=== PATIENT | male | born 1955 | race African-American/Black ===

== ENCOUNTER 2016-12-01 08:05 | Inpatient (IN) | payer MEDICARE, MEDICAID ==
[~2016-12-01] VITALS: Ht 182.9 cm; Wt 93.0 kg
[2016-12-01 08:07] VITALS: BP 121/84
[2016-12-01] MEDS ORDERED: Thiamine HCl 100 MG in D5W 55 ML IVPB ONE (08:15)
[2016-12-01] MEDS ORDERED: Thiamine HCl 100mg/ml 2 ml Inj ONE (08:17)
--- NOTE | 2016-12-01 08:24 | Emergency Room Report ---
History of Present Illness General Chief Complaint: Generalized Weakness Source: Patient Present Illness HPI 61-year-old male, history of alcohol abuse for many years, also history of hypertension, poor historian, homeless, presenting with generalized weakness, tremors, abdominal pain. Patient states he normally drinks every single day, his last drink was yesterday afternoon. Patient states that he has palpitations and tremors. Denies history of seizures. Also stating that he has abdominal pain for" a long time" pointing everywhere on abdomen, constant, associated with nausea vomiting and diarrhea for unclear amount of time. Denies any abdominal surgeries Allergies: Coded Allergies: No Known Allergies (Unverified , 12/01/16) Patient History Past Medical History: see triage record Past Surgical History: none Pertinent Family History: none Reviewed Nursing Documentation: PMH: Agreed, PSxH: Agreed Nursing Documentation-PMH Hx Cardiac Problems: No - SUBSTANCE ABUSE Hx Hypertension: Yes Review of Systems All Other Systems: negative except mentioned in HPI Physical Exam Vital Signs Date Time Temp Pulse Resp B/P (MAP) Pulse Ox O2 Delivery O2 Flow Rate FiO2 12/01/16 07:51 98.1 118 16 156/108 98 Room Air Sp02 EP Interpretation: reviewed, normal General Appearance: alert, non-toxic, other - Disheveled middle aged male, awake and alert, oriented x3, does not appear intoxicated, tremulous Head: normocephalic, atraumatic Eyes: bilateral eye normal inspection, bilateral eye PERRL, bilateral eye EOMI ENT: normal ENT inspection, normal pharynx, normal voice, moist mucus membranes Neck: normal inspection, full range of motion, supple Respiratory: normal inspection, lungs clear, normal breath sounds, no respiratory distress, no retraction, no wheezing, speaking full sentences, chest symmetrical Cardiovascular #1: normal inspection, no edema, normal capillary refill, tachycardia Cardiovascular #2: 2+ radial (R), 2+ radial (L) Gastrointestinal: soft, other - Slightly distended abdomen, and generalized tenderness, no guarding or rebound Genitourinary: no CVA tenderness Musculoskeletal: normal inspection, back normal, normal range of motion, non- tender Neurologic: normal inspection, alert, oriented x3, responsive, motor strength/ tone normal, sensory intact, normal gait, speech normal Psychiatric: normal inspection, other - Poor historian Skin: normal inspection, normal color, warm/dry, well hydrated, normal turgor, other - Chronic flaky rash on arms and legs Procedures Critical Care Time Critical Care Time 40 minutes of CC time 61YO M with alc withdrawal VS: Tachycardic Airway patent. Not hypoxic. PLAN: IV access, labs, IV fluids, CT abdomen pelvis, Valium, Librium Anticipate admissionto Tele CC time also includes review of labs, supplementation of electrolytes, control of alcohol withdrawal with benzos, d/w hospitalist CC could include dosing of pressors, additional Abx CC time does not include procedures Medical Decision Making Diagnostic Impression: Primary Impression: Hypokalemia Additional Impressions: Alcohol withdrawal Abdominal pain Colitis ER Course 61 yo M. with alcohol withdrawal, abdominal pain DDX: Alcohol Withdrawal Dehydration, electrolyte disturbance Abdominal pain rule out pancreatitis versus appendicitis versus diverticulitis versus SBO versus gastroenteritis Plan: Obtain labs, ua, EKG, CT abdomen pelvis Valium, fluids, thiamine ER course: Patient has been monitored during ED stay received valium/librium potassium supplementation CT abdo pelvis - ?colitis, 13mm pancreatic cyst Disposition: Patient is to be admitted to tele for hypokalemia/alc withdrawal D/W hospitalist Dr Jones who has accepted pt Please note that this Emergency Department Report was dictated using [employer] fishing vessel technology software, occasionally this can lead to erroneous entry secondary to interpretation by the dictation equipment. Laboratory Tests Test 12/01/16 08:10 12/01/16 08:20 12/01/16 08:45 Urine Opiates Screen Negative (NEGATIVE) Urine Barbiturates Screen Negative (NEGATIVE) Phencyclidine (PCP) Screen Negative (NEGATIVE) Urine Amphetamines Screen Negative (NEGATIVE) Urine Benzodiazepines Screen Negative (NEGATIVE) Urine Cocaine Screen Negative (NEGATIVE) Urine Marijuana (THC) Screen Negative (NEGATIVE) Urine Color Brown Urine Appearance Clear Urine pH 6.5 (4.5-8.0) Urine Specific [place] 1.015 (1.005-1.035) Urine Protein 2+ (NEGATIVE) H Urine Glucose (UA) Negative (NEGATIVE) Urine Ketones 1+ (NEGATIVE) H Urine Occult Blood 1+ (NEGATIVE) H Urine Nitrite Negative (NEGATIVE) Urine Bilirubin 2+ (NEGATIVE) H Urine Ictotest Positive Urine Urobilinogen 12 MG/DL (0.0-1.0) H Urine Leukocyte Esterase 2+ (NEGATIVE) H Urine RBC 2-4 /HPF (0 - 0) H Urine WBC 2-4 /HPF (0 - 0) Urine Squamous Epithelial Cells Occasional /LPF Urine Bacteria Few /HPF (NONE) Urine Granular Casts 2-4 /LPF (NONE) H White Blood Count 4.1 K/UL (4.8-10.8) L Red Blood Count 3.55 M/UL (4.70-6.10) L Hemoglobin 12.5 G/DL (14.2-18.0) L Hematocrit 35.6 % (42.0-52.0) L Mean Corpuscular Volume 101 FL (80-99) H Mean Corpuscular Hemoglobin 35.1 PG (27.0-31.0) H Mean Corpuscular Hemoglobin Concent 35.0 G/DL (32.0-36.0) Red Cell Distribution Width 12.8 % (11.6-14.8) Platelet Count 108 K/UL (150-450) L Mean Platelet Volume 6.6 FL (6.5-10.1) Neutrophils (%) (Auto) 64.4 % (45.0-75.0) Lymphocytes (%) (Auto) 20.2 % (20.0-45.0) Monocytes (%) (Auto) 13.4 % (1.0-10.0) H Eosinophils (%) (Auto) 0.0 % (0.0-3.0) Basophils (%) (Auto) 2.0 % (0.0-2.0) Sodium Level 131 mEQ/L (135-145) L Potassium Level 2.2 mEQ/L (3.4-4.9) *L Chloride Level 74 mEQ/L (98-107) L Carbon Dioxide Level 38 mEQ/L (20-30) H Anion Gap 19 (5-15) H Blood Urea Nitrogen 9 mg/dL (7-23) Creatinine 0.9 mg/dL (0.7-1.2) Estimate Glomerular Filtration Rate > 60 mL/min (>60) Glucose Level 128 mg/dL (74-106) H Calcium Level 8.4 mg/dL (8.6-10.2) L Total Bilirubin 4.3 mg/dL (0.0-1.2) H Direct Bilirubin 2.0 mg/dL (0.1-0.3) H Aspartate Amino Transferase (AST) 360 U/L (5-40) H Alanine Aminotransferase (ALT) 83 U/L (3-41) H Alkaline Phosphatase 169 U/L (40-129) H Total Protein 8.2 g/dL (6.6-8.7) Albumin 3.9 g/dL (3.5-5.2) Globulin 4.3 g/dL Albumin/Globulin Ratio 0.9 (1.0-2.7) L Lipase 27 U/L (< 60) Serum Alcohol < 10 mg/dL EKG Diagnostic Results Rate: tachycardiac Rhythm: NSR ST Segments: no acute changes ASA given to the pt in ED: No Rhythm Strip Diag. Results EP Interpretation: yes Rate: 120 Rhythm: NSR CT/MRI/US Diagnostic Results CT/MRI/US Diagnostic Results : Imaging Test Ordered: CT abdomen pelvis Impression Impression Mild to moderate distention of a descending and transverse colon, without evidence of obstructive lesion. Colitis is also a possibility Enlarged fatty liver consistent with cirrhosis. Evidence of portal hypertension with gastric and esophageal varices, and a small amount of ascitic fluid 13 mm cystic lesion on pancreas Electronically signed by Kostas Ramos MD Last Vital Signs Date Time Temp Pulse Resp B/P (MAP) Pulse Ox O2 Delivery O2 Flow Rate FiO2 12/01/16 07:51 98.1 118 16 156/108 98 Room Air Disposition: ADMITTED INPATIENT Condition: Serious Kostas Ramos M.D. Dec 01, 2016 08:24
[2016-12-01 08:37] LABS: APPEARANCE,URINE CLEAR; KETONES,URINE 1+ (NEGATIVE); LEUKOCYTE ESTERASE ,URINE 2+ (NEGATIVE); NITRITE,URINE NEGATIVE (NEGATIVE); PH,URINE 6.5 (4.5-8.0); PROTEIN,URINE 2+ (NEGATIVE); UROBILINOGEN,URINE 12 MG/DL (0.0-1.0)
[2016-12-01 08:44] LABS: BACTERIA,URINE FEW /HPF; ICTOTEST POSITIVE; SQUAMOUS EPITHELIAL CELL,UR OCCASIONAL /LPF (NONE/OCC)
[2016-12-01 09:01] LABS: LYMPHOCYTES % (AUTO) 20.2 % (20.0-45.0); MEAN CORPUSCULAR HEMOGLOBIN 35.1 PG (27.0-31.0); MEAN CORPUSCULAR VOLUME 101 FL (80-99); MEAN PLATELET VOLUME 6.6 FL (6.5-10.1); MONOCYTES % (AUTO) 13.4 % (1.0-10.0); NEUTROPHILS % (AUTO) 64.4 % (45.0-75.0); PLATELET COUNT 108 K/UL (150-450); RED BLOOD COUNT 3.55 M/UL (4.70-6.10); RED CELL DISTRIBUTION WIDTH 12.8 % (11.6-14.8); WHITE BLOOD COUNT 4.1 K/UL (4.8-10.8)
[2016-12-01 09:14] LABS: ALANINE AMINOTRANSFERASE 83 U/L (3-41); ALBUMIN/GLOBULIN RATIO 0.9 (1.0-2.7); ALCOHOL < 10 mg/dL; ANION GAP 19 (5-15); ASPARTATE AMINO TRANSFERASE 360 U/L (5-40); CALCIUM 8.4 mg/dL (8.6-10.2); CARBON DIOXIDE 38 mEQ/L (20-30); CHLORIDE 74 mEQ/L (98-107); CREATININE 0.9 mg/dL (0.7-1.2); GLOMERULAR FILTRATION RATE > 60 mL/min (>60); HEMOLYSIS 49; LIPASE 27 U/L (< 60); POTASSIUM 2.2 mEQ/L (3.4-4.9); SODIUM 131 mEQ/L (135-145); TOTAL PROTEIN 8.2 g/dL (6.6-8.7)
[2016-12-01] MEDS ORDERED: Potassium Phosphate 20 MM in NS 275 ML IVPB ONE (09:30)
[2016-12-01 10:05] VITALS: BP 135/74
[2016-12-01] MEDS ORDERED: chlordiazePOXIDE 25mg Cap ORAL ONE (10:15)
[2016-12-01] MEDS ORDERED: NKM (10:44)
--- NOTE | 2016-12-01 12:05 | Diagnostic Imaging Report ---
Clinical Indication: Abdominal pain, history of alcohol abuse, hypertension, generalized weakness and tremors Technique: Patient given oral contrast. IV administration nonionic contrast. Venous phase spiral acquisition obtained through the abdomen and pelvis. Multiplanar reconstructions were generated. Total dose length product 1052 mGycm. CTDIvol(s) 18 mGy. Dose reduction achieved using automated exposure control Comparison: None Findings: The ascending and transverse colon are dilated. The colon wall is not thickened, but there is some edema of the serosa and surrounding pericolonic fat. The appendix is normal. No evidence of diverticulosis or diverticulitis. No small bowel distention. There is equivocal minimal thickening of the proximal jejunum. There is a small amount of ascites fluid. No free intraperitoneal air. There is suggestion of a small sliding-type hernia. The stomach is nondistended. The duodenum is unremarkable. The liver is markedly enlarged. It is diffusely hypoattenuating. No definite focal abnormality, although attenuation and enhancement are somewhat diffusely heterogeneous. There is suggestion of some areas of surface nodularity. The portal vein and splenic vein are patent. However, there are small esophageal and gastric varices demonstrated. The gallbladder demonstrates no gallstones. The gallbladder wall is not thickened. There is some pericholecystic fluid, likely related to the ascites. No biliary ductal dilatation. A few calcifications are seen within the pancreatic head. The pancreatic tail is slightly atrophic. There is a small 13 mm cystic lesion extending cephalad off of the pancreas body tail junction. The spleen is borderline enlarged, measuring 13.4 cm long axis dimension. There is a small interpolar region left renal cyst. There is a circumaortic left renal vein. There are bilateral renal subcentimeter low-attenuation lesions which are too small to characterize, most likely benign simple cysts. The bladder demonstrates equivocal wall thickening. The prostate is enlarged, heterogeneous, contains calcifications. It measures 5.2 cm transverse by 5.1 cm AP. There are prominent but not frankly enlarged para-aortic and pericaval lymph nodes. There are borderline enlarged peripancreatic nodes, largest measuring 2.4 cm long axis dimension. The included lung bases demonstrate posterior dependent atelectatic changes. The bones demonstrate degenerative spondylosis changes. Impression: Mild to moderate distention of the ascending and transverse colon, without evidence of distal obstructive lesion. Suspect on a functional basis. Colitis is also a possibility. Enlarged fatty liver. Suggestion of areas of surface nodularity is consistent with cirrhotic change Evidence of portal hypertension, with gastric and esophageal varices and a small amount of ascites fluid, mild splenomegaly. Borderline peripancreatic and retroperitoneal lymphadenopathy. Nonspecific as regards etiology. Could be reactive, infectious or noninfectious inflammatory, or neoplastic 13 mm cystic lesion extending cephalad off pancreatic body/tail junction. Nonspecific, could represent a small pseudocyst or intraductal papillary mucinous neoplasm. Consider further evaluation with pancreas specific MRI Pancreatic head calcifications, mild pancreatic tail atrophy could indicate chronic calcified pancreatitis Left renal cysts. Subcentimeter bilateral low-attenuation renal lesions, too small to characterize, most likely benign simple cyst Equivocal bladder wall thickening, if real could indicate chronic bladder obstruction or cystitis Prostatomegaly Other findings as noted, including degenerative spondylosis, posterior pulmonary dependent atelectatic changes, small sliding-type hiatal hernia. The CT scanner at [facility] is accredited by the [employer] and the scans are performed using protocols designed to -- limit radiation exposure to as low as reasonably achievable to attain images of sufficient resolution adequate for diagnostic evaluation.
[2016-12-01 12:10] VITALS: BP 132/69
[2016-12-01] MEDS ORDERED: Morphine Sulfate 4mg/ml Inj IVP ONE (12:15)
[2016-12-01 14:00] VITALS: BP 122/81
[2016-12-01 16:43] VITALS: BP 133/78
[2016-12-01] MEDS ORDERED: Zolpidem 5mg tab ORAL PRN (17:15)
[2016-12-01] MEDS ORDERED: LORazepam Inj 2mg/ml 1ml IV PRN (17:15)
[2016-12-01 20:00] VITALS: BP 137/84
[2016-12-02] VITALS: BP 113/66
[2016-12-02 04:00] VITALS: BP 100/57
--- NOTE | 2016-12-02 06:30 | Consultation ---
DATE OF CONSULTATION: 12/01/2016 CARDIOLOGY CONSULTATION REQUESTING PHYSICIAN: Angelo Jones M.D. Reason For Consultation: Electrolyte disturbances and tachyarrhythmia. History Of Present Illness: This 61-year-old male with history of alcoholism, hypertension, and episodic homelessness, presented to the emergency room with abdominal pain, tremors, and weakness. He has not had a drink since yesterday, although he usually drinks daily. He has noted tremors and palpitations, but no seizures. He has noted abdominal pain that is chronic, but worsened today. He has had diarrhea, but no melena or bright red blood per rectum. He denies chest pain, but has had palpitations as noted. Past Medical History: History of substance abuse, alcoholism, and hypertension. MEDICATIONS: Prior to admission, none. ALLERGIES: None. SOCIAL HISTORY: As above. FAMILY HISTORY: Noncontributory. Review Of Systems: A 10-point review of systems performed, pertinent data outlined above. All systems are otherwise negative. PHYSICAL EXAMINATION: Vital Signs: Blood pressure 156/108, pulse 118, respiratory rate 16, and afebrile. NECK: Supple. Jugular venous pressure normal. Oropharynx clear. LUNGS: Clear. CARDIAC: Regular rhythm. Rapid rate. Normal S1 and S2. Abdomen: Soft, mildly distended, and diffusely tender. No guarding or rebound. EXTREMITIES: No edema. NEUROLOGIC: Nonfocal. There is some tremor. Laboratory And Diagnostic Data: White count 4.1 and hemoglobin 12.5. Sodium 131, potassium 2.2, bicarbonate 38, BUN 9, and creatinine 0.9. Albumin 3.9. EKG, sinus tachycardia with nonspecific ST change and occasional PAC. IMPRESSION: 1. Alcoholism. 2. Alcohol withdrawal. 3. Severe hypokalemia. 4. Severe hypochloremia. 5. Hyponatremia. 6. Contraction alkalosis. 7. Sinus tachycardia. 8. Atrial ectopy. 9. History of hypertension. 10. Abdominal pain, likely due to chronic alcohol intake and gastritis. 11. Accelerated hypertension, likely due to withdrawal from alcohol. PLAN: 1. Hydration. 2. Withdrawal precautions. 3. Potassium replacement. 4. Check magnesium. 5. Titrate antihypertensives. 6. Empiric H2 marc. Karlo Falcon M.D. DR: SHIRA JOB#: [id number] CC:
[2016-12-02 07:13] LABS: MEAN CORPUSCULAR HEMOGLOBIN 34.8 PG (27.0-31.0); MEAN CORPUSCULAR HGB CONC 34.3 G/DL (32.0-36.0); MEAN CORPUSCULAR VOLUME 101 FL (80-99); MEAN PLATELET VOLUME 7.2 FL (6.5-10.1); PLATELET COUNT 82 K/UL (150-450); RED BLOOD COUNT 3.13 M/UL (4.70-6.10); RED CELL DISTRIBUTION WIDTH 12.9 % (11.6-14.8); WHITE BLOOD COUNT 3.9 K/UL (4.8-10.8)
[2016-12-02 07:27] LABS: ALANINE AMINOTRANSFERASE 55 U/L (3-41); ALBUMIN/GLOBULIN RATIO 0.8 (1.0-2.7); ASPARTATE AMINO TRANSFERASE 223 U/L (5-40); CALCIUM 7.3 mg/dL (8.6-10.2); CARBON DIOXIDE 37 mEQ/L (20-30); CHLORIDE 85 mEQ/L (98-107); CREATININE 0.8 mg/dL (0.7-1.2); GLOMERULAR FILTRATION RATE > 60 mL/min (>60); HEMOLYSIS 13; SODIUM 137 mEQ/L (135-145); TOTAL PROTEIN 6.3 g/dL (6.6-8.7)
[2016-12-02 07:33] LABS: ANION GAP 15 (5-15)
[2016-12-02 07:36] LABS: POTASSIUM 1.8 mEQ/L (3.4-4.9)
[2016-12-02 07:57] LABS: BILIRUBIN,DIRECT 1.4 mg/dL (0.1-0.3)
[2016-12-02 08:18] VITALS: BP 107/73
[2016-12-02] MEDS ORDERED: KCl 10% 40mEq/30ml liquid NG ONE ×4 (09:00→18:00)
[2016-12-02 09:49] LABS: BAND NEUTROPHILS % (MANUAL) 0 % (0-8); BASOPHILS % (MANUAL) 1 % (0-2); EOSINOPHILS % (MANUAL) 1 % (0-3); LYMPHOCYTES % (MANUAL) 33 % (20-45); MACROCYTES 1+; NEUTROPHILS % (MANUAL) 53 % (45-75); PLATELET ESTIMATE DECREASED; PLATELET MORPHOLOGY NORMAL; STOMATOCYTES 1+; TARGET CELLS 1+; TOTAL CELLS COUNTED 100
[2016-12-02] MEDS: Norco 5mg/325mg tab ORAL PRN ×3 (10:35→22:20)
--- NOTE | 2016-12-02 11:34 | History & Physical ---
History and Physical History & Physicial History Of Present Illness: This 61-year-old male with history of alcoholism, hypertension, and presently homelessness, presented to the emergency room with abdominal pain, tremors, and weakness and alcohol withdrawl. He has not had a drink since the day before admission, but has been drinking excessively. He has noted tremors and palpitations, but no seizures. He has noted abdominal pain that is chronic, but worsened today. He has had diarrhea, but no melena or bright red blood per rectum. He did undergo a CT abdomen with significant abnormalities. Care noted and reviewed with ER physician. Past Medical History: History of substance abuse, alcoholism, and hypertension. MEDICATIONS: reviewed and reconciled ALLERGIES: noted SOCIAL HISTORY: homeless, heavy alcohol abuse FAMILY HISTORY: Noncontributory. Review Of Systems: A 10-point review of systems performed, pertinent data outlined above. All systems are otherwise negative but patient is a fair historian PHYSICAL EXAMINATION: Vital Signs: Blood pressure 107/73, pulse 117, respiratory rate 16, and 98.4 HEENT: overall negative; EOMI, poor oral care NECK: Supple. Jugular venous pressure normal. no nodes LUNGS: Clear. without rhonchi or wheeze CARDIAC: Regular rhythm. Rapid rate. Normal S1 and S2. without MRG Abdomen: Soft, mildly distended, and diffusely tender. No guarding or rebound. nodular liver edge EXTREMITIES: No edema. no CC NEUROLOGIC: Nonfocal. There is some tremor. skin with significant excoriations Labs Test 12/01/16 08:10 12/01/16 08:20 12/01/16 08:45 12/02/16 06:05 Urine Opiates Screen Negative (NEGATIVE) Urine Barbiturates Screen Negative (NEGATIVE) Phencyclidine (PCP) Screen Negative (NEGATIVE) Urine Amphetamines Screen Negative (NEGATIVE) Urine Benzodiazepines Screen Negative (NEGATIVE) Urine Cocaine Screen Negative (NEGATIVE) Urine Marijuana (THC) Screen Negative (NEGATIVE) Urine Color Brown Urine Appearance Clear Urine pH 6.5 (4.5-8.0) Urine Specific [place] 1.015 (1.005-1.035) Urine Protein 2+ (NEGATIVE) Urine Glucose (UA) Negative (NEGATIVE) Urine Ketones 1+ (NEGATIVE) Urine Occult Blood 1+ (NEGATIVE) Urine Nitrite Negative (NEGATIVE) Urine Bilirubin 2+ (NEGATIVE) Urine Ictotest Positive Urine Urobilinogen 12 MG/DL (0.0-1.0) Urine Leukocyte Esterase 2+ (NEGATIVE) Urine RBC 2-4 /HPF (0 - 0) Urine WBC 2-4 /HPF (0 - 0) Urine Squamous Epithelial Cells Occasional /LPF Urine Bacteria Few /HPF (NONE) Urine Granular Casts 2-4 /LPF (NONE) White Blood Count 4.1 K/UL (4.8-10.8) 3.9 K/UL (4.8-10.8) Red Blood Count 3.55 M/UL (4.70-6.10) 3.13 M/UL (4.70-6.10) Hemoglobin 12.5 G/DL (14.2-18.0) 10.9 G/DL (14.2-18.0) Hematocrit 35.6 % (42.0-52.0) 31.7 % (42.0-52.0) Mean Corpuscular Volume 101 FL (80-99) 101 FL (80-99) Mean Corpuscular Hemoglobin 35.1 PG (27.0-31.0) 34.8 PG (27.0-31.0) Mean Corpuscular Hemoglobin Concent 35.0 G/DL (32.0-36.0) 34.3 G/DL (32.0-36.0) Red Cell Distribution Width 12.8 % (11.6-14.8) 12.9 % (11.6-14.8) Platelet Count 108 K/UL (150-450) 82 K/UL (150-450) Mean Platelet Volume 6.6 FL (6.5-10.1) 7.2 FL (6.5-10.1) Neutrophils (%) (Auto) 64.4 % (45.0-75.0) % (45.0-75.0) Lymphocytes (%) (Auto) 20.2 % (20.0-45.0) % (20.0-45.0) Monocytes (%) (Auto) 13.4 % (1.0-10.0) % (1.0-10.0) Eosinophils (%) (Auto) 0.0 % (0.0-3.0) % (0.0-3.0) Basophils (%) (Auto) 2.0 % (0.0-2.0) % (0.0-2.0) Sodium Level 131 mEQ/L (135-145) 137 mEQ/L (135-145) Potassium Level 2.2 mEQ/L (3.4-4.9) 1.8 mEQ/L (3.4-4.9) Chloride Level 74 mEQ/L (98-107) 85 mEQ/L (98-107) Carbon Dioxide Level 38 mEQ/L (20-30) 37 mEQ/L (20-30) Anion Gap 19 (5-15) 15 (5-15) Blood Urea Nitrogen 9 mg/dL (7-23) 12 mg/dL (7-23) Creatinine 0.9 mg/dL (0.7-1.2) 0.8 mg/dL (0.7-1.2) Estimat Glomerular Filtration Rate > 60 mL/min (>60) > 60 mL/min (>60) Glucose Level 128 mg/dL (74-106) 106 mg/dL (74-106) Calcium Level 8.4 mg/dL (8.6-10.2) 7.3 mg/dL (8.6-10.2) Total Bilirubin 4.3 mg/dL (0.0-1.2) 2.4 mg/dL (0.0-1.2) Direct Bilirubin 2.0 mg/dL (0.1-0.3) 1.4 mg/dL (0.1-0.3) Aspartate Amino Transf (AST/SGOT) 360 U/L (5-40) 223 U/L (5-40) Alanine Aminotransferase (ALT/SGPT) 83 U/L (3-41) 55 U/L (3-41) Alkaline Phosphatase 169 U/L (40-129) 127 U/L (40-129) Total Protein 8.2 g/dL (6.6-8.7) 6.3 g/dL (6.6-8.7) Albumin 3.9 g/dL (3.5-5.2) 2.8 g/dL (3.5-5.2) Globulin 4.3 g/dL 3.5 g/dL Albumin/Globulin Ratio 0.9 (1.0-2.7) 0.8 (1.0-2.7) Lipase 27 U/L (< 60) Serum Alcohol < 10 mg/dL Differential Total Cells Counted 100 Neutrophils % (Manual) 53 % (45-75) Lymphocytes % (Manual) 33 % (20-45) Monocytes % (Manual) 12 % (1-10) Eosinophils % (Manual) 1 % (0-3) Basophils % (Manual) 1 % (0-2) Band Neutrophils 0 % (0-8) Platelet Estimate Decreased Platelet Morphology Normal Macrocytosis 1+ Target Cells 1+ Stomatocytes 1+ Magnesium Level 1.2 mg/dL (1.7-2.5) IMPRESSION: 1. Alcoholism. 2. Cirrhosis 3. Severe hypokalemia. 4. Severe hypochloremia. 5. Hyponatremia. 6. Contraction alkalosis. 7. Sinus tachycardia. 8. possible pancreatic lesion 9. History of hypertension. 10. Abdominal pain, likely due to chronic alcohol intake ?pancreatitis PLAN: 1. Hydration. 2. Withdrawal precautions. 3. Potassium replacement. IV and PO 4. GI and cards evaluation 5. Titrate antihypertensives. 6. Empiric H2 marc. 7. monitor for seizures 8. consider placement impression, plan, and exam edited and reviewed in detail care discussed with IKER FAN Dec 02, 2016 11:34
[2016-12-02 12:29] VITALS: BP 110/71
[2016-12-02 16:00] VITALS: BP 110/77
[2016-12-02 17:07] LABS: CALCIUM 7.4 mg/dL (8.6-10.2); CARBON DIOXIDE 37 mEQ/L (20-30); CHLORIDE 86 mEQ/L (98-107); CREATININE 0.7 mg/dL (0.7-1.2); GLOMERULAR FILTRATION RATE > 60 mL/min (>60); HEMOLYSIS 0; SODIUM 133 mEQ/L (135-145)
[2016-12-02 17:12] LABS: ANION GAP 10 (5-15)
[2016-12-02 17:16] LABS: POTASSIUM 2.4 mEQ/L (3.4-4.9)
[2016-12-02 19:57] VITALS: BP 117/82
[2016-12-03] VITALS (7 sets, daily range): BP systolic 95–139; BP diastolic 57–97
[2016-12-03] MEDS: NS w/KCl 40mEq 1,000 ML IV SCH ×3 (03:33→22:00)
--- NOTE | 2016-12-03 06:02 | Progress Note ---
DATE: 12/02/2016 Subjective: The patient is confused, still with abdominal pain, not eating. OBJECTIVE: Vital Signs: Blood pressure 107/73, pulse 110, respirations 16, afebrile. Mild tremor. NECK: Supple. LUNGS: Clear. HEENT: No scleral icterus. ABDOMEN: Soft, no ascites, no edema. Laboratory Data: Potassium is 1.8. Magnesium is 1.2. Total bilirubin is 2.4. Albumin 2.8. IMPRESSION: 1. Alcoholism. 2. Cardiac arrhythmias. 3. Severe hypokalemia. 4. Severe hypomagnesemia. 5. Moderate protein-calorie malnutrition. PLAN: 1. Intravenous magnesium. 2. Intravenous and oral potassium replacement. 3. Encourage nutrition and protein supplement. 4. Check abdominal ultrasound. 5. Withdrawal precautions. Karlo Falcon M.D. DR: AIXA JOB#: [id number] CC:
[2016-12-03 07:13] LABS: CALCIUM 7.3 mg/dL (8.6-10.2); CARBON DIOXIDE 38 mEQ/L (20-30); CHLORIDE 89 mEQ/L (98-107); CREATININE 0.7 mg/dL (0.7-1.2); GLOMERULAR FILTRATION RATE > 60 mL/min (>60); HEMOLYSIS 0; SODIUM 136 mEQ/L (135-145)
[2016-12-03 07:18] LABS: ANION GAP 9 (5-15)
[2016-12-03 07:22] LABS: POTASSIUM 2.2 mEQ/L (3.4-4.9)
[2016-12-03] MEDS: Norco 5mg/325mg tab ORAL PRN ×2 (08:19→21:39)
--- NOTE | 2016-12-03 08:30 | General Progress Note ---
Assessment/Plan Assessment/Plan Assessment - EtOH cirrhosis - EtOH hepatitis - C Diff negative colitis - suspected chronic pancreatitis - Diarrhea Recommendations - MRCP - check hepatitis serologies - Trental - cipro/flagyl - check stool cult and O&P - check coags - check CA 19-9 - EGD with banding next week - check AFP - PPI - d/c EtOH - poor prognosis Subjective Allergies: Coded Allergies: No Known Allergies (Unverified , 12/01/16) Objective Last 24 Hour Vital Signs Date Time Temp Pulse Resp B/P (MAP) Pulse Ox O2 Delivery O2 Flow Rate FiO2 12/03/16 07:46 98.1 107 20 118/77 95 Nasal Cannula 2.0 12/03/16 04:00 108 12/03/16 03:57 97.7 103 22 139/97 92 Room Air 12/03/16 00:05 97.8 101 20 135/75 94 Room Air 12/03/16 00:00 98 12/02/16 20:00 105 12/02/16 19:57 97.9 105 16 117/82 94 Room Air 12/02/16 16:00 107 12/02/16 16:00 100.5 112 20 110/77 97 Room Air 12/02/16 12:29 99.0 96 18 110/71 96 Room Air 12/02/16 12:00 113 Laboratory Tests 12/02/16 16:30: Sodium Level 133L, Potassium Level 2.4*L, Chloride Level 86L, Carbon Dioxide Level 37H, Anion Gap 10, Blood Urea Nitrogen 10, Creatinine 0.7, Estimat Glomerular Filtration Rate > 60, Glucose Level 112H, Calcium Level 7.4L 12/03/16 05:35: Sodium Level 136, Potassium Level 2.2*L, Chloride Level 89L, Carbon Dioxide Level 38H, Anion Gap 9, Blood Urea Nitrogen 7, Creatinine 0.7, Estimat Glomerular Filtration Rate > 60, Glucose Level 120H, Calcium Level 7.3L, Magnesium Level 1.9 Height (Feet): 6 Height (Inches): 0.00 Weight (Pounds): 180 SAMANTHADOROTHY CRUZ Dec 03, 2016 08:30
[2016-12-03] MEDS ORDERED: KCl 10% 40mEq/30ml liquid NG ONE ×3 (09:00→17:00)
[2016-12-03] MEDS: metroNIDAZOLE 250mg tab ORAL SCH ×3 (11:27→17:17)
[2016-12-03] MEDS: Thiamine 100mg tab ORAL SCH (11:27)
--- NOTE | 2016-12-03 14:41 | General Progress Note ---
Assessment/Plan Assessment/Plan IMPRESSION: 1. Alcoholism. 2. Cirrhosis 3. Severe hypokalemia. 4. Severe hypochloremia. 5. Hyponatremia. 6. Contraction alkalosis. 7. Sinus tachycardia. 8. possible pancreatic lesion 9. History of hypertension. 10. Abdominal pain, likely due to chronic alcohol intake ?pancreatitis PLAN: 1. Hydration. 2. Withdrawal precautions. 3. Potassium replacement. IV and PO still needed 4. GI and cards evaluation- noted; work up reviewed 5. Titrate antihypertensives. 6. Empiric H2 marc. 7. monitor for seizures 8. consider placement- will discuss; hope to dc in am if stable impression, plan, and exam edited and reviewed in detail care discussed with RN Subjective Allergies: Coded Allergies: No Known Allergies (Unverified , 12/01/16) Subjective improved LOC better less agitated all appreciated Objective Last 24 Hour Vital Signs Date Time Temp Pulse Resp B/P (MAP) Pulse Ox O2 Delivery O2 Flow Rate FiO2 12/03/16 11:52 99.1 105 20 115/71 98 Nasal Cannula 2.0 12/03/16 11:27 118/77 12/03/16 08:00 103 12/03/16 07:46 98.1 107 20 118/77 95 Nasal Cannula 2.0 12/03/16 04:00 108 12/03/16 03:57 97.7 103 22 139/97 92 Room Air 12/03/16 00:05 97.8 101 20 135/75 94 Room Air 12/03/16 00:00 98 12/02/16 20:00 105 12/02/16 19:57 97.9 105 16 117/82 94 Room Air 12/02/16 16:00 107 12/02/16 16:00 100.5 112 20 110/77 97 Room Air Intake and Output 12/03/16 12/04/16 19:00 07:00 Intake Total 240 ml Balance 240 ml Intake Oral 240 ml # Bowel Movements 1 Laboratory Tests 12/02/16 16:30: Sodium Level 133L, Potassium Level 2.4*L, Chloride Level 86L, Carbon Dioxide Level 37H, Anion Gap 10, Blood Urea Nitrogen 10, Creatinine 0.7, Estimat Glomerular Filtration Rate > 60, Glucose Level 112H, Calcium Level 7.4L 12/03/16 05:35: Sodium Level 136, Potassium Level 2.2*L, Chloride Level 89L, Carbon Dioxide Level 38H, Anion Gap 9, Blood Urea Nitrogen 7, Creatinine 0.7, Estimat Glomerular Filtration Rate > 60, Glucose Level 120H, Calcium Level 7.3L, Magnesium Level 1.9 Height (Feet): 6 Height (Inches): 0.00 Weight (Pounds): 180 Objective WDWN NAD clear breath sounds bilaterally without rhonchi or wheeze [id number] without MRG NABS nontender no HSM no CCE nonfocal slightly agitated IKER QUEEN Dec 03, 2016 14:40
--- NOTE | 2016-12-03 15:21 | Diagnostic Imaging Report ---
Indication: Abdominal pain. Pancreatic cyst on prior CT scan Technique: Axial single shot fast spin echo breath hold, coronal single shot fast spin-echo breath hold, axial T2 FRFSE fat-saturated, 2-D thick slab MRCP, axial 2-D FIESTA fat-saturated, axial 3-D dual echo breath-hold, precontrast axial and postcontrast axial and coronal water weighted axial LAVA FLEX images of the abdomen Comparison: Reference made to CT scan dated 2069 Findings: There is some image degradation due to respiratory motion artifact At the superior aspect of the pancreatic tail, there is a unilocular cyst which measures 14 x 10 mm. There is questionably but not definitely a small ductal structure connecting to the main pancreatic duct. The pancreatic duct is normal in caliber. No other focal pancreatic abnormality is demonstrated. No unusual pancreatic contrast enhancement is evident. Unremarkable gallbladder. No evidence of filling defects to suggest calculi. Normal caliber bile ducts. As demonstrated on prior CT scan, the liver is heterogeneously enhancing, but no focal discrete lesions are demonstrated. The surface nodularity described on recent CT scan is less evident on MRI. Hepatic low signal on the out of phase as well as the fat suppressed images suggest fatty infiltration. Borderline enlarged spleen. Multiple small left renal cysts are demonstrated. A small cyst is seen in the lower pole of the right kidney as well. The adrenals are unremarkable. Ascites fluid appears slightly more abundant on prior CT scan. Varices described on recent CT scan are less well-demonstrated on MRI. The colon is gas-filled, upper limits of normal in caliber. The bladder is unremarkable. Impression: Small cystic lesion of the superior aspect of the pancreatic tail, also previously reported on recent CT. No evidence of associated solid or enhancing component. Likely but not definitively a small branch duct intraductal papillary mucinous neoplasm. Another possibility is that this represents a small pseudocyst. Per the Lewis criteria, recommend followup CT or MRI/MRCP yearly for 2 years; followup interval after that to be determined based upon findings of the two-year followup Heterogeneously enhancing borderline enlarged and fatty liver consistent with hepatic infiltration plus/minus early cirrhotic change Trace ascites, increased from prior CT scan Borderline splenomegaly, also previously described Multiple renal cysts
[2016-12-03 16:23] LABS: BASOPHILS % (AUTO) 0.7 % (0.0-2.0); EOSINOPHILS % (AUTO) 0.4 % (0.0-3.0); LYMPHOCYTES % (AUTO) 29.1 % (20.0-45.0); MEAN CORPUSCULAR HEMOGLOBIN 35.5 PG (27.0-31.0); MEAN CORPUSCULAR HGB CONC 35.5 G/DL (32.0-36.0); MEAN CORPUSCULAR VOLUME 100 FL (80-99); MEAN PLATELET VOLUME 7.6 FL (6.5-10.1); MONOCYTES % (AUTO) 6.3 % (1.0-10.0); NEUTROPHILS % (AUTO) 63.5 % (45.0-75.0); PLATELET COUNT 69 K/UL (150-450); RED BLOOD COUNT 2.89 M/UL (4.70-6.10); RED CELL DISTRIBUTION WIDTH 13.5 % (11.6-14.8)
[2016-12-03 16:31] LABS: INR 1.5 (0.9-1.1); PROTHROMBIN TIME 15.6 SEC (9.30-11.50)
[2016-12-03 16:37] LABS: AMMONIA 54 umol/L (16-60)
[2016-12-03 16:40] LABS: ALANINE AMINOTRANSFERASE 49 U/L (3-41); ALBUMIN/GLOBULIN RATIO 0.8 (1.0-2.7); ASPARTATE AMINO TRANSFERASE 197 U/L (5-40); CALCIUM 7.3 mg/dL (8.6-10.2); CARBON DIOXIDE 34 mEQ/L (20-30); CHLORIDE 92 mEQ/L (98-107); CREATININE 0.7 mg/dL (0.7-1.2); GLOMERULAR FILTRATION RATE > 60 mL/min (>60); HEMOLYSIS 3; SODIUM 136 mEQ/L (135-145); TOTAL PROTEIN 6.1 g/dL (6.6-8.7)
[2016-12-03 16:52] LABS: ANION GAP 10 (5-15)
[2016-12-03 16:57] LABS: POTASSIUM 2.4 mEQ/L (3.4-4.9)
[2016-12-03 17:18] LABS: BILIRUBIN,DIRECT 1.3 mg/dL (0.1-0.3)
[2016-12-03] MEDS: Loperamide 2mg cap ORAL PRN (17:53)
--- NOTE | 2016-12-03 23:15 | Consultation ---
DATE OF CONSULTATION: 12/03/2016 GASTROENTEROLOGY CONSULTATION CONSULTING PHYSICIAN: Frances Arteaga M.D. REFERRING PHYSICIAN: Angelo Jones M.D. Chief Complaint: I was asked to see this patient by Dr. Angelo Jones for evaluation of abdominal issues and alcoholic hepatitis. History Of Present Illness: The patient is a 61-year-old man, who is presently homeless, who comes in with multiple GI issues. The patient drinks heavily. He states he drinks a bottle of vodka daily and was tremulous and he came to the emergency room consistent with alcohol withdrawal. He also complains of weakness and fatigue. He is not a very good historian, but he does note that he has cirrhosis. He has no hematemesis, melena, or hematochezia. CT scan of the abdomen and pelvis showed significant abnormalities in the pancreas and also he is jaundiced. Past Medical History: History of substance use including alcohol abuse, hypertension, and cirrhosis. ALLERGIES: None. FAMILY HISTORY: Noncontributory. Social History: The patient is homeless and he drinks fairly heavily as noted above. Review Of Systems: The patient is having diarrhea. Otherwise negative. PHYSICAL EXAMINATION: General: Debilitated man with a distended abdomen, seen in the room. HEENT: Normocephalic and atraumatic. Oropharynx clear. NECK: Supple. CHEST: Clear to auscultation. CARDIOVASCULAR: Regular rate. Abdomen: Distended and tympanitic with some mild epigastric abdominal tenderness. EXTREMITIES: No edema. LABORATORY DATA: Noted. The CT scan was noted. Assessment: This patient presents with multiple gastrointestinal issues. First, he does have diarrhea with a dilated colon with some pericolonic inflammation consistent with colitis. His initial Clostridium difficile assay is negative, but he needs to have other infectious pathologies, especially since he is homeless. I will place him on Cipro and Flagyl until further cultures are obtained, and I would send his stool for culture and ova and parasite. The antibiotics will also protect him against any issues with translocation of bacteria until he is better improved. He also has multiple pancreatic abnormalities, which are consistent with chronic alcoholic pancreatitis. However, the MRCP can be done to rule out pancreatic cancer and also CA 19-9 can be done for the same reason. The third thing is that he has jaundice and transaminases with a pattern, which is consistent with alcoholic hepatitis. I will place him on Trental per protocol. I would hold off on steroids for now since there is a possible infectious colitis that needs further evaluation, which would make use of steroids somewhat at higher risk. The patient should be given thiamine to protect against Wernicke's encephalopathy. Withdrawal symptoms will be watched closely. His overall prognosis, however, is poor given his significant substance abuse with subsequent cirrhotic damage. I would also check his alpha-fetoprotein and ammonia levels to check his liver disease and other consequences. Recommendations: Per above discussion and extensive orders written in the chart. Thank you for asking me to participate in the care of this patient. Frances Arteaga M.D. DR: JACK JOB#: [id number] CC:
[2016-12-03] MEDS ORDERED: KCl 10% 20 mEq/15ml liquid ORAL ONE (23:45)
[2016-12-04] VITALS: BP 94/57
[2016-12-04] MEDS: metroNIDAZOLE 250mg tab ORAL SCH ×4 (00:29→17:50)
[2016-12-04] MEDS: Loperamide 2mg cap ORAL PRN ×2 (01:53→20:56)
[2016-12-04] MEDS: Norco 5mg/325mg tab ORAL PRN ×2 (03:12→20:55)
[2016-12-04 04:00] VITALS: BP 118/57
--- NOTE | 2016-12-04 06:45 | Progress Note ---
DATE: 12/03/2016 CARDIOLOGY PROGRESS NOTE Subjective: The patient has not had any seizures. He is more alert and less agitated. He is tolerating oral intake. He remains on IV fluids with electrolyte replacement. OBJECTIVE: Vital Signs: Blood pressure 115/91, pulse 105, respirations 20, temperature 99.1, monitored sinus tachycardia. LUNGS: Bilateral breath sounds. No wheezing or rales. HEART: Regular rhythm. Rapid rate. Normal S1, S2. ABDOMEN: Soft. No ascites. EXTREMITIES: Without edema. NEUROLOGIC: There is slight resting tremor. No asterixis. Laboratory Data: White count 5, hemoglobin 10.3. Sodium 136, potassium 2.4, bicarb 34. Albumin 2.8. BUN 5, creatinine 0.7. CA 19-9 is 219. IMPRESSION: 1. Severe hypokalemia. 2. Hypomagnesemia, improved. 3. Colitis. 4. Alcoholic liver disease. 5. Elevated CA 19-9. 6. Secondary sinus tachycardia. 7. Wernicke/alcoholic encephalopathy. PLAN: 1. Agree with ERCP in view of risk of pancreatic cancer. 2. Continue IV fluid hydration. 3. Withdrawal precautions. 4. Vitamin supplementation. 5. Replace potassium. 6. Recheck magnesium. 7. Not stable for discharge. 8. Continue cardiac monitoring. Karlo Falcon M.D. DR: AIXA JOB#: [id number] CC:
[2016-12-04 08:12] LABS: MEAN CORPUSCULAR HEMOGLOBIN 34.1 PG (27.0-31.0); MEAN CORPUSCULAR HGB CONC 32.8 G/DL (32.0-36.0); MEAN CORPUSCULAR VOLUME 104 FL (80-99); MEAN PLATELET VOLUME 7.9 FL (6.5-10.1); PLATELET COUNT 77 K/UL (150-450); RED BLOOD COUNT 2.84 M/UL (4.70-6.10); RED CELL DISTRIBUTION WIDTH 13.8 % (11.6-14.8); WHITE BLOOD COUNT 4.1 K/UL (4.8-10.8)
[2016-12-04 08:26] VITALS: BP 124/80
[2016-12-04 08:27] LABS: ALANINE AMINOTRANSFERASE 44 U/L (3-41); ALBUMIN/GLOBULIN RATIO 0.7 (1.0-2.7); ASPARTATE AMINO TRANSFERASE 171 U/L (5-40); CALCIUM 7.4 mg/dL (8.6-10.2); CARBON DIOXIDE 34 mEQ/L (20-30); CHLORIDE 98 mEQ/L (98-107); CREATININE 0.7 mg/dL (0.7-1.2); GLOMERULAR FILTRATION RATE > 60 mL/min (>60); HEMOLYSIS 2; SODIUM 139 mEQ/L (135-145); TOTAL PROTEIN 6.1 g/dL (6.6-8.7)
[2016-12-04 08:39] LABS: ANION GAP 7 (5-15)
[2016-12-04 08:55] LABS: POTASSIUM 2.5 mEQ/L (3.4-4.9)
[2016-12-04] MEDS: Thiamine 100mg tab ORAL SCH (09:04)
[2016-12-04] MEDS: NS w/KCl 40mEq 1,000 ML IV SCH ×2 (09:05→17:51)
[2016-12-04 09:12] LABS: BILIRUBIN,DIRECT 1.3 mg/dL (0.1-0.3)
--- NOTE | 2016-12-04 09:24 | General Progress Note ---
Assessment/Plan Assessment/Plan IMPRESSION: 1. Alcoholism. 2. Cirrhosis 3. Severe hypokalemia. 4. Severe hypochloremia. 5. Hyponatremia. 6. Contraction alkalosis. 7. Sinus tachycardia. 8. possible pancreatic lesion 9. History of hypertension. 10. Abdominal pain, likely due to chronic alcohol intake ?pancreatitis PLAN: 1. Hydration. as is 2. Withdrawal precautions. 3. Potassium replacement. IV and PO still needed- will continue to replace 4. GI and cards evaluation- noted; work up reviewed 5. Titrate antihypertensives. 6. Empiric H2 marc. 7. monitor for seizures 8. consider placement- likely will need placement impression, plan, and exam edited and reviewed in detail care discussed with RN Subjective Allergies: Coded Allergies: No Known Allergies (Unverified , 12/01/16) Subjective improved LOC better less agitated all appreciated Objective Last 24 Hour Vital Signs Date Time Temp Pulse Resp B/P (MAP) Pulse Ox O2 Delivery O2 Flow Rate FiO2 12/04/16 09:04 124/80 12/04/16 08:26 98.2 101 20 124/80 94 Nasal Cannula 2.0 12/04/16 04:11 98.9 12/04/16 04:00 98.1 102 20 118/57 95 Nasal Cannula 2.0 12/04/16 04:00 101 12/04/16 00:30 98.9 12/04/16 00:00 99.7 106 20 94/57 95 Nasal Cannula 2.0 12/03/16 23:27 108 12/03/16 20:05 109 12/03/16 20:00 98.3 110 20 102/73 95 Nasal Cannula 2.0 12/03/16 17:17 114/73 12/03/16 16:00 101 12/03/16 15:57 98.3 105 20 108/69 95 Nasal Cannula 2.0 12/03/16 12:00 108 12/03/16 11:52 99.1 105 20 115/71 98 Nasal Cannula 2.0 12/03/16 11:27 118/77 Intake and Output 12/04/16 12/05/16 19:00 07:00 Intake Total 460 ml Balance 460 ml Intake Oral 460 ml Laboratory Tests 12/03/16 16:00: White Blood Count 5.0, Red Blood Count 2.89L, Hemoglobin 10.3L, Hematocrit 28.9L , Mean Corpuscular Volume 100H, Mean Corpuscular Hemoglobin 35.5H, Mean Corpuscular Hemoglobin Concent 35.5, Red Cell Distribution Width 13.5, Platelet Count 69L, Mean Platelet Volume 7.6, Neutrophils (%) (Auto) 63.5, Lymphocytes (% ) (Auto) 29.1, Monocytes (%) (Auto) 6.3, Eosinophils (%) (Auto) 0.4, Basophils ( %) (Auto) 0.7, Prothrombin Time 15.6H, Prothromb Time International Ratio 1.5H, Sodium Level 136, Potassium Level 2.4*L, Chloride Level 92L, Carbon Dioxide Level 34H, Anion Gap 10, Blood Urea Nitrogen 5L, Creatinine 0.7, Estimat Glomerular Filtration Rate > 60, Glucose Level 116H, Calcium Level 7.3L, Total Bilirubin 2.2H, Direct Bilirubin 1.3H, Aspartate Amino Transf (AST/SGOT) 197H, Alanine Aminotransferase (ALT/SGPT) 49H, Alkaline Phosphatase 129, Ammonia 54, Total Protein 6.1L, Albumin 2.8L, Globulin 3.3, Albumin/Globulin Ratio 0.8L, Alpha Fetoprotein [Pending], CA 19-9 Antigen 219.2H, Hepatitis A IgM Antibody [ Pending], Hepatitis B Surface Antigen [Pending], Hepatitis B Core IgM Antibody [ Pending], Hepatitis C Antibody [Pending] 12/04/16 07:40: White Blood Count 4.1L, Red Blood Count 2.84L, Hemoglobin 9.7L, Hematocrit 29.5L , Mean Corpuscular Volume 104H, Mean Corpuscular Hemoglobin 34.1H, Mean Corpuscular Hemoglobin Concent 32.8, Red Cell Distribution Width 13.8, Platelet Count 77L, Mean Platelet Volume 7.9, Neutrophils (%) (Auto) , Lymphocytes (%) ( Auto) , Monocytes (%) (Auto) , Eosinophils (%) (Auto) , Basophils (%) (Auto) , Sodium Level 139, Potassium Level 2.5*L, Chloride Level 98, Carbon Dioxide Level 34H, Anion Gap 7, Blood Urea Nitrogen 4L, Creatinine 0.7, Estimat Glomerular Filtration Rate > 60, Glucose Level 107H, Calcium Level 7.4L, Total Bilirubin 2.2H, Direct Bilirubin 1.3H, Aspartate Amino Transf (AST/SGOT) 171H, Alanine Aminotransferase (ALT/SGPT) 44H, Alkaline Phosphatase 127, Total Protein 6.1L, Albumin 2.6L, Globulin 3.5, Albumin/Globulin Ratio 0.7L, Neutrophils % (Manual) [Pending], Lymphocytes % (Manual) [Pending], Platelet Estimate [Pending], Platelet Morphology [Pending], Magnesium Level 1.7 Height (Feet): 6 Height (Inches): 0.00 Weight (Pounds): 180 Objective WDWN NAD clear breath sounds bilaterally without rhonchi or wheeze [id number] without MRG NABS nontender no HSM no CCE nonfocal slightly agitated IKER QUEEN Dec 04, 2016 09:24
[2016-12-04 09:43] LABS: ANISOCYTOSIS 1+; BAND NEUTROPHILS % (MANUAL) 0 % (0-8); BASOPHILS % (MANUAL) 0 % (0-2); EOSINOPHILS % (MANUAL) 0 % (0-3); LYMPHOCYTES % (MANUAL) 28 % (20-45); NEUTROPHILS % (MANUAL) 62 % (45-75); PLATELET ESTIMATE DECREASED; PLATELET MORPHOLOGY NORMAL; TOTAL CELLS COUNTED 100
[2016-12-04 09:44] LABS: MACROCYTES 1+; STOMATOCYTES 1+; TARGET CELLS 1+
--- NOTE | 2016-12-04 09:58 | General Progress Note ---
Assessment/Plan Problem List: (1) Anemia ICD Codes: D64.9 - Anemia, unspecified SNOMED: 342233081 (2) Cirrhosis ICD Codes: K74.60 - Unspecified cirrhosis of liver SNOMED: 30701743 (3) Elevated LFTs ICD Codes: R79.89 - Other specified abnormal findings of blood chemistry SNOMED: 483058365 (4) Hypokalemia ICD Codes: E87.6 - Hypokalemia SNOMED: 65724691 (5) Colitis ICD Codes: K52.9 - Noninfective gastroenteritis and colitis, unspecified SNOMED: 93537341 (6) Abdominal pain ICD Codes: R10.9 - Unspecified abdominal pain SNOMED: 68213744 Assessment/Plan fu labs trental fu stool studies on abx pending EGD on Tuesday Subjective ROS Limited/Unobtainable: Yes Allergies: Coded Allergies: No Known Allergies (Unverified , 12/01/16) Subjective no event Objective Last 24 Hour Vital Signs Date Time Temp Pulse Resp B/P (MAP) Pulse Ox O2 Delivery O2 Flow Rate FiO2 12/04/16 09:04 124/80 12/04/16 08:26 98.2 101 20 124/80 94 Nasal Cannula 2.0 12/04/16 04:11 98.9 12/04/16 04:00 98.1 102 20 118/57 95 Nasal Cannula 2.0 12/04/16 04:00 101 12/04/16 00:30 98.9 12/04/16 00:00 99.7 106 20 94/57 95 Nasal Cannula 2.0 12/03/16 23:27 108 12/03/16 20:05 109 12/03/16 20:00 98.3 110 20 102/73 95 Nasal Cannula 2.0 12/03/16 17:17 114/73 12/03/16 16:00 101 12/03/16 15:57 98.3 105 20 108/69 95 Nasal Cannula 2.0 12/03/16 12:00 108 12/03/16 11:52 99.1 105 20 115/71 98 Nasal Cannula 2.0 12/03/16 11:27 118/77 Intake and Output 12/04/16 12/05/16 19:00 07:00 Intake Total 460 ml Balance 460 ml Intake Oral 460 ml Laboratory Tests 12/03/16 16:00: White Blood Count 5.0, Red Blood Count 2.89L, Hemoglobin 10.3L, Hematocrit 28.9L , Mean Corpuscular Volume 100H, Mean Corpuscular Hemoglobin 35.5H, Mean Corpuscular Hemoglobin Concent 35.5, Red Cell Distribution Width 13.5, Platelet Count 69L, Mean Platelet Volume 7.6, Neutrophils (%) (Auto) 63.5, Lymphocytes (% ) (Auto) 29.1, Monocytes (%) (Auto) 6.3, Eosinophils (%) (Auto) 0.4, Basophils ( %) (Auto) 0.7, Prothrombin Time 15.6H, Prothromb Time International Ratio 1.5H, Sodium Level 136, Potassium Level 2.4*L, Chloride Level 92L, Carbon Dioxide Level 34H, Anion Gap 10, Blood Urea Nitrogen 5L, Creatinine 0.7, Estimat Glomerular Filtration Rate > 60, Glucose Level 116H, Calcium Level 7.3L, Total Bilirubin 2.2H, Direct Bilirubin 1.3H, Aspartate Amino Transf (AST/SGOT) 197H, Alanine Aminotransferase (ALT/SGPT) 49H, Alkaline Phosphatase 129, Ammonia 54, Total Protein 6.1L, Albumin 2.8L, Globulin 3.3, Albumin/Globulin Ratio 0.8L, Alpha Fetoprotein [Pending], CA 19-9 Antigen 219.2H, Hepatitis A IgM Antibody [ Pending], Hepatitis B Surface Antigen [Pending], Hepatitis B Core IgM Antibody [ Pending], Hepatitis C Antibody [Pending] 12/04/16 07:40: White Blood Count 4.1L, Red Blood Count 2.84L, Hemoglobin 9.7L, Hematocrit 29.5L , Mean Corpuscular Volume 104H, Mean Corpuscular Hemoglobin 34.1H, Mean Corpuscular Hemoglobin Concent 32.8, Red Cell Distribution Width 13.8, Platelet Count 77L, Mean Platelet Volume 7.9, Neutrophils (%) (Auto) , Lymphocytes (%) ( Auto) , Monocytes (%) (Auto) , Eosinophils (%) (Auto) , Basophils (%) (Auto) , Sodium Level 139, Potassium Level 2.5*L, Chloride Level 98, Carbon Dioxide Level 34H, Anion Gap 7, Blood Urea Nitrogen 4L, Creatinine 0.7, Estimat Glomerular Filtration Rate > 60, Glucose Level 107H, Calcium Level 7.4L, Total Bilirubin 2.2H, Direct Bilirubin 1.3H, Aspartate Amino Transf (AST/SGOT) 171H, Alanine Aminotransferase (ALT/SGPT) 44H, Alkaline Phosphatase 127, Total Protein 6.1L, Albumin 2.6L, Globulin 3.5, Albumin/Globulin Ratio 0.7L, Differential Total Cells Counted 100, Neutrophils % (Manual) 62, Lymphocytes % ( Manual) 28, Monocytes % (Manual) 10, Eosinophils % (Manual) 0, Basophils % ( Manual) 0, Band Neutrophils 0, Nucleated Red Blood Cells , Platelet Estimate DecreasedL, Platelet Morphology Normal, Anisocytosis 1+, Macrocytosis 1+, Target Cells 1+, Stomatocytes 1+, Magnesium Level 1.7 Height (Feet): 6 Height (Inches): 0.00 Weight (Pounds): 180 General Appearance: no apparent distress EENT: normal ENT inspection Neck: supple Cardiovascular: normal rate Respiratory/Chest: lungs clear Abdomen: normal bowel sounds, non tender, soft Extremities: non-tender GABRIEL MANE Dec 04, 2016 09:57
[2016-12-04 11:42] VITALS: BP 124/71
[2016-12-04 16:00] VITALS: BP 118/69
[2016-12-04] MEDS ORDERED: NS 275ml ONE (16:21)
[2016-12-04] MEDS ORDERED: Tubing IV Secondary IV ONE (16:21)
[2016-12-04 21:00] VITALS: BP 114/73
[2016-12-05] VITALS: BP 121/76
[2016-12-05] MEDS: metroNIDAZOLE 250mg tab ORAL SCH ×4 (01:20→17:44)
[2016-12-05 04:00] VITALS: BP 125/83
[2016-12-05] MEDS: NS w/KCl 40mEq 1,000 ML IV SCH ×2 (04:01→15:02)
[2016-12-05] MEDS: Norco 5mg/325mg tab ORAL PRN ×4 (05:31→22:43)
[2016-12-05] MEDS: Loperamide 2mg cap ORAL PRN ×2 (05:32→20:06)
--- NOTE | 2016-12-05 06:15 | Progress Note ---
DATE: 12/04/2016 CARDIOLOGY PROGRESS NOTE Subjective: The patient still has episodic abdominal pain. Oral intake is poor. He continues to require intravenous and oral supplementation. OBJECTIVE: Vital Signs: Blood pressure 124/80, pulse 102, respiratory rate 20, and afebrile. NECK: Supple. LUNGS: Clear. CARDIAC: Regular rhythm. Rapid rate. Normal S1 and S2. Abdomen: Soft. No focal tenderness, but mild diffuse discomfort and no rebound. EXTREMITIES: Without edema. There is resting tremor noted. Laboratory Data: White count 4.1, hemoglobin 9.7, and platelet count 77,000. Sodium 139, potassium 2.5, magnesium 1.7, BUN 4, and creatinine 0.7. Albumin 2.6. IMPRESSION: 1. Alcohol intoxication and withdrawal. 2. Severe hypokalemia. 3. Hypomagnesemia. 4. Sinus tachycardia. 5. Hypovolemia. 6. Dehydration. 7. Moderate protein-calorie malnutrition. 8. Elevated CA-19-9 possible pancreatic tumor. PLAN: 1. ERCP. 2. IV fluid hydration. 3. Vitamin supplementation. 4. Replace his potassium and magnesium. 5. Withdrawal precautions. 6. Cardiac monitoring. Karlo Falcon M.D. DR: SHIRA JOB#: [id number] CC:
[2016-12-05 08:00] VITALS: BP 124/83
[2016-12-05] MEDS: Thiamine 100mg tab ORAL SCH (08:42)
[2016-12-05 08:46] LABS: MEAN CORPUSCULAR HGB CONC 32.4 G/DL (32.0-36.0); MEAN CORPUSCULAR VOLUME 105 FL (80-99); MEAN PLATELET VOLUME 8.5 FL (6.5-10.1); PLATELET COUNT 88 K/UL (150-450); RED BLOOD COUNT 3.03 M/UL (4.70-6.10); RED CELL DISTRIBUTION WIDTH 13.7 % (11.6-14.8); WHITE BLOOD COUNT 3.5 K/UL (4.8-10.8)
[2016-12-05 08:49] LABS: INR 1.5 (0.9-1.1); PROTHROMBIN TIME 15.9 SEC (9.30-11.50)
[2016-12-05 09:01] LABS: ALANINE AMINOTRANSFERASE 39 U/L (3-41); ALBUMIN/GLOBULIN RATIO 0.7 (1.0-2.7); ASPARTATE AMINO TRANSFERASE 142 U/L (5-40); CALCIUM 8.2 mg/dL (8.6-10.2); CARBON DIOXIDE 29 mEQ/L (20-30); CHLORIDE 101 mEQ/L (98-107); CREATININE 0.6 mg/dL (0.7-1.2); GLOMERULAR FILTRATION RATE > 60 mL/min (>60); HEMOLYSIS 0; SODIUM 140 mEQ/L (135-145); TOTAL PROTEIN 6.3 g/dL (6.6-8.7)
[2016-12-05 09:07] LABS: ANION GAP 10 (5-15)
[2016-12-05 09:14] LABS: POTASSIUM 2.6 mEQ/L (3.4-4.9)
[2016-12-05 09:36] LABS: LYMPHOCYTES % (MANUAL) 30 % (20-45); NEUTROPHILS % (MANUAL) 63 % (45-75); PLATELET MORPHOLOGY NORMAL; TOTAL CELLS COUNTED 100
[2016-12-05 09:37] LABS: BAND NEUTROPHILS % (MANUAL) 0 % (0-8); BASOPHILS % (MANUAL) 0 % (0-2); EOSINOPHILS % (MANUAL) 0 % (0-3); HYPOCHROMASIA 1+; MACROCYTES 1+; PLATELET ESTIMATE DECREASED; TARGET CELLS 1+
--- NOTE | 2016-12-05 10:10 | General Progress Note ---
Assessment/Plan Assessment/Plan IMPRESSION: 1. Alcoholism. 2. Cirrhosis 3. Severe hypokalemia. 4. Severe hypochloremia. 5. Hyponatremia. 6. Contraction alkalosis. 7. Sinus tachycardia. 8. possible pancreatic lesion 9. History of hypertension. 10. Abdominal pain, likely due to chronic alcohol intake ?pancreatitis PLAN: 1. Hydration. as is 2. Withdrawal precautions. 3. Potassium replacement. IV and PO still needed- will continue to replace again today 4. GI and cards evaluation- noted; work up reviewed- further work up as outpatient if needed 5. antihypertensives. 6. Empiric H2 marc. 7. monitor for seizures 8. consider placement- in am if K is within normal; not safe for discharge impression, plan, and exam edited and reviewed in detail care discussed with RN Subjective Allergies: Coded Allergies: No Known Allergies (Unverified , 12/01/16) Subjective improved LOC better less agitated all appreciated K still very low Objective Last 24 Hour Vital Signs Date Time Temp Pulse Resp B/P (MAP) Pulse Ox O2 Delivery O2 Flow Rate FiO2 12/05/16 08:41 125/83 12/05/16 08:00 98.2 105 20 124/83 94 Room Air 12/05/16 06:30 98.9 12/05/16 04:00 98.6 101 20 125/83 98 Nasal Cannula 2.0 12/05/16 03:22 105 12/05/16 00:00 98.9 96 20 121/76 96 Nasal Cannula 2.0 12/04/16 23:46 94 12/04/16 21:00 99.4 102 22 114/73 91 Room Air 12/04/16 19:05 110 12/04/16 17:55 120/81 12/04/16 16:00 96 12/04/16 16:00 98.9 57 22 118/69 98 Nasal Cannula 2.0 12/04/16 14:00 97 12/04/16 13:06 124/71 12/04/16 12:00 97 12/04/16 11:42 97.6 100 20 124/71 96 Nasal Cannula 2.0 Intake and Output 12/05/16 12/06/16 19:00 07:00 Intake Total 240 ml Balance 240 ml Intake Oral 240 ml # Bowel Movements 1 Laboratory Tests 12/04/16 13:52: Stool Occult Blood [Pending] 12/05/16 07:30: White Blood Count 3.5L, Red Blood Count 3.03L, Hemoglobin 10.3L, Hematocrit 31.8L, Mean Corpuscular Volume 105H, Mean Corpuscular Hemoglobin 34.0H, Mean Corpuscular Hemoglobin Concent 32.4, Red Cell Distribution Width 13.7, Platelet Count 88L, Mean Platelet Volume 8.5, Neutrophils (%) (Auto) , Lymphocytes (%) ( Auto) , Monocytes (%) (Auto) , Eosinophils (%) (Auto) , Basophils (%) (Auto) , Differential Total Cells Counted 100, Neutrophils % (Manual) 63, Lymphocytes % ( Manual) 30, Monocytes % (Manual) 7, Eosinophils % (Manual) 0, Basophils % ( Manual) 0, Band Neutrophils 0, Platelet Estimate DecreasedL, Platelet Morphology Normal, Hypochromasia 1+, Macrocytosis 1+, Target Cells 1+, Prothrombin Time 15.9H, Prothromb Time International Ratio 1.5H, Sodium Level 140, Potassium Level 2.6*L, Chloride Level 101, Carbon Dioxide Level 29, Anion Gap 10, Blood Urea Nitrogen 3L, Creatinine 0.6L, Estimat Glomerular Filtration Rate > 60, Glucose Level 112H, Calcium Level 8.2L, Total Bilirubin 1.9H, Direct Bilirubin 1.0H, Aspartate Amino Transf (AST/SGOT) 142H, Alanine Aminotransferase (ALT/SGPT) 39, Alkaline Phosphatase 131H, Total Protein 6.3L, Albumin 2.6L, Globulin 3.7, Albumin/Globulin Ratio 0.7L Height (Feet): 6 Height (Inches): 0.00 Weight (Pounds): 180 Objective WDWN NAD clear breath sounds bilaterally without rhonchi or wheeze [id number] without MRG NABS nontender no HSM no CCE nonfocal slightly agitated IKER QUEEN Dec 05, 2016 10:10
--- NOTE | 2016-12-05 10:23 | General Progress Note ---
Assessment/Plan Problem List: (1) Anemia ICD Codes: D64.9 - Anemia, unspecified SNOMED: 874559360 (2) Cirrhosis ICD Codes: K74.60 - Unspecified cirrhosis of liver SNOMED: 19874629 (3) Elevated LFTs ICD Codes: R79.89 - Other specified abnormal findings of blood chemistry SNOMED: 084531793 (4) Hypokalemia ICD Codes: E87.6 - Hypokalemia SNOMED: 55005011 (5) Colitis ICD Codes: K52.9 - Noninfective gastroenteritis and colitis, unspecified SNOMED: 77094552 (6) Abdominal pain ICD Codes: R10.9 - Unspecified abdominal pain SNOMED: 69403516 (7) pancreatic ? cyst (8) Elevated CA 19-9 level ICD Codes: R97.8 - Other abnormal tumor markers SNOMED: 252734142 Assessment/Plan fu labs trental fu stool studies on abx pending EGD on Tuesday needs fu imaging for the pancreatic lesion Subjective ROS Limited/Unobtainable: Yes Allergies: Coded Allergies: No Known Allergies (Unverified , 12/01/16) Subjective no event Objective Last 24 Hour Vital Signs Date Time Temp Pulse Resp B/P (MAP) Pulse Ox O2 Delivery O2 Flow Rate FiO2 12/05/16 08:41 125/83 12/05/16 08:00 98.2 105 20 124/83 94 Room Air 12/05/16 06:30 98.9 12/05/16 04:00 98.6 101 20 125/83 98 Nasal Cannula 2.0 12/05/16 03:22 105 12/05/16 00:00 98.9 96 20 121/76 96 Nasal Cannula 2.0 12/04/16 23:46 94 12/04/16 21:00 99.4 102 22 114/73 91 Room Air 12/04/16 19:05 110 12/04/16 17:55 120/81 12/04/16 16:00 96 12/04/16 16:00 98.9 57 22 118/69 98 Nasal Cannula 2.0 12/04/16 14:00 97 12/04/16 13:06 124/71 12/04/16 12:00 97 12/04/16 11:42 97.6 100 20 124/71 96 Nasal Cannula 2.0 Intake and Output 12/05/16 12/06/16 19:00 07:00 Intake Total 240 ml Balance 240 ml Intake Oral 240 ml # Bowel Movements 1 Laboratory Tests 12/04/16 13:52: Stool Occult Blood [Pending] 12/05/16 07:30: White Blood Count 3.5L, Red Blood Count 3.03L, Hemoglobin 10.3L, Hematocrit 31.8L, Mean Corpuscular Volume 105H, Mean Corpuscular Hemoglobin 34.0H, Mean Corpuscular Hemoglobin Concent 32.4, Red Cell Distribution Width 13.7, Platelet Count 88L, Mean Platelet Volume 8.5, Neutrophils (%) (Auto) , Lymphocytes (%) ( Auto) , Monocytes (%) (Auto) , Eosinophils (%) (Auto) , Basophils (%) (Auto) , Differential Total Cells Counted 100, Neutrophils % (Manual) 63, Lymphocytes % ( Manual) 30, Monocytes % (Manual) 7, Eosinophils % (Manual) 0, Basophils % ( Manual) 0, Band Neutrophils 0, Platelet Estimate DecreasedL, Platelet Morphology Normal, Hypochromasia 1+, Macrocytosis 1+, Target Cells 1+, Prothrombin Time 15.9H, Prothromb Time International Ratio 1.5H, Sodium Level 140, Potassium Level 2.6*L, Chloride Level 101, Carbon Dioxide Level 29, Anion Gap 10, Blood Urea Nitrogen 3L, Creatinine 0.6L, Estimat Glomerular Filtration Rate > 60, Glucose Level 112H, Calcium Level 8.2L, Total Bilirubin 1.9H, Direct Bilirubin 1.0H, Aspartate Amino Transf (AST/SGOT) 142H, Alanine Aminotransferase (ALT/SGPT) 39, Alkaline Phosphatase 131H, Total Protein 6.3L, Albumin 2.6L, Globulin 3.7, Albumin/Globulin Ratio 0.7L Height (Feet): 6 Height (Inches): 0.00 Weight (Pounds): 180 General Appearance: no apparent distress EENT: normal ENT inspection Neck: supple Cardiovascular: normal rate Respiratory/Chest: decreased breath sounds Abdomen: normal bowel sounds, non tender, soft Extremities: non-tender GABRIEL MANE Dec 05, 2016 10:23
[2016-12-05] MEDS ORDERED: D5W IV SCH (11:45)
[2016-12-05] MEDS ORDERED: POTASSIUM CHLORIDE IV SCH (11:45)
[2016-12-05 11:51] VITALS: BP 125/89
[2016-12-05 16:00] VITALS: BP 134/98
--- NOTE | 2016-12-05 16:07 | Cardiology Report ---
APPROVED REPORT EKG Measurement Heart [id number] Sinus tachycardia Abnormal ECG
[2016-12-05 17:36] LABS: ANION GAP 10 (5-15); CALCIUM 7.7 mg/dL (8.6-10.2); CARBON DIOXIDE 27 mEQ/L (20-30); CHLORIDE 99 mEQ/L (98-107); CREATININE 0.6 mg/dL (0.7-1.2); GLOMERULAR FILTRATION RATE > 60 mL/min (>60); HEMOLYSIS 5; MAGNESIUM 1.6 mg/dL (1.7-2.5); POTASSIUM 3.2 mEQ/L (3.4-4.9); SODIUM 136 mEQ/L (135-145)
[2016-12-05 20:00] VITALS: BP 130/89
[2016-12-06] VITALS: BP 138/92
[2016-12-06] MEDS: NS w/KCl 40mEq 1,000 ML IV SCH ×3 (00:35→19:17)
[2016-12-06] MEDS: metroNIDAZOLE 250mg tab ORAL SCH ×4 (00:36→17:16)
--- NOTE | 2016-12-06 00:45 | Progress Note ---
DATE: 12/05/2016 Subjective: The patient remains withdrawn, but more interactive, less agitation. OBJECTIVE: Vital Signs: Blood pressure 126/83, pulse 105, and respirations 20. Monitor sinus tachycardia. NECK: Supple. LUNGS: Clear. CARDIAC: Regular. Rapid rate. Normal S1 and S2. ABDOMEN: Soft. No ascites. EXTREMITIES: No edema. Laboratory Data: White count 3.5 and hemoglobin 10.3. Sodium 136, potassium 3.2, bicarb 27, BUN 3, creatinine 0.6, and magnesium 1.6. IMPRESSION: 1. Alcoholism. 2. Alcohol intoxication. 3. Paroxysmal atrial ectopy. 4. Sinus tachycardia. 5. Total body potassium repletion. 6. Hypomagnesemia. 7. Possible pancreatic mass. 8. Abdominal pain and probable gastritis. PLAN: 1. Continue potassium and magnesium replacement. 2. Stable for endoscopy from cardiovascular standpoint. 3. Continue hydration. 4. Proton pump inhibitor. 5. Monitor metabolic parameters and hemoglobin levels. 6. No role for antiarrhythmics at this time. Karlo Falcon M.D. DR: JACLYN JOB#: [id number] CC:
[2016-12-06 04:00] VITALS: BP 132/90
[2016-12-06 06:37] LABS: BASOPHILS % (AUTO) 0.5 % (0.0-2.0); EOSINOPHILS % (AUTO) 1.6 % (0.0-3.0); MEAN CORPUSCULAR HEMOGLOBIN 34.7 PG (27.0-31.0); MEAN CORPUSCULAR VOLUME 105 FL (80-99); MEAN PLATELET VOLUME 8.1 FL (6.5-10.1); MONOCYTES % (AUTO) 9.4 % (1.0-10.0); NEUTROPHILS % (AUTO) 45.4 % (45.0-75.0); PLATELET COUNT 104 K/UL (150-450); RED BLOOD COUNT 3.27 M/UL (4.70-6.10); RED CELL DISTRIBUTION WIDTH 13.7 % (11.6-14.8); WHITE BLOOD COUNT 3.6 K/UL (4.8-10.8)
[2016-12-06 06:51] LABS: ANION GAP 10 (5-15); CALCIUM 9.4 mg/dL (8.6-10.2); CARBON DIOXIDE 28 mEQ/L (20-30); CHLORIDE 100 mEQ/L (98-107); CREATININE 0.6 mg/dL (0.7-1.2); GLOMERULAR FILTRATION RATE > 60 mL/min (>60); HEMOLYSIS 2; SODIUM 138 mEQ/L (135-145)
[2016-12-06 06:53] LABS: POTASSIUM 2.7 mEQ/L (3.4-4.9)
[2016-12-06 08:00] VITALS: BP 125/81
[2016-12-06] MEDS ORDERED: KCl 10% 40mEq/30ml liquid ORAL ONE ×2 (08:00→12:00)
--- NOTE | 2016-12-06 08:55 | General Progress Note ---
Assessment/Plan Assessment/Plan IMPRESSION: 1. Alcoholism. 2. Cirrhosis 3. Severe hypokalemia. 4. Severe hypochloremia. 5. Hyponatremia. 6. Contraction alkalosis. 7. Sinus tachycardia. 8. possible pancreatic lesion 9. History of hypertension. 10. Abdominal pain, likely due to chronic alcohol intake ?pancreatitis PLAN: 1. encourage fluids 2. Withdrawal precautions. 3. Potassium replacement. IV and PO still needed- will continue to replace again today- add mag 4. GI and cards evaluation- noted; work up reviewed- further work up as outpatient if needed 5. antihypertensives. 6. Empiric H2 marc. 7. monitor for seizures 8. consider placement- in am if K is within normal; not safe for discharge yet as K still critically low; recheck again today impression, plan, and exam edited and reviewed in detail care discussed with RN Subjective ROS Limited/Unobtainable: Yes Allergies: Coded Allergies: No Known Allergies (Unverified , 12/01/16) Subjective LOC same less agitated all appreciated at present K still very low Objective Last 24 Hour Vital Signs Date Time Temp Pulse Resp B/P (MAP) Pulse Ox O2 Delivery O2 Flow Rate FiO2 12/06/16 04:00 98.2 90 20 132/90 96 Nasal Cannula 2.0 12/06/16 04:00 100 12/06/16 00:00 98.4 89 20 138/92 99 Nasal Cannula 2.0 12/05/16 23:56 89 12/05/16 23:42 98.4 12/05/16 20:00 98.4 99 20 130/89 98 Nasal Cannula 2.0 12/05/16 19:49 110 12/05/16 17:43 125/89 12/05/16 16:00 88 12/05/16 16:00 96.1 93 20 134/98 97 Nasal Cannula 2.0 12/05/16 13:01 125/89 12/05/16 12:00 92 12/05/16 11:51 97.0 94 20 125/89 91 Room Air Laboratory Tests 12/05/16 17:05: Sodium Level 136, Potassium Level 3.2L, Chloride Level 99, Carbon Dioxide Level 27, Anion Gap 10, Blood Urea Nitrogen 3L, Creatinine 0.6L, Estimat Glomerular Filtration Rate > 60, Glucose Level 131H, Calcium Level 7.7L, Magnesium Level 1.6L 12/06/16 05:20: Sodium Level 138, Potassium Level 2.7*L, Chloride Level 100, Carbon Dioxide Level 28, Anion Gap 10, Blood Urea Nitrogen 3L, Creatinine 0.6L, Estimat Glomerular Filtration Rate > 60, Glucose Level 101, Calcium Level 9.4#, Magnesium Level 1.4L, White Blood Count 3.6L, Red Blood Count 3.27L, Hemoglobin 11.4L, Hematocrit 34.3L, Mean Corpuscular Volume 105H, Mean Corpuscular Hemoglobin 34.7H, Mean Corpuscular Hemoglobin Concent 33.0, Red Cell Distribution Width 13.7, Platelet Count 104L, Mean Platelet Volume 8.1, Neutrophils (%) (Auto) 45.4, Lymphocytes (%) (Auto) 43.0, Monocytes (%) (Auto) 9.4, Eosinophils (%) (Auto) 1.6, Basophils (%) (Auto) 0.5 Height (Feet): 6 Height (Inches): 0.00 Weight (Pounds): 205 Objective WDWN NAD clear breath sounds bilaterally without rhonchi or wheeze [id number] without MRG NABS nontender no HSM no CCE nonfocal slightly agitated IKER QUEEN Dec 06, 2016 08:55
[2016-12-06] MEDS: Thiamine 100mg tab ORAL SCH (10:03)
[2016-12-06] MEDS: Norco 5mg/325mg tab ORAL PRN ×3 (10:07→20:32)
--- NOTE | 2016-12-06 10:36 | General Progress Note ---
Assessment/Plan Assessment/Plan Assessment - EtOH cirrhosis - EtOH hepatitis - suspected chronic pancreatitis - Diarrhea with electrolyte loss, C DIff / culture (-) - Hepatitis C Recommendations - d/c cipro - anti diarrheals - replace lytes - Postpone EGD - check O&P - d/c EtOH - outpatient HCV eradication - poor prognosis Subjective Allergies: Coded Allergies: No Known Allergies (Unverified , 12/01/16) Subjective Above noted I was not called with K level last night even lower today --> endoscopy cancelled feels OK still with diarrhea stool cultures and C Diff (-) hepatitis C (+) Objective Last 24 Hour Vital Signs Date Time Temp Pulse Resp B/P (MAP) Pulse Ox O2 Delivery O2 Flow Rate FiO2 12/06/16 10:03 125/81 12/06/16 08:00 98.2 94 20 125/81 95 Room Air 12/06/16 04:00 98.2 90 20 132/90 96 Nasal Cannula 2.0 12/06/16 04:00 100 12/06/16 00:00 98.4 89 20 138/92 99 Nasal Cannula 2.0 12/05/16 23:56 89 12/05/16 23:42 98.4 12/05/16 20:00 98.4 99 20 130/89 98 Nasal Cannula 2.0 12/05/16 19:49 110 12/05/16 17:43 125/89 12/05/16 16:00 88 12/05/16 16:00 96.1 93 20 134/98 97 Nasal Cannula 2.0 12/05/16 13:01 125/89 12/05/16 12:00 92 12/05/16 11:51 97.0 94 20 125/89 91 Room Air Intake and Output 12/06/16 12/07/16 19:00 07:00 Output Total 600 ml Balance -600 ml Output Urine Total 600 ml # Voids 2 # Bowel Movements 1 Laboratory Tests 12/05/16 17:05: Sodium Level 136, Potassium Level 3.2L, Chloride Level 99, Carbon Dioxide Level 27, Anion Gap 10, Blood Urea Nitrogen 3L, Creatinine 0.6L, Estimat Glomerular Filtration Rate > 60, Glucose Level 131H, Calcium Level 7.7L, Magnesium Level 1.6L 12/06/16 05:20: Sodium Level 138, Potassium Level 2.7*L, Chloride Level 100, Carbon Dioxide Level 28, Anion Gap 10, Blood Urea Nitrogen 3L, Creatinine 0.6L, Estimat Glomerular Filtration Rate > 60, Glucose Level 101, Calcium Level 9.4#, Magnesium Level 1.4L, White Blood Count 3.6L, Red Blood Count 3.27L, Hemoglobin 11.4L, Hematocrit 34.3L, Mean Corpuscular Volume 105H, Mean Corpuscular Hemoglobin 34.7H, Mean Corpuscular Hemoglobin Concent 33.0, Red Cell Distribution Width 13.7, Platelet Count 104L, Mean Platelet Volume 8.1, Neutrophils (%) (Auto) 45.4, Lymphocytes (%) (Auto) 43.0, Monocytes (%) (Auto) 9.4, Eosinophils (%) (Auto) 1.6, Basophils (%) (Auto) 0.5 Height (Feet): 6 Height (Inches): 0.00 Weight (Pounds): 205 Objective WDWN NCAT supple CTA RRR Soft NT ND no edema non focal DOROTHY MATHEWS Dec 06, 2016 10:36
[2016-12-06] MEDS ORDERED: Lomotil 2.5mg tab ORAL ONE ×2 (11:00→17:00)
[2016-12-06 12:00] VITALS: BP 126/90
[2016-12-06] MEDS: Propranolol 10mg tab ORAL SCH ×2 (12:36→22:14)
[2016-12-06 13:22] LABS: ANION GAP 10 (5-15); CALCIUM 7.8 mg/dL (8.6-10.2); CARBON DIOXIDE 30 mEQ/L (20-30); CHLORIDE 100 mEQ/L (98-107); CREATININE 0.6 mg/dL (0.7-1.2); GLOMERULAR FILTRATION RATE > 60 mL/min (>60); HEMOLYSIS 5; POTASSIUM 3.3 mEQ/L (3.4-4.9); SODIUM 140 mEQ/L (135-145)
[2016-12-06 16:00] VITALS: BP 121/82
--- NOTE | 2016-12-06 18:36 | Cardiology Report ---
APPROVED REPORT EXAM: Two-dimensional and M-mode echocardiogram with Doppler and color Doppler. INDICATION Tachycardia M-Mode DIMENSIONS IVSd1.1 (0.7-1.1cm)Left Atrium (MM)4.5 (1.6-4.0cm) LVDd2.6 (3.5-5.6cm)Aortic Root3.1 (2.0-3.7cm) PWd1.2 (0.7-1.1cm)Aortic Cusp Exc.2.5 (1.5-2.0cm) LVDs1.6 (2.5-4.0cm) PWs1.4 cm Normal left ventricular chamber size, systolic function and wall motion. Left ventricular ejection fraction estimated to be 55 %. No evidence of left ventricular hypertrophy. Anterior Echo-free space, may be due to pericardial fat or effusion. Mild left atrial enlargement. Right cardiac chamber sizes are within normal limits. Focal aortic valve sclerosis with adequate cusp excursion. Thickened mitral valve leaflets with normal excursion. Mitral annulus and aortic root calcification. Pulmonic valve not well visualized. Normal tricuspid valve structure. IVC at normal size with physiologic collapse. A color flow and spectral Doppler study was performed and revealed: Trace aortic regurgitation. Mild mitral regurgitation. Mitral diastolic velocities suggest reduced left ventricular relaxation c/w mild LV diastolic dysfunction (Grade I). Trace tricuspid regurgitation. Tricuspid systolic velocities suggests peak right ventricular systolic pressure of 8 mmHg.
[2016-12-06] MEDS: Loperamide 2mg cap ORAL PRN (20:32)
[2016-12-06 20:40] VITALS: BP 125/79
[2016-12-07] VITALS (8 sets, daily range): BP systolic 110–137; BP diastolic 70–94
[2016-12-07] MEDS: Loperamide 2mg cap ORAL PRN (03:51)
[2016-12-07] MEDS: Norco 5mg/325mg tab ORAL PRN (03:51)
[2016-12-07] MEDS: NS w/KCl 40mEq 1,000 ML IV SCH (04:18)
[2016-12-07] MEDS: metroNIDAZOLE 250mg tab ORAL SCH ×3 (05:43→11:35)
[2016-12-07] MEDS: Propranolol 10mg tab ORAL SCH ×2 (05:43→14:00)
[2016-12-07] MEDS ORDERED: LR 1000ml ONE (07:00)
[2016-12-07] MEDS ORDERED: Propofol 200mg/20ml IV ONE (07:00)
--- NOTE | 2016-12-07 07:12 | Pre-Procedure Note/Attestation ---
Pre-Procedure Note/Attestation Complete Prior to Procedure Planned Procedure: not applicable Procedure Narrative: egd Indications for Procedure Pre-Operative Diagnosis: esophageal varicies Attestation I attest that I discussed the nature of the procedure; its benefits; risks and complications; and alternatives (and the risks and benefits of such alternatives ), prior to the procedure, with the patient (or the patient's legal industrial sales representative). I attest that, if there was a reasonable possibility of needing a blood transfusion, the patient (or the patient's legal industrial sales representative) was given the [facility] standardized written summary, pursuant to the Juan Courtney Blood Safety Act ([place] Health and Safety Code # 1645, as amended). I attest that I re-evaluated the patient just prior to the surgery and that there has been no change in the patient's H&P, except as documented below: DOROTHY MATHEWS Dec 07, 2016 07:12
--- NOTE | 2016-12-07 07:15 | Progress Note ---
DATE: 12/06/2016 CARDIOLOGY PROGRESS NOTE Subjective: The patient has no new complaints. He continues to become more alert, interactive and less agitated. Oral intake is still fair. OBJECTIVE: Vital Signs: Blood pressure 132/90, pulse 90, respiratory rate 20 and afebrile. Laboratory And Diagnostic Data: White count 3.6, hemoglobin 11.4 and platelets 104,000. Sodium 140, potassium 3.3, magnesium 1.4, bicarbonate 30, BUN 3 and creatinine 0.6. IMPRESSION: 1. Alcoholic liver disease. 2. Total body potassium deficit. 3. Hypomagnesemia. 4. Alcoholism. 5. Paroxysmal atrial ectopy. PLAN: 1. Intravenous magnesium. 2. Oral potassium. 3. Diagnostic gastrointestinal workup by endoscopy as planned. 4. We will add Aldactone for potassium sparing benefits. 5. Continue cardiac monitoring. Karlo Falcon M.D. DR: CADEN JOB#: [id number] CC:
[2016-12-07 07:24] LABS: ANION GAP 11 (5-15); CALCIUM 7.9 mg/dL (8.6-10.2); CARBON DIOXIDE 25 mEQ/L (20-30); CHLORIDE 106 mEQ/L (98-107); CREATININE 0.5 mg/dL (0.7-1.2); GLOMERULAR FILTRATION RATE > 60 mL/min (>60); HEMOLYSIS 51; POTASSIUM 4.1 mEQ/L (3.4-4.9); SODIUM 142 mEQ/L (135-145)
--- NOTE | 2016-12-07 07:29 | Anethesia Preoperative Eval ---
Anesthesia Pre-op PMH/ROS General Date of Evaluation: Dec 07, 2016 Time of Evaluation: 06:55 Anesthesiologist: Kuldip ASA Score: ASA 3 Mallampati Score Class I : Soft palate, uvula, fauces, pillars visible Class II: Soft palate, uvula, fauces visible Class III: Soft palate, base of uvula visible Class IV: Only hard plate visible Mallampati Classification: Class II Surgeon: Jenni Diagnosis: GI bleed Surgical Procedure: EGD, banding Social History: smoking, alcohol use Allergies: Coded Allergies: No Known Allergies (Unverified , 12/01/16) Medications: see eMAR Past Medical History Cardiovascular: Reports: HTN Pulmonary: Denies: asthma, COPD, CHELSIE, other Gastrointestinal/Genitourinary: Reports: other - Hypokalemia, Denies: GERD, CRI, ESRD Neurologic/Psychiatric: Denies: dementia, CVA, depression/anxiety, TIA, other Endocrine: Denies: DM, hypothyroidism, steroids, other HEENT: Denies: cataract (L), cataract (R), glaucoma, [place] (L), [place] (R), other Hematology/Immune: Denies: anemia, DVT, bleeding disorder, other Musculoskeletal/Integumentary: Denies: OA, RA, DJD, DDD, edema, other PMH Narrative: HTN, alcohol abuse, Gi bleed, esophageal varices, hypokalemia PSxH Narrative: Food surgery, knee surgery Anesthesia Pre-op Phys. Exam Physician Exam Last Vital Signs Date Time Temp Pulse Resp B/P (MAP) Pulse Ox O2 Delivery O2 Flow Rate FiO2 12/07/16 05:43 75 133/92 12/07/16 04:50 98.1 12/07/16 03:56 18 98 Room Air 12/06/16 04:00 2.0 Constitutional: NAD Neurologic: CN 2-12 intact Cardiovascular: RRR, no M/R/G Respiratory: CTA Gastrointestinal: S/NT/ND Airway Exam Mallampati Score: Class II MO: full ROM: full Teeth: missing Anesthesia Pre-op A/P Labs Chemistry Test 12/06/16 13:00 12/07/16 06:30 Sodium Level 140 mEQ/L (135-145) Pending Potassium Level 3.3 mEQ/L (3.4-4.9) L Pending Chloride Level 100 mEQ/L (98-107) Pending Carbon Dioxide Level 30 mEQ/L (20-30) Pending Anion Gap 10 (5-15) Blood Urea Nitrogen 3 mg/dL (7-23) L Pending Creatinine 0.6 mg/dL (0.7-1.2) L Pending Estimat Glomerular Filtration Rate > 60 mL/min (>60) Pending Glucose Level 118 mg/dL (74-106) H Pending Calcium Level 7.8 mg/dL (8.6-10.2) L Pending Magnesium Level 1.7 mg/dL (1.7-2.5) Studies Pre-op Studies: EKG - Junctional rhythm Risk Assessment & Plan Assessment: GI bleed, alcohol abuse, hypokalemia, HTN Plan: GA Status Change Before Surgery: VELASQUEZ Paredes M.D. Dec 07, 2016 07:29
--- NOTE | 2016-12-07 07:31 | General Progress Note ---
Assessment/Plan Assessment/Plan Assessment - diarrhea since admission only, ? part of withdrawal syndrome - hypokalemia - EtOH cirrhosis - EtOH hepatitis - suspected chronic pancreatitis - Hepatitis C Recommendations - anti diarrheals PRN - replace lytes PRN - EGD - check O&P - d/c EtOH - outpatient HCV eradication - poor prognosis EGD ADDENDUM EGD- Mild esophageal varicies, not banded Mild erosive gastritis - biopsied Mild duodenitis - biopsied Subjective Allergies: Coded Allergies: No Known Allergies (Unverified , 12/01/16) Subjective Feels OK still with diarrhea (C Diff and Cx neg) NPO for EGD Objective Last 24 Hour Vital Signs Date Time Temp Pulse Resp B/P (MAP) Pulse Ox O2 Delivery O2 Flow Rate FiO2 12/07/16 05:43 75 133/92 12/07/16 04:50 98.1 12/07/16 03:56 98.1 75 18 133/92 98 Room Air 12/07/16 03:38 70 12/07/16 00:06 98.1 77 18 112/70 98 Room Air 12/07/16 00:00 73 12/06/16 22:14 83 125/79 12/06/16 20:40 98.1 83 18 125/79 98 Room Air 12/06/16 20:00 81 12/06/16 20:00 90 12/06/16 17:16 121/82 12/06/16 16:00 80 12/06/16 16:00 98.2 76 19 121/82 96 Room Air 12/06/16 12:49 126/90 12/06/16 12:36 90 126/90 12/06/16 12:00 98.1 90 20 126/90 100 Room Air 12/06/16 12:00 88 12/06/16 10:03 125/81 12/06/16 08:00 88 12/06/16 08:00 98.2 94 20 125/81 95 Room Air Laboratory Tests 12/06/16 13:00: Sodium Level 140, Potassium Level 3.3L, Chloride Level 100, Carbon Dioxide Level 30, Anion Gap 10, Blood Urea Nitrogen 3L, Creatinine 0.6L, Estimat Glomerular Filtration Rate > 60, Glucose Level 118H, Calcium Level 7.8L 12/07/16 06:30: Sodium Level 142, Potassium Level 4.1, Chloride Level 106, Carbon Dioxide Level 25, Anion Gap 11, Blood Urea Nitrogen 3L, Creatinine 0.5L, Estimat Glomerular Filtration Rate > 60, Glucose Level 95, Calcium Level 7.9L, Magnesium Level 1.7 Height (Feet): 6 Height (Inches): 0.00 Weight (Pounds): 205 Objective WDWN NCAT supple CTA RRR Soft NT ND no edema non focal DOROTHY MATHEWS Dec 07, 2016 07:31
--- NOTE | 2016-12-07 07:33 | Endoscopy Procedure Note ---
Endoscopy Procedure Note Indication for Procedure: esoph vx Procedures Performed: EGD Operative Findings/Diagnosis: see repor Specimen: yes Pt Tolerated Procedure Well: Yes Estimated Blood Loss: none Anesthesiologist: Kuldip Anesthesia: MAC Medication Given: see anesthesia record Implant(s) used?: No 50 yrs or older w/o bx or poly: Not Applicable 10yrs. F/U not recommended: Not Applicable If not recommended, why?: DOROTHY MATHEWS Dec 07, 2016 07:33
--- NOTE | 2016-12-07 07:34 | Brief Operative Note ---
Immediate Post Operative Note Operative Note Chief Complaint: esoph vx Pre-op Diagnosis: esophageal varicies Procedure: egd Post-op Diagnosis: EGD- Mild esophageal varicies, not banded Mild erosive gastritis - biopsied Mild duodenitis - biopsied Surgeon: selina Anesthesiologist: Kuldip Anesthesia: MAC Specimen: yes Complications: none Condition: stable Fluids: see anesth note Estimated Blood Loss: none Drains: none Implant(s) used?: No DOROTHY MATHEWS Dec 07, 2016 07:34
--- NOTE | 2016-12-07 07:41 | Immediate Post-Op Evaluation ---
Immediate Post-Op Evalulation Immediate Post-Op Evalulation Procedure: EGD, banding Date of Evaluation: Dec 07, 2016 Time of Evaluation: 07:45 IV Fluids: 300 Blood Pressure Systolic: 110 Blood Pressure Diastolic: 74 Pulse Rate: 71 Respiratory Rate: 13 O2 Sat by Pulse Oximetry: 100 Pain Score (1-10): 0 Nausea: No Vomiting: No Complications No complication Patient Status: awake, patent, none Hydration Status: adequate Drug: None VELASQUEZ YU M.D. Dec 07, 2016 07:41
--- NOTE | 2016-12-07 08:46 | General Progress Note ---
Assessment/Plan Assessment/Plan IMPRESSION: 1. Alcoholism. 2. Cirrhosis 3. Severe hypokalemia. 4. Severe hypochloremia. 5. Hyponatremia. 6. Contraction alkalosis. 7. Sinus tachycardia. 8. possible pancreatic lesion 9. History of hypertension. 10. Abdominal pain, likely due to chronic alcohol intake ?pancreatitis PLAN: 1. encourage fluids 2. Withdrawal precautions. 3. Potassium replacement. IV and PO still needed- will continue to replace again today- add mag 4. GI and cards evaluation- noted; work up reviewed- further work up as outpatient if needed 5. antihypertensives. 6. Empiric H2 marc. 7. monitor for seizures 8. dc to snf pending K impression, plan, and exam edited and reviewed in detail care discussed with RN Subjective Allergies: Coded Allergies: No Known Allergies (Unverified , 12/01/16) Subjective LOC same less agitated all appreciated at present K pending magnesium replaced Objective Last 24 Hour Vital Signs Date Time Temp Pulse Resp B/P (MAP) Pulse Ox O2 Delivery O2 Flow Rate FiO2 12/07/16 08:00 97.6 71 17 127/94 100 Room Air 12/07/16 07:45 72 16 127/92 100 Room Air 12/07/16 07:41 71 13 100 12/07/16 07:40 73 19 111/80 100 Simple Mask 6.0 12/07/16 07:37 97.8 72 16 110/80 100 Simple Mask 6.0 12/07/16 05:43 75 133/92 12/07/16 04:50 98.1 12/07/16 03:56 98.1 75 18 133/92 98 Room Air 12/07/16 03:38 70 12/07/16 00:06 98.1 77 18 112/70 98 Room Air 12/07/16 00:00 73 12/06/16 22:14 83 125/79 12/06/16 20:40 98.1 83 18 125/79 98 Room Air 12/06/16 20:00 81 12/06/16 20:00 90 12/06/16 17:16 121/82 12/06/16 16:00 80 12/06/16 16:00 98.2 76 19 121/82 96 Room Air 12/06/16 12:49 126/90 12/06/16 12:36 90 126/90 12/06/16 12:00 98.1 90 20 126/90 100 Room Air 12/06/16 12:00 88 12/06/16 10:03 125/81 Intake and Output 12/07/16 12/08/16 19:00 07:00 Intake Total 550 ml Output Total 650 ml Balance -100 ml IV Total 550 ml Output Urine Total 650 ml Peritoneal Dialysis UF 0 ml Laboratory Tests 12/06/16 13:00: Sodium Level 140, Potassium Level 3.3L, Chloride Level 100, Carbon Dioxide Level 30, Anion Gap 10, Blood Urea Nitrogen 3L, Creatinine 0.6L, Estimat Glomerular Filtration Rate > 60, Glucose Level 118H, Calcium Level 7.8L 12/07/16 06:30: Sodium Level 142, Potassium Level 4.1, Chloride Level 106, Carbon Dioxide Level 25, Anion Gap 11, Blood Urea Nitrogen 3L, Creatinine 0.5L, Estimat Glomerular Filtration Rate > 60, Glucose Level 95, Calcium Level 7.9L, Magnesium Level 1.7 Height (Feet): 6 Height (Inches): 0.00 Weight (Pounds): 205 Objective WDWN NAD clear breath sounds bilaterally without rhonchi or wheeze [id number] without MRG NABS nontender no HSM no CCE nonfocal slightly agitated IKER QUEEN Dec 07, 2016 08:46
[2016-12-07] MEDS ORDERED: Spironolactone 25mg tab ORAL SCH (09:00)
[2016-12-07] MEDS: Thiamine 100mg tab ORAL SCH (09:04)
[2016-12-07] MEDS ORDERED: NS 275ml ONE (14:34)
--- NOTE | 2016-12-09 02:00 | Procedure Note ---
DATE OF PROCEDURE: 12/07/2016 PROCEDURE: Upper gastrointestinal endoscopy with biopsy. SURGEON: Frances Arteaga M.D. Anesthesia: Please see the separate anesthesiologist notes for details. PRE-ENDOSCOPIC DIAGNOSES: Cirrhosis and esophageal varices. POST-ENDOSCOPIC DIAGNOSES: 1. Mild esophageal varices, which were not felt to benefit from banding at this time. 2. Mild erosive gastritis, status post biopsy. 3. Mild duodenitis, status post biopsy. 4. No evidence of active bleeding. Procedure in detail: The procedure, its risks, indications, alternatives, and possible complications were explained, and informed consent was obtained. A diagnostic upper endoscope was introduced through the oropharynx and advanced to the duodenum. Findings and procedures were as described above. The endoscope was removed and the patient was sent to recovery in good condition. COMPLICATIONS: None. RECOMMENDATIONS: 1. Follow up biopsy results. 2. Resume oral diet. 3. Treat Helicobacter pylori if positive. 4. Discontinue alcohol. 5. Outpatient followup. Frances Arteaga M.D. DR: CECY JOB#: [id number] CC:
--- NOTE | 2016-12-09 14:10 | Discharge Summary ---
Discharge Summary Hospital Course Date of Admission Dec 01, 2016 at 10:20 Date of Discharge Dec 07, 2016 at 14:35 Admitting Diagnosis -alc withdrawal/hypokalemia- HPI Curtis Lopez is a 61 year old male who was admitted on Dec 01, 2016 at 10:20 for Alcohol Withdrawal,Hypokalemia,Varicose Vein Hospital Course [id number] Discharge Discharge Disposition Patient was discharged to SNF/Subacute Facility(03) Discharge Diagnoses: Nathaly Smith NP Dec 09, 2016 14:10
--- NOTE | 2016-12-09 19:15 | Progress Note ---
DATE: 12/07/2016 CARDIOLOGY PROGRESS NOTE Subjective: The patient completed endoscopy. Findings notable for mild erosive gastritis and duodenitis with esophageal varices. No active bleeding. Biopsy results are pending for H. pylori. OBJECTIVE: Vital Signs: Blood pressure 124/94, pulse 70, respiratory rate 20, and afebrile. LUNGS: Clear. CARDIAC: Regular. ABDOMEN: Soft and mildly distended. No guarding, rebound, or edema. Laboratory Data: Potassium 4.1, magnesium 1.7, BUN 3, and creatinine 0.5. IMPRESSION: 1. Alcoholism. 2. Alcohol intoxication. 3. Multiple electrolyte abnormalities. 4. Paroxysmal atrial and ventricular ectopics. 5. Hypovolemia and dehydration. 6. Gastritis, esophagitis, and varices with no active bleeding. PLAN: 1. Stable for outpatient followup. 2. The patient will require close monitoring of electrolyte levels as his total body depleted of potassium and magnesium and will likely require additional replacement therapy. He should continue on Aldactone at this time for potassium-sparing benefits. Karlo Falcon M.D. DR: SHIRA JOB#: [id number] CC:
--- NOTE | 2016-12-10 07:16 | Discharge Summary 2 SIG ---
DATE OF ADMISSION: 12/01/2016 DATE OF DISCHARGE: 12/07/2016 CONSULTANTS: 1. Karlo Falcon M.D. 2. Frances Arteaga M.D. Brief Hospital Course: The patient is a 61-year-old male with history of alcoholism, hypertension, and currently homeless, presented to ED complaining of abdominal pain, tremors, weakness, and alcohol withdrawal. He did not have any drink since the day before admission and prior had been drinking excessively. He had abdominal pain that is chronic, but worsened. There was diarrhea, tremors, and palpitations, but no seizures. On evaluation at ED, urine toxicology was negative. Serum alcohol level less than 10. CT of the abdomen and pelvis done showed [id number] distention of the descending and transverse colon without evidence of obstructive lesion, possible colitis. He had enlarged fatty liver consistent with cirrhosis and evidence of portal hypertension with gastric and esophageal varices and small amount of ascitic fluid. There was noted a 13 mm cystic lesion on the pancreas. He was admitted for hypokalemia, potassium level was 2.2, hypochloremia, alcoholism, and alcohol withdrawal. He was placed on withdrawal precautions and was given IV fluids and potassium replacement. He was having cardiac arrhythmias and was given IV magnesium. He was placed on ciprofloxacin and Flagyl for diarrhea. The patient has jaundice with elevated transaminases consistent with alcoholic hepatitis. He was given thiamine and [place] per protocol. He was counseled on ETOH cessation. C. difficile was negative. Stool did not isolate any Salmonella, Shigella, or Campylobacter. Negative for ova and parasites. Hepatitis C was positive and was advised outpatient HCV followups. On 12/07/2016, he underwent EGD with Dr. Arteaga with findings of esophageal varices, mild erosive gastritis, status post biopsy, and mild duodenitis, status post biopsy. There was no evidence of active bleed. Biopsy result was negative for dysplasia or malignancy. Negative for H. pylori. No metaplasia or dysplasia. Imaging done, CT of the abdomen and pelvis with contrast. Impression, [id number] distention in the ascending and transverse colon without evidence of distal obstructive lesion, enlarged fatty liver, evidence of hypertension, borderline peripancreatic and retroperitoneal lymphadenopathy, 13 mm cystic lesion of pancreatic body/tail junction, left renal cyst, pancreatic head calcifications, and prostatomegaly. Next imaging, abdominal MRI with and without contrast showed cystic lesion on the pancreatic tail as reported on CT. No evidence of associated solid or enhancing component. Recommend follow up CT or MRI/MRCP yearly for two years. Echocardiogram, left ventricular ejection fraction estimated to be 55% with no evidence of left ventricular hypertrophy, trace aortic regurgitation, mild mitral regurgitation, and trace tricuspid regurgitation. DISCHARGE DISPOSITION: The patient was discharged to [facility]. Angelo Jones M.D. I have been assigned to dictate discharge summary on this account and I was not involved in the patient's management. Ntahaly Smith N.P. DR: Ann Marie JOB#: [id number] CC:
== END 2016-12-07 14:35 | DRG 897 ==
LOC: EDBD 08:05 → EMR 08:28 → EDBEDREQ 09:48 → 2E 10:20 → INTOOBSV 10:20 → OBSVTOIN 10:20 → EDBEDREQ 10:35
PROC: 0DB78ZX Excision of Stomach, Pylorus, Via Natural or Artificial Opening Endoscopic, Diagnostic (ICD-10-PCS; principal; 2016-12-07 07:20)
PROC: 0DB98ZX Excision of Duodenum, Via Natural or Artificial Opening Endoscopic, Diagnostic (ICD-10-PCS; principal; 2016-12-07 07:20)
DX: F10.239 Alcohol dependence with withdrawal, unspecified (principal); E87.3 Alkalosis; I85.10 Secondary esophageal varices without bleeding; E44.0 Moderate protein-calorie malnutrition; A04.7 Enterocolitis due to Clostridium difficile; E87.8 Other disorders of electrolyte and fluid balance, not elsewhere classified; K76.6 Portal hypertension; K86.0 Alcohol-induced chronic pancreatitis; E87.1 Hypo-osmolality and hyponatremia; E51.2 Wernicke's encephalopathy; E83.42 Hypomagnesemia; E87.6 Hypokalemia; R00.0 Tachycardia, unspecified; Z68.24 Body mass index [BMI] 24.0-24.9, adult; K52.9 Noninfective gastroenteritis and colitis, unspecified; K70.30 Alcoholic cirrhosis of liver without ascites; K29.70 Gastritis, unspecified, without bleeding; K29.80 Duodenitis without bleeding; Z59.0 Homelessness; I10 Essential (primary) hypertension; K70.10 Alcoholic hepatitis without ascites; D64.9 Anemia, unspecified; F10.229 Alcohol dependence with intoxication, unspecified; E86.0 Dehydration; K86.9 Disease of pancreas, unspecified; I49.1 Atrial premature depolarization; B19.20 Unspecified viral hepatitis C without hepatic coma; I86.4 Gastric varices; G89.29 Other chronic pain; R10.9 Unspecified abdominal pain
CPT/HCPCS: 36415; 74177; 74183; 80048; 80053; 80300; 80329; 81003; 82105; 82140; 82248; 82270; 83690; 83735; 85007; 85025; 85610; 86301; 86705; 86709; 86803; 86850; 86900; 86901; 87045; 87081; 87324; 87340; 93005; 93306; 94003; 94150; 96360; 96361; 96365; 99285; A9585; C8957; J8499

== ENCOUNTER 2017-03-23 09:44 | Inpatient (IN) | payer MEDICARE, MEDICAID ==
[~2017-03-23] VITALS: Ht 172.7 cm; Wt 77.1 kg
[~2017-03-23 09:44] MED LIST: NKM
[2017-03-23 09:50] VITALS: BP 129/79
[2017-03-23] MEDS ORDERED: Cefepime HCl 1 GM in NS 55 ML IV SCH (10:00)
[2017-03-23] MEDS ORDERED: Vancomycin 1 GM in NS 275 ML IV ONE (10:00)
[2017-03-23] MEDS ORDERED: Cefepime 1gm vial ONE (10:17)
[2017-03-23 10:18] LABS: APPEARANCE,URINE CLEAR; BILIRUBIN, URINE NEGATIVE (NEGATIVE); COLOR,URINE PALE YELLOW; GLUCOSE, URINE (UA) 2+ (NEGATIVE); KETONES,URINE 2+ (NEGATIVE); LEUKOCYTE ESTERASE ,URINE NEGATIVE (NEGATIVE); NITRITE,URINE NEGATIVE (NEGATIVE); PH,URINE 6.5 (4.5-8.0); PROTEIN,URINE 1+ (NEGATIVE); UROBILINOGEN,URINE NORMAL MG/DL (0.0-1.0)
[2017-03-23 10:58] LABS: BASOPHILS % (AUTO) 0.8 % (0.0-2.0); EOSINOPHILS % (AUTO) 0.1 % (0.0-3.0); HEMATOCRIT 31.6 % (42.0-52.0); HEMOGLOBIN 10.2 G/DL (14.2-18.0); LYMPHOCYTES % (AUTO) 10.7 % (20.0-45.0); MEAN CORPUSCULAR VOLUME 99 FL (80-99); MONOCYTES % (AUTO) 6.4 % (1.0-10.0); NEUTROPHILS % (AUTO) 82.1 % (45.0-75.0); PLATELET COUNT 106 K/UL (150-450); RED BLOOD COUNT 3.18 M/UL (4.70-6.10); WHITE BLOOD COUNT 3.9 K/UL (4.8-10.8)
[2017-03-23 11:24] LABS: ALANINE AMINOTRANSFERASE 51 U/L (12-78); ALBUMIN 3.7 G/DL (3.4-5.0); ALBUMIN/GLOBULIN RATIO 0.8 (1.0-2.7); ALKALINE PHOSPHATASE 111 U/L (46-116); ANION GAP 15 mmol/L (5-15); ASPARTATE AMINO TRANSFERASE 168 U/L (15-37); BILIRUBIN,TOTAL 1.3 MG/DL (0.2-1.0); BLOOD UREA NITROGEN 11 mg/dL (7-18); CALCIUM 7.4 MG/DL (8.5-10.1); CARBON DIOXIDE 33 MMOL/L (21-32); CHLORIDE 95 MMOL/L (98-107); CKMB 4.3 NG/ML (0.0-3.6); CREATINE KINASE 419 U/L (26-308); SODIUM 143 MMOL/L (136-145)
[2017-03-23 11:31] LABS: POTASSIUM 2.1 MMOL/L (3.5-5.1)
[2017-03-23 11:32] LABS: BILIRUBIN,DIRECT 0.5 MG/DL (0.0-0.3)
[2017-03-23] MEDS ORDERED: Vancomycin 1gm inj IVPB ONE (11:50)
[2017-03-23] MEDS ORDERED: NS 275 ML ONE (11:55)
[2017-03-23 12:00] VITALS: BP 131/80
[2017-03-23 13:00] VITALS: BP 146/88
[2017-03-23 14:00] VITALS: BP 140/87
--- NOTE | 2017-03-23 14:22 | Diagnostic Imaging Report ---
Indication: Chest pain Technique: One view of the chest Comparison: Findings: Lungs and pleural spaces are clear. Heart size is normal. Inspiration is suboptimal, resulting in some crowding of the bronchovascular markings Impression: No acute process
--- NOTE | 2017-03-23 15:38 | Emergency Room Report ---
History of Present Illness General Chief Complaint: Altered Level of Consciousness Source: Patient, EMS Present Illness HPI This patient is brought in for multiple complaints. He is brought in by his girlfriend because he seemed altered. However, the patient states that he has pain in his arm after a fall several days ago. He admits to alcohol abuse. He also has had watery diarrhea and fatigue.He has no other complaints. Allergies: Coded Allergies: No Known Allergies (Unverified , 12/01/16) UNABLE TO ASSESS (Unverified , 03/23/17) Patient History Past Medical History: see triage record, HTN, other - ETOH abuse Social History: Reports: alcohol use, Denies: smoking, drug use Reviewed Nursing Documentation: PMH: Agreed, PSxH: Agreed Nursing Documentation-PMH Past Medical History Deferred: Pt Cognitively Impaired Hx Cardiac Problems: No - SUBSTANCE ABUSE Hx Hypertension: Yes Review of Systems All Other Systems: negative except mentioned in HPI Physical Exam Vital Signs Date Time Temp Pulse Resp B/P (MAP) Pulse Ox O2 Delivery O2 Flow Rate FiO2 03/23/17 09:38 97.3 116 18 146/80 98 Room Air Sp02 EP Interpretation: reviewed, normal General Appearance: no apparent distress, alert, GCS 15, non-toxic Head: normocephalic, atraumatic Eyes: bilateral eye normal inspection, bilateral eye PERRL ENT: hearing grossly normal, normal pharynx, no angioedema, normal voice Neck: full range of motion, supple/symm/no masses Respiratory: chest non-tender, lungs clear, normal breath sounds, speaking full sentences Cardiovascular #1: tachycardia, edema - 2+BLE edema Gastrointestinal: normal bowel sounds, non tender, soft, non-distended, no guarding, no rebound Rectal: deferred Musculoskeletal: back normal, normal range of motion, swelling - See above in cardiac Neurologic: alert, oriented x3, responsive, motor strength/tone normal, sensory intact, speech normal Psychiatric: judgement/insight normal, memory normal, mood/affect normal, no suicidal/homicidal ideation Skin: normal color, no rash, warm/dry, well hydrated Medical Decision Making Diagnostic Impression: Primary Impression: Cellulitis Additional Impressions: Sepsis Dehydration Diarrhea ER Course This patient presents with cellulitis on his right forearm. The area is tender and firm. I did order a CT of the forearm to further assess this region, which was pending at the time of this dictation. The inpatient physician and will followup on the results of this. The patient also was slightly tachycardic. I think he may also have a mild alcohol withdrawal. He had multiple episodes of diarrhea and likely has a diarrheal illness. He was given broad-spectrum antibiotics and aggressive IV fluids. His lactate declined to normal after fluid resuscitation. The patient's blood pressure remained stable. The patient is admitted to telemetry for further evaluation and treatment and monitoring. This patient is critically ill. This patient required complex medical decision- making, aggressive intervention, extensive laboratory workup and monitoring. Critical care time: 40 minutes. Laboratory Tests Test 03/23/17 10:00 03/23/17 10:30 03/23/17 13:20 Urine Color Pale yellow Urine Appearance Clear Urine pH 6.5 (4.5-8.0) Urine Specific [place] 1.010 (1.005-1.035) Urine Protein 1+ (NEGATIVE) H Urine Glucose (UA) 2+ (NEGATIVE) H Urine Ketones 2+ (NEGATIVE) H Urine Occult Blood 2+ (NEGATIVE) H Urine Nitrite Negative (NEGATIVE) Urine Bilirubin Negative (NEGATIVE) Urine Urobilinogen Normal MG/DL (0.0-1.0) Urine Leukocyte Esterase Negative (NEGATIVE) Urine RBC 2-4 /HPF (0 - 0) H Urine WBC 0-2 /HPF (0 - 0) Urine Squamous Epithelial Cells Occasional /LPF Urine Bacteria Occasional /HPF (NONE) White Blood Count 3.9 K/UL (4.8-10.8) L Red Blood Count 3.18 M/UL (4.70-6.10) L Hemoglobin 10.2 G/DL (14.2-18.0) L Hematocrit 31.6 % (42.0-52.0) L Mean Corpuscular Volume 99 FL (80-99) Mean Corpuscular Hemoglobin 32.1 PG (27.0-31.0) H Mean Corpuscular Hemoglobin Concent 32.3 G/DL (32.0-36.0) Red Cell Distribution Width 16.0 % (11.6-14.8) H Platelet Count 106 K/UL (150-450) L Mean Platelet Volume 6.9 FL (6.5-10.1) Neutrophils (%) (Auto) 82.1 % (45.0-75.0) H Lymphocytes (%) (Auto) 10.7 % (20.0-45.0) L Monocytes (%) (Auto) 6.4 % (1.0-10.0) Eosinophils (%) (Auto) 0.1 % (0.0-3.0) Basophils (%) (Auto) 0.8 % (0.0-2.0) Sodium Level 143 MMOL/L (136-145) Potassium Level 2.1 MMOL/L (3.5-5.1) *L Chloride Level 95 MMOL/L (98-107) L Carbon Dioxide Level 33 MMOL/L (21-32) H Anion Gap 15 mmol/L (5-15) Blood Urea Nitrogen 11 mg/dL (7-18) Creatinine 1.0 MG/DL (0.55-1.30) Estimate Glomerular Filtration Rate > 60 mL/min (>60) Glucose Level 171 MG/DL (74-106) H Lactic Acid Level 6.30 mmol/L (0.66-2.22) H 2.10 mmol/L (0.66-2.22) Calcium Level 7.4 MG/DL (8.5-10.1) L Magnesium Level 1.2 MG/DL (1.8-2.4) L Total Bilirubin 1.3 MG/DL (0.2-1.0) H Direct Bilirubin 0.5 MG/DL (0.0-0.3) H Aspartate Amino Transferase (AST) 168 U/L (15-37) H Alanine Aminotransferase (ALT) 51 U/L (12-78) Alkaline Phosphatase 111 U/L (46-116) Total Creatine Kinase 419 U/L (26-308) H Creatine Kinase MB 4.3 NG/ML (0.0-3.6) H Creatine Kinase MB Relative Index 1.0 Troponin I 0.009 ng/mL (0.000-0.056) Total Protein 8.2 G/DL (6.4-8.2) Albumin 3.7 G/DL (3.4-5.0) Globulin 4.5 g/dL Albumin/Globulin Ratio 0.8 (1.0-2.7) L Microbiology Date/Time Source Procedure Growth Status 03/23/17 10:30 Nasal Nares Influenza Types A,B Antigen (DWIGHT) - Final Complete EKG Diagnostic Results Rate: tachycardiac Rhythm: other - S.tachycardia ST Segments: no acute changes Rhythm Strip Diag. Results EP Interpretation: yes Rate: 110's Rhythm: no PVC's, no ectopy, other - S.tachycardia CT/MRI/US Diagnostic Results CT/MRI/US Diagnostic Results : Imaging Test Ordered: CT forearm: Impression See official report. Inpatient physician to followup on results. Last Vital Signs Date Time Temp Pulse Resp B/P (MAP) Pulse Ox O2 Delivery O2 Flow Rate FiO2 03/23/17 14:00 98.0 110 15 140/87 98 Room Air Disposition: ADMITTED INPATIENT Condition: Serious Referrals: NON PHYSICIAN (PCP) HAJA GARCIA D.O. Mar 23, 2017 15:38
[2017-03-23] MEDS ORDERED: Norco 5mg/325mg tab ORAL ONE (16:00)
[2017-03-23] MEDS ORDERED: LORazepam 1mg tab ORAL ONE (16:00)
[2017-03-23] MEDS ORDERED: Piperacillin/Tazobactam 3.375 GM in D5W 110 ML IVPB SCH (18:00)
[2017-03-23] MEDS: NS w/KCl 20mEq 1,000 ML IV SCH (18:41)
[2017-03-23 20:03] VITALS: BP 125/84
[2017-03-23] MEDS: Norco 5mg/325mg tab ORAL PRN (20:54)
[2017-03-23] MEDS: Vancomycin 1gm in D5W 275ml IVPB SCH (20:55)
--- NOTE | 2017-03-23 20:56 | History & Physical ---
History and Physical History & Physicial History and Physical History & Physical 61-year-old male with history of alcoholism, hypertension, and presented to the emergency room with altered mental status, and weakness and alcohol withdrawl. He has been drinking excessively. He has noted tremors and palpitations, but no seizures noted. He has had diarrhea, but no melena or bright red blood per rectum. He did undergo a CT abdomen Care noted and reviewed with ER physician. Past Medical History: 1. Alcoholism. 2. Cirrhosis 3. Severe hypokalemia. 4. Severe hypochloremia. 5. Hyponatremia. 6. Contraction alkalosis. 7. Sinus tachycardia. 8. possible pancreatic lesion 9. History of hypertension. 10. Abdominal pain, likely due to chronic alcohol intake ?pancreatitis 11.Hypovolemia and dehydration. 12. Gastritis, esophagitis, and varices with no active bleeding. MEDICATIONS: reviewed and reconciled ALLERGIES: noted SOCIAL HISTORY: homeless, heavy alcohol abuse FAMILY HISTORY: Noncontributory. Review Of Systems: A 10-point review of systems performed, pertinent data outlined above. All systems are otherwise negative but patient is a fair historian PHYSICAL EXAMINATION: Vital Signs: Blood pressure 114/70, pulse 102, respiratory rate 16, and 98.6 HEENT: overall negative; EOMI, poor oral care NECK: Supple. Jugular venous pressure normal. no nodes LUNGS: Clear. without rhonchi or wheeze mild abdominal tenderness; NABS CARDIAC: Regular rhythm. mildly tachy. Normal S1 and S2. without MRG Abdomen: Soft, mildly distended, and diffusely tender. No guarding or rebound. nodular liver edge EXTREMITIES: No edema. no CC NEUROLOGIC: Nonfocal. There is some tremor. skin with significant excoriations Laboratory Tests Test 03/23/17 10:00 03/23/17 10:30 03/23/17 13:20 Urine Color Pale yellow Urine Appearance Clear Urine pH 6.5 (4.5-8.0) Urine Specific [place] 1.010 (1.005-1.035) Urine Protein 1+ (NEGATIVE) H Urine Glucose (UA) 2+ (NEGATIVE) H Urine Ketones 2+ (NEGATIVE) H Urine Occult Blood 2+ (NEGATIVE) H Urine Nitrite Negative (NEGATIVE) Urine Bilirubin Negative (NEGATIVE) Urine Urobilinogen Normal MG/DL (0.0-1.0) Urine Leukocyte Esterase Negative (NEGATIVE) Urine RBC 2-4 /HPF (0 - 0) H Urine WBC 0-2 /HPF (0 - 0) Urine Squamous Epithelial Cells Occasional /LPF Urine Bacteria Occasional /HPF (NONE) White Blood Count 3.9 K/UL (4.8-10.8) L Red Blood Count 3.18 M/UL (4.70-6.10) L Hemoglobin 10.2 G/DL (14.2-18.0) L Hematocrit 31.6 % (42.0-52.0) L Mean Corpuscular Volume 99 FL (80-99) Mean Corpuscular Hemoglobin 32.1 PG (27.0-31.0) H Mean Corpuscular Hemoglobin Concent 32.3 G/DL (32.0-36.0) Red Cell Distribution Width 16.0 % (11.6-14.8) H Platelet Count 106 K/UL (150-450) L Mean Platelet Volume 6.9 FL (6.5-10.1) Neutrophils (%) (Auto) 82.1 % (45.0-75.0) H Lymphocytes (%) (Auto) 10.7 % (20.0-45.0) L Monocytes (%) (Auto) 6.4 % (1.0-10.0) Eosinophils (%) (Auto) 0.1 % (0.0-3.0) Basophils (%) (Auto) 0.8 % (0.0-2.0) Sodium Level 143 MMOL/L (136-145) Potassium Level 2.1 MMOL/L (3.5-5.1) *L Chloride Level 95 MMOL/L (98-107) L Carbon Dioxide Level 33 MMOL/L (21-32) H Anion Gap 15 mmol/L (5-15) Blood Urea Nitrogen 11 mg/dL (7-18) Creatinine 1.0 MG/DL (0.55-1.30) Estimat Glomerular Filtration Rate > 60 mL/min (>60) Glucose Level 171 MG/DL (74-106) H Lactic Acid Level 6.30 mmol/L (0.66-2.22) H 2.10 mmol/L (0.66-2.22) Calcium Level 7.4 MG/DL (8.5-10.1) L Magnesium Level 1.2 MG/DL (1.8-2.4) L Total Bilirubin 1.3 MG/DL (0.2-1.0) H Direct Bilirubin 0.5 MG/DL (0.0-0.3) H Aspartate Amino Transf (AST/SGOT) 168 U/L (15-37) H Alanine Aminotransferase (ALT/SGPT) 51 U/L (12-78) Alkaline Phosphatase 111 U/L (46-116) Total Creatine Kinase 419 U/L (26-308) H Creatine Kinase MB 4.3 NG/ML (0.0-3.6) H Creatine Kinase MB Relative Index 1.0 Troponin I 0.009 ng/mL (0.000-0.056) Total Protein 8.2 G/DL (6.4-8.2) Albumin 3.7 G/DL (3.4-5.0) Globulin 4.5 g/dL Albumin/Globulin Ratio 0.8 (1.0-2.7) L IMPRESSION diarrhea anemia thrombocytopenia ETOH with withdrawal possible sepsis PLAN IV hydration pain RX ID evaluation empiric antibiotics monitor labs IKER Alvarado Mar 23, 2017 20:56
[2017-03-23] MEDS: Zoysn 3.37gm in NS 100ML IVPB SCH (22:33)
[2017-03-24 00:10] VITALS: BP 126/74
[2017-03-24] MEDS: Norco 5mg/325mg tab ORAL PRN ×4 (02:37→22:28)
[2017-03-24 04:00] VITALS: BP 127/77
[2017-03-24] MEDS: Zoysn 3.37gm in NS 100ML IVPB SCH ×3 (04:57→22:26)
[2017-03-24] MEDS: NS w/KCl 20mEq 1,000 ML IV SCH ×2 (04:57→16:33)
[2017-03-24] MEDS: LORazepam Inj 2mg/ml 1ml IVP PRN (05:28)
[2017-03-24 08:00] VITALS: BP 126/85
--- NOTE | 2017-03-24 08:35 | Diagnostic Imaging Report ---
Indication: Right arm swelling and pain, recent trauma Technique: IV administration nonionic contrast. Spiral acquisitions obtained through the right arm. Multiplanar reconstructions were generated. Total dose length product for 61 mGycm. CTDIvol(s) 8, 24, 11 mGy. Radiation dose was minimized using automated exposure control Comparison: none Findings: There is a somewhat high attenuation multilobulated mass along the medial aspect of the right forearm which measures 4.2 x 2.6 x 8.3 cm. The lateral aspect, there is a 3 mm focus of contrast enhancement. There is diffuse edema, circumferential, of the forearm extends into the upper arm. No focal collections suggestive of abscess demonstrated. A few dermal calcifications are seen in the medial forearm subcutaneous fat. The bones are intact. Impression: 4.2 x 2.6 x 8.3 cm high attenuation mass in the medial right forearm, appearance consistent with a hematoma. Small 3 mm focus of contrast enhancement at the periphery is suspicious for a small pseudoaneurysm Extensive edema of the forearm. Uncertain as to whether this is related to the presumed trauma, or represents a separate issue No acute bony trauma No evidence of abscess This agrees with the preliminary interpretation provided overnight by [facility] teleradiology service. The CT scanner at [facility] is accredited by the [employer] and the scans are performed using protocols designed to limit radiation exposure to as low as reasonably achievable to attain images of sufficient resolution adequate for diagnostic evaluation.
[2017-03-24] MEDS: Vancomycin 1gm in D5W 275ml IVPB SCH ×2 (08:50→20:36)
[2017-03-24] MEDS: Heparin 5000 units/ml inj SUBQ SCH ×2 (08:51→20:46)
[2017-03-24 09:37] LABS: HEMATOCRIT 30.4 % (42.0-52.0); HEMOGLOBIN 9.7 G/DL (14.2-18.0); MEAN CORPUSCULAR VOLUME 101 FL (80-99); PLATELET COUNT 91 K/UL (150-450); WHITE BLOOD COUNT 3.8 K/UL (4.8-10.8)
[2017-03-24 09:50] LABS: ALANINE AMINOTRANSFERASE 36 U/L (12-78); ALBUMIN 3.1 G/DL (3.4-5.0); ALBUMIN/GLOBULIN RATIO 0.8 (1.0-2.7); ALKALINE PHOSPHATASE 90 U/L (46-116); ANION GAP 7 mmol/L (5-15); ASPARTATE AMINO TRANSFERASE 114 U/L (15-37); BILIRUBIN,TOTAL 1.5 MG/DL (0.2-1.0); BLOOD UREA NITROGEN 7 mg/dL (7-18); CALCIUM 6.5 MG/DL (8.5-10.1); CARBON DIOXIDE 35 MMOL/L (21-32); CHLORIDE 98 MMOL/L (98-107); CREATININE 0.9 MG/DL (0.55-1.30); SODIUM 139 MMOL/L (136-145)
[2017-03-24 09:51] LABS: POTASSIUM 1.9 MMOL/L (3.5-5.1)
[2017-03-24 09:59] LABS: BILIRUBIN,DIRECT 0.5 MG/DL (0.0-0.3)
--- NOTE | 2017-03-24 10:46 | General Progress Note ---
Assessment/Plan Assessment/Plan IMPRESSION diarrhea anemia thrombocytopenia ETOH with withdrawal possible sepsis significant erythema/edema of skin PLAN IV hydration pain RX ID evaluation empiric antibiotics monitor labs monitor stool replace K Subjective Allergies: Coded Allergies: No Known Allergies (Unverified , 12/01/16) UNABLE TO ASSESS (Unverified , 03/23/17) Subjective noted pain and discomfort Objective Last 24 Hour Vital Signs Date Time Temp Pulse Resp B/P (MAP) Pulse Ox O2 Delivery O2 Flow Rate FiO2 03/24/17 08:00 97.5 93 20 126/85 97 Room Air 03/24/17 04:00 93 03/24/17 04:00 98.2 95 20 127/77 98 Room Air 03/24/17 00:10 98.8 103 20 126/74 98 03/23/17 21:55 105 03/23/17 20:03 97.7 106 20 125/84 96 03/23/17 16:04 109 14 115/67 99 Room Air 03/23/17 14:00 98.0 110 15 140/87 98 Room Air 03/23/17 13:00 113 15 146/88 99 Room Air 03/23/17 12:00 97.6 109 13 131/80 98 Room Air Intake and Output 03/23/17 03/24/17 19:00 07:00 Intake Total 4600 ml 1100 ml Output Total 2500 ml Balance 2100 ml 1100 ml IV Total 4600 ml 1100 ml Output Urine Total 2500 ml # Voids 1 # Bowel Movements 1 3 Laboratory Tests 03/23/17 13:20: Lactic Acid Level 2.10 03/24/17 08:40: White Blood Count 3.8L, Red Blood Count 3.00L, Hemoglobin 9.7L, Hematocrit 30.4L , Mean Corpuscular Volume 101H, Mean Corpuscular Hemoglobin 32.2H, Mean Corpuscular Hemoglobin Concent 31.9L, Red Cell Distribution Width 16.0H, Platelet Count 91L, Mean Platelet Volume 6.5, Neutrophils (%) (Auto) , Lymphocytes (%) (Auto) , Monocytes (%) (Auto) , Eosinophils (%) (Auto) , Basophils (%) (Auto) , Differential Total Cells Counted 100, Neutrophils % ( Manual) 52, Lymphocytes % (Manual) 40, Monocytes % (Manual) 7, Eosinophils % ( Manual) 1, Basophils % (Manual) 0, Band Neutrophils 0, Nucleated Red Blood Cells , Platelet Estimate DecreasedL, Platelet Morphology Normal, Hypochromasia 1+, Anisocytosis 1+, Macrocytosis 1+, Sodium Level 139, Potassium Level 1.9*L, Chloride Level 98, Carbon Dioxide Level 35H, Anion Gap 7, Blood Urea Nitrogen 7 , Creatinine 0.9, Estimat Glomerular Filtration Rate > 60, Glucose Level 206H, Calcium Level 6.5L, Total Bilirubin 1.5H, Direct Bilirubin 0.5H, Aspartate Amino Transf (AST/SGOT) 114H, Alanine Aminotransferase (ALT/SGPT) 36, Alkaline Phosphatase 90, Total Protein 7.1, Albumin 3.1L, Globulin 4.0, Albumin/Globulin Ratio 0.8L Height (Feet): 5 Height (Inches): 8.00 Weight (Pounds): 170 Objective WDWN NAD clear breath sounds bilaterally without rhonchi or wheeze [id number] without MRG NABS nontender no HSM no CC edema and significant erythema nonfocal IKER QUEEN Mar 24, 2017 10:46
[2017-03-24] MEDS ORDERED: Potassium Chloride 40 MEQ in Sodium Chloride 500ML 550 ML IVPB ONE (11:00)
[2017-03-24 12:00] VITALS: BP 124/81
[2017-03-24] MEDS ORDERED: Potassium Chloride 40 MEQ in Sodium Chloride 500ML 550 ML IVPB SCH (13:00)
[2017-03-24 16:00] VITALS: BP 121/73
--- NOTE | 2017-03-24 16:15 | Consultation ---
DATE OF CONSULTATION: 03/24/2017 INFECTIOUS DISEASES CONSULTATION CONSULTING PHYSICIAN: Adolfo Moon M.D. REFERRING PHYSICIAN: Angelo Jones M.D. REASON FOR CONSULTATION: Right arm cellulitis. HISTORY OF PRESENTING ILLNESS: This is a 61-year-old gentleman with history of alcohol use and hypertension who came in with altered mental status and alcohol withdrawal. He was found to have a right arm cellulitis and an Infectious Diseases consultation has been obtained for antibiotics. PAST MEDICAL HISTORY: 1. History of cirrhosis. 2. History of hypertension. 3. Possible pancreatic lesion. 4. History of gastritis, esophagitis, and esophageal varices. MEDICATIONS: As an inpatient, he is on potassium, subcutaneous heparin, Zosyn, vancomycin, [place], Ativan and clonidine. ALLERGIES: No known drug allergies. SOCIAL HISTORY: He is homeless. He has a history of heavy alcohol use. FAMILY HISTORY: Unknown. REVIEW OF SYSTEMS: Unable to obtain currently. PHYSICAL EXAMINATION: VITAL SIGNS: Temperature of 97.5, T-max of 98.8, pulse of 93, respiratory rate 20, blood pressure 126/85, and O2 saturation of 97%. HEENT: Pupils equally reactive to light and accommodation. Mouth appears clean without thrush. NECK: Supple. No adenopathy. No JVD. CARDIOVASCULAR: Regular rate and rhythm. No murmurs. LUNGS: Clear to auscultation bilaterally. No crackles. No wheezes. ABDOMEN: Soft and nontender. No organomegaly. EXTREMITIES: No cyanosis. No clubbing. He has a right arm erythema and swelling. He has bilateral lower extremity edema with mild erythema. LABORATORY AND DIAGNOSTIC DATA: White count 3.8, hemoglobin 9.7, hematocrit 30.4, MCV 101, and platelet count of 91. Sodium 139, potassium , chloride 98, bicarbonate 35, BUN 7, creatinine 0.9, glucose 206, calcium 6.5. Total bilirubin 1.5, direct bilirubin 0.5, AST 114, ALT 36, alkaline phosphatase 90, total protein 7.1, and albumin 3.1. UA showing 0 to 2 white cells. Nasal swab was negative for influenza A and B. CT of the forearm showing 4.2 x 2.6 x 8.3, high attenuation mass in the medial right forearm consistent with hematoma. There is also suspicion for a small pseudoaneurysm and extensive edema of the forearm. No bony trauma or abscess noted. Chest x-ray showed no acute process. ASSESSMENT: 1. This is a 61-year-old gentleman with history of alcohol use and hypertension, who comes in with right arm cellulitis and hematoma. 2. History of cirrhosis. 3. Thrombocytopenia. PLAN: 1. Continue vancomycin and Zosyn for now. 2. We will follow up cultures. I would like to thank, Dr. Jones for this consultation. Adolfo Moon M.D. DR: RADHA JOB#: [id number] CC: Angelo Jones M.D.; Fax#: [phone]
[2017-03-24 16:31] LABS: ANION GAP 6 mmol/L (5-15); BLOOD UREA NITROGEN 6 mg/dL (7-18); CALCIUM 6.6 MG/DL (8.5-10.1); CARBON DIOXIDE 35 MMOL/L (21-32); CHLORIDE 101 MMOL/L (98-107); CREATININE 0.9 MG/DL (0.55-1.30); POTASSIUM 2.8 MMOL/L (3.5-5.1); SODIUM 142 MMOL/L (136-145)
--- NOTE | 2017-03-24 17:49 | Wound Care Consultation ---
Wound Assessment Wound Assessment #1: Wound Present on Admission: Yes New Wound: No Status Change of Wound: No Wound Location Body Site Modif: right Wound Location Body Site: arm Wound Type: other - open wound with cellulitis Nicanor Test: Does not Nicanor Wound Thickness: Full Thickness Wound Length: 11.5 Wound Width: 3.0 Wound Depth: utd Percent of Wound [place]/Red: 20 Percent of Wound Black/Brown: 80 Wound Drainage Description: Serosanguineous Wound Drainage Amount: Moderate Wound Drainage Odor: None/Absent Tissue Surrounding Wound: Indurated Wound General Appearance: Reddened - with back soft scab, Draining Wound Assessment #2: Wound Number: 2 Wound Present on Admission: Yes New Wound: No Status Change of Wound: No Wound Location Body Site Modif: right, dorsal Wound Location Body Site: foot Wound Type: scar Nicanor Test: Does not Nicanor Wound Thickness: Full Thickness Percent of Wound [place]/Red: 100 Wound Drainage Amount: None Wound Drainage Odor: None/Absent Tissue Surrounding Wound: Intact Wound General Appearance: Asymptomatic Wound Comment #1 Right arm open wound with cellulitis #2 Right dorsal foot full thickness scar tissue #3 Left and right lower leg with dry flaky skin Recommendation -Local wound care per protocol -Keep clean and dry -Offload both heels -Turn and reposition -Heel protector on both heels -Optimize nutrition -Assess and f/u accordingly for any changes FRANK LOPEZ RN Mar 24, 2017 17:49
[2017-03-24 20:00] VITALS: BP 140/92
[2017-03-25] VITALS: BP 137/90
[2017-03-25] MEDS: NS w/KCl 20mEq 1,000 ML IV SCH ×3 (02:09→21:30)
[2017-03-25 04:00] VITALS: BP 141/91
[2017-03-25] MEDS: Zoysn 3.37gm in NS 100ML IVPB SCH ×3 (05:30→22:43)
[2017-03-25] MEDS: Norco 5mg/325mg tab ORAL PRN ×5 (05:34→16:54)
[2017-03-25 08:00] VITALS: BP 137/81
[2017-03-25 08:12] LABS: ANION GAP 6 mmol/L (5-15); BLOOD UREA NITROGEN 5 mg/dL (7-18); CARBON DIOXIDE 33 MMOL/L (21-32); CHLORIDE 102 MMOL/L (98-107); CREATININE 0.7 MG/DL (0.55-1.30); POTASSIUM 3.3 MMOL/L (3.5-5.1); SODIUM 141 MMOL/L (136-145)
--- NOTE | 2017-03-25 08:23 | General Progress Note ---
Assessment/Plan Assessment/Plan IMPRESSION diarrhea anemia thrombocytopenia ETOH with withdrawal possible sepsis significant erythema/edema of skin PLAN IV hydration pain RX K replacement ID evaluation empiric antibiotics monitor labs monitor stool dc planning ?snf impression, plan, and exam edited and reviewed in detail care discussed with RN Subjective Allergies: Coded Allergies: No Known Allergies (Unverified , 12/01/16) UNABLE TO ASSESS (Unverified , 03/23/17) Subjective noted pain and discomfort noted ecchymosis patient is homeless Objective Last 24 Hour Vital Signs Date Time Temp Pulse Resp B/P (MAP) Pulse Ox O2 Delivery O2 Flow Rate FiO2 03/25/17 04:00 86 03/25/17 04:00 98.8 88 20 141/91 95 Room Air 03/25/17 00:00 98.8 89 20 137/90 95 Room Air 03/25/17 00:00 89 03/24/17 20:00 80 03/24/17 20:00 99.0 90 20 140/92 95 Room Air 03/24/17 17:52 97.5 03/24/17 16:00 95 03/24/17 16:00 97.2 84 20 121/73 97 Room Air 03/24/17 12:00 92 03/24/17 12:00 97.7 96 20 124/81 97 Room Air Intake and Output 03/24/17 03/25/17 19:00 07:00 Intake Total 1037.4 ml 1100 ml Output Total 700 ml 1200 ml Balance 337.4 ml -100 ml Intake Oral 360 ml IV Total 677.4 ml 1100 ml Output Urine Total 700 ml 1200 ml Laboratory Tests 03/24/17 08:40: White Blood Count 3.8L, Red Blood Count 3.00L, Hemoglobin 9.7L, Hematocrit 30.4L , Mean Corpuscular Volume 101H, Mean Corpuscular Hemoglobin 32.2H, Mean Corpuscular Hemoglobin Concent 31.9L, Red Cell Distribution Width 16.0H, Platelet Count 91L, Mean Platelet Volume 6.5, Neutrophils (%) (Auto) , Lymphocytes (%) (Auto) , Monocytes (%) (Auto) , Eosinophils (%) (Auto) , Basophils (%) (Auto) , Differential Total Cells Counted 100, Neutrophils % ( Manual) 52, Lymphocytes % (Manual) 40, Monocytes % (Manual) 7, Eosinophils % ( Manual) 1, Basophils % (Manual) 0, Band Neutrophils 0, Nucleated Red Blood Cells , Platelet Estimate DecreasedL, Platelet Morphology Normal, Hypochromasia 1+, Anisocytosis 1+, Macrocytosis 1+, Sodium Level 139, Potassium Level 1.9*L, Chloride Level 98, Carbon Dioxide Level 35H, Anion Gap 7, Blood Urea Nitrogen 7 , Creatinine 0.9, Estimat Glomerular Filtration Rate > 60, Glucose Level 206H, Calcium Level 6.5L, Total Bilirubin 1.5H, Direct Bilirubin 0.5H, Aspartate Amino Transf (AST/SGOT) 114H, Alanine Aminotransferase (ALT/SGPT) 36, Alkaline Phosphatase 90, Total Protein 7.1, Albumin 3.1L, Globulin 4.0, Albumin/Globulin Ratio 0.8L 03/24/17 15:50: Sodium Level 142, Potassium Level 2.8L, Chloride Level 101, Carbon Dioxide Level 35H, Anion Gap 6, Blood Urea Nitrogen 6L, Creatinine 0.9, Estimat Glomerular Filtration Rate > 60, Glucose Level 146H, Calcium Level 6.6L, Magnesium Level 1.3L 03/25/17 07:30: Sodium Level 141, Potassium Level 3.3L, Chloride Level 102, Carbon Dioxide Level 33H, Anion Gap 6, Blood Urea Nitrogen 5L, Creatinine 0.7, Estimat Glomerular Filtration Rate > 60, Glucose Level 100, Calcium Level 7.0L, Magnesium Level [Pending], Vancomycin Level Trough [Pending] Height (Feet): 5 Height (Inches): 8.00 Weight (Pounds): 170 Objective WDWN NAD clear breath sounds bilaterally without rhonchi or wheeze [id number] without MRG NABS nontender no HSM no CC edema and significant erythema nonfocal more alert and comfortable IKER QUEEN Mar 25, 2017 08:23
[2017-03-25] MEDS: Heparin 5000 units/ml inj SUBQ SCH ×2 (08:27→21:30)
[2017-03-25] MEDS: Vancomycin 1gm in D5W 275ml IVPB SCH (08:32)
[2017-03-25 12:00] VITALS: BP 148/95
--- NOTE | 2017-03-25 13:07 | Infectious Diseases Prog Note ---
"Assessment/Plan Assessment/Plan antibiotics : vancomycin iv, zosyn A 1. right arm cellulitis | hematoma 2. HTN 3. thrombocytopenia 4. cirrhosis P 1. continue vancomycin iv, zosyn 2. will follow up cultures Subjective Constitutional: Denies: fever, chills Respiratory: Denies: shortness of breath, dry cough Gastrointestinal/Abdominal: Denies: nausea, vomiting, diarrhea Musculoskeletal: Reports: pain Allergies: Coded Allergies: No Known Allergies (Unverified , 12/01/16) UNABLE TO ASSESS (Unverified , 03/23/17) Objective Vital Signs Last 24 Hour Vital Signs Date Time Temp Pulse Resp B/P (MAP) Pulse Ox O2 Delivery O2 Flow Rate FiO2 03/25/17 12:00 97.8 89 22 148/95 97 Room Air 03/25/17 09:26 98.8 03/25/17 08:00 98.0 105 20 137/81 96 Room Air 03/25/17 08:00 102 03/25/17 04:00 86 03/25/17 04:00 98.8 88 20 141/91 95 Room Air 03/25/17 00:00 98.8 89 20 137/90 95 Room Air 03/25/17 00:00 89 03/24/17 20:00 80 03/24/17 20:00 99.0 90 20 140/92 95 Room Air 03/24/17 16:00 95 03/24/17 16:00 97.2 84 20 121/73 97 Room Air Height (Feet): 5 Height (Inches): 8.00 Weight (Pounds): 170 Respiratory/Chest: lungs clear Cardiovascular: normal rate, regular rhythm, no gallop/murmur Abdomen: soft, non tender Extremities: no edema, other - right arm erythema, swelling Microbiology Date/Time Source Procedure Growth Status 03/23/17 10:30 Blood Blood Culture - Preliminary NO GROWTH AFTER 24 HOURS Resulted 03/23/17 10:10 Blood Blood Culture - Preliminary NO GROWTH AFTER 24 HOURS Resulted 03/23/17 10:30 Nasal Nares Influenza Types A,B Antigen (DWIGHT) - Final Complete Laboratory Tests Test 03/24/17 15:50 03/25/17 07:30 Sodium Level 142 MMOL/L (136-145) 141 MMOL/L (136-145) Potassium Level 2.8 MMOL/L (3.5-5.1) L 3.3 MMOL/L (3.5-5.1) L Chloride Level 101 MMOL/L (98-107) 102 MMOL/L (98-107) Carbon Dioxide Level 35 MMOL/L (21-32) H 33 MMOL/L (21-32) H Anion Gap 6 mmol/L (5-15) 6 mmol/L (5-15) Blood Urea Nitrogen 6 mg/dL (7-18) L 5 mg/dL (7-18) L Creatinine 0.9 MG/DL (0.55-1.30) 0.7 MG/DL (0.55-1.30) Estimat Glomerular Filtration Rate > 60 mL/min (>60) > 60 mL/min (>60) Glucose Level 146 MG/DL (74-106) H 100 MG/DL (74-106) Calcium Level 6.6 MG/DL (8.5-10.1) L 7.0 MG/DL (8.5-10.1) L Magnesium Level 1.3 MG/DL (1.8-2.4) L 1.5 MG/DL (1.8-2.4) L Vancomycin Level Trough 8.7 ug/mL (5.0-12.0) SILVIA VINES Mar 25, 2017 13:07"
[2017-03-25 16:00] VITALS: BP 139/90
[2017-03-25 20:00] VITALS: BP 140/93
[2017-03-25] MEDS: Vancomycin 1500mg IVPB SCH (20:30)
[2017-03-26 00:03] VITALS: BP 133/70
[2017-03-26] MEDS: Norco 5mg/325mg tab ORAL PRN ×3 (03:41→18:02)
[2017-03-26 04:00] VITALS: BP 150/96
[2017-03-26] MEDS: Zoysn 3.37gm in NS 100ML IVPB SCH (05:34)
[2017-03-26] MEDS: NS w/KCl 20mEq 1,000 ML IV SCH ×2 (05:35→17:00)
[2017-03-26 07:53] LABS: ANION GAP 9 mmol/L (5-15); BLOOD UREA NITROGEN 5 mg/dL (7-18); CALCIUM 7.6 MG/DL (8.5-10.1); CARBON DIOXIDE 29 MMOL/L (21-32); CHLORIDE 103 MMOL/L (98-107); CREATININE 0.7 MG/DL (0.55-1.30); POTASSIUM 2.9 MMOL/L (3.5-5.1); SODIUM 141 MMOL/L (136-145)
[2017-03-26] MEDS: Vancomycin 1500mg IVPB SCH ×2 (08:00→13:54)
[2017-03-26 08:47] VITALS: BP 149/94
[2017-03-26] MEDS: Heparin 5000 units/ml inj SUBQ SCH ×2 (09:00→20:57)
--- NOTE | 2017-03-26 09:52 | General Progress Note ---
Assessment/Plan Assessment/Plan IMPRESSION diarrhea anemia thrombocytopenia ETOH with withdrawal possible sepsis significant erythema/edema of skin PLAN IV hydration pain RX K replacement ID evaluation noted empiric antibiotics noted monitor labs cultures negative monitor stool dc planning ?snf impression, plan, and exam edited and reviewed in detail care discussed with RN Subjective Allergies: Coded Allergies: No Known Allergies (Unverified , 12/01/16) UNABLE TO ASSESS (Unverified , 03/23/17) Subjective noted pain and discomfort noted ecchymosis patient is homeless no other changes noted Objective Last 24 Hour Vital Signs Date Time Temp Pulse Resp B/P (MAP) Pulse Ox O2 Delivery O2 Flow Rate FiO2 03/26/17 08:47 97.2 109 20 149/94 96 Room Air 03/26/17 04:00 99.9 105 20 150/96 94 03/26/17 04:00 115 03/26/17 00:03 99.9 106 20 133/70 96 03/26/17 00:00 113 03/25/17 20:00 119 03/25/17 20:00 98.1 125 20 140/93 91 03/25/17 17:53 97.7 03/25/17 16:00 91 03/25/17 16:00 97.7 95 20 139/90 96 Room Air 03/25/17 12:00 78 03/25/17 12:00 97.8 89 22 148/95 97 Room Air Intake and Output 03/25/17 03/26/17 19:00 07:00 Intake Total 1800 ml 1100 ml Output Total 2000 ml 1700 ml Balance -200 ml -600 ml Intake Oral 800 ml IV Total 1000 ml 1100 ml Output Urine Total 2000 ml 1700 ml # Bowel Movements 2 Laboratory Tests 03/26/17 04:00: Sodium Level 141, Potassium Level 2.9L, Chloride Level 103, Carbon Dioxide Level 29, Anion Gap 9, Blood Urea Nitrogen 5L, Creatinine 0.7, Estimat Glomerular Filtration Rate > 60, Glucose Level 102, Calcium Level 7.6L, Magnesium Level 1.7L Height (Feet): 5 Height (Inches): 8.00 Weight (Pounds): 170 Objective WDWN NAD clear breath sounds bilaterally without rhonchi or wheeze [id number] without MRG NABS nontender no HSM no CC edema and significant erythema nonfocal more alert and comfortable IKER QUEEN Mar 26, 2017 09:52
[2017-03-26 12:00] VITALS: BP 143/93
[2017-03-26] MEDS: Mag Plus Protein 133mg Tab ORAL SCH ×2 (13:49→17:58)
[2017-03-26] MEDS ORDERED: Zoysn 3.37gm in NS 100ML IVPB SCH (16:00)
[2017-03-26 16:53] VITALS: BP 148/91
[2017-03-26 20:13] VITALS: BP 136/92
[2017-03-26] MEDS: LORazepam Inj 2mg/ml 1ml IVP PRN (21:09)
[2017-03-26] MEDS ORDERED: NS 275ml ONE (22:45)
[2017-03-26] MEDS ORDERED: Tubing IV Secondary IV ONE (22:45)
[2017-03-27 00:33] VITALS: BP 144/90
[2017-03-27] MEDS: Vancomycin 1500mg IVPB SCH ×2 (01:47→13:36)
[2017-03-27 04:13] VITALS: BP 140/84
[2017-03-27] MEDS: Zoysn 3.37gm in NS 100ML IVPB SCH ×3 (05:37→21:06)
[2017-03-27] MEDS: NS w/KCl 20mEq 1,000 ML IV SCH ×3 (05:37→23:00)
[2017-03-27] MEDS: Norco 5mg/325mg tab ORAL PRN ×4 (05:41→21:13)
[2017-03-27 08:00] VITALS: BP 144/93
[2017-03-27] MEDS: Heparin 5000 units/ml inj SUBQ SCH ×2 (08:24→21:00)
[2017-03-27] MEDS: Mag Plus Protein 133mg Tab ORAL SCH ×3 (08:24→18:38)
[2017-03-27 09:34] LABS: ANION GAP 9 mmol/L (5-15); BLOOD UREA NITROGEN 5 mg/dL (7-18); CALCIUM 7.8 MG/DL (8.5-10.1); CARBON DIOXIDE 28 MMOL/L (21-32); CHLORIDE 105 MMOL/L (98-107); CREATININE 0.8 MG/DL (0.55-1.30); SODIUM 142 MMOL/L (136-145)
--- NOTE | 2017-03-27 10:43 | General Progress Note ---
Assessment/Plan Assessment/Plan IMPRESSION diarrhea anemia thrombocytopenia ETOH with withdrawal possible sepsis significant erythema/edema of skin PLAN IV hydration- dc pain RX K replacement ID evaluation noted empiric antibiotics noted monitor labs for change cultures negative thus far dc planning to snf today need ongoing wound care impression, plan, and exam edited and reviewed in detail care discussed with RN Subjective Allergies: Coded Allergies: No Known Allergies (Unverified , 12/01/16) UNABLE TO ASSESS (Unverified , 03/23/17) Subjective noted pain and discomfort noted ecchymosis and swelling patient accepted to snf Objective Last 24 Hour Vital Signs Date Time Temp Pulse Resp B/P (MAP) Pulse Ox O2 Delivery O2 Flow Rate FiO2 03/27/17 08:00 98 03/27/17 08:00 98.0 100 20 144/93 98 Room Air 03/27/17 04:13 98.2 107 20 140/84 99 Room Air 03/27/17 04:00 105 03/27/17 00:33 98.6 98 20 144/90 Room Air 03/27/17 00:00 104 03/26/17 20:13 98.8 112 20 136/92 93 Room Air 03/26/17 20:00 111 03/26/17 16:53 98.8 95 20 148/91 99 Room Air 03/26/17 16:00 108 03/26/17 12:00 121 03/26/17 12:00 98.4 94 20 143/93 96 Intake and Output 03/26/17 03/27/17 19:00 07:00 Intake Total 1957.5 ml Balance 1957.5 ml Intake Oral 1080 ml IV Total 877.5 ml # Voids 5 2 # Bowel Movements 1 Laboratory Tests 03/27/17 07:00: Sodium Level 142, Potassium Level 3.0L, Chloride Level 105, Carbon Dioxide Level 28, Anion Gap 9, Blood Urea Nitrogen 5L, Creatinine 0.8, Estimat Glomerular Filtration Rate > 60, Glucose Level 93, Calcium Level 7.8L Height (Feet): 5 Height (Inches): 8.00 Weight (Pounds): 170 Objective WDWN NAD clear breath sounds bilaterally without rhonchi or wheeze [id number] without MRG NABS nontender no HSM no CC edema and significant erythema nonfocal more alert and comfortable IKER QUEEN Mar 27, 2017 10:43
[2017-03-27 12:00] VITALS: BP 144/87
--- NOTE | 2017-03-27 12:48 | Infectious Diseases Prog Note ---
Assessment/Plan Assessment/Plan A: 1. right arm cellulitis , hematoma 2. HPN 3. thrombocytopenia 4. cirrhosis 5. Alcohol withdrawal P 1. continue vancomycin iv, Zosyn in hospital 2. Keflex & Doxycycline after discharge 3. Keep arm elevated Subjective ROS Limited/Unobtainable: No Constitutional: Reports: no symptoms Respiratory: Reports: no symptoms Cardiovascular: Reports: no symptoms Gastrointestinal/Abdominal: Reports: no symptoms Genitourinary: Reports: no symptoms Musculoskeletal: Reports: pain, other - in right arm Allergies: Coded Allergies: No Known Allergies (Unverified , 12/01/16) UNABLE TO ASSESS (Unverified , 03/23/17) Objective Vital Signs Last 24 Hour Vital Signs Date Time Temp Pulse Resp B/P (MAP) Pulse Ox O2 Delivery O2 Flow Rate FiO2 03/27/17 12:00 97.8 92 20 144/87 98 Room Air 03/27/17 08:00 98 03/27/17 08:00 98.0 100 20 144/93 98 Room Air 03/27/17 04:13 98.2 107 20 140/84 99 Room Air 03/27/17 04:00 105 03/27/17 00:33 98.6 98 20 144/90 Room Air 03/27/17 00:00 104 03/26/17 20:13 98.8 112 20 136/92 93 Room Air 03/26/17 20:00 111 03/26/17 16:53 98.8 95 20 148/91 99 Room Air 03/26/17 16:00 108 Height (Feet): 5 Height (Inches): 8.00 Weight (Pounds): 170 General Appearance: no acute distress HEENT: mucous membranes moist Respiratory/Chest: lungs clear Cardiovascular: normal rate Abdomen: soft, non tender Extremities: other - edema, erythema, bruise on R arm Neurologic/Psychiatric: alert, oriented x 3, responsive Laboratory Tests Test 03/27/17 07:00 Sodium Level 142 MMOL/L (136-145) Potassium Level 3.0 MMOL/L (3.5-5.1) L Chloride Level 105 MMOL/L (98-107) Carbon Dioxide Level 28 MMOL/L (21-32) Anion Gap 9 mmol/L (5-15) Blood Urea Nitrogen 5 mg/dL (7-18) L Creatinine 0.8 MG/DL (0.55-1.30) Estimat Glomerular Filtration Rate > 60 mL/min (>60) Glucose Level 93 MG/DL (74-106) Calcium Level 7.8 MG/DL (8.5-10.1) L Current Medications Medications (Trade) Dose Ordered Sig/Shagufta Route PRN Reason Start Time Stop Time Status Last Admin Dose Admin Acetaminophen/ Hydrocodone Bitart ([place] 5/325) 1 tab Q4H PRN ORAL Moderate Pain (Pain Scale 4-6) 03/23/17 20:15 03/30/17 20:14 03/25/17 08:27 Acetaminophen/ Hydrocodone Bitart ([place] 5/325) 2 tab Q4H PRN ORAL Severe Pain (Pain Scale 7-10) 03/23/17 20:15 03/30/17 20:14 03/27/17 05:41 Amino Acids/ Magnesium (Mg-Plus) 133 mg THREE TIMES A DAY ORAL 03/26/17 13:00 04/25/17 12:59 03/27/17 08:24 Clonidine HCl (Catapres) 0.1 mg Q4H PRN ORAL For High Blood Pressure 03/23/17 16:45 04/22/17 16:44 Heparin Sodium (Porcine) (Heparin 5000 units/ml) 5,000 units EVERY 12 HOURS SUBQ 03/24/17 09:00 04/23/17 08:59 03/25/17 21:30 Piperacillin Sod/ Tazobactam Sod 3.375 gm/Sodium Chloride 110 ml @ 27.5 mls/hr Q8H IVPB 03/27/17 05:00 04/03/17 04:59 03/27/17 05:37 Sodium Chloride 1,000 ml @ 100 mls/hr Q10H IV 03/23/17 19:00 04/22/17 18:59 03/27/17 05:37 Vancomycin HCl (Vanco rx to dose) 1 ea DAILY PRN MISC Per rx protocol 03/23/17 16:45 04/22/17 16:44 Vancomycin HCl/ Dextrose 250 ml @ 125 mls/hr Q12H IVPB 03/26/17 14:00 03/31/17 13:59 03/27/17 01:47 GAMALIEL ROLDAN Mar 27, 2017 12:48
[2017-03-27 16:00] VITALS: BP 141/88
[2017-03-27 20:15] VITALS: BP 141/89
[2017-03-28 00:20] VITALS: BP 138/84
[2017-03-28] MEDS: Vancomycin 1500mg IVPB SCH (02:21)
[2017-03-28 04:30] VITALS: BP 149/103
[2017-03-28] MEDS: Zoysn 3.37gm in NS 100ML IVPB SCH (05:35)
[2017-03-28] MEDS: Norco 5mg/325mg tab ORAL PRN ×2 (06:00→10:06)
[2017-03-28 08:00] VITALS: BP 139/87
[2017-03-28] MEDS: Heparin 5000 units/ml inj SUBQ SCH (09:00)
--- NOTE | 2017-03-28 09:35 | General Progress Note ---
Assessment/Plan Assessment/Plan IMPRESSION diarrhea anemia thrombocytopenia ETOH with withdrawal possible sepsis significant erythema/edema of skin PLAN pain RX K replacement and monitor after dc empiric antibiotics noted monitor labs for change cultures negative thus far dc planning to snf today need ongoing wound care impression, plan, and exam edited and reviewed in detail care discussed with RN Subjective Allergies: Coded Allergies: No Known Allergies (Unverified , 12/01/16) UNABLE TO ASSESS (Unverified , 03/23/17) Subjective noted pain and discomfort noted ecchymosis and swelling patient accepted to snf but unable to transfer yesterday Objective Last 24 Hour Vital Signs Date Time Temp Pulse Resp B/P (MAP) Pulse Ox O2 Delivery O2 Flow Rate FiO2 03/28/17 08:00 99.0 85 20 139/87 91 Room Air 03/28/17 04:30 99.8 77 20 149/103 100 Room Air 03/28/17 04:00 75 03/28/17 00:20 98.2 82 20 138/84 96 Room Air 03/28/17 00:00 85 03/27/17 20:15 99.5 85 20 141/89 96 Room Air 03/27/17 20:00 84 03/27/17 17:06 95 03/27/17 16:00 98.2 90 22 141/88 97 Room Air 03/27/17 12:00 97.8 92 20 144/87 98 Room Air 03/27/17 12:00 73 Intake and Output 03/27/17 03/28/17 19:00 07:00 Intake Total 1815.0 ml Output Total 1000 ml 900 ml Balance 815.0 ml -900 ml Intake Oral 800 ml IV Total 1015.0 ml Output Urine Total 1000 ml 900 ml # Voids 3 # Bowel Movements 1 Laboratory Tests 03/28/17 01:00: Vancomycin Level Trough 9.8 Height (Feet): 5 Height (Inches): 8.00 Weight (Pounds): 170 Objective WDWN NAD clear breath sounds bilaterally without rhonchi or wheeze [id number] without MRG NABS nontender no HSM no CC edema and significant erythema nonfocal more alert and comfortable IKER QUEEN Mar 28, 2017 09:35
[2017-03-28] MEDS ORDERED: Vancomycin 1500mg IVPB SCH (10:00)
[2017-03-28] MEDS: Mag Plus Protein 133mg Tab ORAL SCH (10:06)
[2017-03-28] MEDS: NS w/KCl 20mEq 1,000 ML IV SCH (10:07)
[2017-03-28] MEDS ORDERED: Tubing IV Secondary IV ONE (11:44)
[2017-03-28] MEDS ORDERED: NS 275ml ONE (11:44)
--- NOTE | 2017-03-30 14:43 | Discharge Summary ---
Discharge Summary Hospital Course Date of Admission Mar 23, 2017 at 10:58 Date of Discharge Mar 28, 2017 at 11:45 Admitting Diagnosis Sepsis, Celluitis HPI Curtis Loepz is a 61 year old male who was admitted on Mar 23, 2017 at 10:58 for Sepsis,Cellulitis Hospital Course dc summary #[id number] Discharge Discharge Disposition Patient was discharged to SNF/Subacute Facility(03) Discharge Diagnoses: Discharge Instructions Discharge Instructions Special Instructions I have been assigned to complete a D/C Summary on this account. I was not involved in the patient management Jaja Cheung NP ([facility]) Mar 30, 2017 14:43
--- NOTE | 2017-03-31 00:45 | Discharge Summary 2 SIG ---
DATE OF ADMISSION: 03/23/2017 DATE OF DISCHARGE: 03/28/2017 REASON FOR ADMISSION: 61 years old male with history of alcohol abuse, cirrhosis, history of hypertension, gastritis, and esophagitis, presented to the emergency department with episode of diarrhea, right upper arm pain, status post recent fall. The patient admitted to alcohol abuse. The patient reported generalized weakness. The patient was tachycardic -116. Blood pressure -146/80. CT of the right arm revealed evidence of hematoma in the medial right forearm and extensive edema of forearm, but no acute bony trauma and no evidence of the abscess. The patient had severe hypokalemia with potassium -2.1, sodium -143, stable renal parameters. Lactic acid -6.3. Troponin negative. Magnesium -1.2. Elevated bilirubin total and direct, total -1.3, direct -0.5. Elevated AST -168. Anemic with hemoglobin -10.2, hematocrit -31.6. The patient admitted with possible sepsis, right upper arm cellulitis with hematoma, dehydration, diarrhea, alcohol abuse with possible withdrawal, hypertension, acute hypokalemia, and acute hypomagnesemia. HOSPITAL STAY: The patient admitted. The patient was started on the IV fluids. Infectious Disease consult was requested. The patient was started on empiric antibiotics. Infectious Disease followed. Blood cultures were negative. Influenza screen negative. Chest x-ray negative for any acute cardiopulmonary pathology. Urinalysis negative. The patient was on IV antibiotics while in the hospital for treatment for cellulitis and changed to oral upon discharge. Wound care provided as per wound care nurse recommendations. The patient needs further wound care, which would be provided at the intermediate facility. Electrolytes were replaced as needed. Prior to discharge, potassium up to 3.0, magnesium was replaced as well. Anti-diarrheal medications started and diarrhea stopped. Stool for C. difficile was not collected. The patient was on the DVT and GI prophylaxis. Blood pressure was managed with the current regimen and remained stable. Right arm was elevated while in the bed. The patient was stable for discharge to intermediate facility since the patient needs routine wound care. FINAL DIAGNOSES: 1. Possible sepsis. 2. Right forearm cellulitis with hematoma. 3. Dehydration. 4. Diarrhea, resolved. 5. Hypertension. 6. Acute hypokalemia. 7. Acute hypomagnesemia. 8. Alcohol abuse with possible withdrawal. DISCHARGE MEDICATIONS: List of medications was sent to admitting facility. DISCHARGE INSTRUCTIONS: The patient was discharged to intermediate facility for continuation of care for wound care of the right upper extremity. Angelo Jones M.D. I have been assigned to dictate discharge summary on this account and I was not involved in the patient's management. Jaja Cheung ([facility]tein) N.PHolden DR: CAT JOB#: [id number] CC: EVA
--- NOTE | 2017-04-02 00:53 | Physician Query ---
PLEASE COMPLETE DOCUMENT BEFORE SIGNING Dear Dr. WALTON Date: 04/02/17 Chimney Supervisor Brick/CDS Name: Yoselin Hernandez CCS. COLLEGE ARCHIVIST Exercise your independent professional judgment when responding to the query. Questions asked do not imply a particular answer is desired or expected. We greatly appreciate your clarification on this issue. CLINICAL DOCUMENTATION STATES:IMPRESSION: presented to the emergency room with altered mental status, and weakness and alcohol withdrawal. ER PHYSICIAN- HPI -This patient is brought in for multiple complaints. He is brought in by his girlfriend because he seemed altered. However, the patient states that he has pain in his arm after a fall several days ago. He admits to alcohol abuse. He also has had watery diarrhea and fatigue.He has no other complaints. H&P -REASON FOR ADMISSION: 61 years old male with history of alcohol abuse, cirrhosis, history of hypertension, gastritis, and esophagitis, presented to the emergency department with episode of diarrhea, right upper arm pain, status post recent fall. The patient admitted to alcohol abuse. The patient reported generalized weakness. CLINICAL FINDINGS SHOW:tachycardic -116. Blood pressure -146/80. CT of the right arm revealed evidence of hematoma in the medial right forearm and extensive edema of forearm, but no acute bony trauma and no evidence of the abscess. The patient had severe hypokalemia with potassium -2.1,sodium -143, stable renal parameters. Lactic acid -6.3. Troponin negative. Magnesium -1.2. Elevated bilirubin total and direct, total -1.3, direct -0.5. Elevated AST -168. Anemic with hemoglobin -10.2, hematocrit -31.6. WBC 03/23/17 3.9 WBC 03/24/17 3.8 FINAL DIAGNOSES: 1. Possible sepsis. 2. Right forearm cellulitis with hematoma. 3. Dehydration. 4. Diarrhea, resolved. 5. Hypertension. 6. Acute hypokalemia. 7. Acute hypomagnesemia. 8. Alcohol abuse with possible withdrawal. Please respond to the following question: Please state the underlying condition for the AMS & Weakness? PHYSICIAN RESPONSE: DX: alcoholic encephalopathy ( ) Clinically undeterminable IKER QUEEN M.D. DATE & TIME MTDD
--- NOTE | 2017-04-02 16:21 | Cardiology Report ---
APPROVED REPORT EKG Measurement Heart [id number] Sinus tachycardia Nonspecific T wave abnormality Prolonged QT Abnormal ECG
== END 2017-03-28 11:45 | DRG 92 ==
LOC: EDBD 09:44 → EMR 10:13 → 2E 10:58 → EDBEDREQ 14:54 → 2E 16:35
DX: G92 Toxic encephalopathy (principal); L03.113 Cellulitis of right upper limb; D69.6 Thrombocytopenia, unspecified; K70.30 Alcoholic cirrhosis of liver without ascites; D64.9 Anemia, unspecified; I10 Essential (primary) hypertension; S50.11XA Contusion of right forearm, initial encounter; F10.239 Alcohol dependence with withdrawal, unspecified; E83.42 Hypomagnesemia; E86.0 Dehydration; K74.60 Unspecified cirrhosis of liver; R19.7 Diarrhea, unspecified; E87.6 Hypokalemia; Z59.0 Homelessness; W19.XXXA Unspecified fall, initial encounter
CPT/HCPCS: 36415; 71045; 80048; 80053; 80202; 81003; 82248; 82550; 82553; 82962; 83605; 83735; 84484; 85007; 85025; 86710; 87040; 87081; 93005; 99285; J8499

== ENCOUNTER 2017-08-08 01:32 | Emergency (ER) | payer MEDICARE, MEDICAID ==
[~2017-08-08] VITALS: Ht 180.3 cm; Wt 95.3 kg
[2017-08-08] MEDS ORDERED: Bacitracin Oint UD TOPIC ONE ×2 (01:37→01:45)
--- NOTE | 2017-08-08 01:48 | Emergency Room Report ---
History of Present Illness General Chief Complaint: Pain Source: Patient, Medical Record Present Illness HPI This is a 61-year-old male who is homeless. He was brought in by police for medical clearance. He's been arrested for outstanding warrant. He has an ulcer to his right leg has been there for couple months. Last seen a month ago at another hospital and wound dressing. He has a remove the wound dressing since then. Denies any other complaint. Complaining of pain in that area as 10 out of 10. No fever chills but no nausea no vomiting. No other complaint. Allergies: Coded Allergies: No Known Allergies (Unverified , 12/01/16) Patient History Past Medical History: see triage record, old chart reviewed Past Surgical History: other Pertinent Family History: none Social History: Reports: smoking, alcohol use Immunizations: other Reviewed Nursing Documentation: PMH: Agreed; PSxH: Agreed Nursing Documentation-PMH Past Medical History: No History, Except For Hx Cardiac Problems: No - SUBSTANCE ABUSE Hx Hypertension: Yes Hx Diabetes: Yes Review of Systems Eye: Denies: eye pain, blurred vision ENT: Denies: ear pain, nose congestion, throat swelling Respiratory: Denies: cough, shortness of breath Cardiovascular: Denies: chest pain, palpitations Gastrointestinal: Denies: abdominal pain, diarrhea, nausea, vomiting Musculoskeletal: Reports: muscle pain; Denies: back pain Skin: Denies: rash Neurological: Denies: headache, numbness Endocrine: Denies: increased thirst, increased urine Hematologic/Lymphatic: Denies: easy bruising All Other Systems: negative except mentioned in HPI Physical Exam Vital Signs Date Time Temp Pulse Resp B/P (MAP) Pulse Ox O2 Delivery O2 Flow Rate FiO2 08/08/17 01:26 98.7 109 16 159/71 98 Room Air 98.8 vitals unremarkable Sp02 EP Interpretation: reviewed, normal General Appearance: well appearing, no apparent distress, alert, other - malodorous. disshelved. Head: normocephalic, atraumatic Eyes: bilateral eye PERRL, bilateral eye EOMI ENT: hearing grossly normal, normal pharynx Neck: full range of motion, supple, no meningismus Respiratory: chest non-tender, lungs clear, normal breath sounds Cardiovascular #1: regular rate, rhythm, no murmur Gastrointestinal: normal bowel sounds, non tender, no mass, no organomegaly, no bruit, non-distended Musculoskeletal: back normal, gait/station normal, normal range of motion, other - right tibial area: 2cm ulcer. no redness or drainage. no fluctuant. Psychiatric: mood/affect normal Skin: warm/dry Medical Decision Making Diagnostic Impression: Primary Impression: Venous ulcer of right lower extremity without varicose veins ER Course Patient with an ulcer to the lower extremity. No evidence of infection or drainage. no evidence of necrotizing fasc. no e/o abscess. We'll discharge home. Last Vital Signs Date Time Temp Pulse Resp B/P (MAP) Pulse Ox O2 Delivery O2 Flow Rate FiO2 08/08/17 01:26 98.7 109 16 159/71 98 Room Air 98.8 Status: unchanged Disposition: HOME, SELF-CARE Condition: Stable Additional Instructions: Follow-up with your DrHolden in 7 days for recheck. Return if symptom worsen. DEBBY COELHO M.D. August 08, 2017 01:48
[2017-08-08 02:00] VITALS: BP 159/71
== END 2017-08-08 02:30 ==
LOC: EDBD 01:32 → EMR 02:19
DX: L97.819 Non-pressure chronic ulcer of other part of right lower leg with unspecified severity (principal); E11.9 Type 2 diabetes mellitus without complications; I10 Essential (primary) hypertension
CPT/HCPCS: 99282

== ENCOUNTER 2019-03-15 12:15 | Inpatient (IN) | payer MEDICAID, MEDICARE ==
[2019-03-15] VITALS (7 sets, daily range): BP systolic 105–144; BP diastolic 69–111
[~2019-03-15] VITALS: Ht 180.3 cm; Wt 87.6 kg
--- NOTE | 2019-03-15 12:17 | NUR ---
ED Nurse Note: Pt brought in by ambulance. Pt reports generalized pain as well as abdominal pain and pain in the left arm. Pt states that his left arm keeps cramping and "seizing up" intermittently. Pt reports pain /. Pt admits to consuming ETOH. Pt resting in bed awaiting ERMD.
--- NOTE | 2019-03-15 12:45 | NUR ---
ED Nurse Note: ERMD at bedside
--- NOTE | 2019-03-15 13:00 | NUR ---
ED Nurse Note: Pt's vital signs elevated, ERMD aware
[2019-03-15 13:28] LABS: BILIRUBIN, URINE NEGATIVE (NEGATIVE); COLOR,URINE YELLOW; GLUCOSE, URINE (UA) 1+ (NEGATIVE); HEMATOCRIT 43.1 % (42.0-52.0); HEMOGLOBIN 14.3 G/DL (14.2-18.0); KETONES,URINE 1+ (NEGATIVE); LEUKOCYTE ESTERASE ,URINE NEGATIVE (NEGATIVE); MEAN CORPUSCULAR VOLUME 86 FL (80-99); NITRITE,URINE NEGATIVE (NEGATIVE); PH,URINE 5 (4.5-8.0); PLATELET COUNT 188 K/UL (150-450); PROTEIN,URINE 2+ (NEGATIVE); RED BLOOD COUNT 5.02 M/UL (4.70-6.10); RED CELL DISTRIBUTION WIDTH 13.2 % (11.6-14.8); UROBILINOGEN,URINE 1 MG/DL (0.0-1.0)
[2019-03-15 13:29] LABS: APPEARANCE,URINE SLIGHTLY CLOUDY
[2019-03-15] MEDS ORDERED: LORazepam Inj 2mg/ml 1ml IV ONE ×7 (13:30→18:30)
--- NOTE | 2019-03-15 14:00 | NUR ---
ED Nurse Note: Pt vital signs still elevated, ERMD aware. medication ordered, will continue to monitor
[2019-03-15] MEDS ORDERED: BENADRYL25 MG ORAL (14:23)
[2019-03-15] MEDS ORDERED: NORCO 10-325 T1 EACH ORAL (14:23)
[2019-03-15] MEDS ORDERED: METFORMIN HCL500 M1 ORAL (14:23)
--- NOTE | 2019-03-15 15:13 | Emergency Room Report ---
History of Present Illness General Chief Complaint: Abdominal Pain Source: Patient (Shankar Hopkins MD) Present Illness HPI Disclaimer: Please note that this report is being documented using DRAGON technology. This can lead to erroneous entry secondary to incorrect interpretation by the dictating instrument. HPI: 63-year-old male with a history of alcohol abuse, liver cirrhosis, hepatitis C, gastritis presents for evaluation of abdominal pain, chills and fatigue. Patient is homeless and slept on the street last night while it was raining. He states he has severe body wide chills and myalgias. He also states that he has been drinking heavily and stopped drinking this morning. He has been drinking 3 pints of hard alcohol since 03/03. He began to "get the shakes" which is typical for him when he stops drinking. He also states he has been fatigued lately and feeling badly overall. He denies any chest pain or difficulty breathing. He reports epigastric pain and left-sided upper quadrant pain and left lower quadrant pain. Denies dysuria hematuria. Episodes of vomiting are common for the patient. Denies gross hematemesis or diarrhea. Patient believes he may have had a seizure. No history of seizure and does not take antiepileptic medications. States he has been feeling weak and falling a lot due to the spasticity in his extremities. PMH: Hepatitis C, cirrhosis, alcohol abuse, gastritis PSH: Reviewed with patient Allergies: Denies Social Hx: Daily alcohol use, tobacco use (Shankar Hopkins MD) Allergies: Coded Allergies: No Known Allergies (Unverified , 12/01/16) Nursing Documentation-PMH Past Medical History: No History, Except For Hx Cardiac Problems: No - SUBSTANCE ABUSE Hx Hypertension: Yes Hx Diabetes: Yes (Shankar Hopkins MD) Review of Systems All Other Systems: negative except mentioned in HPI (Shankar Hopkins MD) Physical Exam Vital Signs Date Time Temp Pulse Resp B/P (MAP) Pulse Ox O2 Delivery O2 Flow Rate FiO2 03/15/19 12:06 122 23 162/92 (115) 98 Room Air General: Awake and alert, tremulous HEENT: NC/AT. EOMI. dry mucous membranes Cardiovascular: Tachycardic and tremulous. S1 and S2 normal. No murmur appreciated Resp: Normal work of breathing. No cough, wheezing or crackles appreciated Abdomen: Abdomen is soft, nondistended. Tenderness in the right upper quadrant , epigastrium, left upper quadrant left lower quadrant. No periumbilical or right lower quadrant tenderness. Skin: Wet clothes. Cold to the touch. Shivering MSK: Normal tone and bulk. Moving all extremities. No obvious deformity. Neuro: Awake and alert. Mentating appropriately. (Shankar Hopkins MD) Procedures Critical Care Time Critical Care Time Given the critical condition in which the patient arrived, the patient was immediately assessed by myself and the nurse, and cardiac monitoring initiated due to the potential for rapid decompensation of the patient's clinical condition. During the course of the patient's stay, I spent a considerable amount of time at the bedside performing serial re-evaluations of the patient's hemodynamic and clinical status because of the recognized potential threat to life or limb in this condition. I then had a chance to review not only all of the available current laboratory and radiographic studies obtained today, but I also reviewed old records available to me at the time. Additionally, any ancillary information available including buffing wheel operator records were reviewed. Sequential vital signs were obtained. Critical Care time of 34 minutes was performed exclusive of billable procedures. (Bo Leung MD) Medical Decision Making Diagnostic Impression: Primary Impression: Alcohol abuse Additional Impression: Alcohol withdrawal Qualified Codes: F10.230 - Alcohol dependence with withdrawal, uncomplicated ER Course 63-year-old homeless male with history of alcohol abuse, cirrhosis and hepatitis presents for evaluation of chills, tremors, generalized myalgias and abdominal pain. Differential includes but is not limited to alcohol withdrawal , alcohol intoxication, gastritis, gastroenteritis, pancreatitis. Will start IV fluids and give Ativan for his tremors. May be mild alcohol withdrawal given his tachycardia though may also be because he is cold and shivering from being out in the rain all night. Start a metabolic work-up and treat the patient symptomatically. Laboratory Tests Test 03/15/19 13:16 03/15/19 14:00 03/15/19 14:20 White Blood Count 10.0 K/UL (4.8-10.8) Red Blood Count 5.02 M/UL (4.70-6.10) Hemoglobin 14.3 G/DL (14.2-18.0) Hematocrit 43.1 % (42.0-52.0) Mean Corpuscular Volume 86 FL (80-99) Mean Corpuscular Hemoglobin 28.4 PG (27.0-31.0) Mean Corpuscular Hemoglobin Concent 33.1 G/DL (32.0-36.0) Red Cell Distribution Width 13.2 % (11.6-14.8) Platelet Count 188 K/UL (150-450) Mean Platelet Volume 6.8 FL (6.5-10.1) Neutrophils (%) (Auto) % (45.0-75.0) Lymphocytes (%) (Auto) % (20.0-45.0) Monocytes (%) (Auto) % (1.0-10.0) Eosinophils (%) (Auto) % (0.0-3.0) Basophils (%) (Auto) % (0.0-2.0) Differential Total Cells Counted 100 Neutrophils % (Manual) 84 % (45-75) H Lymphocytes % (Manual) 12 % (20-45) L Monocytes % (Manual) 4 % (1-10) Eosinophils % (Manual) 0 % (0-3) Basophils % (Manual) 0 % (0-2) Band Neutrophils 0 % (0-8) Platelet Estimate Adequate Platelet Morphology Normal Red Blood Cell Morphology Normal Urine Color Yellow Urine Appearance Slightly cloudy Urine pH 5 (4.5-8.0) Urine Specific Printer 1.025 (1.005-1.035) Urine Protein 2+ (NEGATIVE) H Urine Glucose (UA) 1+ (NEGATIVE) H Urine Ketones 1+ (NEGATIVE) H Urine Blood 4+ (NEGATIVE) H Urine Nitrite Negative (NEGATIVE) Urine Bilirubin Negative (NEGATIVE) Urine Urobilinogen 1 MG/DL (0.0-1.0) H Urine Leukocyte Esterase Negative (NEGATIVE) Urine RBC 5-10 /HPF (0 - 0) H Urine WBC 0-2 /HPF (0 - 0) Urine Squamous Epithelial Cells Many /LPF (NONE/OCC) H Urine Bacteria Few /HPF (NONE) Urine Hyaline Casts 0-2 /LPF (NONE) H Urine Fine Granular Casts 0-2 /LPF (NONE) H Salicylates Level 1.6 ug/mL (2.8-20) L Urine Opiates Screen Negative (NEGATIVE) Acetaminophen Level < 2 MCG/ML (10-30) L Urine Barbiturates Screen Negative (NEGATIVE) Phencyclidine (PCP) Screen Negative (NEGATIVE) Urine Amphetamines Screen Negative (NEGATIVE) Urine Benzodiazepines Screen Negative (NEGATIVE) Urine Cocaine Screen Negative (NEGATIVE) Urine Marijuana (THC) Screen Negative (NEGATIVE) Serum Alcohol 145 mg/dL Ammonia 15 umol/L (11-32) Sodium Level 137 MMOL/L (136-145) Potassium Level 3.4 MMOL/L (3.5-5.1) L Chloride Level 99 MMOL/L (98-107) Carbon Dioxide Level 22 MMOL/L (21-32) Anion Gap 17 mmol/L (5-15) H Blood Urea Nitrogen 16 mg/dL (7-18) Creatinine 0.8 MG/DL (0.55-1.30) Estimate Glomerular Filtration Rate > 60 mL/min (>60) Glucose Level 127 MG/DL (74-106) H Calcium Level 7.7 MG/DL (8.5-10.1) L Total Bilirubin 0.9 MG/DL (0.2-1.0) Aspartate Amino Transferase (AST) 169 U/L (15-37) H Alanine Aminotransferase (ALT) 97 U/L (12-78) H Alkaline Phosphatase 112 U/L (46-116) Total Protein 6.8 G/DL (6.4-8.2) Albumin 3.1 G/DL (3.4-5.0) L Globulin 3.7 g/dL Albumin/Globulin Ratio 0.8 (1.0-2.7) L Lipase 169 U/L (73-393) (Shankar Hopkins MD) ER Course 63-year-old male presents with acute alcohol withdrawal, Reevaluation at 5:32 PM will provide patient with Librium 100 mg as well as 4 of Ativan IV given the fact he is still tachycardic Patient is admitted to Dr. Vences Reevaluation 6:21 PM, patient is improving, patient has received 17 mg of Ativan and 200 mg of Librium (Bo Leung MD) EKG Diagnostic Results EKG Time: 16:40 Rate: tachycardiac Rhythm: NSR ST Segments: no acute changes Other Impression Sinus tachycardia, borderline left axis, no ischemic changes. Normal intervals (Shankar Hopkins MD) Rhythm Strip Diag. Results Rhythm Strip Time: 16:40 EP Interpretation: yes Rate: 120s Rhythm: NSR, no PVC's, no ectopy (Shankar Hopkins MD) Reevaluation Time: 16:20 Last Vital Signs Date Time Temp Pulse Resp B/P (MAP) Pulse Ox O2 Delivery O2 Flow Rate FiO2 03/15/19 12:17 124 23 144/111 98 Room Air Reevaluation Impression CBC within normal limits. Mild hypokalemia with a potassium of 3.4. AST and ALT are elevated consistent with patient's history of alcohol abuse and cirrhosis. Ammonia within normal limits. Lipase within normal limits. Urinalysis shows squamous cells and RBCs but no signs of acute infection. Alcohol positive at 145. The patient was treated with Ativan and Librium however he remains tremulous and tachycardic. Believe he is in acute withdrawal. He noted possible seizures though this is difficult to verify. He has been feeling weak and reports some recent falls. Will give more benzodiazepines and admit for alcohol withdrawal. (Shankar Hopkins MD) Disposition: ADMITTED INPATIENT Condition: Serious Referrals: NOT CHOSEN IPA/,REFERRING (PCP) Shankar Hopkins MD Mar 15, 2019 15:13 Bo Leung MD Mar 15, 2019 17:32
[2019-03-15 15:40] LABS: ANION GAP 17 mmol/L (5-15); BLOOD UREA NITROGEN 16 mg/dL (7-18); CALCIUM 7.7 MG/DL (8.5-10.1); CARBON DIOXIDE 22 MMOL/L (21-32); CHLORIDE 99 MMOL/L (98-107); CREATININE 0.8 MG/DL (0.55-1.30); POTASSIUM 3.4 MMOL/L (3.5-5.1); SODIUM 137 MMOL/L (136-145)
[2019-03-15 15:44] LABS: ALANINE AMINOTRANSFERASE 97 U/L (12-78); ALBUMIN 3.1 G/DL (3.4-5.0); ALBUMIN/GLOBULIN RATIO 0.8 (1.0-2.7); ALKALINE PHOSPHATASE 112 U/L (46-116); ASPARTATE AMINO TRANSFERASE 169 U/L (15-37); BILIRUBIN,TOTAL 0.9 MG/DL (0.2-1.0)
[2019-03-15] MEDS ORDERED: chlordiazePOXIDE 25mg Cap ORAL ONE ×2 (15:45→17:15)
[2019-03-15] MEDS ORDERED: Morphine Sulfate 4mg/ml Inj (IV USE ONLY) IVP ONE (15:45)
--- NOTE | 2019-03-15 17:15 | NUR ---
ED Nurse Note: Xray at bedside
--- NOTE | 2019-03-15 18:00 | NUR ---
ED Nurse Note: Pt resting in bed, HR still elevated, ERMD aware
--- NOTE | 2019-03-15 18:05 | NUR ---
ED Nurse Note: Pt sleeping in bed, vital signs still elevated, ermd aware
[2019-03-15] MEDS ORDERED: LORazepam Inj 2mg/ml 1ml ONE (18:08)
--- NOTE | 2019-03-15 18:25 | NUR ---
ED Nurse Note: RN returned unused Ativan 1mg to [facility] and resolved discrepancy.
--- NOTE | 2019-03-15 19:10 | NUR ---
ED Nurse Note: Handoff Report given to MAK Rosas
[2019-03-15] MEDS ORDERED: Miralax 17gm pkt ORAL PRN (19:15)
[2019-03-15] MEDS ORDERED: LORazepam Inj 2mg/ml 1ml IV PRN (19:15)
[2019-03-15] MEDS ORDERED: Zolpidem 5mg tab ORAL PRN (19:15)
--- NOTE | 2019-03-15 20:04 | NUR ---
ED Nurse Note: report given to MAK Nielsen from Tele.
--- NOTE | 2019-03-15 20:15 | NUR ---
TRANSFER TO FLOOR: Patient transferred to as ordered, per Dr Vences. Report given to MAK Carl. Belongings and medications given to . Family and or S/O informed of transfer.
--- NOTE | 2019-03-15 20:20 | NUR ---
NURSE NOTES: received report on pt fromER nurse Rosas, MAK. Pt transported via gurney. Pt is awake and resting in bed, appears sedated r/t ativan given in ER. Iv site intact. core mounter placed on patient, vitals taken. Bed locked in lowest position, bed alarm on, call light within reach. Skin intact, pt does have redness bilateral hands, no c/o pain. Belongings list verified with CIRCUIT BOARD REPAIR TECHNICIAN at pt bedside. Will continue with plan of care.
[2019-03-15] MEDS: NovoLOG Insulin Flexpen SUBQ SCH (21:00)
[2019-03-15] MEDS: Heparin 5000 units/ml inj SUBQ SCH (21:00)
[2019-03-15] MEDS: Folic Acid 1 MG, Magnesium Sulfate 2,000 MG, Multivitamin - 12 Injection 10 ML in NS w/... IV SCH (23:16)
[2019-03-15] MEDS: Thiamine 100mg in D5W 55ml IVPB SCH (23:17)
--- NOTE | 2019-03-15 23:44 | History & Physical ---
History and Physical History & Physicial Job: [id number] Petey Vences MD Mar 15, 2019 23:44
[2019-03-16] VITALS: BP 120/74
[2019-03-16] MEDS ORDERED: D5 1/2NS w/KCl 20mEq 1,000 ML IV SCH
--- NOTE | 2019-03-16 01:00 | History and Physical Report ---
DATE OF ADMISSION: 03/15/2019 CHIEF COMPLAINT: Abdominal pain. HISTORY OF PRESENT ILLNESS: The patient is a 72-[id number][place] gentleman with past medical history significant for alcohol abuse with liver cirrhosis, hepatitis C positive, and gastritis, who presented to the emergency room complaining of abdominal pain, chills, and fatigue. The patient is homeless and had slept on the street last night while it was raining. He stated that he has severe body chills and malaise. He stated that he has been drinking heavily, stopped drinking this morning. Last drink was yesterday. He drinks three pints of hard liquor since 03/03/ . He began getting shakes, which is typical for him when he stops drinking. He also stated that he has been fatigued lately and feeling not good. He denies any chest pain or difficulty breathing. He complained of epigastric pain, left-sided upper quadrant pain, left lower quadrant pain. Denies any dysuria or frequency. Denies any hemoptysis or hematochezia. Shortly after initial evaluation in the emergency room, the patient was admitted to the hospital with alcoholism with alcohol withdrawal. PAST MEDICAL HISTORY/PAST SURGICAL HISTORY: As above, history of hepatitis C positive, liver cirrhosis, alcohol abuse, and gastritis. MEDICATIONS AT HOME: None. ALLERGIES: No known drug allergies. SOCIAL HISTORY: The patient currently drinks alcohol. Denies any substance abuse. Denies any tobacco abuse. FAMILY HISTORY: Noncontributory. REVIEW OF SYSTEMS: Mostly as above. Denies any dysuria, frequency, or hematuria. Complained about fatigue and weakness. Denies any hemoptysis or hematochezia. Denies any bright red blood per rectum. PHYSICAL EXAMINATION: VITAL SIGNS: On admission, temperature is 98.2, pulse of 112, respirations 16, and blood pressure 110/91. GENERAL: The patient is awake and responsive, in no acute distress, however, he is shaking. HEAD AND NECK: Pupils are equal and reactive to light. Anicteric. Neck was supple. No JVD. LUNGS: Good air entry. Decrease in air. No wheeze or rhonchi. HEART: S1, S2. Tachycardic. No murmur or gallops. ABDOMEN: Soft, nondistended, and nontender. Mildly obese. EXTREMITIES: No cyanosis, clubbing, or edema. NEUROLOGIC: Cranial nerves II through XII grossly intact. The patient is moving all extremities. The patient is shaking all the extremities. RECTAL/GENITOURINARY: Refused and deferred. PSYCHIATRIC: Mood and affect is anxious. LABORATORY DATA: On admission, WBC of 10, hemoglobin 14, hematocrit 43, and platelets 180,000. Ammonia level 15. Sodium is 137, potassium 3.4, chloride 99, bicarbonate 22, BUN 16, and creatinine 0.8. Glucose is 127. Calcium is 7.7. Total bilirubin is 0.9, AST of 169, ALT of 97, and alkaline phosphatase 112. Troponin 0.015. Total protein is . Lipase is 169. Urine drug screen is negative. Salicylate level is 1.6. Acetaminophen is negative. Alcohol level is 145. UA is +2 protein, +1 glucose, +1 ketone, negative nitrite, negative leukocytes, many squamous epithelial cell. Chest x-ray is still pending. ASSESSMENT: 1. Alcoholism with alcohol withdrawal. 2. Tachycardia. 3. History of liver cirrhosis. 4. Hepatitis C positive. 5. Alcoholic hepatitis. 6. Gastritis. PLAN: Admit the patient to monitored unit. We will follow up with the laboratory. Alcohol withdrawal precaution. Aggressive IV hydration. Follow up with Ativan as needed for withdrawal. Code status, full code. DVT prophylaxis, heparin subcutaneous. We will follow up with . We will consider to get a psychiatric consultation in the morning. Petey Vences M.D. DR: SIRIA JOB#: [id number] CC:
[2019-03-16] MEDS: chlordiazePOXIDE 25mg Cap ORAL PRN (03:59)
[2019-03-16 04:00] VITALS: BP 121/75
[2019-03-16] MEDS: NovoLOG Insulin Flexpen SUBQ SCH ×4 (06:37→22:06)
--- NOTE | 2019-03-16 07:05 | NUR ---
HAND-OFF: Report given to MAK Lawrence. Endorsed plan of care.
--- NOTE | 2019-03-16 07:09 | NUR ---
NURSE NOTES: Handoff received from MAK Nielsen. patient received awake and alert and able to make needs known. IV site is clean dry and intact running prescribed fluids, bed in the low and locked position with call light within reach, no acute signs of distress noted. will continue to monitor.
[2019-03-16 08:00] VITALS: BP 120/77
[2019-03-16] MEDS: D5 1/2NS w/KCl 20mEq 1,000 ML IV SCH ×2 (08:33→22:03)
[2019-03-16] MEDS: Heparin 5000 units/ml inj SUBQ SCH ×2 (08:35→21:00)
[2019-03-16] MEDS: Morphine Sulfate 2mg/ml Inj(IV/IM USE ONLY) IVP PRN ×3 (08:56→18:03)
[2019-03-16 08:57] LABS: BASOPHILS % (AUTO) 0.9 % (0.0-2.0); EOSINOPHILS % (AUTO) 0.4 % (0.0-3.0); HEMOGLOBIN 11.7 G/DL (14.2-18.0); LYMPHOCYTES % (AUTO) 37.5 % (20.0-45.0); MEAN CORPUSCULAR VOLUME 86 FL (80-99); MONOCYTES % (AUTO) 6.7 % (1.0-10.0); NEUTROPHILS % (AUTO) 54.6 % (45.0-75.0); PLATELET COUNT 119 K/UL (150-450); RED BLOOD COUNT 4.06 M/UL (4.70-6.10); RED CELL DISTRIBUTION WIDTH 13.7 % (11.6-14.8)
[2019-03-16 09:10] LABS: INR 1.2 (0.9-1.1)
[2019-03-16 09:18] LABS: PHOSPHORUS 2.1 MG/DL (2.5-4.9)
[2019-03-16 09:33] LABS: ALANINE AMINOTRANSFERASE 80 U/L (12-78); ALBUMIN 2.8 G/DL (3.4-5.0); ALBUMIN/GLOBULIN RATIO 0.8 (1.0-2.7); ALKALINE PHOSPHATASE 101 U/L (46-116); ANION GAP 4 mmol/L (5-15); ASPARTATE AMINO TRANSFERASE 149 U/L (15-37); BILIRUBIN,TOTAL 1.6 MG/DL (0.2-1.0); BLOOD UREA NITROGEN 14 mg/dL (7-18); CALCIUM 8.3 MG/DL (8.5-10.1); CARBON DIOXIDE 29 MMOL/L (21-32); CHLORIDE 102 MMOL/L (98-107); CREATININE 1.1 MG/DL (0.55-1.30); POTASSIUM 3.4 MMOL/L (3.5-5.1); SODIUM 135 MMOL/L (136-145)
[2019-03-16 09:44] LABS: BILIRUBIN,DIRECT 0.5 MG/DL (0.0-0.3)
--- NOTE | 2019-03-16 11:17 | Internal Med Progress Note ---
Subjective Physician Name Petey Vences Attending Physician Petey Vences MD Current Medications Medications (Trade) Dose Ordered Sig/Shagufta Route PRN Reason Start Time Stop Time Status Last Admin Dose Admin Acetaminophen (Tylenol) 650 mg Q4H PRN ORAL fever 03/15/19 19:15 04/14/19 19:14 Chlordiazepoxide (Librium) 25 mg Q6H PRN ORAL Agitation 03/15/19 19:15 03/22/19 19:14 03/16/19 03:59 Dextrose (Dextrose 50%) 25 ml Q30M PRN IV Hypoglycemia 03/15/19 19:15 04/14/19 19:14 Dextrose (Dextrose 50%) 50 ml Q30M PRN IV Hypoglycemia 03/15/19 19:15 04/14/19 19:14 Dextrose/ Electrolytes 1,000 ml @ 75 mls/hr [id number] IV 03/16/19 07:00 04/15/19 06:59 03/16/19 08:33 Famotidine (Pepcid) 20 mg BID ORAL 03/16/19 09:00 04/15/19 08:59 03/16/19 08:34 Folic Acid (Folate) 1 mg DAILY ORAL 03/16/19 09:00 04/15/19 08:59 03/16/19 08:34 Folic Acid 1 mg/ Magnesium Sulfate 2000 mg/ Multivitamins 10 ml/Potassium Chloride/Sodium Chloride 1,014.2 ml @ 124.876 mls/hr Q24H IV 03/15/19 22:00 04/14/19 21:59 03/15/19 23:16 Heparin Sodium (Porcine) (Heparin 5000 units/ml) 5,000 units EVERY 12 HOURS SUBQ 03/15/19 21:00 04/14/19 20:59 03/16/19 08:35 Insulin Aspart (NovoLOG) BEFORE MEALS AND HS SUBQ 03/15/19 21:00 04/14/19 20:59 03/16/19 06:37 Lorazepam (Ativan 2mg/ml 1ml) 2 mg Q1H PRN IV seizures 03/15/19 19:15 03/22/19 19:14 Morphine Sulfate (Morphine Sulfate) 1 mg Q4H PRN IVP For Pain 03/15/19 19:15 03/22/19 19:14 03/16/19 08:56 Ondansetron HCl (Zofran) 4 mg Q6H PRN IVP Nausea & Vomiting 03/15/19 19:15 04/14/19 19:14 Polyethylene Glycol (Miralax) 17 gm HSPRN PRN ORAL Constipation 03/15/19 19:15 04/14/19 19:14 Thiamine HCl 100 mg/Dextrose 56 ml @ 112 mls/hr Q24H IVPB 03/15/19 22:00 04/14/19 21:59 03/15/19 23:17 Zolpidem Tartrate (Ambien) 5 mg HSPRN PRN ORAL Insomnia 03/15/19 19:15 03/22/19 19:14 Allergies: Coded Allergies: No Known Allergies (Unverified , 12/01/16) Subjective Awake, alert, responsive, still shaking and tremulous. Tachycardia. Objective Last Vital Signs Date Time Temp Pulse Resp B/P (MAP) Pulse Ox O2 Delivery O2 Flow Rate FiO2 03/16/19 08:44 Room Air 03/16/19 08:00 120 03/16/19 08:00 97.9 20 120/77 (91) 95 Laboratory Tests Test 03/15/19 13:16 03/15/19 14:00 03/15/19 14:20 03/16/19 08:25 White Blood Count 10.0 K/UL (4.8-10.8) 6.0 K/UL (4.8-10.8) Red Blood Count 5.02 M/UL (4.70-6.10) 4.06 M/UL (4.70-6.10) L Hemoglobin 14.3 G/DL (14.2-18.0) 11.7 G/DL (14.2-18.0) L Hematocrit 43.1 % (42.0-52.0) 35.0 % (42.0-52.0) L Mean Corpuscular Volume 86 FL (80-99) 86 FL (80-99) Mean Corpuscular Hemoglobin 28.4 PG (27.0-31.0) 28.8 PG (27.0-31.0) Mean Corpuscular Hemoglobin Concent 33.1 G/DL (32.0-36.0) 33.4 G/DL (32.0-36.0) Red Cell Distribution Width 13.2 % (11.6-14.8) 13.7 % (11.6-14.8) Platelet Count 188 K/UL (150-450) 119 K/UL (150-450) L Mean Platelet Volume 6.8 FL (6.5-10.1) 6.4 FL (6.5-10.1) L Neutrophils (%) (Auto) % (45.0-75.0) 54.6 % (45.0-75.0) Lymphocytes (%) (Auto) % (20.0-45.0) 37.5 % (20.0-45.0) Monocytes (%) (Auto) % (1.0-10.0) 6.7 % (1.0-10.0) Eosinophils (%) (Auto) % (0.0-3.0) 0.4 % (0.0-3.0) Basophils (%) (Auto) % (0.0-2.0) 0.9 % (0.0-2.0) Differential Total Cells Counted 100 Neutrophils % (Manual) 84 % (45-75) H Lymphocytes % (Manual) 12 % (20-45) L Monocytes % (Manual) 4 % (1-10) Eosinophils % (Manual) 0 % (0-3) Basophils % (Manual) 0 % (0-2) Band Neutrophils 0 % (0-8) Platelet Estimate Adequate Platelet Morphology Normal Red Blood Cell Morphology Normal Urine Color Yellow Urine Appearance Slightly cloudy Urine pH 5 (4.5-8.0) Urine Specific [place] 1.025 (1.005-1.035) Urine Protein 2+ (NEGATIVE) H Urine Glucose (UA) 1+ (NEGATIVE) H Urine Ketones 1+ (NEGATIVE) H Urine Blood 4+ (NEGATIVE) H Urine Nitrite Negative (NEGATIVE) Urine Bilirubin Negative (NEGATIVE) Urine Urobilinogen 1 MG/DL (0.0-1.0) H Urine Leukocyte Esterase Negative (NEGATIVE) Urine RBC 5-10 /HPF (0 - 0) H Urine WBC 0-2 /HPF (0 - 0) Urine Squamous Epithelial Cells Many /LPF (NONE/OCC) H Urine Bacteria Few /HPF (NONE) Urine Hyaline Casts 0-2 /LPF (NONE) H Urine Fine Granular Casts 0-2 /LPF (NONE) H Salicylates Level 1.6 ug/mL (2.8-20) L Urine Opiates Screen Negative (NEGATIVE) Acetaminophen Level < 2 MCG/ML (10-30) L Urine Barbiturates Screen Negative (NEGATIVE) Phencyclidine (PCP) Screen Negative (NEGATIVE) Urine Amphetamines Screen Negative (NEGATIVE) Urine Benzodiazepines Screen Negative (NEGATIVE) Urine Cocaine Screen Negative (NEGATIVE) Urine Marijuana (THC) Screen Negative (NEGATIVE) Serum Alcohol 145 mg/dL Ammonia 15 umol/L (11-32) Sodium Level 137 MMOL/L (136-145) 135 MMOL/L (136-145) L Potassium Level 3.4 MMOL/L (3.5-5.1) L 3.4 MMOL/L (3.5-5.1) L Chloride Level 99 MMOL/L (98-107) 102 MMOL/L (98-107) Carbon Dioxide Level 22 MMOL/L (21-32) 29 MMOL/L (21-32) Anion Gap 17 mmol/L (5-15) H 4 mmol/L (5-15) L Blood Urea Nitrogen 16 mg/dL (7-18) 14 mg/dL (7-18) Creatinine 0.8 MG/DL (0.55-1.30) 1.1 MG/DL (0.55-1.30) Estimat Glomerular Filtration Rate > 60 mL/min (>60) > 60 mL/min (>60) Glucose Level 127 MG/DL (74-106) H 188 MG/DL (74-106) H Calcium Level 7.7 MG/DL (8.5-10.1) L 8.3 MG/DL (8.5-10.1) L Total Bilirubin 0.9 MG/DL (0.2-1.0) 1.6 MG/DL (0.2-1.0) H Aspartate Amino Transf (AST/SGOT) 169 U/L (15-37) H 149 U/L (15-37) H Alanine Aminotransferase (ALT/SGPT) 97 U/L (12-78) H 80 U/L (12-78) H Alkaline Phosphatase 112 U/L (46-116) 101 U/L (46-116) Troponin I 0.015 ng/mL (0.000-0.056) 0.015 ng/mL (0.000-0.056) Total Protein 6.8 G/DL (6.4-8.2) 6.2 G/DL (6.4-8.2) L Albumin 3.1 G/DL (3.4-5.0) L 2.8 G/DL (3.4-5.0) L Globulin 3.7 g/dL 3.4 g/dL Albumin/Globulin Ratio 0.8 (1.0-2.7) L 0.8 (1.0-2.7) L Lipase 169 U/L (73-393) Prothrombin Time 12.4 SEC (9.30-11.50) H Prothromb Time International Ratio 1.2 (0.9-1.1) H Activated Partial Thromboplast Time 25 SEC (23-33) Phosphorus Level 2.1 MG/DL (2.5-4.9) L Magnesium Level 2.2 MG/DL (1.8-2.4) Direct Bilirubin 0.5 MG/DL (0.0-0.3) H Microbiology Date/Time Source Procedure Growth Status 03/15/19 16:05 Nasal Nares - Final Complete 03/15/19 16:05 Nasal Nares - Final Complete Intake and Output 03/15/19 03/16/19 18:59 06:59 Intake Total 0 ml 300 ml Output Total 600 ml Balance 0 ml -300 ml Intake Oral 0 ml 300 ml Output Urine Total 600 ml # Bowel Movements 1 Objective GENERAL: Awake and responsive, in no acute distress, shaking. HEAD AND NECK: Pupils are equal and reactive to light. Anicteric. Neck was supple. No JVD. LUNGS: Good air entry. Decrease in air. No wheeze or rhonchi. HEART: S1, S2. Tachycardic. No murmur or gallops. ABDOMEN: Soft, nondistended, and nontender. Mildly obese. EXTREMITIES: No cyanosis, clubbing, or edema. NEUROLOGIC: Cranial nerves II through XII grossly intact. The patient is moving all extremities. The patient is shaking all the extremities. RECTAL/GENITOURINARY: Refused and deferred. PSYCHIATRIC: Mood and affect is anxious. Assessment/Plan Assessment/Plan ASSESSMENT: 1. Alcoholism with alcohol withdrawal. 2. Tachycardia. 3. History of liver cirrhosis. 4. Hepatitis C positive. 5. Alcoholic hepatitis. 6. Gastritis. PLAN: In monitored unit. Follow up with the laboratory. Alcohol withdrawal precaution. IV hydration. Follow up with Ativan as needed for withdrawal. Code status, full code. DVT prophylaxis, heparin subcutaneous. psychiatric consultation Kcl supplements Petey Vences MD Mar 16, 2019 11:17
[2019-03-16 12:00] VITALS: BP 139/78
--- NOTE | 2019-03-16 15:31 | Diagnostic Imaging Report ---
Indication: Dyspnea Comparison: 03/23/2017 A single view chest radiograph was obtained. Findings: Cardiomediastinal appearance is within normal limits for age. The lungs are clear. Pulmonary vascularity is appropriate. The diaphragmatic contour is smooth and costophrenic angles are sharp. No pleural effusions are identified. The bones are osteopenic. Impression: No acute findings
[2019-03-16 16:00] VITALS: BP 141/76
--- NOTE | 2019-03-16 16:06 | NUR ---
CASE MANAGEMENT: INITIAL REVIEW 63 YR OLD MALE BIBA FROM STREETS CC: ABD PAIN SI:ETHANOL WITHDRAWALS 98.2 122 23 162/92 98% ON RA K+ 3.4 ANION GAP 17 BG 127 CA+ 7.7 AST/ALT 169/97 IS: IVF NS BOLUS X1 IV ATIVAN X2 LIBRIUM PO X1 IV MORPHINE SULFATE X1 IV PEPCID X1 \: 2 TELE UNIT
--- NOTE | 2019-03-16 17:21 | Consultation ---
History of Present Illness General Date patient seen: Mar 16, 2019 Chief Complaint: Abdominal Pain Present Illness HPI 63-year-old male with a history of alcohol abuse, liver cirrhosis, hepatitis C, gastritis presented to ER with CC of abdominal pain, chills and fatigue. Patient is homeless and slept on the street last night while it was raining. He has been drinking 3 pints of hard alcohol since 03/03. He began to "get the shakes" which is typical for him when he stops drinking. He denies any chest pain or difficulty breathing. Patient believes he may have had a seizure. . States he has been feeling weak and falling a lot due to the spasticity in his extremities. Allergies: Coded Allergies: No Known Allergies (Unverified , 12/01/16) Medication History Scheduled Metformin Hcl* (Metformin Hcl*), Unknown Dose ORAL DAILY, (Reported) No Known Medications* (NKM - No Known Medications*), 0 ., (Reported) Scheduled PRN Diphenhydramine Hcl* (Benadryl*), 50 MG ORAL BEDTIME PRN for INSOMNIA, (Reported ) Hydrocodone Bit/Acetaminophen 10-325* ([place] 10-325*), 1 TAB ORAL Q6H PRN for For Pain, (Reported) Patient History Healthcare decision maker Resuscitation status Full Code Advanced Directive on File Past Medical/Surgical History Past Medical/Surgical History: (1) Alcohol abuse (2) Cirrhosis (3) Diabetes mellitus Review of Systems All Other Systems: negative except mentioned in HPI Physical Exam General Appearance: WD/WN Lines, tubes and drains: peripheral HEENT: normocephalic, atraumatic Neck: non-tender, normal alignment Respiratory/Chest: chest wall non-tender, lungs clear Breasts: no masses Cardiovascular/Chest: normal peripheral pulses Abdomen: normal bowel sounds Genitourinary/Rectal: normal genital exam Last 24 Hour Vital Signs Date Time Temp Pulse Resp B/P (MAP) Pulse Ox O2 Delivery O2 Flow Rate FiO2 03/16/19 16:00 98.1 85 20 141/76 (97) 96 03/16/19 12:00 106 03/16/19 12:00 98.2 86 20 139/78 (98) 95 03/16/19 08:44 Room Air 03/16/19 08:00 120 03/16/19 08:00 97.9 114 20 120/77 (91) 95 03/16/19 04:00 93 03/16/19 04:00 97.2 93 20 121/75 (90) 97 03/16/19 00:00 102 03/16/19 00:00 97.8 102 20 120/74 (89) 96 03/15/19 21:00 Room Air 03/15/19 20:21 97.9 116 20 118/75 (89) 94 03/15/19 20:20 116 03/15/19 20:15 98.2 135 17 118/92 98 Room Air 03/15/19 18:30 98.2 128 17 105/88 98 Room Air 128 Intake and Output 03/15/19 03/16/19 18:59 06:59 Intake Total 0 ml 300 ml Output Total 600 ml Balance 0 ml -300 ml Intake Oral 0 ml 300 ml Output Urine Total 600 ml # Bowel Movements 1 Laboratory Tests Test 03/16/19 08:25 White Blood Count 6.0 K/UL (4.8-10.8) Red Blood Count 4.06 M/UL (4.70-6.10) L Hemoglobin 11.7 G/DL (14.2-18.0) L Hematocrit 35.0 % (42.0-52.0) L Mean Corpuscular Volume 86 FL (80-99) Mean Corpuscular Hemoglobin 28.8 PG (27.0-31.0) Mean Corpuscular Hemoglobin Concent 33.4 G/DL (32.0-36.0) Red Cell Distribution Width 13.7 % (11.6-14.8) Platelet Count 119 K/UL (150-450) L Mean Platelet Volume 6.4 FL (6.5-10.1) L Neutrophils (%) (Auto) 54.6 % (45.0-75.0) Lymphocytes (%) (Auto) 37.5 % (20.0-45.0) Monocytes (%) (Auto) 6.7 % (1.0-10.0) Eosinophils (%) (Auto) 0.4 % (0.0-3.0) Basophils (%) (Auto) 0.9 % (0.0-2.0) Prothrombin Time 12.4 SEC (9.30-11.50) H Prothromb Time International Ratio 1.2 (0.9-1.1) H Activated Partial Thromboplast Time 25 SEC (23-33) Sodium Level 135 MMOL/L (136-145) L Potassium Level 3.4 MMOL/L (3.5-5.1) L Chloride Level 102 MMOL/L (98-107) Carbon Dioxide Level 29 MMOL/L (21-32) Anion Gap 4 mmol/L (5-15) L Blood Urea Nitrogen 14 mg/dL (7-18) Creatinine 1.1 MG/DL (0.55-1.30) Estimat Glomerular Filtration Rate > 60 mL/min (>60) Glucose Level 188 MG/DL (74-106) H Calcium Level 8.3 MG/DL (8.5-10.1) L Phosphorus Level 2.1 MG/DL (2.5-4.9) L Magnesium Level 2.2 MG/DL (1.8-2.4) Total Bilirubin 1.6 MG/DL (0.2-1.0) H Direct Bilirubin 0.5 MG/DL (0.0-0.3) H Aspartate Amino Transf (AST/SGOT) 149 U/L (15-37) H Alanine Aminotransferase (ALT/SGPT) 80 U/L (12-78) H Alkaline Phosphatase 101 U/L (46-116) Troponin I 0.015 ng/mL (0.000-0.056) Total Protein 6.2 G/DL (6.4-8.2) L Albumin 2.8 G/DL (3.4-5.0) L Globulin 3.4 g/dL Albumin/Globulin Ratio 0.8 (1.0-2.7) L Height (Feet): 5 Height (Inches): 11.00 Weight (Pounds): 188 Medications Current Medications Medications (Trade) Dose Ordered Sig/Shagufta Route PRN Reason Start Time Stop Time Status Last Admin Dose Admin Acetaminophen (Tylenol) 650 mg Q4H PRN ORAL fever 03/15/19 19:15 04/14/19 19:14 Chlordiazepoxide (Librium) 25 mg Q6H PRN ORAL Agitation 03/15/19 19:15 03/22/19 19:14 03/16/19 03:59 Dextrose (Dextrose 50%) 25 ml Q30M PRN IV Hypoglycemia 03/15/19 19:15 04/14/19 19:14 Dextrose (Dextrose 50%) 50 ml Q30M PRN IV Hypoglycemia 03/15/19 19:15 04/14/19 19:14 Dextrose/ Electrolytes 1,000 ml @ 75 mls/hr [id number] IV 03/16/19 07:00 04/15/19 06:59 03/16/19 08:33 Famotidine (Pepcid) 20 mg BID ORAL 03/16/19 09:00 04/15/19 08:59 03/16/19 08:34 Folic Acid (Folate) 1 mg DAILY ORAL 03/16/19 09:00 04/15/19 08:59 03/16/19 08:34 Folic Acid 1 mg/ Magnesium Sulfate 2000 mg/ Multivitamins 10 ml/Potassium Chloride/Sodium Chloride 1,014.2 ml @ 124.876 mls/hr Q24H IV 03/15/19 22:00 04/14/19 21:59 03/15/19 23:16 Heparin Sodium (Porcine) (Heparin 5000 units/ml) 5,000 units EVERY 12 HOURS SUBQ 03/15/19 21:00 04/14/19 20:59 03/16/19 08:35 Insulin Aspart (NovoLOG) BEFORE MEALS AND HS SUBQ 03/15/19 21:00 04/14/19 20:59 03/16/19 16:55 Lorazepam (Ativan 2mg/ml 1ml) 2 mg Q1H PRN IV seizures 03/15/19 19:15 03/22/19 19:14 Morphine Sulfate (Morphine Sulfate) 1 mg Q4H PRN IVP For Pain 03/15/19 19:15 03/22/19 19:14 03/16/19 13:24 Ondansetron HCl (Zofran) 4 mg Q6H PRN IVP Nausea & Vomiting 03/15/19 19:15 04/14/19 19:14 Polyethylene Glycol (Miralax) 17 gm HSPRN PRN ORAL Constipation 03/15/19 19:15 04/14/19 19:14 Thiamine HCl 100 mg/Dextrose 56 ml @ 112 mls/hr Q24H IVPB 03/15/19 22:00 04/14/19 21:59 03/15/19 23:17 Zolpidem Tartrate (Ambien) 5 mg HSPRN PRN ORAL Insomnia 03/15/19 19:15 03/22/19 19:14 Assessment/Plan Problem List: (1) Alcohol intoxication ICD Codes: F10.929 - Alcohol use, unspecified with intoxication, unspecified SNOMED: 10066914 (2) Anemia ICD Codes: D64.9 - Anemia, unspecified SNOMED: 214941344 (3) Diabetes mellitus ICD Codes: E11.9 - Type 2 diabetes mellitus without complications SNOMED: 84959315 (4) Homelessness ICD Codes: Z59.0 - Homelessness SNOMED: 25186633 Assessment/Plan: iv fluid banana bag pt/ot check electrolytes dvt prophylaxis social service consult pt is too old to live on the street. Odalys Adhikari MD Mar 16, 2019 17:21
--- NOTE | 2019-03-16 19:32 | NUR ---
HAND-OFF: Report given to maulik sena.
--- NOTE | 2019-03-16 19:35 | NUR ---
NURSE NOTES: Pt lying supine in bed. Pt on room air. bed is in lowest position, locked, side rails x2, bed alarm on. Fluids running, R forearm IV patent. Closely monitoring pt.
[2019-03-16 20:00] VITALS: BP 140/88
[2019-03-16] MEDS: Folic Acid 1 MG, Magnesium Sulfate 2,000 MG, Multivitamin - 12 Injection 10 ML in NS w/... IV SCH (22:02)
[2019-03-16] MEDS: Thiamine 100mg in D5W 55ml IVPB SCH (22:02)
[2019-03-16] MEDS ORDERED: LORazepam 1mg tab ORAL PRN (23:00)
[2019-03-16] MEDS: chlordiazePOXIDE 25mg Cap ORAL SCH (23:45)
[2019-03-17] VITALS: BP 133/82
[2019-03-17] MEDS: Morphine Sulfate 2mg/ml Inj(IV/IM USE ONLY) IVP PRN ×2 (02:40→20:46)
[2019-03-17] MEDS: chlordiazePOXIDE 25mg Cap ORAL PRN ×2 (02:41→23:53)
[2019-03-17 04:00] VITALS: BP 136/86
[2019-03-17] MEDS: NovoLOG Insulin Flexpen SUBQ SCH ×4 (06:40→20:42)
--- NOTE | 2019-03-17 06:59 | NUR ---
HAND-OFF: Report given to MAK Lawrence.
[2019-03-17 07:22] LABS: ALANINE AMINOTRANSFERASE 74 U/L (12-78); ALBUMIN 2.9 G/DL (3.4-5.0); ALBUMIN/GLOBULIN RATIO 0.8 (1.0-2.7); ALKALINE PHOSPHATASE 103 U/L (46-116); ASPARTATE AMINO TRANSFERASE 129 U/L (15-37); BILIRUBIN,TOTAL 1.1 MG/DL (0.2-1.0); BLOOD UREA NITROGEN 8 mg/dL (7-18); CALCIUM 7.9 MG/DL (8.5-10.1); CHLORIDE 101 MMOL/L (98-107); CREATININE 0.9 MG/DL (0.55-1.30); POTASSIUM 3.2 MMOL/L (3.5-5.1); SODIUM 136 MMOL/L (136-145)
[2019-03-17 07:27] LABS: BILIRUBIN,DIRECT 0.4 MG/DL (0.0-0.3)
--- NOTE | 2019-03-17 07:36 | NUR ---
NURSE NOTES: Handoff received from maulik Szymanski. Patient received awake and alert and resting in bed, no acute signs of distress noted. Patient has ivs running at prescribed rate. Bed is in the low and locked position with call light within reach, will continue to monitor patient.
[2019-03-17 07:37] LABS: CARBON DIOXIDE 28 MMOL/L (21-32)
[2019-03-17 08:00] VITALS: BP 119/86
[2019-03-17] MEDS: chlordiazePOXIDE 25mg Cap ORAL SCH ×3 (08:00→17:30)
[2019-03-17] MEDS: Heparin 5000 units/ml inj SUBQ SCH ×2 (08:01→20:43)
[2019-03-17] MEDS: D5 1/2NS w/KCl 20mEq 1,000 ML IV SCH (10:54)
--- NOTE | 2019-03-17 11:50 | Internal Med Progress Note ---
Subjective Date of Service: Mar 17, 2019 Physician Name Sundeep Driver Attending Physician Petey Vences MD Current Medications Medications (Trade) Dose Ordered Sig/Shagufta Route PRN Reason Start Time Stop Time Status Last Admin Dose Admin Acetaminophen (Tylenol) 650 mg Q4H PRN ORAL fever 03/15/19 19:15 04/14/19 19:14 Chlordiazepoxide (Librium) 25 mg Q6H PRN ORAL Agitation 03/15/19 19:15 03/22/19 19:14 03/17/19 02:41 Chlordiazepoxide (Librium) 50 mg TID ORAL 03/16/19 23:00 03/23/19 22:59 03/17/19 08:00 Dextrose (Dextrose 50%) 25 ml Q30M PRN IV Hypoglycemia 03/15/19 19:15 04/14/19 19:14 Dextrose (Dextrose 50%) 50 ml Q30M PRN IV Hypoglycemia 03/15/19 19:15 04/14/19 19:14 Dextrose/ Electrolytes 1,000 ml @ 75 mls/hr [id number] IV 03/16/19 07:00 04/15/19 06:59 03/17/19 10:54 Famotidine (Pepcid) 20 mg BID ORAL 03/16/19 09:00 04/15/19 08:59 03/17/19 08:00 Folic Acid (Folate) 1 mg DAILY ORAL 03/16/19 09:00 04/15/19 08:59 03/17/19 08:00 Folic Acid 1 mg/ Magnesium Sulfate 2000 mg/ Multivitamins 10 ml/Potassium Chloride/Sodium Chloride 1,014.2 ml @ 124.876 mls/hr Q24H IV 03/15/19 22:00 04/14/19 21:59 03/16/19 22:02 Heparin Sodium (Porcine) (Heparin 5000 units/ml) 5,000 units EVERY 12 HOURS SUBQ 03/15/19 21:00 04/14/19 20:59 03/16/19 08:35 Insulin Aspart (NovoLOG) BEFORE MEALS AND HS SUBQ 03/15/19 21:00 04/14/19 20:59 03/17/19 06:40 Lorazepam (Ativan) 2 mg Q6H PRN ORAL For Anxiety 03/16/19 23:00 03/23/19 22:59 03/16/19 23:45 Morphine Sulfate (Morphine Sulfate) 1 mg Q4H PRN IVP For Pain 03/15/19 19:15 03/22/19 19:14 03/17/19 02:40 Ondansetron HCl (Zofran) 4 mg Q6H PRN IVP Nausea & Vomiting 03/15/19 19:15 04/14/19 19:14 Polyethylene Glycol (Miralax) 17 gm HSPRN PRN ORAL Constipation 03/15/19 19:15 04/14/19 19:14 Thiamine HCl 100 mg/Dextrose 56 ml @ 112 mls/hr Q24H IVPB 03/15/19 22:00 04/14/19 21:59 03/16/19 22:02 Zolpidem Tartrate (Ambien) 5 mg HSPRN PRN ORAL Insomnia 03/15/19 19:15 03/22/19 19:14 Allergies: Coded Allergies: No Known Allergies (Unverified , 12/01/16) ROS Limited/Unobtainable: No Constitutional: Reports: no symptoms HEENT: Reports: no symptoms Cardiovascular: Reports: no symptoms Respiratory: Reports: no symptoms Gastrointestinal/Abdominal: Reports: no symptoms Genitourinary: Reports: no symptoms Neurologic/Psychiatric: Reports: no symptoms Subjective 63 YO M with alcohol dependence admitted with acute alcohol withdrawal symptoms. Cover for Int Med-DR Vences Objective Last Vital Signs Date Time Temp Pulse Resp B/P (MAP) Pulse Ox O2 Delivery O2 Flow Rate FiO2 03/17/19 08:05 Room Air 03/17/19 08:00 97.0 109 18 119/86 (97) 98 Laboratory Tests Test 03/17/19 06:05 Sodium Level 136 MMOL/L (136-145) Potassium Level 3.2 MMOL/L (3.5-5.1) L Chloride Level 101 MMOL/L (98-107) Carbon Dioxide Level 28 MMOL/L (21-32) Blood Urea Nitrogen 8 mg/dL (7-18) Creatinine 0.9 MG/DL (0.55-1.30) Estimat Glomerular Filtration Rate > 60 mL/min (>60) Glucose Level 199 MG/DL (74-106) H Calcium Level 7.9 MG/DL (8.5-10.1) L Total Bilirubin 1.1 MG/DL (0.2-1.0) H Direct Bilirubin 0.4 MG/DL (0.0-0.3) H Aspartate Amino Transf (AST/SGOT) 129 U/L (15-37) H Alanine Aminotransferase (ALT/SGPT) 74 U/L (12-78) Alkaline Phosphatase 103 U/L (46-116) Total Protein 6.5 G/DL (6.4-8.2) Albumin 2.9 G/DL (3.4-5.0) L Globulin 3.6 g/dL Albumin/Globulin Ratio 0.8 (1.0-2.7) L Microbiology Date/Time Source Procedure Growth Status 03/15/19 16:05 Nasal Nares - Final Complete 03/15/19 16:05 Nasal Nares - Final Complete Intake and Output 03/16/19 03/17/19 19:00 07:00 # Voids 2 Objective Objective GENERAL: Awake and responsive, in no acute distress, shaking. HEAD AND NECK: Pupils are equal and reactive to light. Anicteric. Neck was supple. No JVD. LUNGS: Good air entry. Decrease in air. No wheeze or rhonchi. HEART: S1, S2. Tachycardic. No murmur or gallops. ABDOMEN: Soft, nondistended, and nontender. Mildly obese. EXTREMITIES: No cyanosis, clubbing, or edema. NEUROLOGIC: Cranial nerves II through XII grossly intact. The patient is moving all extremities. The patient is shaking all the extremities. RECTAL/GENITOURINARY: Refused and deferred. PSYCHIATRIC: Mood and affect is anxious. Assessment/Plan Assessment/Plan Assessment/Plan Assessment/Plan ASSESSMENT: 1. Alcoholism with alcohol withdrawal. 2. Tachycardia. 3. History of liver cirrhosis. 4. Hepatitis C positive. 5. Alcoholic hepatitis. 6. Gastritis. PLAN: Follow up with the laboratory. Alcohol withdrawal precaution. IV hydration. Follow up with Ativan as needed for withdrawal. Code status, full code. DVT prophylaxis, heparin subcutaneous. psychiatric consultation Kcl supplements Sundeep Driver MD Mar 17, 2019 11:50
[2019-03-17 12:00] VITALS: BP 118/72
--- NOTE | 2019-03-17 12:02 | Pulmonology Progress Note ---
Assessment/Plan Problems: (1) Alcohol intoxication (2) Anemia (3) Diabetes mellitus (4) Homelessness Assessment/Plan iv fluid banana bag pt/ot check electrolytes dvt prophylaxis social service consult pt is too old to live on the street. Subjective ROS Limited/Unobtainable: No Constitutional: Reports: no symptoms HEENT: Repors: no symptoms Respiratory: Reports: no symptoms Allergies: Coded Allergies: No Known Allergies (Unverified , 12/01/16) Objective Last 24 Hour Vital Signs Date Time Temp Pulse Resp B/P (MAP) Pulse Ox O2 Delivery O2 Flow Rate FiO2 03/17/19 08:05 Room Air 03/17/19 08:00 97.0 109 18 119/86 (97) 98 03/17/19 08:00 114 03/17/19 04:00 97.0 101 20 136/86 (103) 99 03/17/19 04:00 112 03/17/19 00:00 114 03/17/19 00:00 98.2 115 20 133/82 (99) 99 03/16/19 21:00 Room Air 03/16/19 20:00 102 03/16/19 20:00 98.2 98 20 140/88 (105) 96 03/16/19 16:00 76 03/16/19 16:00 98.1 85 20 141/76 (97) 96 Intake and Output 03/16/19 03/17/19 19:00 07:00 # Voids 2 Objective General Appearance: WD/WN, no apparent distress Lines, tubes and drains: peripheral HEENT: normocephalic, atraumatic Neck: non-tender, normal alignment Respiratory/Chest: chest wall non-tender, lungs clear Cardiovascular/Chest: normal peripheral pulses, regular rhythm Abdomen: normal bowel sounds, non tender Skin Exam: normal pigmentation Neurologic: admissions consultant II-XII grossly normal Microbiology Date/Time Source Procedure Growth Status 03/15/19 16:05 Nasal Nares - Final Complete 03/15/19 16:05 Nasal Nares - Final Complete Laboratory Tests 03/17/19 06:05: Sodium Level 136, Potassium Level 3.2L, Chloride Level 101, Carbon Dioxide Level 28, Blood Urea Nitrogen 8, Creatinine 0.9, Estimat Glomerular Filtration Rate > 60, Glucose Level 199H, Calcium Level 7.9L, Total Bilirubin 1.1H, Direct Bilirubin 0.4H, Aspartate Amino Transf (AST/SGOT) 129H, Alanine Aminotransferase (ALT/SGPT) 74, Alkaline Phosphatase 103, Total Protein 6.5, Albumin 2.9L, Globulin 3.6, Albumin/Globulin Ratio 0.8L Current Medications Medications (Trade) Dose Ordered Sig/Shagufta Route PRN Reason Start Time Stop Time Status Last Admin Dose Admin Acetaminophen (Tylenol) 650 mg Q4H PRN ORAL fever 03/15/19 19:15 04/14/19 19:14 Chlordiazepoxide (Librium) 25 mg Q6H PRN ORAL Agitation 03/15/19 19:15 03/22/19 19:14 03/17/19 02:41 Chlordiazepoxide (Librium) 50 mg TID ORAL 03/16/19 23:00 03/23/19 22:59 03/17/19 08:00 Dextrose (Dextrose 50%) 25 ml Q30M PRN IV Hypoglycemia 03/15/19 19:15 04/14/19 19:14 Dextrose (Dextrose 50%) 50 ml Q30M PRN IV Hypoglycemia 03/15/19 19:15 04/14/19 19:14 Dextrose/ Electrolytes 1,000 ml @ 75 mls/hr [id number] IV 03/16/19 07:00 04/15/19 06:59 03/17/19 10:54 Famotidine (Pepcid) 20 mg BID ORAL 03/16/19 09:00 04/15/19 08:59 03/17/19 08:00 Folic Acid (Folate) 1 mg DAILY ORAL 03/16/19 09:00 04/15/19 08:59 03/17/19 08:00 Folic Acid 1 mg/ Magnesium Sulfate 2000 mg/ Multivitamins 10 ml/Potassium Chloride/Sodium Chloride 1,014.2 ml @ 124.876 mls/hr Q24H IV 03/15/19 22:00 04/14/19 21:59 03/16/19 22:02 Heparin Sodium (Porcine) (Heparin 5000 units/ml) 5,000 units EVERY 12 HOURS SUBQ 03/15/19 21:00 04/14/19 20:59 03/16/19 08:35 Insulin Aspart (NovoLOG) BEFORE MEALS AND HS SUBQ 03/15/19 21:00 04/14/19 20:59 03/17/19 11:55 Lorazepam (Ativan) 2 mg Q6H PRN ORAL For Anxiety 03/16/19 23:00 03/23/19 22:59 03/16/19 23:45 Morphine Sulfate (Morphine Sulfate) 1 mg Q4H PRN IVP For Pain 03/15/19 19:15 03/22/19 19:14 03/17/19 02:40 Ondansetron HCl (Zofran) 4 mg Q6H PRN IVP Nausea & Vomiting 03/15/19 19:15 04/14/19 19:14 Polyethylene Glycol (Miralax) 17 gm HSPRN PRN ORAL Constipation 03/15/19 19:15 04/14/19 19:14 Thiamine HCl 100 mg/Dextrose 56 ml @ 112 mls/hr Q24H IVPB 03/15/19 22:00 04/14/19 21:59 03/16/19 22:02 Zolpidem Tartrate (Ambien) 5 mg HSPRN PRN ORAL Insomnia 03/15/19 19:15 03/22/19 19:14 Odalys Adhikari MD Mar 17, 2019 12:02
[2019-03-17] MEDS ORDERED: LORazepam 1mg tab ORAL PRN (15:12)
--- NOTE | 2019-03-17 15:38 | NUR ---
HAND-OFF: Report given to Chanel, RN. Patient belongings list signed and patient transferred to [facility]-, orders transferred, patient left stable and oriented,. plan of care endoresed to CHANEL.
[2019-03-17 16:00] VITALS: BP 126/87
[2019-03-17] MEDS ORDERED: Zolpidem 5mg tab ORAL PRN (19:15)
--- NOTE | 2019-03-17 19:45 | NUR ---
NURSE NOTES: Patient received in bed, asleep. IV infusing on RFA. Bed locked in low position. Call light and urinal in reach. Bed alarm on. Will monitor.
[2019-03-17 20:01] VITALS: BP 128/85
--- NOTE | 2019-03-17 20:30 | NUR ---
NURSE NOTES: Patient seen putting legs out of the bed. Patient put back in bed. Noted patient urinated in the bed. Patient cleaned and made comfortable. Instructed to not get out of bed, verbalized understanding but may need reinforcement as patient seems forgetful. Fall precautions maintained. Bed alarm on. Will continue to monitor.
[2019-03-17] MEDS: Thiamine HCl 100 MG in D5W 55 ML IVPB SCH (22:06)
[2019-03-17] MEDS: Folic Acid 1 MG, Magnesium Sulfate 2,000 MG, Multivitamin - 12 Injection 10 ML in NS w/... IV SCH (22:06)
[2019-03-18 00:01] VITALS: BP 99/67
[2019-03-18 03:43] VITALS: BP 114/81
[2019-03-18] MEDS: NovoLOG Insulin Flexpen SUBQ SCH ×4 (05:57→20:50)
[2019-03-18] MEDS: Morphine Sulfate 2mg/ml Inj(IV/IM USE ONLY) IVP PRN ×3 (06:00→20:43)
--- NOTE | 2019-03-18 07:27 | NUR ---
HAND-OFF: Report given to Deann ZULETA.
--- NOTE | 2019-03-18 07:30 | NUR ---
NURSE NOTES: Patient received awake and alert and oriented x3. resting in bed. shown withdrawn appearance. No acute signs of distress noted. IV site patent and intact. kept bed in lowest and locked position with alarm activated. call light within reach, will continue to monitor patient.
[2019-03-18 08:22] VITALS: BP 116/80
[2019-03-18] MEDS: chlordiazePOXIDE 25mg Cap ORAL SCH ×3 (08:40→17:22)
[2019-03-18 08:53] LABS: BASOPHILS % (AUTO) 0.9 % (0.0-2.0); EOSINOPHILS % (AUTO) 1.2 % (0.0-3.0); HEMATOCRIT 35.5 % (42.0-52.0); HEMOGLOBIN 11.6 G/DL (14.2-18.0); LYMPHOCYTES % (AUTO) 28.9 % (20.0-45.0); MEAN CORPUSCULAR VOLUME 89 FL (80-99); MONOCYTES % (AUTO) 7.2 % (1.0-10.0); NEUTROPHILS % (AUTO) 61.8 % (45.0-75.0); PLATELET COUNT 101 K/UL (150-450); RED BLOOD COUNT 3.98 M/UL (4.70-6.10); RED CELL DISTRIBUTION WIDTH 13.4 % (11.6-14.8); WHITE BLOOD COUNT 4.6 K/UL (4.8-10.8)
[2019-03-18] MEDS: Heparin 5000 units/ml inj SUBQ SCH ×2 (09:00→20:50)
[2019-03-18 09:08] LABS: ALANINE AMINOTRANSFERASE 78 U/L (12-78); ALBUMIN 2.8 G/DL (3.4-5.0); ALBUMIN/GLOBULIN RATIO 0.8 (1.0-2.7); ALKALINE PHOSPHATASE 99 U/L (46-116); ANION GAP 5 mmol/L (5-15); ASPARTATE AMINO TRANSFERASE 121 U/L (15-37); BILIRUBIN,TOTAL 0.8 MG/DL (0.2-1.0); BLOOD UREA NITROGEN 8 mg/dL (7-18); CALCIUM 7.8 MG/DL (8.5-10.1); CARBON DIOXIDE 29 MMOL/L (21-32); CHLORIDE 101 MMOL/L (98-107); PHOSPHORUS 3.1 MG/DL (2.5-4.9); POTASSIUM 3.3 MMOL/L (3.5-5.1); SODIUM 135 MMOL/L (136-145)
[2019-03-18 12:00] VITALS: BP 109/79
--- NOTE | 2019-03-18 12:37 | NUR ---
NURSE NOTES: Dr Driver is made aware of the K+3.3. will cont the plan of care. Addendum: 03/18/19 at 1443 by KAITY DEL ROSARIO LVN new order obtained and administered. will cont to monitor.
--- NOTE | 2019-03-18 12:40 | Internal Med Progress Note ---
Subjective Date of Service: Mar 18, 2019 Physician Name Sundeep Driver Attending Physician Petey Vences MD Current Medications Medications (Trade) Dose Ordered Sig/Shagufta Route PRN Reason Start Time Stop Time Status Last Admin Dose Admin Acetaminophen (Tylenol) 650 mg Q4H PRN ORAL fever 03/17/19 15:11 04/16/19 15:10 Chlordiazepoxide (Librium) 25 mg Q6H PRN ORAL Agitation 03/17/19 15:11 03/24/19 15:10 03/17/19 23:53 Chlordiazepoxide (Librium) 50 mg TID ORAL 03/17/19 18:00 03/24/19 17:59 03/18/19 08:40 Dextrose (Dextrose 50%) 25 ml Q30M PRN IV Hypoglycemia 03/17/19 15:15 04/14/19 19:14 Dextrose (Dextrose 50%) 50 ml Q30M PRN IV Hypoglycemia 03/17/19 15:15 04/14/19 19:14 Famotidine (Pepcid) 20 mg BID ORAL 03/17/19 18:00 04/15/19 08:59 03/18/19 08:40 Folic Acid (Folate) 1 mg DAILY ORAL 03/18/19 09:00 04/15/19 08:59 03/18/19 08:40 Folic Acid 1 mg/ Magnesium Sulfate 2000 mg/ Multivitamins 10 ml/Potassium Chloride/Sodium Chloride 1,014.2 ml @ 124.876 mls/hr Q24H IV 03/17/19 22:00 04/14/19 21:59 03/17/19 22:06 Heparin Sodium (Porcine) (Heparin 5000 units/ml) 5,000 units EVERY 12 HOURS SUBQ 03/17/19 21:00 04/14/19 20:59 03/17/19 20:43 Insulin Aspart (NovoLOG) BEFORE MEALS AND HS SUBQ 03/17/19 16:30 04/14/19 20:59 03/18/19 11:55 Lorazepam (Ativan) 2 mg Q6H PRN ORAL For Anxiety 03/17/19 15:12 03/24/19 15:11 Morphine Sulfate (Morphine Sulfate) 1 mg Q4H PRN IVP For Pain 03/17/19 15:12 03/24/19 15:11 03/18/19 11:48 Thiamine HCl 100 mg/Dextrose 56 ml @ 112 mls/hr Q24H IVPB 03/17/19 22:00 04/14/19 21:59 03/17/19 22:06 Zolpidem Tartrate (Ambien) 5 mg HSPRN PRN ORAL Insomnia 03/17/19 19:15 03/22/19 19:14 Allergies: Coded Allergies: No Known Allergies (Unverified , 12/01/16) ROS Limited/Unobtainable: No Constitutional: Reports: no symptoms HEENT: Reports: no symptoms Cardiovascular: Reports: no symptoms Respiratory: Reports: no symptoms Gastrointestinal/Abdominal: Reports: no symptoms Genitourinary: Reports: no symptoms Neurologic/Psychiatric: Reports: no symptoms Subjective 63 YO M with alcohol dependence admitted with acute alcohol withdrawal symptoms. Cover for Int Med-DR Vences Objective Last Vital Signs Date Time Temp Pulse Resp B/P (MAP) Pulse Ox O2 Delivery O2 Flow Rate FiO2 03/18/19 12:18 98.6 03/18/19 12:00 93 19 109/79 (89) 98 03/17/19 21:00 Room Air Laboratory Tests Test 03/18/19 07:53 White Blood Count 4.6 K/UL (4.8-10.8) L Red Blood Count 3.98 M/UL (4.70-6.10) L Hemoglobin 11.6 G/DL (14.2-18.0) L Hematocrit 35.5 % (42.0-52.0) L Mean Corpuscular Volume 89 FL (80-99) Mean Corpuscular Hemoglobin 29.1 PG (27.0-31.0) Mean Corpuscular Hemoglobin Concent 32.5 G/DL (32.0-36.0) Red Cell Distribution Width 13.4 % (11.6-14.8) Platelet Count 101 K/UL (150-450) L Mean Platelet Volume 8.3 FL (6.5-10.1) Neutrophils (%) (Auto) 61.8 % (45.0-75.0) Lymphocytes (%) (Auto) 28.9 % (20.0-45.0) Monocytes (%) (Auto) 7.2 % (1.0-10.0) Eosinophils (%) (Auto) 1.2 % (0.0-3.0) Basophils (%) (Auto) 0.9 % (0.0-2.0) Erythrocyte Sedimentation Rate 13 MM/HR (0-20) Sodium Level 135 MMOL/L (136-145) L Potassium Level 3.3 MMOL/L (3.5-5.1) L Chloride Level 101 MMOL/L (98-107) Carbon Dioxide Level 29 MMOL/L (21-32) Anion Gap 5 mmol/L (5-15) Blood Urea Nitrogen 8 mg/dL (7-18) Creatinine 1.0 MG/DL (0.55-1.30) Estimat Glomerular Filtration Rate > 60 mL/min (>60) Glucose Level 356 MG/DL (74-106) #H Calcium Level 7.8 MG/DL (8.5-10.1) L Phosphorus Level 3.1 MG/DL (2.5-4.9) Magnesium Level 2.3 MG/DL (1.8-2.4) Total Bilirubin 0.8 MG/DL (0.2-1.0) Aspartate Amino Transf (AST/SGOT) 121 U/L (15-37) H Alanine Aminotransferase (ALT/SGPT) 78 U/L (12-78) Alkaline Phosphatase 99 U/L (46-116) C-Reactive Protein, Quantitative 0.5 mg/dL (0.00-0.90) Total Protein 6.4 G/DL (6.4-8.2) Albumin 2.8 G/DL (3.4-5.0) L Globulin 3.6 g/dL Albumin/Globulin Ratio 0.8 (1.0-2.7) L Microbiology Date/Time Source Procedure Growth Status 03/15/19 16:56 Nasal Nares MRSA Culture - Final NO METHICILLIN RESISTANT STAPH AUREUS... Complete 03/15/19 16:05 Nasal Nares - Final Complete 03/15/19 16:05 Nasal Nares - Final Complete 03/15/19 16:56 Rectum VRE Culture - Final NO VANCOMYCIN RESISTANT ENTEROCOCCUS ... Complete Intake and Output 03/17/19 03/18/19 19:00 07:00 Intake Total 480 ml 1270.200 ml Output Total 1200 ml Balance -720 ml 1270.200 ml Intake Oral 480 ml 200 ml IV Total 1070.200 ml Output Urine Total 1200 ml # Voids 6 2 # Bowel Movements 1 Objective Objective GENERAL: Awake and responsive, in no acute distress, shaking. HEAD AND NECK: Pupils are equal and reactive to light. Anicteric. Neck was supple. No JVD. LUNGS: Good air entry. Decrease in air. No wheeze or rhonchi. HEART: S1, S2. Tachycardic. No murmur or gallops. ABDOMEN: Soft, nondistended, and nontender. Mildly obese. EXTREMITIES: No cyanosis, clubbing, or edema. NEUROLOGIC: Cranial nerves II through XII grossly intact. The patient is moving all extremities. The patient is shaking all the extremities. RECTAL/GENITOURINARY: Refused and deferred. PSYCHIATRIC: Mood and affect is anxious. Assessment/Plan Assessment/Plan Assessment/Plan Assessment/Plan ASSESSMENT: 1. Alcoholism with alcohol withdrawal. 2. Tachycardia. 3. History of liver cirrhosis. 4. Hepatitis C positive. 5. Alcoholic hepatitis. 6. Gastritis. PLAN: Follow up with the laboratory. Alcohol withdrawal precaution. IV hydration. Follow up with Ativan as needed for withdrawal. Code status, full code. DVT prophylaxis, heparin subcutaneous. psychiatric consultation Kcl supplements Sundeep Driver MD Mar 18, 2019 12:40
--- NOTE | 2019-03-18 15:33 | Pulmonology Progress Note ---
Assessment/Plan Problems: (1) Alcohol intoxication (2) Anemia (3) Diabetes mellitus (4) Homelessness Assessment/Plan iv fluid banana bag pt/ot check electrolytes dvt prophylaxis social service consult pt is too old and fragile to live on the street. Subjective ROS Limited/Unobtainable: No Constitutional: Reports: no symptoms HEENT: Repors: no symptoms Respiratory: Reports: no symptoms Allergies: Coded Allergies: No Known Allergies (Unverified , 12/01/16) Objective Last 24 Hour Vital Signs Date Time Temp Pulse Resp B/P (MAP) Pulse Ox O2 Delivery O2 Flow Rate FiO2 03/18/19 12:18 98.6 03/18/19 12:00 98.6 93 19 109/79 (89) 98 03/18/19 09:00 Room Air 03/18/19 08:22 99.1 102 18 116/80 (92) 96 03/18/19 03:43 97.8 94 18 114/81 (92) 98 03/18/19 00:01 97.7 97 18 99/67 (78) 98 03/17/19 21:00 Room Air 03/17/19 20:01 97.7 109 18 128/85 (99) 98 03/17/19 16:00 98.1 92 18 126/87 (100) 98 Intake and Output 03/17/19 03/18/19 19:00 07:00 Intake Total 480 ml 1270.200 ml Output Total 1200 ml Balance -720 ml 1270.200 ml Intake Oral 480 ml 200 ml IV Total 1070.200 ml Output Urine Total 1200 ml # Voids 6 2 # Bowel Movements 1 Objective General Appearance: WD/WN, no apparent distress Lines, tubes and drains: peripheral HEENT: normocephalic, atraumatic Neck: non-tender, normal alignment Respiratory/Chest: chest wall non-tender, lungs clear Cardiovascular/Chest: normal peripheral pulses, regular rhythm Abdomen: normal bowel sounds, non tender Skin Exam: normal pigmentation Neurologic: welcome hostess II-XII grossly normal Microbiology Date/Time Source Procedure Growth Status 03/15/19 16:56 Nasal Nares MRSA Culture - Final NO METHICILLIN RESISTANT STAPH AUREUS... Complete 03/15/19 16:05 Nasal Nares - Final Complete 03/15/19 16:05 Nasal Nares - Final Complete 03/15/19 16:56 Rectum VRE Culture - Final NO VANCOMYCIN RESISTANT ENTEROCOCCUS ... Complete Laboratory Tests 03/18/19 07:53: White Blood Count 4.6L, Red Blood Count 3.98L, Hemoglobin 11.6L, Hematocrit 35.5L, Mean Corpuscular Volume 89, Mean Corpuscular Hemoglobin 29.1, Mean Corpuscular Hemoglobin Concent 32.5, Red Cell Distribution Width 13.4, Platelet Count 101L, Mean Platelet Volume 8.3, Neutrophils (%) (Auto) 61.8, Lymphocytes ( %) (Auto) 28.9, Monocytes (%) (Auto) 7.2, Eosinophils (%) (Auto) 1.2, Basophils (%) (Auto) 0.9, Erythrocyte Sedimentation Rate 13, Sodium Level 135L, Potassium Level 3.3L, Chloride Level 101, Carbon Dioxide Level 29, Anion Gap 5, Blood Urea Nitrogen 8, Creatinine 1.0, Estimat Glomerular Filtration Rate > 60, Glucose Level 356#H, Calcium Level 7.8L, Phosphorus Level 3.1, Magnesium Level 2.3, Total Bilirubin 0.8, Aspartate Amino Transf (AST/SGOT) 121H, Alanine Aminotransferase (ALT/SGPT) 78, Alkaline Phosphatase 99, C-Reactive Protein, Quantitative 0.5, Total Protein 6.4, Albumin 2.8L, Globulin 3.6, Albumin/ Globulin Ratio 0.8L Current Medications Medications (Trade) Dose Ordered Sig/Shagufta Route PRN Reason Start Time Stop Time Status Last Admin Dose Admin Acetaminophen (Tylenol) 650 mg Q4H PRN ORAL fever 03/17/19 15:11 04/16/19 15:10 Chlordiazepoxide (Librium) 25 mg Q6H PRN ORAL Agitation 03/17/19 15:11 03/24/19 15:10 03/17/19 23:53 Chlordiazepoxide (Librium) 50 mg TID ORAL 03/17/19 18:00 03/24/19 17:59 03/18/19 13:04 Dextrose (Dextrose 50%) 25 ml Q30M PRN IV Hypoglycemia 03/17/19 15:15 04/14/19 19:14 Dextrose (Dextrose 50%) 50 ml Q30M PRN IV Hypoglycemia 03/17/19 15:15 04/14/19 19:14 Famotidine (Pepcid) 20 mg BID ORAL 03/17/19 18:00 04/15/19 08:59 03/18/19 08:40 Fluoxetine HCl (PROzac) 20 mg DAILY ORAL 03/19/19 09:00 04/18/19 08:59 Folic Acid (Folate) 1 mg DAILY ORAL 03/18/19 09:00 04/15/19 08:59 03/18/19 08:40 Folic Acid 1 mg/ Magnesium Sulfate 2000 mg/ Multivitamins 10 ml/Potassium Chloride/Sodium Chloride 1,014.2 ml @ 124.876 mls/hr Q24H IV 03/17/19 22:00 04/14/19 21:59 03/17/19 22:06 Heparin Sodium (Porcine) (Heparin 5000 units/ml) 5,000 units EVERY 12 HOURS SUBQ 03/17/19 21:00 04/14/19 20:59 03/17/19 20:43 Insulin Aspart (NovoLOG) BEFORE MEALS AND HS SUBQ 03/17/19 16:30 04/14/19 20:59 03/18/19 11:55 Lorazepam (Ativan) 2 mg Q6H PRN ORAL For Anxiety 03/17/19 15:12 03/24/19 15:11 Morphine Sulfate (Morphine Sulfate) 1 mg Q4H PRN IVP For Pain 03/17/19 15:12 03/24/19 15:11 03/18/19 11:48 Thiamine HCl 100 mg/Dextrose 56 ml @ 112 mls/hr Q24H IVPB 03/17/19 22:00 04/14/19 21:59 03/17/19 22:06 Zolpidem Tartrate (Ambien) 5 mg HSPRN PRN ORAL Insomnia 03/17/19 19:15 03/22/19 19:14 Odalys Adhikari MD Mar 18, 2019 15:33
[2019-03-18 16:00] VITALS: BP 105/73
--- NOTE | 2019-03-18 16:03 | NUR ---
PT Note PT frankie completed, treatment initiated. Patient has muscle weakness, decreased ROM and standing balance, requiring extensive assist in mobility and gait. Patient needs PT to increase his muscle strength and balance to improve her safety in mobility and gait. Addendum: 03/18/19 at 1604 by NOE RUIZ PT Amended: Links added.
--- NOTE | 2019-03-18 18:30 | Consultation ---
DATE OF CONSULTATION: 03/17/2019 CONSULTING PHYSICIAN: Kaden Matias M.D. HISTORY OF PRESENT ILLNESS: The patient is a 63-year-old male with a history of otitis, alcohol abuse, liver cirrhosis, gastritis, depression, anxiety who was admitted to the hospital for alcohol dependence and alcohol withdrawal. I was asked by Dr. Vences to assess the patient. The patient presents with anxiety, depressed mood, anhedonia. He has been heavily drinking. Stopped drinking the morning of the admission. The patient is tremulous. Presents with depressed mood, anhedonia. The patient was admitted for medical stabilization. PAST PSYCHIATRIC HISTORY: Anxiety, depression. PAST MEDICAL HISTORY: As above. ALLERGIES: No known drug allergies. SUBSTANCE ABUSE HISTORY: No known history of illicit drug use or alcohol. MENTAL STATUS EXAMINATION: The patient is alert, oriented times self, place, and situation. Mood is anxious. Affect is constricted, congruent with mood. Thought process is concrete. Thought content, no suicidal or homicidal ideation. Cognition is impaired. Insight and judgment is impaired. ASSESSMENT: [place] I Major depressive disorder. Alcohol dependence. Alcohol withdrawal. [place] II Deferred. [place] III As above. [place] IV Moderate. [place] V 50. PLAN: 1. Folate. 2. Thiamine. 3. Librium 50 t.i.d. 4. Ativan p.r.n. 5. Prozac 20 mg in the morning. 6. We will continue to follow and readjust the medications. Kaden Matias M.D. DR: BEENA JOB#: [id number] CC:
--- NOTE | 2019-03-18 19:02 | NUR ---
HAND-OFF: Report given to marvin.
--- NOTE | 2019-03-18 19:10 | NUR ---
NURSE NOTES: Patient received in bed,asleep, no signs of acute distress. Call light in reach, bed locked in low position. Will continue to monitor.
[2019-03-18 19:46] VITALS: BP 118/71
[2019-03-18] MEDS: Thiamine HCl 100 MG in D5W 55 ML IVPB SCH (21:32)
[2019-03-18] MEDS: Folic Acid 1 MG, Magnesium Sulfate 2,000 MG, Multivitamin - 12 Injection 10 ML in NS w/... IV SCH (21:32)
[2019-03-19] VITALS: BP 145/82
[2019-03-19 03:23] VITALS: BP 111/65
[2019-03-19] MEDS: chlordiazePOXIDE 25mg Cap ORAL PRN (04:31)
[2019-03-19] MEDS: NovoLOG Insulin Flexpen SUBQ SCH ×4 (06:22→20:39)
--- NOTE | 2019-03-19 07:07 | NUR ---
HAND-OFF: Report given to Payal CORADO.
--- NOTE | 2019-03-19 07:08 | NUR ---
NURSE NOTES: Report received from Clarisse CORADO. Patient awake and alert x 3 in bed sitting in semi [place] position. Patient asked to be set up for breakfast. 21 yoahnnes IV noted in right hand. 23 yohannes IV noted in right forearm. Both patent. Educated patient not to get up with out calling for help. Call light within reach. Bed locked, lowest position, and alarmed. Will continue to follow plan of care.
[2019-03-19 08:00] VITALS: BP 100/74
[2019-03-19 08:01] LABS: HEMATOCRIT 33.4 % (42.0-52.0); HEMOGLOBIN 10.8 G/DL (14.2-18.0); MEAN CORPUSCULAR VOLUME 90 FL (80-99); PLATELET COUNT 109 K/UL (150-450); RED BLOOD COUNT 3.71 M/UL (4.70-6.10); RED CELL DISTRIBUTION WIDTH 13.5 % (11.6-14.8); WHITE BLOOD COUNT 4.3 K/UL (4.8-10.8)
[2019-03-19 08:22] LABS: ANION GAP 6 mmol/L (5-15); BLOOD UREA NITROGEN 9 mg/dL (7-18); CALCIUM 8.2 MG/DL (8.5-10.1); CARBON DIOXIDE 27 MMOL/L (21-32); CHLORIDE 104 MMOL/L (98-107); CREATININE 0.9 MG/DL (0.55-1.30); POTASSIUM 3.6 MMOL/L (3.5-5.1); SODIUM 137 MMOL/L (136-145)
[2019-03-19] MEDS: chlordiazePOXIDE 25mg Cap ORAL SCH ×3 (08:25→17:48)
[2019-03-19] MEDS: Heparin 5000 units/ml inj SUBQ SCH ×2 (08:26→20:40)
--- NOTE | 2019-03-19 08:27 | NUR ---
NURSE NOTES: Heparin held due to low platelet count.
[2019-03-19 12:00] VITALS: BP 113/76
--- NOTE | 2019-03-19 13:20 | Internal Med Progress Note ---
Subjective Date of Service: Mar 19, 2019 Physician Name Sundeep Driver Attending Physician Petey Vences MD Current Medications Medications (Trade) Dose Ordered Sig/Shagufta Route PRN Reason Start Time Stop Time Status Last Admin Dose Admin Acetaminophen (Tylenol) 650 mg Q4H PRN ORAL fever 03/17/19 15:11 04/16/19 15:10 Chlordiazepoxide (Librium) 25 mg Q6H PRN ORAL Agitation 03/17/19 15:11 03/24/19 15:10 03/19/19 04:31 Chlordiazepoxide (Librium) 50 mg TID ORAL 03/17/19 18:00 03/24/19 17:59 03/19/19 08:25 Dextrose (Dextrose 50%) 25 ml Q30M PRN IV Hypoglycemia 03/17/19 15:15 04/14/19 19:14 Dextrose (Dextrose 50%) 50 ml Q30M PRN IV Hypoglycemia 03/17/19 15:15 04/14/19 19:14 Famotidine (Pepcid) 20 mg BID ORAL 03/17/19 18:00 04/15/19 08:59 03/19/19 08:25 Fluoxetine HCl (PROzac) 20 mg DAILY ORAL 03/19/19 09:00 04/18/19 08:59 03/19/19 08:25 Folic Acid (Folate) 1 mg DAILY ORAL 03/18/19 09:00 04/15/19 08:59 03/19/19 08:25 Folic Acid 1 mg/ Magnesium Sulfate 2000 mg/ Multivitamins 10 ml/Potassium Chloride/Sodium Chloride 1,014.2 ml @ 124.876 mls/hr Q24H IV 03/17/19 22:00 04/14/19 21:59 03/18/19 21:32 Heparin Sodium (Porcine) (Heparin 5000 units/ml) 5,000 units EVERY 12 HOURS SUBQ 03/17/19 21:00 04/14/19 20:59 03/17/19 20:43 Insulin Aspart (NovoLOG) BEFORE MEALS AND HS SUBQ 03/17/19 16:30 04/14/19 20:59 03/19/19 11:54 Lorazepam (Ativan) 2 mg Q6H PRN ORAL For Anxiety 03/17/19 15:12 03/24/19 15:11 Morphine Sulfate (Morphine Sulfate) 1 mg Q4H PRN IVP For Pain 03/17/19 15:12 03/24/19 15:11 03/18/19 20:43 Thiamine HCl 100 mg/Dextrose 56 ml @ 112 mls/hr Q24H IVPB 03/17/19 22:00 04/14/19 21:59 03/18/19 21:32 Zolpidem Tartrate (Ambien) 5 mg HSPRN PRN ORAL Insomnia 03/17/19 19:15 03/22/19 19:14 Allergies: Coded Allergies: No Known Allergies (Unverified , 12/01/16) ROS Limited/Unobtainable: No Constitutional: Reports: no symptoms HEENT: Reports: no symptoms Cardiovascular: Reports: no symptoms Respiratory: Reports: no symptoms Gastrointestinal/Abdominal: Reports: no symptoms Genitourinary: Reports: no symptoms Neurologic/Psychiatric: Reports: no symptoms Subjective 63 YO M with alcohol dependence admitted with acute alcohol withdrawal symptoms. Cover for Int Tobi-DR Vences Objective Last Vital Signs Date Time Temp Pulse Resp B/P (MAP) Pulse Ox O2 Delivery O2 Flow Rate FiO2 03/19/19 09:00 Room Air 03/19/19 08:00 98.5 89 18 100/74 (83) 98 Laboratory Tests Test 03/19/19 06:14 White Blood Count 4.3 K/UL (4.8-10.8) L Red Blood Count 3.71 M/UL (4.70-6.10) L Hemoglobin 10.8 G/DL (14.2-18.0) L Hematocrit 33.4 % (42.0-52.0) L Mean Corpuscular Volume 90 FL (80-99) Mean Corpuscular Hemoglobin 29.2 PG (27.0-31.0) Mean Corpuscular Hemoglobin Concent 32.3 G/DL (32.0-36.0) Red Cell Distribution Width 13.5 % (11.6-14.8) Platelet Count 109 K/UL (150-450) L Mean Platelet Volume 9.2 FL (6.5-10.1) Neutrophils (%) (Auto) % (45.0-75.0) Lymphocytes (%) (Auto) % (20.0-45.0) Monocytes (%) (Auto) % (1.0-10.0) Eosinophils (%) (Auto) % (0.0-3.0) Basophils (%) (Auto) % (0.0-2.0) Differential Total Cells Counted 100 Neutrophils % (Manual) 64 % (45-75) Lymphocytes % (Manual) 31 % (20-45) Monocytes % (Manual) 5 % (1-10) Eosinophils % (Manual) 0 % (0-3) Basophils % (Manual) 0 % (0-2) Band Neutrophils 0 % (0-8) Platelet Estimate Decreased L Platelet Morphology Normal Red Blood Cell Morphology Normal Sodium Level 137 MMOL/L (136-145) Potassium Level 3.6 MMOL/L (3.5-5.1) Chloride Level 104 MMOL/L (98-107) Carbon Dioxide Level 27 MMOL/L (21-32) Anion Gap 6 mmol/L (5-15) Blood Urea Nitrogen 9 mg/dL (7-18) Creatinine 0.9 MG/DL (0.55-1.30) Estimat Glomerular Filtration Rate > 60 mL/min (>60) Glucose Level 270 MG/DL (74-106) H Calcium Level 8.2 MG/DL (8.5-10.1) L Intake and Output 03/18/19 03/19/19 19:00 07:00 Intake Total 840 ml 1470.200 ml Output Total 500 ml Balance 340 ml 1470.200 ml Intake Oral 840 ml 400 ml IV Total 1070.200 ml Output Urine Total 500 ml # Voids 2 3 # Bowel Movements 1 1 Objective Objective GENERAL: Awake and responsive, in no acute distress, shaking. HEAD AND NECK: Pupils are equal and reactive to light. Anicteric. Neck was supple. No JVD. LUNGS: Good air entry. Decrease in air. No wheeze or rhonchi. HEART: S1, S2. Tachycardic. No murmur or gallops. ABDOMEN: Soft, nondistended, and nontender. Mildly obese. EXTREMITIES: No cyanosis, clubbing, or edema. NEUROLOGIC: Cranial nerves II through XII grossly intact. The patient is moving all extremities. The patient is shaking all the extremities. RECTAL/GENITOURINARY: Refused and deferred. PSYCHIATRIC: Mood and affect is anxious. Assessment/Plan Assessment/Plan Assessment/Plan Assessment/Plan ASSESSMENT: 1. Alcoholism with alcohol withdrawal. 2. Tachycardia. 3. History of liver cirrhosis. 4. Hepatitis C positive. 5. Alcoholic hepatitis. 6. Gastritis. PLAN: Follow up with the laboratory. Alcohol withdrawal precaution. IV hydration. Follow up with Ativan as needed for withdrawal. Code status, full code. DVT prophylaxis, heparin subcutaneous. psychiatric consultation Kcl supplements Discahrge planning=homeless; see social work note Sundeep Driver MD Mar 19, 2019 13:20
[2019-03-19] MEDS: Morphine Sulfate 2mg/ml Inj(IV/IM USE ONLY) IVP PRN ×2 (14:59→20:36)
[2019-03-19 16:00] VITALS: BP 119/82
--- NOTE | 2019-03-19 16:48 | NUR ---
CASE MANAGEMENT: REVIEW 03/17/19 SI:ETHANOL WITHDRAWALS 97.0 112 20 136/86 99% ON RA K+3.2 BG 199 CA+7.9 TBIL 1.1 DBIL 0.4 IS: LIBRIUM PO TID NOVOLOG SQ AC&HS IV MG/MTV Q24HR IV THIAMINE Q24HR HEPARIN SQ BID \: TO MED SURG PLAN: CA 19-9 60 CEA 14.4 CASE MANAGEMENT: REVIEW 03/18/19 SI:ETHANOL WITHDRAWALS 99.6 101 20 118/71 96% ON RA NA+135 K+3.3 BG 356 WBC 4.6 PLT 101 IS: LIBRIUM PO TID NOVOLOG SQ AC&HS IV MG/MTV Q24HR IV THIAMINE Q24HR HEPARIN SQ BID \: 2 TELE UNIT TS TO MED SURG CASE MANAGEMENT: REVIEW 03/19/19 SI:ETHANOL WITHDRAWALS 97.5 94 19 113/76 98% ON RA WBC 4.3 H/H 10.8/33.4 BG 270 CA+8.2 IS: LIBRIUM PO TID NOVOLOG SQ AC&HS IV MG/MTV Q24HR IV THIAMINE Q24HR HEPARIN SQ BID \: TO MED SURG
[2019-03-19] MEDS: metFORMIN 500mg tab ORAL SCH (17:00)
--- NOTE | 2019-03-19 18:04 | Pulmonology Progress Note ---
Assessment/Plan Problems: (1) Alcohol intoxication (2) Anemia (3) Diabetes mellitus (4) Homelessness Assessment/Plan iv fluid banana bag pt/ot check electrolytes dvt prophylaxis social service consult pt is too old and fragile to live on the street. Subjective ROS Limited/Unobtainable: No Constitutional: Reports: no symptoms HEENT: Repors: no symptoms Allergies: Coded Allergies: No Known Allergies (Unverified , 12/01/16) Objective Last 24 Hour Vital Signs Date Time Temp Pulse Resp B/P (MAP) Pulse Ox O2 Delivery O2 Flow Rate FiO2 03/19/19 16:00 98.3 87 18 119/82 (94) 98 03/19/19 12:00 97.5 94 19 113/76 (88) 98 03/19/19 09:00 Room Air 03/19/19 08:00 98.5 89 18 100/74 (83) 98 03/19/19 03:23 98.8 92 16 111/65 (80) 98 03/19/19 00:00 98.2 91 16 145/82 (103) 98 03/18/19 21:00 Room Air 03/18/19 19:46 99.6 101 20 118/71 (87) 96 Intake and Output 03/18/19 03/19/19 19:00 07:00 Intake Total 840 ml 1470.200 ml Output Total 500 ml Balance 340 ml 1470.200 ml Intake Oral 840 ml 400 ml IV Total 1070.200 ml Output Urine Total 500 ml # Voids 2 3 # Bowel Movements 1 1 Objective General Appearance: WD/WN, no apparent distress Lines, tubes and drains: peripheral HEENT: normocephalic, atraumatic Neck: non-tender, normal alignment Respiratory/Chest: chest wall non-tender, lungs clear Cardiovascular/Chest: normal peripheral pulses, regular rhythm Abdomen: normal bowel sounds, non tender Skin Exam: normal pigmentation Neurologic: cash surrender calculator II-XII grossly normal Laboratory Tests 03/19/19 06:14: White Blood Count 4.3L, Red Blood Count 3.71L, Hemoglobin 10.8L, Hematocrit 33.4L, Mean Corpuscular Volume 90, Mean Corpuscular Hemoglobin 29.2, Mean Corpuscular Hemoglobin Concent 32.3, Red Cell Distribution Width 13.5, Platelet Count 109L, Mean Platelet Volume 9.2, Neutrophils (%) (Auto) , Lymphocytes (%) ( Auto) , Monocytes (%) (Auto) , Eosinophils (%) (Auto) , Basophils (%) (Auto) , Differential Total Cells Counted 100, Neutrophils % (Manual) 64, Lymphocytes % ( Manual) 31, Monocytes % (Manual) 5, Eosinophils % (Manual) 0, Basophils % ( Manual) 0, Band Neutrophils 0, Platelet Estimate DecreasedL, Platelet Morphology Normal, Red Blood Cell Morphology Normal, Sodium Level 137, Potassium Level 3.6, Chloride Level 104, Carbon Dioxide Level 27, Anion Gap 6, Blood Urea Nitrogen 9, Creatinine 0.9, Estimat Glomerular Filtration Rate > 60, Glucose Level 270H, Calcium Level 8.2L Current Medications Medications (Trade) Dose Ordered Sig/Shagufta Route PRN Reason Start Time Stop Time Status Last Admin Dose Admin Acetaminophen (Tylenol) 650 mg Q4H PRN ORAL fever 03/17/19 15:11 04/16/19 15:10 Chlordiazepoxide (Librium) 25 mg Q6H PRN ORAL Agitation 03/17/19 15:11 03/24/19 15:10 03/19/19 04:31 Chlordiazepoxide (Librium) 50 mg TID ORAL 03/17/19 18:00 03/24/19 17:59 03/19/19 17:48 Dextrose (Dextrose 50%) 25 ml Q30M PRN IV Hypoglycemia 03/17/19 15:15 04/14/19 19:14 Dextrose (Dextrose 50%) 50 ml Q30M PRN IV Hypoglycemia 03/17/19 15:15 04/14/19 19:14 Famotidine (Pepcid) 20 mg BID ORAL 03/17/19 18:00 04/15/19 08:59 03/19/19 17:48 Fluoxetine HCl (PROzac) 20 mg DAILY ORAL 03/19/19 09:00 04/18/19 08:59 03/19/19 08:25 Folic Acid (Folate) 1 mg DAILY ORAL 03/18/19 09:00 04/15/19 08:59 03/19/19 08:25 Folic Acid 1 mg/ Magnesium Sulfate 2000 mg/ Multivitamins 10 ml/Potassium Chloride/Sodium Chloride 1,014.2 ml @ 124.876 mls/hr Q24H IV 03/17/19 22:00 04/14/19 21:59 03/18/19 21:32 Heparin Sodium (Porcine) (Heparin 5000 units/ml) 5,000 units EVERY 12 HOURS SUBQ 03/17/19 21:00 04/14/19 20:59 03/17/19 20:43 Insulin Aspart (NovoLOG) BEFORE MEALS AND HS SUBQ 03/17/19 16:30 04/14/19 20:59 03/19/19 16:59 Lorazepam (Ativan) 2 mg Q6H PRN ORAL For Anxiety 03/17/19 15:12 03/24/19 15:11 Metformin HCl (Glucophage) 500 mg BIAC ORAL 03/19/19 16:30 04/18/19 16:29 03/19/19 17:00 Morphine Sulfate (Morphine Sulfate) 1 mg Q4H PRN IVP For Pain 03/17/19 15:12 03/24/19 15:11 03/19/19 14:59 Thiamine HCl 100 mg/Dextrose 56 ml @ 112 mls/hr Q24H IVPB 03/17/19 22:00 04/14/19 21:59 03/18/19 21:32 Zolpidem Tartrate (Ambien) 5 mg HSPRN PRN ORAL Insomnia 03/17/19 19:15 03/22/19 19:14 Odalys Adhikari MD Mar 19, 2019 18:04
--- NOTE | 2019-03-19 19:20 | NUR ---
HAND-OFF: Report given to Ernesto.
[2019-03-19 20:00] VITALS: BP 117/84
--- NOTE | 2019-03-19 20:20 | NUR ---
NURSE NOTES: Received patient awake, alert and oriented x3. resting in bed. C/o 5/1o pain, will administer pain medication per MD order. No acute signs of distress noted. IV site patent and intact. Kept bed in lowest and locked position with alarm activated. Call light within reach. Will administer insulin per MD ordered sliding scale.
[2019-03-19] MEDS: Thiamine HCl 100 MG in D5W 55 ML IVPB SCH (21:14)
[2019-03-19] MEDS: Folic Acid 1 MG, Magnesium Sulfate 2,000 MG, Multivitamin - 12 Injection 10 ML in NS w/... IV SCH (21:14)
[2019-03-20] VITALS (7 sets, daily range): BP systolic 101–155; BP diastolic 57–94
[2019-03-20] MEDS: Morphine Sulfate 2mg/ml Inj(IV/IM USE ONLY) IVP PRN ×4 (01:11→17:49)
[2019-03-20] MEDS: chlordiazePOXIDE 25mg Cap ORAL PRN (03:31)
[2019-03-20] MEDS: metFORMIN 500mg tab ORAL SCH ×2 (06:04→16:41)
[2019-03-20] MEDS: NovoLOG Insulin Flexpen SUBQ SCH ×4 (06:09→20:47)
[2019-03-20 07:07] LABS: HEMATOCRIT 30.7 % (42.0-52.0); HEMOGLOBIN 10.4 G/DL (14.2-18.0); MEAN CORPUSCULAR VOLUME 88 FL (80-99); PLATELET COUNT 93 K/UL (150-450); RED CELL DISTRIBUTION WIDTH 13.7 % (11.6-14.8); WHITE BLOOD COUNT 5.4 K/UL (4.8-10.8)
[2019-03-20 07:11] LABS: ANION GAP 8 mmol/L (5-15); BLOOD UREA NITROGEN 8 mg/dL (7-18); CALCIUM 7.9 MG/DL (8.5-10.1); CARBON DIOXIDE 28 MMOL/L (21-32); CHLORIDE 106 MMOL/L (98-107); CREATININE 0.9 MG/DL (0.55-1.30); POTASSIUM 3.4 MMOL/L (3.5-5.1); SODIUM 142 MMOL/L (136-145)
--- NOTE | 2019-03-20 07:13 | NUR ---
HAND-OFF: Report given to MAK Guerrero.
--- NOTE | 2019-03-20 07:15 | NUR ---
NURSE NOTES: Received patient in bed, awake, not in respiratory distress. No s/s of pain or discomfort @ this time. Call light within reach, bed is in lowest position and locked with bed alarm on. IV is in tact, no s/s of infiltration. Will continue plan of care.
[2019-03-20] MEDS: Heparin 5000 units/ml inj SUBQ SCH ×2 (09:00→20:42)
[2019-03-20] MEDS: chlordiazePOXIDE 25mg Cap ORAL SCH ×3 (09:19→17:41)
--- NOTE | 2019-03-20 11:45 | NUR ---
CASE MANAGEMENT: REVIEW 03/20/19 SI:ETHANOL WITHDRAWALS 98.0 93 18 101/61 98% ON RA H/H 10.4/30.7 K+ 3.4 CA+7.9 BG 178 IS: LIBRIUM PO TID NOVOLOG SQ AC&HS IV MG/MTV Q24HR IV THIAMINE Q24HR HEPARIN SQ BID \: 4E MED SURG PLAN: GROUP HOME PLACEMENT
--- NOTE | 2019-03-20 13:00 | NUR ---
NURSE NOTES: Dr. Driver is aware of potassium of 3.4 with no new order.
--- NOTE | 2019-03-20 14:24 | Internal Med Progress Note ---
Subjective Date of Service: Mar 20, 2019 Physician Name Sundeep Driver Attending Physician Petey Vences MD Current Medications Medications (Trade) Dose Ordered Sig/Shagufta Route PRN Reason Start Time Stop Time Status Last Admin Dose Admin Acetaminophen (Tylenol) 650 mg Q4H PRN ORAL fever 03/17/19 15:11 04/16/19 15:10 03/20/19 04:12 Chlordiazepoxide (Librium) 25 mg Q6H PRN ORAL Agitation 03/17/19 15:11 03/24/19 15:10 03/20/19 03:31 Chlordiazepoxide (Librium) 50 mg TID ORAL 03/17/19 18:00 03/24/19 17:59 03/20/19 14:09 Dextrose (Dextrose 50%) 25 ml Q30M PRN IV Hypoglycemia 03/17/19 15:15 04/14/19 19:14 Dextrose (Dextrose 50%) 50 ml Q30M PRN IV Hypoglycemia 03/17/19 15:15 04/14/19 19:14 Famotidine (Pepcid) 20 mg BID ORAL 03/17/19 18:00 04/15/19 08:59 03/20/19 09:19 Fluoxetine HCl (PROzac) 20 mg DAILY ORAL 03/19/19 09:00 04/18/19 08:59 03/20/19 09:19 Folic Acid (Folate) 1 mg DAILY ORAL 03/18/19 09:00 04/15/19 08:59 03/20/19 09:19 Folic Acid 1 mg/ Magnesium Sulfate 2000 mg/ Multivitamins 10 ml/Potassium Chloride/Sodium Chloride 1,014.2 ml @ 124.876 mls/hr Q24H IV 03/17/19 22:00 04/14/19 21:59 03/19/19 21:14 Heparin Sodium (Porcine) (Heparin 5000 units/ml) 5,000 units EVERY 12 HOURS SUBQ 03/17/19 21:00 04/14/19 20:59 03/17/19 20:43 Insulin Aspart (NovoLOG) BEFORE MEALS AND HS SUBQ 03/17/19 16:30 04/14/19 20:59 03/20/19 11:44 Lorazepam (Ativan) 2 mg Q6H PRN ORAL For Anxiety 03/17/19 15:12 03/24/19 15:11 Metformin HCl (Glucophage) 500 mg BIAC ORAL 03/19/19 16:30 04/18/19 16:29 03/20/19 06:04 Morphine Sulfate (Morphine Sulfate) 1 mg Q4H PRN IVP For Pain 03/17/19 15:12 03/24/19 15:11 03/20/19 12:31 Thiamine HCl 100 mg/Dextrose 56 ml @ 112 mls/hr Q24H IVPB 03/17/19 22:00 04/14/19 21:59 03/19/19 21:14 Zolpidem Tartrate (Ambien) 5 mg HSPRN PRN ORAL Insomnia 03/17/19 19:15 03/22/19 19:14 Allergies: Coded Allergies: No Known Allergies (Unverified , 12/01/16) ROS Limited/Unobtainable: No Constitutional: Reports: no symptoms HEENT: Reports: no symptoms Cardiovascular: Reports: no symptoms Respiratory: Reports: no symptoms Gastrointestinal/Abdominal: Reports: no symptoms Genitourinary: Reports: no symptoms Neurologic/Psychiatric: Reports: no symptoms Subjective 63 YO M with alcohol dependence admitted with acute alcohol withdrawal symptoms. Cover for Int Med-DR Vences Objective Last Vital Signs Date Time Temp Pulse Resp B/P (MAP) Pulse Ox O2 Delivery O2 Flow Rate FiO2 03/20/19 12:00 98.4 82 20 106/70 (82) 98 03/20/19 09:00 Room Air Laboratory Tests Test 03/20/19 06:17 White Blood Count 5.4 K/UL (4.8-10.8) Red Blood Count 3.50 M/UL (4.70-6.10) L Hemoglobin 10.4 G/DL (14.2-18.0) L Hematocrit 30.7 % (42.0-52.0) L Mean Corpuscular Volume 88 FL (80-99) Mean Corpuscular Hemoglobin 29.6 PG (27.0-31.0) Mean Corpuscular Hemoglobin Concent 33.7 G/DL (32.0-36.0) Red Cell Distribution Width 13.7 % (11.6-14.8) Platelet Count 93 K/UL (150-450) L Mean Platelet Volume 7.4 FL (6.5-10.1) Neutrophils (%) (Auto) % (45.0-75.0) Lymphocytes (%) (Auto) % (20.0-45.0) Monocytes (%) (Auto) % (1.0-10.0) Eosinophils (%) (Auto) % (0.0-3.0) Basophils (%) (Auto) % (0.0-2.0) Differential Total Cells Counted 100 Neutrophils % (Manual) 79 % (45-75) H Lymphocytes % (Manual) 12 % (20-45) L Monocytes % (Manual) 8 % (1-10) Eosinophils % (Manual) 1 % (0-3) Basophils % (Manual) 0 % (0-2) Band Neutrophils 0 % (0-8) Platelet Estimate Decreased L Platelet Morphology Normal Anisocytosis 1+ Sodium Level 142 MMOL/L (136-145) Potassium Level 3.4 MMOL/L (3.5-5.1) L Chloride Level 106 MMOL/L (98-107) Carbon Dioxide Level 28 MMOL/L (21-32) Anion Gap 8 mmol/L (5-15) Blood Urea Nitrogen 8 mg/dL (7-18) Creatinine 0.9 MG/DL (0.55-1.30) Estimat Glomerular Filtration Rate > 60 mL/min (>60) Glucose Level 178 MG/DL (74-106) H Calcium Level 7.9 MG/DL (8.5-10.1) L Intake and Output 03/19/19 03/20/19 18:59 06:59 Intake Total 2275 ml Balance 2275 ml Intake Oral 360 ml IV Total 1015 ml Other 900 ml # Voids 3 Objective Objective GENERAL: Awake and responsive, in no acute distress, shaking. HEAD AND NECK: Pupils are equal and reactive to light. Anicteric. Neck was supple. No JVD. LUNGS: Good air entry. Decrease in air. No wheeze or rhonchi. HEART: S1, S2. Tachycardic. No murmur or gallops. ABDOMEN: Soft, nondistended, and nontender. Mildly obese. EXTREMITIES: No cyanosis, clubbing, or edema. NEUROLOGIC: Cranial nerves II through XII grossly intact. The patient is moving all extremities. The patient is shaking all the extremities. RECTAL/GENITOURINARY: Refused and deferred. PSYCHIATRIC: Mood and affect is anxious. Assessment/Plan Assessment/Plan Assessment/Plan Assessment/Plan ASSESSMENT: 1. Alcoholism with alcohol withdrawal. 2. Tachycardia. 3. History of liver cirrhosis. 4. Hepatitis C positive. 5. Alcoholic hepatitis. 6. Gastritis. PLAN: Follow up with the laboratory. Alcohol withdrawal precaution. IV hydration. Follow up with Ativan as needed for withdrawal. Code status, full code. DVT prophylaxis, heparin subcutaneous. psychiatric consultation Kcl supplements Discahrge planning=homeless; see social work note Sundeep Driver MD Mar 20, 2019 14:24
--- NOTE | 2019-03-20 17:45 | Progress Note ---
DATE: 03/20/2019 SUBJECTIVE: The patient is here for alcohol withdrawal, improving, calmer, less agitated. MENTAL STATUS EXAMINATION: Alert and oriented x4. Mood is neutral to anxious. Affect is flat. Thought process, there is a paucity of thought content. Thought content, no suicidal or homicidal ideation. ASSESSMENT: Alcohol dependence, alcohol withdrawal. PLAN: 1. We will continue current psychotropic medications. 2. The patient is not an imminent danger to self or others. 3. May be discharged when medically cleared. Kaden Matias M.D. DR: PAULA JOB#: [id number] CC:
--- NOTE | 2019-03-20 19:21 | NUR ---
HAND-OFF: Report given to Stephania CORADO.
--- NOTE | 2019-03-20 19:47 | NUR ---
NURSE NOTES: Received patient in bed, awake, no s/s respiratory distress. No s/s of pain or discomfort. Bed in lowest position, call light within reach, bed alarm on. Will continue plan of care.
[2019-03-20] MEDS: Folic Acid 1 MG, Magnesium Sulfate 2,000 MG, Multivitamin - 12 Injection 10 ML in NS w/... IV SCH (21:25)
[2019-03-20] MEDS: Thiamine HCl 100 MG in D5W 55 ML IVPB SCH (21:25)
[2019-03-21] MEDS: Morphine Sulfate 2mg/ml Inj(IV/IM USE ONLY) IVP PRN ×2 (00:51→05:27)
[2019-03-21 00:55] VITALS: BP 144/97
--- NOTE | 2019-03-21 01:14 | NUR ---
NURSE NOTES: Patient's temp was 101 F. Cooling measures was initiated and Tylenol 650 mg prn was given. When temp was rechecked it went down to 100.5 F. But for midnight vitals, temp went up again to 101.8 F. Tylenol prn med was given again, will recheck. Called and left message for Dr. Meyers (Covering MD for Dr. Vences). Charge nurse aware. Will continue to monitor. Addendum: 03/21/19 at 0437 by JASE LUGO RN RN DR. MEYERS CALLED BACK AND RECEIVED ORDERS, ORDERS WAS CARRIED OUT.
[2019-03-21 04:45] VITALS: BP 155/98
[2019-03-21] MEDS: metFORMIN 500mg tab ORAL SCH ×2 (06:19→16:17)
[2019-03-21] MEDS: NovoLOG Insulin Flexpen SUBQ SCH ×4 (06:21→20:28)
--- NOTE | 2019-03-21 07:15 | NUR ---
nurse notes Received patient in bed,patient awake,alert, oriented x4, no s/s respiratory distress. denies pain of pain or discomfort. at this time. on fall and aspiration precaution observed and maintained, Bed in lowest position, call light within reach, Will continue plan of care. maulik adhikari
--- NOTE | 2019-03-21 07:25 | NUR ---
HAND-OFF: Report given to BARBY OLMEDO RN.
[2019-03-21 07:50] LABS: HEMATOCRIT 32.3 % (42.0-52.0); MEAN CORPUSCULAR VOLUME 88 FL (80-99); PLATELET COUNT 87 K/UL (150-450); RED BLOOD COUNT 3.67 M/UL (4.70-6.10); RED CELL DISTRIBUTION WIDTH 13.4 % (11.6-14.8); WHITE BLOOD COUNT 4.1 K/UL (4.8-10.8)
[2019-03-21 08:23] LABS: ANION GAP 7 mmol/L (5-15); BLOOD UREA NITROGEN 9 mg/dL (7-18); CALCIUM 8.3 MG/DL (8.5-10.1); CARBON DIOXIDE 29 MMOL/L (21-32); CHLORIDE 103 MMOL/L (98-107); POTASSIUM 4.7 MMOL/L (3.5-5.1); SODIUM 139 MMOL/L (136-145)
[2019-03-21] MEDS: chlordiazePOXIDE 25mg Cap ORAL SCH ×3 (08:31→17:02)
[2019-03-21 08:32] VITALS: BP 110/72
[2019-03-21] MEDS: Heparin 5000 units/ml inj SUBQ SCH ×2 (08:32→21:00)
--- NOTE | 2019-03-21 10:26 | Diagnostic Imaging Report ---
EXAM: XR Chest, 1 View CLINICAL HISTORY: INFECT TECHNIQUE: Frontal view of the chest. COMPARISON: Chest radiograph on 03/15/2019 FINDINGS: Hardware: None. Lungs/pleura: Stable mild elevation of the left hemidiaphragm with left basilar atelectasis. No pleural effusion or pneumothorax. Heart/mediastinum: Normal. No cardiomegaly. Soft tissues: Unremarkable. Bones: No acute fracture. Degenerative changes of the visualized right acromioclavicular joint. Degenerative changes of the spine. Upper abdomen: Normal. IMPRESSION: Stable mild elevation of the left hemidiaphragm with left basilar atelectasis. No focal consolidation.
[2019-03-21 12:03] VITALS: BP 103/63
--- NOTE | 2019-03-21 14:41 | Internal Med Progress Note ---
Subjective Date of Service: Mar 21, 2019 Physician Name Sundeep Driver Attending Physician Petey Vences MD Current Medications Medications (Trade) Dose Ordered Sig/Shagufta Route PRN Reason Start Time Stop Time Status Last Admin Dose Admin Acetaminophen (Tylenol) 650 mg Q4H PRN ORAL fever 03/17/19 15:11 04/16/19 15:10 03/21/19 08:38 Chlordiazepoxide (Librium) 25 mg Q6H PRN ORAL Agitation 03/17/19 15:11 03/24/19 15:10 03/20/19 03:31 Chlordiazepoxide (Librium) 50 mg TID ORAL 03/17/19 18:00 03/24/19 17:59 03/21/19 12:19 Dextrose (Dextrose 50%) 25 ml Q30M PRN IV Hypoglycemia 03/17/19 15:15 04/14/19 19:14 Dextrose (Dextrose 50%) 50 ml Q30M PRN IV Hypoglycemia 03/17/19 15:15 04/14/19 19:14 Famotidine (Pepcid) 20 mg BID ORAL 03/17/19 18:00 04/15/19 08:59 03/21/19 08:31 Fluoxetine HCl (PROzac) 20 mg DAILY ORAL 03/19/19 09:00 04/18/19 08:59 03/21/19 08:31 Folic Acid (Folate) 1 mg DAILY ORAL 03/18/19 09:00 04/15/19 08:59 03/21/19 08:31 Folic Acid 1 mg/ Magnesium Sulfate 2000 mg/ Multivitamins 10 ml/Potassium Chloride/Sodium Chloride 1,014.2 ml @ 124.876 mls/hr Q24H IV 03/17/19 22:00 04/14/19 21:59 03/20/19 21:25 Heparin Sodium (Porcine) (Heparin 5000 units/ml) 5,000 units EVERY 12 HOURS SUBQ 03/17/19 21:00 04/14/19 20:59 03/17/19 20:43 Insulin Aspart (NovoLOG) BEFORE MEALS AND HS SUBQ 03/17/19 16:30 04/14/19 20:59 03/21/19 12:10 Lorazepam (Ativan) 2 mg Q6H PRN ORAL For Anxiety 03/17/19 15:12 03/24/19 15:11 Metformin HCl (Glucophage) 500 mg BIAC ORAL 03/19/19 16:30 04/18/19 16:29 03/21/19 06:19 Morphine Sulfate (Morphine Sulfate) 1 mg Q4H PRN IVP For Pain 03/17/19 15:12 03/24/19 15:11 03/21/19 05:27 Thiamine HCl 100 mg/Dextrose 56 ml @ 112 mls/hr Q24H IVPB 03/17/19 22:00 04/14/19 21:59 03/20/19 21:25 Zolpidem Tartrate (Ambien) 5 mg HSPRN PRN ORAL Insomnia 03/17/19 19:15 03/22/19 19:14 Allergies: Coded Allergies: No Known Allergies (Unverified , 12/01/16) ROS Limited/Unobtainable: No Constitutional: Reports: fever HEENT: Reports: no symptoms Cardiovascular: Reports: no symptoms Respiratory: Reports: no symptoms Gastrointestinal/Abdominal: Reports: no symptoms Genitourinary: Reports: no symptoms Subjective 63 YO M with alcohol dependence admitted with acute alcohol withdrawal symptoms. Cover for Int Med-DR Vences. Fever to 101.8 F overnight. Objective Last Vital Signs Date Time Temp Pulse Resp B/P (MAP) Pulse Ox O2 Delivery O2 Flow Rate FiO2 03/21/19 12:03 97.7 84 17 103/63 (76) 98 03/21/19 08:30 Room Air Laboratory Tests Test 03/21/19 07:30 White Blood Count 4.1 K/UL (4.8-10.8) L Red Blood Count 3.67 M/UL (4.70-6.10) L Hemoglobin 11.0 G/DL (14.2-18.0) L Hematocrit 32.3 % (42.0-52.0) L Mean Corpuscular Volume 88 FL (80-99) Mean Corpuscular Hemoglobin 29.9 PG (27.0-31.0) Mean Corpuscular Hemoglobin Concent 34.0 G/DL (32.0-36.0) Red Cell Distribution Width 13.4 % (11.6-14.8) Platelet Count 87 K/UL (150-450) L Mean Platelet Volume 7.8 FL (6.5-10.1) Neutrophils (%) (Auto) % (45.0-75.0) Lymphocytes (%) (Auto) % (20.0-45.0) Monocytes (%) (Auto) % (1.0-10.0) Eosinophils (%) (Auto) % (0.0-3.0) Basophils (%) (Auto) % (0.0-2.0) Differential Total Cells Counted 100 Neutrophils % (Manual) 58 % (45-75) Lymphocytes % (Manual) 24 % (20-45) Monocytes % (Manual) 15 % (1-10) H Eosinophils % (Manual) 3 % (0-3) Basophils % (Manual) 0 % (0-2) Band Neutrophils 0 % (0-8) Platelet Estimate Decreased L Platelet Morphology Normal Polychromasia 1+ Hypochromasia 1+ Sodium Level 139 MMOL/L (136-145) Potassium Level 4.7 MMOL/L (3.5-5.1) Chloride Level 103 MMOL/L (98-107) Carbon Dioxide Level 29 MMOL/L (21-32) Anion Gap 7 mmol/L (5-15) Blood Urea Nitrogen 9 mg/dL (7-18) Creatinine 1.0 MG/DL (0.55-1.30) Estimat Glomerular Filtration Rate > 60 mL/min (>60) Glucose Level 156 MG/DL (74-106) H Calcium Level 8.3 MG/DL (8.5-10.1) L Intake and Output 03/20/19 03/21/19 19:00 07:00 Intake Total 1200 ml Output Total 600 ml 300 ml Balance 600 ml -300 ml Intake Oral 1200 ml Output Urine Total 600 ml 300 ml Objective Objective GENERAL: Awake and responsive, in no acute distress, shaking. HEAD AND NECK: Pupils are equal and reactive to light. Anicteric. Neck was supple. No JVD. LUNGS: Good air entry. Decrease in air. No wheeze or rhonchi. HEART: S1, S2. Tachycardic. No murmur or gallops. ABDOMEN: Soft, nondistended, and nontender. Mildly obese. EXTREMITIES: No cyanosis, clubbing, or edema. NEUROLOGIC: Cranial nerves II through XII grossly intact. The patient is moving all extremities. The patient is shaking all the extremities. RECTAL/GENITOURINARY: Refused and deferred. PSYCHIATRIC: Mood and affect is anxious. Assessment/Plan Assessment/Plan Assessment/Plan Assessment/Plan ASSESSMENT: 1. Alcoholism with alcohol withdrawal. 2. Tachycardia. 3. History of liver cirrhosis. 4. Hepatitis C positive. 5. Alcoholic hepatitis. 6. Gastritis. 7. Fever PLAN: Follow up with the laboratory. Alcohol withdrawal precaution. IV hydration. Follow up with Ativan as needed for withdrawal. Code status, full code. DVT prophylaxis, heparin subcutaneous. psychiatric consultation Kcl supplements Discahrge planning=homeless; see social work note Fever=blood and urine culture. CXR=neg. Urinalysis Sundeep Driver MD Mar 21, 2019 14:41
[2019-03-21] MEDS ORDERED: Levofloxacin 500mg tab ORAL SCH (15:00)
[2019-03-21 15:59] LABS: APPEARANCE,URINE CLEAR; BILIRUBIN, URINE NEGATIVE (NEGATIVE); COLOR,URINE PALE YELLOW; GLUCOSE, URINE (UA) NEGATIVE (NEGATIVE); KETONES,URINE NEGATIVE (NEGATIVE); LEUKOCYTE ESTERASE ,URINE 1+ (NEGATIVE); NITRITE,URINE NEGATIVE (NEGATIVE); PH,URINE 7 (4.5-8.0); PROTEIN,URINE NEGATIVE (NEGATIVE); UROBILINOGEN,URINE NORMAL MG/DL (0.0-1.0)
[2019-03-21 16:10] VITALS: BP 93/61
--- NOTE | 2019-03-21 19:14 | NUR ---
HAND-OFF: Report given to MAK Burrell RN .
--- NOTE | 2019-03-21 19:26 | NUR ---
NURSE NOTES: Received patient in bed,patient awake and alert. Breathing on room air. No acute distress noted. Fall and aspiration precautions maintained., Bed in lowest and locked position, call light within reach. Will continue to monitor the pt.
[2019-03-21 20:00] VITALS: BP 90/92
[2019-03-21] MEDS: Thiamine HCl 100 MG in D5W 55 ML IVPB SCH (21:37)
[2019-03-21] MEDS: Folic Acid 1 MG, Magnesium Sulfate 2,000 MG, Multivitamin - 12 Injection 10 ML in NS w/... IV SCH (21:37)
[2019-03-22] VITALS: BP 125/83
[2019-03-22 04:00] VITALS: BP 109/70
[2019-03-22] MEDS: metFORMIN 500mg tab ORAL SCH ×2 (06:24→17:27)
[2019-03-22] MEDS: NovoLOG Insulin Flexpen SUBQ SCH ×4 (06:32→20:33)
[2019-03-22 06:46] LABS: HEMOGLOBIN 9.9 G/DL (14.2-18.0); MEAN CORPUSCULAR VOLUME 89 FL (80-99); PLATELET COUNT 96 K/UL (150-450); RED BLOOD COUNT 3.37 M/UL (4.70-6.10); WHITE BLOOD COUNT 3.4 K/UL (4.8-10.8)
--- NOTE | 2019-03-22 07:23 | NUR ---
HAND-OFF: Report given to MAK Nelson.
--- NOTE | 2019-03-22 07:24 | NUR ---
NURSE NOTES: Received patient in bed asleep. No SOB or acute distress. HOB elevated. Bed locked in lowest position. Call light within reach. Will continue plan of care.
[2019-03-22 07:37] LABS: ANION GAP 8 mmol/L (5-15); BLOOD UREA NITROGEN 12 mg/dL (7-18); CALCIUM 7.8 MG/DL (8.5-10.1); CARBON DIOXIDE 25 MMOL/L (21-32); CHLORIDE 107 MMOL/L (98-107); CREATININE 0.9 MG/DL (0.55-1.30); POTASSIUM 3.9 MMOL/L (3.5-5.1); SODIUM 140 MMOL/L (136-145)
[2019-03-22 08:00] VITALS: BP 113/60
[2019-03-22] MEDS: Heparin 5000 units/ml inj SUBQ SCH ×2 (09:00→20:25)
[2019-03-22] MEDS ORDERED: cefTRIAXone 1 GM in D5W 55 ML IVPB SCH (09:00)
[2019-03-22] MEDS: chlordiazePOXIDE 25mg Cap ORAL SCH ×3 (09:12→17:27)
[2019-03-22] MEDS: Morphine Sulfate 2mg/ml Inj(IV/IM USE ONLY) IVP PRN ×3 (09:24→20:28)
--- NOTE | 2019-03-22 11:05 | NUR ---
CASE MANAGEMENT: REVIEW 03/21/2019 SI:ETHANOL WITHDRAWALS 102.9 118 20 110/72 98% ON RA WBC 4.1 CA+ 8.3 BG 156 PLT 87 H/H 11/32.3 IS: IV ROCEPHIN QD LIBRIUM PO TID NOVOLOG SQ AC&HS IV MG/MTV Q24HR IV THIAMINE Q24HR HEPARIN SQ BID METFORMIN PO BIAC \: 4E MED SURG PLAN: CONTROL [facility] CASE MANAGEMENT: REVIEW 03/21/2019 SI:ETHANOL WITHDRAWALS 100.2 92 20 109/70 96% ON RA WBC 3.4 CA+ 7.8 BG 148 PLT 96 H/H 9.9/30.0 IS: IV ROCEPHIN QD LIBRIUM PO TID NOVOLOG SQ AC&HS IV MG/MTV Q24HR IV THIAMINE Q24HR HEPARIN SQ BID METFORMIN PO BIAC \: 4E MED SURG PLAN: CONTROL [facility]
[2019-03-22 12:00] VITALS: BP 95/60
--- NOTE | 2019-03-22 14:10 | NUR ---
RD ASSESSMENT & RECOMMENDATIONS SEE CARE ACTIVITY FOR COMPLETE ASSESSMENT DAILY ESTIMATED NEEDS: Needs based on Liver dz, DM 83kg abw 25-30 kcals/kg [id number] total kcals 1-1.5 g protein/kg 83-124 g total protein 25-30 mL/kg total fluid mLs NUTRITION DIAGNOSIS: Decreased sodium needs r/t liver dz as evidenced by h/o cirrhosis with elev AST (169 ->121) CURRENT DIET:CCHO MED PO DIET RECOMMENDATIONS: CCHO MED / LOW NA ADDITIONAL RECOMMENDATIONS: 1) Standing wt for accurate CBW 2) Cont w/ folate + thiamine supplementation 3) Monitor lytes, replete as needed . .
--- NOTE | 2019-03-22 15:43 | NUR ---
NURSE NOTES: Left message for merari bocanegra mgr regarding referral to counseling or support group. Awaiting callback.
[2019-03-22 16:00] VITALS: BP 93/61
--- NOTE | 2019-03-22 16:10 | NUR ---
NURSE NOTES: [employer] gave list of support groups to patient for him to call since they do not take any information from case management coordinator and prefer to speak with patient himself. Patient currently in the process of calling them.
--- NOTE | 2019-03-22 16:34 | Internal Med Progress Note ---
Subjective Date of Service: Mar 22, 2019 Physician Name Sundeep Driver Attending Physician Petey Vences MD Current Medications Medications (Trade) Dose Ordered Sig/Shagufta Route PRN Reason Start Time Stop Time Status Last Admin Dose Admin Acetaminophen (Tylenol) 650 mg Q4H PRN ORAL fever 03/17/19 15:11 04/16/19 15:10 03/22/19 03:46 Ceftriaxone Sodium 1 gm/ Dextrose 55 ml @ 110 mls/hr DAILY IVPB 03/22/19 09:00 03/29/19 08:59 03/22/19 09:11 Chlordiazepoxide (Librium) 25 mg Q6H PRN ORAL Agitation 03/17/19 15:11 03/24/19 15:10 03/20/19 03:31 Chlordiazepoxide (Librium) 50 mg TID ORAL 03/17/19 18:00 03/24/19 17:59 03/22/19 12:10 Dextrose (Dextrose 50%) 25 ml Q30M PRN IV Hypoglycemia 03/17/19 15:15 04/14/19 19:14 Dextrose (Dextrose 50%) 50 ml Q30M PRN IV Hypoglycemia 03/17/19 15:15 04/14/19 19:14 Famotidine (Pepcid) 20 mg BID ORAL 03/17/19 18:00 04/15/19 08:59 03/22/19 09:12 Fluoxetine HCl (PROzac) 20 mg DAILY ORAL 03/19/19 09:00 04/18/19 08:59 03/22/19 09:11 Folic Acid (Folate) 1 mg DAILY ORAL 03/18/19 09:00 04/15/19 08:59 03/22/19 09:12 Folic Acid 1 mg/ Magnesium Sulfate 2000 mg/ Multivitamins 10 ml/Potassium Chloride/Sodium Chloride 1,014.2 ml @ 124.876 mls/hr Q24H IV 03/17/19 22:00 04/14/19 21:59 03/21/19 21:37 Heparin Sodium (Porcine) (Heparin 5000 units/ml) 5,000 units EVERY 12 HOURS SUBQ 03/17/19 21:00 04/14/19 20:59 03/17/19 20:43 Insulin Aspart (NovoLOG) BEFORE MEALS AND HS SUBQ 03/17/19 16:30 04/14/19 20:59 03/22/19 11:56 Lorazepam (Ativan) 2 mg Q6H PRN ORAL For Anxiety 03/17/19 15:12 03/24/19 15:11 03/21/19 23:31 Metformin HCl (Glucophage) 500 mg BIAC ORAL 03/19/19 16:30 04/18/19 16:29 03/22/19 06:24 Morphine Sulfate (Morphine Sulfate) 1 mg Q4H PRN IVP For Pain 03/17/19 15:12 03/24/19 15:11 03/22/19 15:37 Thiamine HCl 100 mg/Dextrose 56 ml @ 112 mls/hr Q24H IVPB 03/17/19 22:00 04/14/19 21:59 03/21/19 21:37 Zolpidem Tartrate (Ambien) 5 mg HSPRN PRN ORAL Insomnia 03/17/19 19:15 03/22/19 19:14 03/21/19 22:14 Allergies: Coded Allergies: No Known Allergies (Unverified , 12/01/16) ROS Limited/Unobtainable: No Constitutional: Reports: no symptoms HEENT: Reports: no symptoms Cardiovascular: Reports: no symptoms Respiratory: Reports: no symptoms Gastrointestinal/Abdominal: Reports: no symptoms Genitourinary: Reports: no symptoms Neurologic/Psychiatric: Reports: no symptoms Subjective 63 YO M with alcohol dependence admitted with acute alcohol withdrawal symptoms. Now UTI and sepsis. Cover for Int Tobi-DR Vences. Low grade Fever to 100.2 F overnight. Objective Last Vital Signs Date Time Temp Pulse Resp B/P (MAP) Pulse Ox O2 Delivery O2 Flow Rate FiO2 03/22/19 12:00 98.3 80 20 95/60 (72) 100 03/22/19 09:00 Room Air Laboratory Tests Test 03/22/19 05:10 White Blood Count 3.4 K/UL (4.8-10.8) L Red Blood Count 3.37 M/UL (4.70-6.10) L Hemoglobin 9.9 G/DL (14.2-18.0) L Hematocrit 30.0 % (42.0-52.0) L Mean Corpuscular Volume 89 FL (80-99) Mean Corpuscular Hemoglobin 29.5 PG (27.0-31.0) Mean Corpuscular Hemoglobin Concent 33.1 G/DL (32.0-36.0) Red Cell Distribution Width 14.0 % (11.6-14.8) Platelet Count 96 K/UL (150-450) L Mean Platelet Volume 7.3 FL (6.5-10.1) Neutrophils (%) (Auto) % (45.0-75.0) Lymphocytes (%) (Auto) % (20.0-45.0) Monocytes (%) (Auto) % (1.0-10.0) Eosinophils (%) (Auto) % (0.0-3.0) Basophils (%) (Auto) % (0.0-2.0) Differential Total Cells Counted 100 Neutrophils % (Manual) 59 % (45-75) Lymphocytes % (Manual) 26 % (20-45) Monocytes % (Manual) 15 % (1-10) H Eosinophils % (Manual) 0 % (0-3) Basophils % (Manual) 0 % (0-2) Band Neutrophils 0 % (0-8) Platelet Estimate Decreased L Platelet Morphology Normal Polychromasia 1+ Hypochromasia 1+ Anisocytosis 1+ Sodium Level 140 MMOL/L (136-145) Potassium Level 3.9 MMOL/L (3.5-5.1) Chloride Level 107 MMOL/L (98-107) Carbon Dioxide Level 25 MMOL/L (21-32) Anion Gap 8 mmol/L (5-15) Blood Urea Nitrogen 12 mg/dL (7-18) Creatinine 0.9 MG/DL (0.55-1.30) Estimat Glomerular Filtration Rate > 60 mL/min (>60) Glucose Level 148 MG/DL (74-106) H Calcium Level 7.8 MG/DL (8.5-10.1) L Microbiology Date/Time Source Procedure Growth Status 03/21/19 07:30 Blood Blood Culture - Preliminary Resulted 03/21/19 07:20 Blood Blood Culture - Preliminary Resulted 03/21/19 02:34 Urine,Clean Catch Urine Culture - Preliminary Gram Negative Ethan Resulted Intake and Output 03/21/19 03/22/19 19:00 07:00 Intake Total 1280 ml 499.2 ml Output Total 1600 ml 450 ml Balance -320 ml 49.2 ml Intake Oral 1280 ml IV Total 499.2 ml Output Urine Total 1600 ml 450 ml # Bowel Movements 1 Objective Objective GENERAL: Awake and responsive, in no acute distress, shaking. HEAD AND NECK: Pupils are equal and reactive to light. Anicteric. Neck was supple. No JVD. LUNGS: Good air entry. Decrease in air. No wheeze or rhonchi. HEART: S1, S2. Tachycardic. No murmur or gallops. ABDOMEN: Soft, nondistended, and nontender. Mildly obese. EXTREMITIES: No cyanosis, clubbing, or edema. NEUROLOGIC: Cranial nerves II through XII grossly intact. The patient is moving all extremities. The patient is shaking all the extremities. RECTAL/GENITOURINARY: Refused and deferred. PSYCHIATRIC: Mood and affect is anxious. Assessment/Plan Assessment/Plan Assessment/Plan Assessment/Plan ASSESSMENT: 1. Alcoholism with alcohol withdrawal. 2. Tachycardia. 3. History of liver cirrhosis. 4. Hepatitis C positive. 5. Alcoholic hepatitis. 6. Gastritis. 7. Fever 8. UTI=gram neg ethan 9. Sepsis=gram neg ethan PLAN: Follow up with the laboratory. Alcohol withdrawal precaution. IV hydration. Follow up with Ativan as needed for withdrawal. Code status, full code. DVT prophylaxis, heparin subcutaneous. psychiatric consultation Kcl supplements Discahrge planning=homeless; see social work note Fever: blood and urine culture=gram neg ethan continue levaquin PO; Start cefepime IV Sundeep Driver MD Mar 22, 2019 16:34
[2019-03-22] MEDS: Cefepime HCl 1 GM in D5W 55 ML IVPB SCH (17:28)
--- NOTE | 2019-03-22 19:23 | NUR ---
NURSE NOTES: Patient referred to Dr De Luna for consultation.
--- NOTE | 2019-03-22 19:30 | NUR ---
HAND-OFF: Report given to Joyce.
[2019-03-22 20:00] VITALS: BP 104/58
[2019-03-22] MEDS: Thiamine HCl 100 MG in D5W 55 ML IVPB SCH (22:36)
[2019-03-22] MEDS: Folic Acid 1 MG, Magnesium Sulfate 2,000 MG, Multivitamin - 12 Injection 10 ML in NS w/... IV SCH (22:36)
[2019-03-23] VITALS: BP 106/59
[2019-03-23 04:00] VITALS: BP 110/68
[2019-03-23] MEDS: Cefepime HCl 1 GM in D5W 55 ML IVPB SCH ×2 (05:53→17:01)
[2019-03-23] MEDS: metFORMIN 500mg tab ORAL SCH ×2 (05:53→16:44)
[2019-03-23] MEDS: NovoLOG Insulin Flexpen SUBQ SCH ×4 (05:57→21:16)
[2019-03-23] MEDS: Morphine Sulfate 2mg/ml Inj(IV/IM USE ONLY) IVP PRN ×3 (06:14→21:27)
[2019-03-23 06:29] LABS: HEMATOCRIT 29.6 % (42.0-52.0); HEMOGLOBIN 9.6 G/DL (14.2-18.0); MEAN CORPUSCULAR VOLUME 90 FL (80-99); PLATELET COUNT 119 K/UL (150-450)
[2019-03-23 06:36] LABS: ANION GAP 7 mmol/L (5-15); BLOOD UREA NITROGEN 11 mg/dL (7-18); CALCIUM 7.9 MG/DL (8.5-10.1); CARBON DIOXIDE 26 MMOL/L (21-32); CHLORIDE 108 MMOL/L (98-107); CREATININE 0.9 MG/DL (0.55-1.30); SODIUM 141 MMOL/L (136-145)
--- NOTE | 2019-03-23 07:38 | NUR ---
HAND-OFF: Report given to MAK Russell.
--- NOTE | 2019-03-23 07:55 | NUR ---
NURSE NOTES: pt awake alert, no sob. no distress. no c/o pain. call light within reach. will monitor
[2019-03-23 08:00] VITALS: BP 110/62
[2019-03-23] MEDS: Heparin 5000 units/ml inj SUBQ SCH ×2 (08:12→21:00)
[2019-03-23] MEDS: chlordiazePOXIDE 25mg Cap ORAL SCH ×3 (08:12→17:01)
--- NOTE | 2019-03-23 10:01 | Consultation ---
History of Present Illness General Date patient seen: Mar 23, 2019 Chief Complaint: Abdominal Pain Reason for Consultation: Urosepsis Present Illness HPI Mr. Lopez is a 63 yo male with PMHx of Hep C and B, Liver cirrhosis and EtOH abuse who was admitted to the [facility] on 03/16/19 for abd pain. He had been drainking heavely and was feeling ill. He denied fever and SOB and dysuria. He had been aferbile and had no leukocytosis and was being treated for EtOH withdrawal. Two days ago he developed fever. His UA was positive and his blood and urine are both growing GNR. ID was consulted for Urosepsis PMHx/PSHx Hep C Untreated Hep B Treated Liver cirrhosis Gastritis EtOH abuse SocHx No T/D Active EtOH abuse Was drinking for about 2 week straight prior to admission FamHx Not Contributory Allergies: Coded Allergies: No Known Allergies (Unverified , 12/01/16) Medication History Scheduled Metformin Hcl* (Metformin Hcl*), Unknown Dose ORAL DAILY, (Reported) No Known Medications* (NKM - No Known Medications*), 0 ., (Reported) Scheduled PRN Diphenhydramine Hcl* (Benadryl*), 50 MG ORAL BEDTIME PRN for INSOMNIA, (Reported ) Hydrocodone Bit/Acetaminophen 10-325* ([place] 10-325*), 1 TAB ORAL Q6H PRN for For Pain, (Reported) Patient History Healthcare decision maker Resuscitation status Full Code Advanced Directive on File Review of Systems ROS Narrative 12 point ROS negative except as noted in the HPI Physical Exam Last 24 Hour Vital Signs Date Time Temp Pulse Resp B/P (MAP) Pulse Ox O2 Delivery O2 Flow Rate FiO2 03/23/19 08:00 98.0 71 18 110/62 (78) 100 03/23/19 07:47 Room Air 03/23/19 04:00 98.0 68 18 110/68 (82) 100 03/23/19 00:00 98.0 74 18 106/59 (75) 98 03/22/19 21:00 Room Air 03/22/19 20:00 97.6 73 18 104/58 (73) 97 03/22/19 16:00 98.4 81 20 93/61 (72) 99 03/22/19 12:00 98.3 80 20 95/60 (72) 100 Intake and Output 1/2/20 1/3/20 18:59 06:59 Intake Total 775 ml 1109.4 ml Output Total 600 ml 700 ml Balance 175 ml 409.4 ml Intake Oral 720 ml IV Total 55 ml 1109.4 ml Output Urine Total 600 ml 700 ml # Bowel Movements 1 Laboratory Tests Test 03/23/19 05:45 White Blood Count 4.0 K/UL (4.8-10.8) L Red Blood Count 3.30 M/UL (4.70-6.10) L Hemoglobin 9.6 G/DL (14.2-18.0) L Hematocrit 29.6 % (42.0-52.0) L Mean Corpuscular Volume 90 FL (80-99) Mean Corpuscular Hemoglobin 29.2 PG (27.0-31.0) Mean Corpuscular Hemoglobin Concent 32.6 G/DL (32.0-36.0) Red Cell Distribution Width 14.0 % (11.6-14.8) Platelet Count 119 K/UL (150-450) L Mean Platelet Volume 7.3 FL (6.5-10.1) Neutrophils (%) (Auto) % (45.0-75.0) Lymphocytes (%) (Auto) % (20.0-45.0) Monocytes (%) (Auto) % (1.0-10.0) Eosinophils (%) (Auto) % (0.0-3.0) Basophils (%) (Auto) % (0.0-2.0) Sodium Level 141 MMOL/L (136-145) Potassium Level 4.0 MMOL/L (3.5-5.1) Chloride Level 108 MMOL/L (98-107) H Carbon Dioxide Level 26 MMOL/L (21-32) Anion Gap 7 mmol/L (5-15) Blood Urea Nitrogen 11 mg/dL (7-18) Creatinine 0.9 MG/DL (0.55-1.30) Estimat Glomerular Filtration Rate > 60 mL/min (>60) Glucose Level 132 MG/DL (74-106) H Calcium Level 7.9 MG/DL (8.5-10.1) L Height (Feet): 5 Height (Inches): 11.00 Weight (Pounds): 202 Medications Current Medications Medications (Trade) Dose Ordered Sig/Shagufta Route PRN Reason Start Time Stop Time Status Last Admin Dose Admin Acetaminophen (Tylenol) 650 mg Q4H PRN ORAL fever 03/17/19 15:11 04/16/19 15:10 03/22/19 03:46 Cefepime HCl 1 gm/ Dextrose 55 ml @ 110 mls/hr Q12HR@0600,1800 IVPB 03/22/19 18:00 03/29/19 17:59 03/23/19 05:53 Chlordiazepoxide (Librium) 25 mg Q6H PRN ORAL Agitation 03/17/19 15:11 03/24/19 15:10 03/20/19 03:31 Chlordiazepoxide (Librium) 50 mg TID ORAL 03/17/19 18:00 03/24/19 17:59 03/23/19 08:12 Dextrose (Dextrose 50%) 25 ml Q30M PRN IV Hypoglycemia 03/17/19 15:15 04/14/19 19:14 Dextrose (Dextrose 50%) 50 ml Q30M PRN IV Hypoglycemia 03/17/19 15:15 04/14/19 19:14 Famotidine (Pepcid) 20 mg BID ORAL 03/17/19 18:00 04/15/19 08:59 03/23/19 08:12 Fluoxetine HCl (PROzac) 20 mg DAILY ORAL 03/19/19 09:00 04/18/19 08:59 03/23/19 08:12 Folic Acid (Folate) 1 mg DAILY ORAL 03/18/19 09:00 04/15/19 08:59 03/23/19 08:12 Folic Acid 1 mg/ Magnesium Sulfate 2000 mg/ Multivitamins 10 ml/Potassium Chloride/Sodium Chloride 1,014.2 ml @ 124.876 mls/hr Q24H IV 03/17/19 22:00 04/14/19 21:59 03/22/19 22:36 Heparin Sodium (Porcine) (Heparin 5000 units/ml) 5,000 units EVERY 12 HOURS SUBQ 03/17/19 21:00 04/14/19 20:59 03/17/19 20:43 Insulin Aspart (NovoLOG) BEFORE MEALS AND HS SUBQ 03/17/19 16:30 04/14/19 20:59 03/23/19 05:57 Lorazepam (Ativan) 2 mg Q6H PRN ORAL For Anxiety 03/17/19 15:12 03/24/19 15:11 03/21/19 23:31 Metformin HCl (Glucophage) 500 mg BIAC ORAL 03/19/19 16:30 04/18/19 16:29 03/23/19 05:53 Morphine Sulfate (Morphine Sulfate) 1 mg Q4H PRN IVP For Pain 03/17/19 15:12 03/24/19 15:11 03/23/19 06:14 Thiamine HCl 100 mg/Dextrose 56 ml @ 112 mls/hr Q24H IVPB 03/17/19 22:00 04/14/19 21:59 03/22/19 22:36 Objective Narrative Gen: NAD HEENT: NCAT, MMM, EOMI, PERRL, No Oral lesion, no scleral icterus NECK: full range of motion, supple, no meningismus, No LAD, No JVD LUNGS: CTAB, No W/C, No Accessory muscle use CARDS: RRR, S1, S2, No M/R/G, ABD: Soft, TTP, ND, No R/G, + BS, No HSM, No Masses : Deferred Ext: C/C/E, Pulses 2+ B/L (DP, Rad): NEURO: A/O x 4, Strength and Sensation Grossly intact PSYCH: Normal mood and affect SKIN: Warm/dry, No rashes Assessment/Plan Assessment/Plan: 63 yo male with PMHx of Hep C, Liver cirrhosis and EtOH abuse who was admitted [facility] the [facility] on 03[facility] for abd pain. Probable urosepsis Urine Cx 03/21/19 - GNR Blood Cx 03/21/19 - 2/2 GNR Fever No Leukocytosis Hep C Liver cirrhosis Gastritis EtOH abuse PLAN - Continue Cefepime #2 - f/u Blood and Urine Cx -Monitor CBC and Temps Thank you for this consult. [facility] will continue to follow the patient with you during this hospitalization. Karlo Quevedo MD Mar 23, 2019 10:01
--- NOTE | 2019-03-23 11:19 | NUR ---
CASE MANAGEMENT: REVIEW 03/23/2019 SI:ETHANOL WITHDRAWALS 98.0 71 18 110/62 100% ON RA WBC 4.0 CA+ 7.9 BG 132 PLT 119 H/H 9.6/29.6 IS: IV CEFEPIME BID LIBRIUM PO TID NOVOLOG SQ AC&HS IV MG/MTV Q24HR IV THIAMINE Q24HR HEPARIN SQ BID METFORMIN PO BIAC \: 4E MED SURG PLAN: CONTROL FEVERS HALF-WAY PLACEMENT-PATIENT ACTIVELY SEEKING PLACEMENT BLOOD CX(+) URINE CX (+)
[2019-03-23 11:22] VITALS: BP 98/66
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
[2019-03-23 16:09] VITALS: BP 99/77
--- NOTE | 2019-03-23 17:00 | Internal Med Progress Note ---
Subjective Physician Name Petey Vences Attending Physician Petey Vences MD Current Medications Medications (Trade) Dose Ordered Sig/Shagufta Route PRN Reason Start Time Stop Time Status Last Admin Dose Admin Acetaminophen (Tylenol) 650 mg Q4H PRN ORAL fever 03/17/19 15:11 04/16/19 15:10 03/22/19 03:46 Cefepime HCl 1 gm/ Dextrose 55 ml @ 110 mls/hr Q12HR@0600,1800 IVPB 03/22/19 18:00 03/29/19 17:59 03/23/19 05:53 Chlordiazepoxide (Librium) 25 mg Q6H PRN ORAL Agitation 03/17/19 15:11 03/24/19 15:10 03/20/19 03:31 Chlordiazepoxide (Librium) 50 mg TID ORAL 03/17/19 18:00 03/24/19 17:59 03/23/19 12:07 Dextrose (Dextrose 50%) 25 ml Q30M PRN IV Hypoglycemia 03/17/19 15:15 04/14/19 19:14 Dextrose (Dextrose 50%) 50 ml Q30M PRN IV Hypoglycemia 03/17/19 15:15 04/14/19 19:14 Famotidine (Pepcid) 20 mg BID ORAL 03/17/19 18:00 04/15/19 08:59 03/23/19 08:12 Fluoxetine HCl (PROzac) 20 mg DAILY ORAL 03/19/19 09:00 04/18/19 08:59 03/23/19 08:12 Folic Acid (Folate) 1 mg DAILY ORAL 03/18/19 09:00 04/15/19 08:59 03/23/19 08:12 Folic Acid 1 mg/ Magnesium Sulfate 2000 mg/ Multivitamins 10 ml/Potassium Chloride/Sodium Chloride 1,014.2 ml @ 124.876 mls/hr Q24H IV 03/17/19 22:00 04/14/19 21:59 03/22/19 22:36 Heparin Sodium (Porcine) (Heparin 5000 units/ml) 5,000 units EVERY 12 HOURS SUBQ 03/17/19 21:00 04/14/19 20:59 03/17/19 20:43 Insulin Aspart (NovoLOG) BEFORE MEALS AND HS SUBQ 03/17/19 16:30 04/14/19 20:59 1/3/20 11:32 Lorazepam (Ativan) 2 mg Q6H PRN ORAL For Anxiety 03/17/19 15:12 03/24/19 15:11 03/21/19 23:31 Metformin HCl (Glucophage) 500 mg BIAC ORAL 03/19/19 16:30 04/18/19 16:29 03/23/19 16:44 Morphine Sulfate (Morphine Sulfate) 1 mg Q4H PRN IVP For Pain 03/17/19 15:12 03/24/19 15:11 03/23/19 06:14 Thiamine HCl 100 mg/Dextrose 56 ml @ 112 mls/hr Q24H IVPB 03/17/19 22:00 04/14/19 21:59 03/22/19 22:36 Allergies: Coded Allergies: No Known Allergies (Unverified , 12/01/16) Subjective Awake, alert, responsive, no chest pain or shortness of breath, denies any nausea or vomiting. Objective Last Vital Signs Date Time Temp Pulse Resp B/P (MAP) Pulse Ox O2 Delivery O2 Flow Rate FiO2 03/23/19 16:09 98.0 78 18 99/77 (84) 100 03/23/19 07:47 Room Air Laboratory Tests Test 03/23/19 05:45 White Blood Count 4.0 K/UL (4.8-10.8) L Red Blood Count 3.30 M/UL (4.70-6.10) L Hemoglobin 9.6 G/DL (14.2-18.0) L Hematocrit 29.6 % (42.0-52.0) L Mean Corpuscular Volume 90 FL (80-99) Mean Corpuscular Hemoglobin 29.2 PG (27.0-31.0) Mean Corpuscular Hemoglobin Concent 32.6 G/DL (32.0-36.0) Red Cell Distribution Width 14.0 % (11.6-14.8) Platelet Count 119 K/UL (150-450) L Mean Platelet Volume 7.3 FL (6.5-10.1) Neutrophils (%) (Auto) % (45.0-75.0) Lymphocytes (%) (Auto) % (20.0-45.0) Monocytes (%) (Auto) % (1.0-10.0) Eosinophils (%) (Auto) % (0.0-3.0) Basophils (%) (Auto) % (0.0-2.0) Sodium Level 141 MMOL/L (136-145) Potassium Level 4.0 MMOL/L (3.5-5.1) Chloride Level 108 MMOL/L (98-107) H Carbon Dioxide Level 26 MMOL/L (21-32) Anion Gap 7 mmol/L (5-15) Blood Urea Nitrogen 11 mg/dL (7-18) Creatinine 0.9 MG/DL (0.55-1.30) Estimat Glomerular Filtration Rate > 60 mL/min (>60) Glucose Level 132 MG/DL (74-106) H Calcium Level 7.9 MG/DL (8.5-10.1) L Microbiology Date/Time Source Procedure Growth Status 03/21/19 07:30 Blood Blood Culture - Preliminary Gram Negative Bacillus 1 Resulted 03/21/19 07:20 Blood Blood Culture - Preliminary Gram Negative Bacillus 1 Resulted 03/21/19 02:34 Urine,Clean Catch Urine Culture - Preliminary Gram Negative Ethan Gram Negative Bacillus 2 Resulted Intake and Output 03/22/19 03/23/19 19:00 07:00 Intake Total 775 ml 1109.4 ml Output Total 600 ml 700 ml Balance 175 ml 409.4 ml Intake Oral 720 ml IV Total 55 ml 1109.4 ml Output Urine Total 600 ml 700 ml # Bowel Movements 1 Objective GENERAL: Awake and responsive, in no acute distress, shaking. HEAD AND NECK: Pupils are equal and reactive to light. Anicteric. Neck was supple. No JVD. LUNGS: Good air entry. Decrease in air. No wheeze or rhonchi. HEART: S1, S2 RR. No murmur or gallops. ABDOMEN: Soft, nondistended, and nontender. Mildly obese. EXTREMITIES: No cyanosis, clubbing, or edema. NEUROLOGIC: Cranial nerves II through XII grossly intact. moving all extremities. RECTAL/GENITOURINARY: Refused and deferred. PSYCHIATRIC: Mood and affect is anxious. Assessment/Plan Assessment/Plan ASSESSMENT: 1. Alcoholism with alcohol withdrawal. 2. Tachycardia. 3. History of liver cirrhosis. 4. Hepatitis C positive. 5. Alcoholic hepatitis. 6. Gastritis. 7. Gram-negative ethan sepsis secondary to bacteremia and urinary tract infection. PLAN: In medical unit. Follow up with the laboratory and cultures. Alcohol withdrawal precaution. IV hydration. Follow up with Ativan as needed for withdrawal. Code status, full code. DVT prophylaxis, heparin subcutaneous. ID consultation Abx: Cefepime IV Petey Vences MD Mar 23, 2019 16:59
--- NOTE | 2019-03-23 19:19 | NUR ---
HAND-OFF: Report given to MONI CORADO.
--- NOTE | 2019-03-23 19:36 | NUR ---
NURSE NOTES: Received pt from MAK Russell. Pt is resting in bed, AAO x 3, on room air. IV site intact and patent. No acute distress noted at this time. No c/o of pain. Bed locked, lowest position, alarm on, side rails up, call light within reach. Will continue to monitor.
[2019-03-23 20:00] VITALS: BP 125/72
[2019-03-23] MEDS ORDERED: Tubing IV Secondary IV ONE (21:24)
[2019-03-23] MEDS ORDERED: NS 500ML ONE (21:24)
[2019-03-23] MEDS: Thiamine HCl 100 MG in D5W 55 ML IVPB SCH (22:06)
[2019-03-23] MEDS: Folic Acid 1 MG, Magnesium Sulfate 2,000 MG, Multivitamin - 12 Injection 10 ML in NS w/... IV SCH (22:06)
--- NOTE | 2019-03-23 23:45 | Progress Note ---
DATE: 03/23/2019 SUBJECTIVE: The patient is asleep, in no acute distress. Less anxious. No behavior issues noted. Calm and cooperative. MENTAL STATUS EXAMINATION: Alert and oriented times self, place, situation, and date. Mood is anxious. Affect is constricted. Congruent with mood. Thought process is concrete. Thought content, no suicidal or homicidal ideation. Insight and judgment are fair. ASSESSMENT: 1. Alcohol dependence. 2. Alcohol withdrawal. 3. Major depressive disorder. PLAN: 1. The patient should be discharged when medically cleared. 2. Provide the patient with reality orientation and supportive therapy. Kaden Matias M.D. DR: CARLEE JOB#: [id number] CC:
[2019-03-24] VITALS: BP 100/62
[2019-03-24 04:00] VITALS: BP 106/61
[2019-03-24] MEDS: Cefepime HCl 1 GM in D5W 55 ML IVPB SCH ×2 (05:45→16:59)
[2019-03-24] MEDS: metFORMIN 500mg tab ORAL SCH ×2 (05:47→16:05)
[2019-03-24] MEDS: NovoLOG Insulin Flexpen SUBQ SCH ×4 (05:47→20:29)
--- NOTE | 2019-03-24 07:35 | NUR ---
NURSE NOTES: Received patient in bed awake. No SOB or acute distress. IV line intact and patent, no s/s of infiltration. HOB elevated. Bed locked in lowest position. Call light within reach. Will continue plan of care.
--- NOTE | 2019-03-24 07:46 | NUR ---
HAND-OFF: Report given to MAK Nelson.
[2019-03-24 08:00] VITALS: BP 119/74
[2019-03-24] MEDS: chlordiazePOXIDE 25mg Cap ORAL SCH ×2 (08:07→12:42)
[2019-03-24] MEDS: Morphine Sulfate 2mg/ml Inj(IV/IM USE ONLY) IVP PRN ×3 (08:08→20:19)
[2019-03-24] MEDS: Heparin 5000 units/ml inj SUBQ SCH ×2 (09:00→20:18)
--- NOTE | 2019-03-24 10:19 | Infectious Diseases Prog Note ---
Assessment/Plan Assessment/Plan 63 yo male with PMHx of Hep C, Liver cirrhosis and EtOH abuse who was admitted to the [facility] on 03/16/19 for abd pain. Probable urosepsis Urine Cx 03/21/19 - E. coli and Proteus Blood Cx 03/21/19 - 2/2 K. oxy and Enterobacter Fever No Leukocytosis Hep C Liver cirrhosis Gastritis EtOH abuse PLAN - CT abd/pel to evaluate for abscess given lack of clear source for GNR bacteremia - Continue Cefepime #2 - f/u Blood and Urine Cx -Monitor CBC and Temps Thank you for this consult. [facility] will continue to follow the patient with you during this hospitalization. Subjective Allergies: Coded Allergies: No Known Allergies (Unverified , 12/01/16) Subjective Afebrile No leukocytosis Reporting diffuse abdominal pain Objective Vital Signs Last 24 Hour Vital Signs Date Time Temp Pulse Resp B/P (MAP) Pulse Ox O2 Delivery O2 Flow Rate FiO2 03/24/19 08:00 97.8 73 20 119/74 (89) 97 03/24/19 04:00 97.7 66 20 106/61 (76) 95 03/24/19 00:00 98.1 69 20 100/62 (75) 96 03/23/19 21:00 Room Air 03/23/19 20:00 98.2 70 20 125/72 (89) 98 03/23/19 17:31 98.0 03/23/19 16:09 98.0 78 18 99/77 (84) 100 03/23/19 11:22 98.0 70 18 98/66 (77) 100 Height (Feet): 5 Height (Inches): 11.00 Weight (Pounds): 202 Objective Gen: NAD HEENT: NCAT, MMM, EOMI LUNGS: CTAB, No W CARDS: RRR, S1, S2 ABD: Soft, TTP diffusely, ND, No R/G Microbiology Date/Time Source Procedure Growth Status 03/22/19 08:14 Blood Blood Culture - Preliminary NO GROWTH AFTER 24 HOURS Resulted 03/22/19 08:05 Blood Blood Culture - Preliminary NO GROWTH AFTER 24 HOURS Resulted Current Medications Medications (Trade) Dose Ordered Sig/Shagufta Route PRN Reason Start Time Stop Time Status Last Admin Dose Admin Acetaminophen (Tylenol) 650 mg Q4H PRN ORAL fever 03/17/19 15:11 04/16/19 15:10 03/22/19 03:46 Cefepime HCl 1 gm/ Dextrose 55 ml @ 110 mls/hr Q12HR@0600,1800 IVPB 03/22/19 18:00 03/29/19 17:59 03/24/19 05:45 Chlordiazepoxide (Librium) 25 mg Q6H PRN ORAL Agitation 03/17/19 15:11 03/24/19 15:10 03/20/19 03:31 Chlordiazepoxide (Librium) 50 mg TID ORAL 03/17/19 18:00 03/24/19 17:59 03/24/19 08:07 Dextrose (Dextrose 50%) 25 ml Q30M PRN IV Hypoglycemia 03/17/19 15:15 04/14/19 19:14 Dextrose (Dextrose 50%) 50 ml Q30M PRN IV Hypoglycemia 03/17/19 15:15 04/14/19 19:14 Famotidine (Pepcid) 20 mg BID ORAL 03/17/19 18:00 04/15/19 08:59 03/24/19 08:07 Fluoxetine HCl (PROzac) 20 mg DAILY ORAL 03/19/19 09:00 04/18/19 08:59 03/24/19 08:07 Folic Acid (Folate) 1 mg DAILY ORAL 03/18/19 09:00 04/15/19 08:59 03/24/19 08:07 Folic Acid 1 mg/ Magnesium Sulfate 2000 mg/ Multivitamins 10 ml/Potassium Chloride/Sodium Chloride 1,014.2 ml @ 124.876 mls/hr Q24H IV 03/17/19 22:00 04/14/19 21:59 03/23/19 22:06 Heparin Sodium (Porcine) (Heparin 5000 units/ml) 5,000 units EVERY 12 HOURS SUBQ 03/17/19 21:00 04/14/19 20:59 03/17/19 20:43 Insulin Aspart (NovoLOG) BEFORE MEALS AND HS SUBQ 03/17/19 16:30 04/14/19 20:59 03/24/19 05:47 Lorazepam (Ativan) 2 mg Q6H PRN ORAL For Anxiety 03/17/19 15:12 03/24/19 15:11 03/21/19 23:31 Metformin HCl (Glucophage) 500 mg BIAC ORAL 03/19/19 16:30 04/18/19 16:29 03/24/19 05:47 Morphine Sulfate (Morphine Sulfate) 1 mg Q4H PRN IVP For Pain 03/17/19 15:12 03/24/19 15:11 03/24/19 08:08 Thiamine HCl 100 mg/Dextrose 56 ml @ 112 mls/hr Q24H IVPB 03/17/19 22:00 04/14/19 21:59 03/23/19 22:06 Karlo Quevedo MD Mar 24, 2019 10:19
[2019-03-24] MEDS ORDERED: Omnipaque-300 100ml vial INJ PRN (11:00)
[2019-03-24 12:00] VITALS: BP 122/76
--- NOTE | 2019-03-24 14:24 | Internal Med Progress Note ---
Subjective Physician Name Sundeep Driver Attending Physician Petey Vences MD Current Medications Medications (Trade) Dose Ordered Sig/Shagufta Route PRN Reason Start Time Stop Time Status Last Admin Dose Admin Acetaminophen (Tylenol) 650 mg Q4H PRN ORAL fever 03/17/19 15:11 04/16/19 15:10 03/22/19 03:46 Barium Sulfate (Readi-Cat 2) 450 ml NOW PRN ORAL Radiology Procedure 03/24/19 11:00 03/26/19 10:55 Cefepime HCl 1 gm/ Dextrose 55 ml @ 110 mls/hr Q12HR@0600,1800 IVPB 03/22/19 18:00 03/29/19 17:59 03/24/19 05:45 Chlordiazepoxide (Librium) 25 mg Q6H PRN ORAL Agitation 03/17/19 15:11 03/24/19 15:10 03/20/19 03:31 Chlordiazepoxide (Librium) 50 mg TID ORAL 03/17/19 18:00 03/24/19 17:59 03/24/19 12:42 Dextrose (Dextrose 50%) 25 ml Q30M PRN IV Hypoglycemia 03/17/19 15:15 04/14/19 19:14 Dextrose (Dextrose 50%) 50 ml Q30M PRN IV Hypoglycemia 03/17/19 15:15 04/14/19 19:14 Famotidine (Pepcid) 20 mg BID ORAL 03/17/19 18:00 04/15/19 08:59 03/24/19 08:07 Fluoxetine HCl (PROzac) 20 mg DAILY ORAL 03/19/19 09:00 04/18/19 08:59 03/24/19 08:07 Folic Acid (Folate) 1 mg DAILY ORAL 03/18/19 09:00 04/15/19 08:59 03/24/19 08:07 Folic Acid 1 mg/ Magnesium Sulfate 2000 mg/ Multivitamins 10 ml/Potassium Chloride/Sodium Chloride 1,014.2 ml @ 124.876 mls/hr Q24H IV 03/17/19 22:00 04/14/19 21:59 03/23/19 22:06 Heparin Sodium (Porcine) (Heparin 5000 units/ml) 5,000 units EVERY 12 HOURS SUBQ 03/17/19 21:00 04/14/19 20:59 03/17/19 20:43 Insulin Aspart (NovoLOG) BEFORE MEALS AND HS SUBQ 03/17/19 16:30 04/14/19 20:59 03/24/19 11:50 Iohexol (OMNIPAQUE-300 100ml) 100 ml NOW PRN INJ Radiology Procedure 03/24/19 11:00 03/26/19 10:55 Lorazepam (Ativan) 2 mg Q6H PRN ORAL For Anxiety 03/17/19 15:12 03/24/19 15:11 03/21/19 23:31 Metformin HCl (Glucophage) 500 mg BIAC ORAL 03/19/19 16:30 04/18/19 16:29 03/24/19 05:47 Morphine Sulfate (Morphine Sulfate) 1 mg Q4H PRN IVP For Pain 03/17/19 15:12 03/24/19 15:11 03/24/19 12:42 Thiamine HCl 100 mg/Dextrose 56 ml @ 112 mls/hr Q24H IVPB 03/17/19 22:00 04/14/19 21:59 03/23/19 22:06 Allergies: Coded Allergies: No Known Allergies (Unverified , 12/01/16) Subjective 63 YO M with alcohol dependence admitted with acute alcohol withdrawal symptoms. Now UTI and sepsis. Cover for Int Med-DR Vences. Objective Last Vital Signs Date Time Temp Pulse Resp B/P (MAP) Pulse Ox O2 Delivery O2 Flow Rate FiO2 03/24/19 12:00 98.4 74 20 122/76 (91) 98 03/24/19 09:00 Room Air Microbiology Date/Time Source Procedure Growth Status 03/22/19 08:14 Blood Blood Culture - Preliminary NO GROWTH AFTER 24 HOURS Resulted 03/22/19 08:05 Blood Blood Culture - Preliminary NO GROWTH AFTER 24 HOURS Resulted Intake and Output 03/23/19 03/24/19 19:00 07:00 Intake Total 830 ml 1054.008 ml Output Total 700 ml 1000 ml Balance 130 ml 54.008 ml Intake Oral 720 ml IV Total 110 ml 1054.008 ml Output Urine Total 700 ml 1000 ml # Bowel Movements 1 Objective Objective GENERAL: Awake and responsive, in no acute distress, shaking. HEAD AND NECK: Pupils are equal and reactive to light. Anicteric. Neck was supple. No JVD. LUNGS: Good air entry. Decrease in air. No wheeze or rhonchi. HEART: S1, S2. Tachycardic. No murmur or gallops. ABDOMEN: Soft, nondistended, and nontender. Mildly obese. EXTREMITIES: No cyanosis, clubbing, or edema. NEUROLOGIC: Cranial nerves II through XII grossly intact. The patient is moving all extremities. The patient is shaking all the extremities. RECTAL/GENITOURINARY: Refused and deferred. PSYCHIATRIC: Mood and affect is anxious. Assessment/Plan Assessment/Plan Assessment/Plan Assessment/Plan ASSESSMENT: 1. Alcoholism with alcohol withdrawal. 2. Tachycardia. 3. History of liver cirrhosis. 4. Hepatitis C positive. 5. Alcoholic hepatitis. 6. Gastritis. 7. Fever 8. UTI=E. Coli and Proteus Mirabilis 9. Sepsis=Enterobacter cloacae and Klebsiella oxytoca PLAN: Follow up with the laboratory. Alcohol withdrawal precaution. IV hydration. Follow up with Ativan as needed for withdrawal. Code status, full code. DVT prophylaxis, heparin subcutaneous. psychiatric consultation Kcl supplements Discahrge planning=homeless; see social work note Sepsis/UTI - continue cefepime per ID=Sundeep Gaytan MD Mar 24, 2019 14:24
[2019-03-24 16:00] VITALS: BP 105/73
[2019-03-24] MEDS ORDERED: chlordiazePOXIDE 25mg Cap ORAL PRN (18:30)
[2019-03-24] MEDS ORDERED: LORazepam 1mg tab ORAL PRN (18:30)
--- NOTE | 2019-03-24 19:15 | NUR ---
HAND-OFF: Report given to Margarita.
--- NOTE | 2019-03-24 19:48 | NUR ---
NURSE NOTES: Patient in bed, awake and alert x3. On room air with no signs of distress or SOB. IV site intact and patent. No c/o of pain. Bed locked and in lowest position, with call light in reach. Will continue to monitor.
[2019-03-24 20:00] VITALS: BP 122/81
[2019-03-24] MEDS: Folic Acid 1 MG, Magnesium Sulfate 2,000 MG, Multivitamin - 12 Injection 10 ML in NS w/... IV SCH (21:45)
[2019-03-24] MEDS: Thiamine HCl 100 MG in D5W 55 ML IVPB SCH (21:54)
[2019-03-25] VITALS (7 sets, daily range): BP systolic 107–116; BP diastolic 20–81
[2019-03-25] MEDS: Morphine Sulfate 2mg/ml Inj(IV/IM USE ONLY) IVP PRN ×5 (00:31→21:44)
[2019-03-25] MEDS: Cefepime HCl 1 GM in D5W 55 ML IVPB SCH ×2 (05:01→17:41)
[2019-03-25] MEDS: metFORMIN 500mg tab ORAL SCH ×2 (05:51→16:47)
[2019-03-25] MEDS: NovoLOG Insulin Flexpen SUBQ SCH ×4 (05:55→21:31)
--- NOTE | 2019-03-25 07:39 | NUR ---
HAND-OFF: Report given to MAK Dietrich.
--- NOTE | 2019-03-25 07:55 | NUR ---
NURSE NOTES: Received patient on bed, awake. IV intact and patent. Condom catheter in place and intact and patent. Bed in low and locked position, call light in reach. No signs of respiratory distress or pain. Room board updated, will continue to monitor.
[2019-03-25 08:05] LABS: BASOPHILS % (AUTO) 0.9 % (0.0-2.0); EOSINOPHILS % (AUTO) 0.7 % (0.0-3.0); HEMATOCRIT 36.2 % (42.0-52.0); LYMPHOCYTES % (AUTO) 38.6 % (20.0-45.0); MEAN CORPUSCULAR VOLUME 89 FL (80-99); MONOCYTES % (AUTO) 7.2 % (1.0-10.0); NEUTROPHILS % (AUTO) 52.6 % (45.0-75.0); PLATELET COUNT 254 K/UL (150-450); RED BLOOD COUNT 4.05 M/UL (4.70-6.10); RED CELL DISTRIBUTION WIDTH 14.2 % (11.6-14.8); WHITE BLOOD COUNT 7.1 K/UL (4.8-10.8)
[2019-03-25 08:25] LABS: ANION GAP 10 mmol/L (5-15); BLOOD UREA NITROGEN 9 mg/dL (7-18); CALCIUM 8.8 MG/DL (8.5-10.1); CARBON DIOXIDE 25 MMOL/L (21-32); CHLORIDE 108 MMOL/L (98-107); CREATININE 0.8 MG/DL (0.55-1.30); POTASSIUM 4.6 MMOL/L (3.5-5.1); SODIUM 142 MMOL/L (136-145)
[2019-03-25] MEDS: Heparin 5000 units/ml inj SUBQ SCH ×2 (08:49→21:43)
[2019-03-25] MEDS ORDERED: Tubing IV Secondary IV ONE (09:22)
[2019-03-25] MEDS ORDERED: NS 275ml ONE (09:22)
--- NOTE | 2019-03-25 14:16 | Internal Med Progress Note ---
Subjective Date of Service: Mar 25, 2019 Physician Name Sundeep Driver Attending Physician Petey Vences MD Current Medications Medications (Trade) Dose Ordered Sig/Shagufta Route PRN Reason Start Time Stop Time Status Last Admin Dose Admin Acetaminophen (Tylenol) 650 mg Q4H PRN ORAL fever 03/17/19 15:11 04/16/19 15:10 03/22/19 03:46 Barium Sulfate (Readi-Cat 2) 450 ml NOW PRN ORAL Radiology Procedure 03/24/19 11:00 03/26/19 10:55 Cefepime HCl 1 gm/ Dextrose 55 ml @ 110 mls/hr Q12HR@0600,1800 IVPB 03/22/19 18:00 03/29/19 17:59 03/25/19 05:01 Chlordiazepoxide (Librium) 25 mg Q6H PRN ORAL Agitation 03/24/19 18:30 03/31/19 18:29 Dextrose (Dextrose 50%) 25 ml Q30M PRN IV Hypoglycemia 03/17/19 15:15 04/14/19 19:14 Dextrose (Dextrose 50%) 50 ml Q30M PRN IV Hypoglycemia 03/17/19 15:15 04/14/19 19:14 Famotidine (Pepcid) 20 mg BID ORAL 03/17/19 18:00 04/15/19 08:59 03/25/19 08:48 Fluoxetine HCl (PROzac) 20 mg DAILY ORAL 03/19/19 09:00 04/18/19 08:59 03/25/19 08:48 Folic Acid (Folate) 1 mg DAILY ORAL 03/18/19 09:00 04/15/19 08:59 03/25/19 08:48 Folic Acid 1 mg/ Magnesium Sulfate 2000 mg/ Multivitamins 10 ml/Potassium Chloride/Sodium Chloride 1,014.2 ml @ 124.876 mls/hr Q24H IV 03/17/19 22:00 04/14/19 21:59 03/24/19 21:45 Heparin Sodium (Porcine) (Heparin 5000 units/ml) 5,000 units EVERY 12 HOURS SUBQ 03/17/19 21:00 04/14/19 20:59 03/25/19 08:49 Insulin Aspart (NovoLOG) BEFORE MEALS AND HS SUBQ 03/17/19 16:30 1/25/20 20:59 03/25/19 11:50 Iohexol (OMNIPAQUE-300 100ml) 100 ml NOW PRN INJ Radiology Procedure 03/24/19 11:00 03/26/19 10:55 Lorazepam (Ativan) 2 mg Q6H PRN ORAL For Anxiety 03/24/19 18:30 03/31/19 18:29 Metformin HCl (Glucophage) 500 mg BIAC ORAL 03/19/19 16:30 04/18/19 16:29 03/25/19 05:51 Morphine Sulfate (Morphine Sulfate) 1 mg Q4H PRN IVP For Pain 03/24/19 18:30 03/31/19 18:29 03/25/19 12:55 Thiamine HCl 100 mg/Dextrose 56 ml @ 112 mls/hr Q24H IVPB 03/17/19 22:00 04/14/19 21:59 03/24/19 21:54 Allergies: Coded Allergies: No Known Allergies (Unverified , 12/01/16) ROS Limited/Unobtainable: No Constitutional: Reports: no symptoms HEENT: Reports: no symptoms Cardiovascular: Reports: no symptoms Respiratory: Reports: no symptoms Gastrointestinal/Abdominal: Reports: no symptoms Genitourinary: Reports: no symptoms Neurologic/Psychiatric: Reports: no symptoms Subjective 63 YO M with alcohol dependence admitted with acute alcohol withdrawal symptoms. Now UTI and sepsis. Cover for Int Med-DR Vences. Objective Last Vital Signs Date Time Temp Pulse Resp B/P (MAP) Pulse Ox O2 Delivery O2 Flow Rate FiO2 03/25/19 12:03 98.4 73 18 108/20 (49) 98 03/25/19 09:00 Room Air Laboratory Tests Test 03/25/19 07:25 White Blood Count 7.1 K/UL (4.8-10.8) Red Blood Count 4.05 M/UL (4.70-6.10) L Hemoglobin 12.0 G/DL (14.2-18.0) L Hematocrit 36.2 % (42.0-52.0) L Mean Corpuscular Volume 89 FL (80-99) Mean Corpuscular Hemoglobin 29.6 PG (27.0-31.0) Mean Corpuscular Hemoglobin Concent 33.1 G/DL (32.0-36.0) Red Cell Distribution Width 14.2 % (11.6-14.8) Platelet Count 254 K/UL (150-450) Mean Platelet Volume 6.7 FL (6.5-10.1) Neutrophils (%) (Auto) 52.6 % (45.0-75.0) Lymphocytes (%) (Auto) 38.6 % (20.0-45.0) Monocytes (%) (Auto) 7.2 % (1.0-10.0) Eosinophils (%) (Auto) 0.7 % (0.0-3.0) Basophils (%) (Auto) 0.9 % (0.0-2.0) Sodium Level 142 MMOL/L (136-145) Potassium Level 4.6 MMOL/L (3.5-5.1) Chloride Level 108 MMOL/L (98-107) H Carbon Dioxide Level 25 MMOL/L (21-32) Anion Gap 10 mmol/L (5-15) Blood Urea Nitrogen 9 mg/dL (7-18) Creatinine 0.8 MG/DL (0.55-1.30) Estimat Glomerular Filtration Rate > 60 mL/min (>60) Glucose Level 117 MG/DL (74-106) H Calcium Level 8.8 MG/DL (8.5-10.1) Intake and Output 03/24/19 03/25/19 19:00 07:00 Intake Total 1135 ml 240 ml Output Total 800 ml 700 ml Balance 335 ml -460 ml Intake Oral 1080 ml 240 ml IV Total 55 ml Output Urine Total 800 ml 700 ml Objective Objective GENERAL: Awake and responsive, in no acute distress, shaking. HEAD AND NECK: Pupils are equal and reactive to light. Anicteric. Neck was supple. No JVD. LUNGS: Good air entry. Decrease in air. No wheeze or rhonchi. HEART: S1, S2. Tachycardic. No murmur or gallops. ABDOMEN: Soft, nondistended, and nontender. Mildly obese. EXTREMITIES: No cyanosis, clubbing, or edema. NEUROLOGIC: Cranial nerves II through XII grossly intact. The patient is moving all extremities. The patient is shaking all the extremities. RECTAL/GENITOURINARY: Refused and deferred. PSYCHIATRIC: Mood and affect is anxious. Assessment/Plan Assessment/Plan Assessment/Plan Assessment/Plan ASSESSMENT: 1. Alcoholism with alcohol withdrawal. 2. Tachycardia. 3. History of liver cirrhosis. 4. Hepatitis C positive. 5. Alcoholic hepatitis. 6. Gastritis. 7. Fever 8. UTI=E. Coli and Proteus Mirabilis 9. Sepsis=Enterobacter cloacae and Klebsiella oxytoca PLAN: Follow up with the laboratory. Alcohol withdrawal precaution. IV hydration. Follow up with Ativan as needed for withdrawal. Code status, full code. DVT prophylaxis, heparin subcutaneous. psychiatric consultation Kcl supplements Discahrge planning=homeless; see social work note Sepsis/UTI - continue cefepime per ID=Sundeep Gaytan MD Mar 25, 2019 14:16
[2019-03-25] MEDS: Folic Acid 1 MG, Magnesium Sulfate 2,000 MG, Multivitamin - 12 Injection 10 ML in NS w/... IV SCH (21:32)
[2019-03-25] MEDS: Thiamine HCl 100 MG in D5W 55 ML IVPB SCH (21:33)
[2019-03-26 04:00] VITALS: BP 109/65
[2019-03-26] MEDS: Cefepime HCl 1 GM in D5W 55 ML IVPB SCH ×2 (05:29→18:52)
[2019-03-26] MEDS: NovoLOG Insulin Flexpen SUBQ SCH ×4 (05:43→22:29)
[2019-03-26] MEDS: metFORMIN 500mg tab ORAL SCH ×2 (05:52→16:30)
[2019-03-26] MEDS: Morphine Sulfate 2mg/ml Inj(IV/IM USE ONLY) IVP PRN ×4 (06:36→23:31)
[2019-03-26 06:53] LABS: ANION GAP 6 mmol/L (5-15); BLOOD UREA NITROGEN 8 mg/dL (7-18); CALCIUM 8.4 MG/DL (8.5-10.1); CARBON DIOXIDE 28 MMOL/L (21-32); CHLORIDE 107 MMOL/L (98-107); POTASSIUM 4.4 MMOL/L (3.5-5.1); SODIUM 141 MMOL/L (136-145)
[2019-03-26 07:06] LABS: EOSINOPHILS % (AUTO) 0.9 % (0.0-3.0); HEMATOCRIT 34.6 % (42.0-52.0); HEMOGLOBIN 11.3 G/DL (14.2-18.0); LYMPHOCYTES % (AUTO) 39.2 % (20.0-45.0); MEAN CORPUSCULAR VOLUME 90 FL (80-99); NEUTROPHILS % (AUTO) 53.1 % (45.0-75.0); PLATELET COUNT 257 K/UL (150-450); RED BLOOD COUNT 3.85 M/UL (4.70-6.10); RED CELL DISTRIBUTION WIDTH 14.9 % (11.6-14.8); WHITE BLOOD COUNT 6.1 K/UL (4.8-10.8)
--- NOTE | 2019-03-26 07:35 | NUR ---
HAND-OFF: Report given to MAK Estrada.
[2019-03-26 08:00] VITALS: BP 116/97
--- NOTE | 2019-03-26 08:21 | NUR ---
NURSE NOTES: Patient awake and alert,respirations unlabored.IV fluids infusing as ordered.Patient is NPO for schedule CT abdomen today.Call light within reach.
[2019-03-26] MEDS ORDERED: Tubing IV Secondary IV ONE (10:51)
[2019-03-26] MEDS ORDERED: NS 275ml ONE (10:51)
[2019-03-26] MEDS: Heparin 5000 units/ml inj SUBQ SCH ×2 (11:29→22:30)
[2019-03-26 12:00] VITALS: BP 132/66
--- NOTE | 2019-03-26 12:17 | Infectious Diseases Prog Note ---
Assessment/Plan Assessment/Plan 63 yo male with PMHx of Hep C, Liver cirrhosis and EtOH abuse who was admitted to the [facility] on 03/16/19 for abd pain. Probable urosepsis Urine Cx 03/21/19 - E. coli and Proteus Blood Cx 03/21/19 - 2/2 K. oxy and Enterobacter Fever No Leukocytosis Hep C Liver cirrhosis Gastritis EtOH abuse PLAN - CT abd/pel - read pending - Continue Cefepime #[address] Abd my not show source of infection would treat with levofloxaicn until 04/05/19 to complete a 2 week course of abx - f/u Blood and Urine Cx -Monitor CBC and Temps Thank you for this consult. [facility] will continue to follow the patient with you during this hospitalization. Subjective Allergies: Coded Allergies: No Known Allergies (Unverified , 12/01/16) Subjective Afebrile No leukocytosis CT abd pending Objective Vital Signs Last 24 Hour Vital Signs Date Time Temp Pulse Resp B/P (MAP) Pulse Ox O2 Delivery O2 Flow Rate FiO2 03/26/19 09:00 Room Air 03/26/19 08:00 98.6 73 21 116/97 (103) 100 03/26/19 04:00 97.8 72 18 109/65 (80) 99 03/25/19 23:53 98.1 70 17 109/71 (84) 99 03/25/19 21:00 Room Air 03/25/19 20:00 97.9 69 18 107/68 (81) 97 03/25/19 16:00 98.3 73 18 116/75 (89) 96 Height (Feet): 5 Height (Inches): 11.00 Weight (Pounds): 202 Objective Gen: NAD, Satting well HEENT: NCAT, MMM, EOMI LUNGS: CTAB, No W CARDS: RRR, S1, S2 ABD: Soft, TTP diffusely, ND, No R/G Laboratory Tests Test 03/26/19 05:35 White Blood Count 6.1 K/UL (4.8-10.8) Red Blood Count 3.85 M/UL (4.70-6.10) L Hemoglobin 11.3 G/DL (14.2-18.0) L Hematocrit 34.6 % (42.0-52.0) L Mean Corpuscular Volume 90 FL (80-99) Mean Corpuscular Hemoglobin 29.4 PG (27.0-31.0) Mean Corpuscular Hemoglobin Concent 32.8 G/DL (32.0-36.0) Red Cell Distribution Width 14.9 % (11.6-14.8) H Platelet Count 257 K/UL (150-450) Mean Platelet Volume 6.3 FL (6.5-10.1) L Neutrophils (%) (Auto) 53.1 % (45.0-75.0) Lymphocytes (%) (Auto) 39.2 % (20.0-45.0) Monocytes (%) (Auto) 6.0 % (1.0-10.0) Eosinophils (%) (Auto) 0.9 % (0.0-3.0) Basophils (%) (Auto) 1.0 % (0.0-2.0) Sodium Level 141 MMOL/L (136-145) Potassium Level 4.4 MMOL/L (3.5-5.1) Chloride Level 107 MMOL/L (98-107) Carbon Dioxide Level 28 MMOL/L (21-32) Anion Gap 6 mmol/L (5-15) Blood Urea Nitrogen 8 mg/dL (7-18) Creatinine 1.0 MG/DL (0.55-1.30) Estimat Glomerular Filtration Rate > 60 mL/min (>60) Glucose Level 106 MG/DL (74-106) Calcium Level 8.4 MG/DL (8.5-10.1) L Current Medications Medications (Trade) Dose Ordered Sig/Shagufta Route PRN Reason Start Time Stop Time Status Last Admin Dose Admin Acetaminophen (Tylenol) 650 mg Q4H PRN ORAL fever 03/17/19 15:11 04/16/19 15:10 03/22/19 03:46 Cefepime HCl 1 gm/ Dextrose 55 ml @ 110 mls/hr Q12HR@0600,1800 IVPB 03/22/19 18:00 03/29/19 17:59 03/26/19 05:29 Chlordiazepoxide (Librium) 25 mg Q6H PRN ORAL Agitation 03/24/19 18:30 03/31/19 18:29 Dextrose (Dextrose 50%) 25 ml Q30M PRN IV Hypoglycemia 03/17/19 15:15 04/14/19 19:14 Dextrose (Dextrose 50%) 50 ml Q30M PRN IV Hypoglycemia 03/17/19 15:15 04/14/19 19:14 Famotidine (Pepcid) 20 mg BID ORAL 03/17/19 18:00 04/15/19 08:59 03/26/19 11:27 Fluoxetine HCl (PROzac) 20 mg DAILY ORAL 03/19/19 09:00 04/18/19 08:59 03/26/19 11:36 Folic Acid (Folate) 1 mg DAILY ORAL 03/18/19 09:00 04/15/19 08:59 03/26/19 11:32 Folic Acid 1 mg/ Magnesium Sulfate 2000 mg/ Multivitamins 10 ml/Potassium Chloride/Sodium Chloride 1,014.2 ml @ 124.876 mls/hr Q24H IV 03/17/19 22:00 04/14/19 21:59 03/25/19 21:32 Heparin Sodium (Porcine) (Heparin 5000 units/ml) 5,000 units EVERY 12 HOURS SUBQ 03/17/19 21:00 04/14/19 20:59 03/26/19 11:29 Insulin Aspart (NovoLOG) BEFORE MEALS AND HS SUBQ 03/17/19 16:30 04/14/19 20:59 03/26/19 12:04 Lorazepam (Ativan) 2 mg Q6H PRN ORAL For Anxiety 03/24/19 18:30 03/31/19 18:29 Metformin HCl (Glucophage) 500 mg BIAC ORAL 03/19/19 16:30 04/18/19 16:29 03/25/19 16:47 Morphine Sulfate (Morphine Sulfate) 1 mg Q4H PRN IVP For Pain 03/24/19 18:30 03/31/19 18:29 03/26/19 12:05 Thiamine HCl 100 mg/Dextrose 56 ml @ 112 mls/hr Q24H IVPB 03/17/19 22:00 04/14/19 21:59 03/25/19 21:33 Karlo Quevedo MD Mar 26, 2019 12:17
--- NOTE | 2019-03-26 13:56 | Internal Med Progress Note ---
Subjective Date of Service: Mar 26, 2019 Physician Name Sundeep Driver Attending Physician Petey Vences MD Current Medications Medications (Trade) Dose Ordered Sig/Shagufta Route PRN Reason Start Time Stop Time Status Last Admin Dose Admin Acetaminophen (Tylenol) 650 mg Q4H PRN ORAL fever 03/17/19 15:11 04/16/19 15:10 03/22/19 03:46 Cefepime HCl 1 gm/ Dextrose 55 ml @ 110 mls/hr Q12HR@0600,1800 IVPB 03/22/19 18:00 03/29/19 17:59 03/26/19 05:29 Chlordiazepoxide (Librium) 25 mg Q6H PRN ORAL Agitation 03/24/19 18:30 03/31/19 18:29 Dextrose (Dextrose 50%) 25 ml Q30M PRN IV Hypoglycemia 03/17/19 15:15 04/14/19 19:14 Dextrose (Dextrose 50%) 50 ml Q30M PRN IV Hypoglycemia 03/17/19 15:15 04/14/19 19:14 Famotidine (Pepcid) 20 mg BID ORAL 03/17/19 18:00 04/15/19 08:59 03/26/19 11:27 Fluoxetine HCl (PROzac) 20 mg DAILY ORAL 03/19/19 09:00 04/18/19 08:59 03/26/19 11:36 Folic Acid (Folate) 1 mg DAILY ORAL 03/18/19 09:00 04/15/19 08:59 03/26/19 11:32 Folic Acid 1 mg/ Magnesium Sulfate 2000 mg/ Multivitamins 10 ml/Potassium Chloride/Sodium Chloride 1,014.2 ml @ 124.876 mls/hr Q24H IV 03/17/19 22:00 04/14/19 21:59 03/25/19 21:32 Heparin Sodium (Porcine) (Heparin 5000 units/ml) 5,000 units EVERY 12 HOURS SUBQ 03/17/19 21:00 04/14/19 20:59 03/26/19 11:29 Insulin Aspart (NovoLOG) BEFORE MEALS AND HS SUBQ 03/17/19 16:30 04/14/19 20:59 03/26/19 12:04 Lorazepam (Ativan) 2 mg Q6H PRN ORAL For Anxiety 03/24/19 18:30 03/31/19 18:29 Metformin HCl (Glucophage) 500 mg BIAC ORAL 03/19/19 16:30 04/18/19 16:29 03/25/19 16:47 Morphine Sulfate (Morphine Sulfate) 1 mg Q4H PRN IVP For Pain 03/24/19 18:30 03/31/19 18:29 03/26/19 12:05 Thiamine HCl 100 mg/Dextrose 56 ml @ 112 mls/hr Q24H IVPB 03/17/19 22:00 04/14/19 21:59 03/25/19 21:33 Allergies: Coded Allergies: No Known Allergies (Unverified , 12/01/16) ROS Limited/Unobtainable: No Constitutional: Reports: no symptoms HEENT: Reports: no symptoms Cardiovascular: Reports: no symptoms Respiratory: Reports: no symptoms Gastrointestinal/Abdominal: Reports: no symptoms Genitourinary: Reports: no symptoms Subjective 63 YO M with alcohol dependence admitted with acute alcohol withdrawal symptoms. Now UTI and sepsis. Cover for Int Med-DR Vences. Objective Last Vital Signs Date Time Temp Pulse Resp B/P (MAP) Pulse Ox O2 Delivery O2 Flow Rate FiO2 03/26/19 12:00 98.0 66 17 132/66 (88) 96 03/26/19 09:00 Room Air Laboratory Tests Test 03/26/19 05:35 White Blood Count 6.1 K/UL (4.8-10.8) Red Blood Count 3.85 M/UL (4.70-6.10) L Hemoglobin 11.3 G/DL (14.2-18.0) L Hematocrit 34.6 % (42.0-52.0) L Mean Corpuscular Volume 90 FL (80-99) Mean Corpuscular Hemoglobin 29.4 PG (27.0-31.0) Mean Corpuscular Hemoglobin Concent 32.8 G/DL (32.0-36.0) Red Cell Distribution Width 14.9 % (11.6-14.8) H Platelet Count 257 K/UL (150-450) Mean Platelet Volume 6.3 FL (6.5-10.1) L Neutrophils (%) (Auto) 53.1 % (45.0-75.0) Lymphocytes (%) (Auto) 39.2 % (20.0-45.0) Monocytes (%) (Auto) 6.0 % (1.0-10.0) Eosinophils (%) (Auto) 0.9 % (0.0-3.0) Basophils (%) (Auto) 1.0 % (0.0-2.0) Sodium Level 141 MMOL/L (136-145) Potassium Level 4.4 MMOL/L (3.5-5.1) Chloride Level 107 MMOL/L (98-107) Carbon Dioxide Level 28 MMOL/L (21-32) Anion Gap 6 mmol/L (5-15) Blood Urea Nitrogen 8 mg/dL (7-18) Creatinine 1.0 MG/DL (0.55-1.30) Estimat Glomerular Filtration Rate > 60 mL/min (>60) Glucose Level 106 MG/DL (74-106) Calcium Level 8.4 MG/DL (8.5-10.1) L Intake and Output 03/25/19 03/26/19 19:00 07:00 Intake Total 655 ml Output Total 450 ml Balance 205 ml Intake Oral 600 ml IV Total 55 ml Output Urine Total 450 ml # Voids 2 1 # Bowel Movements 1 Objective Objective GENERAL: Awake and responsive, in no acute distress, shaking. HEAD AND NECK: Pupils are equal and reactive to light. Anicteric. Neck was supple. No JVD. LUNGS: Good air entry. Decrease in air. No wheeze or rhonchi. HEART: S1, S2. Tachycardic. No murmur or gallops. ABDOMEN: Soft, nondistended, and nontender. Mildly obese. EXTREMITIES: No cyanosis, clubbing, or edema. NEUROLOGIC: Cranial nerves II through XII grossly intact. The patient is moving all extremities. The patient is shaking all the extremities. RECTAL/GENITOURINARY: Refused and deferred. PSYCHIATRIC: Mood and affect is anxious. Assessment/Plan Assessment/Plan Assessment/Plan Assessment/Plan ASSESSMENT: 1. Alcoholism with alcohol withdrawal. 2. Tachycardia. 3. History of liver cirrhosis. 4. Hepatitis C positive. 5. Alcoholic hepatitis. 6. Gastritis. 7. Fever 8. UTI=E. Coli and Proteus Mirabilis 9. Sepsis=Enterobacter cloacae and Klebsiella oxytoca PLAN: Follow up with the laboratory. Alcohol withdrawal precaution. IV hydration. Follow up with Ativan as needed for withdrawal. Code status, full code. DVT prophylaxis, heparin subcutaneous. psychiatric consultation Kcl supplements Discahrge planning=homeless; see social work note Sepsis/UTI - continue cefepime per ID=Dr Quevedo Await CT abdomen and pelvis-R/O intraabdominal abscess. Sundeep Driver MD Mar 26, 2019 13:55
[2019-03-26 16:00] VITALS: BP 124/72
--- NOTE | 2019-03-26 16:00 | NUR ---
CASE MANAGEMENT: REVIEW 03/24/2019 SI:ETHANOL WITHDRAWALS . UTI . SEPSIS 97.8 73 20 119/74 97% ON RA WBC 4.0 CA+ 7.9 BG 132 PLT 119 H/H 9.6/29.6 IS: IV CEFEPIME BID LIBRIUM PO TID NOVOLOG SQ AC&HS IV MG/MTV Q24HR IV THIAMINE Q24HR HEPARIN SQ BID METFORMIN PO BIAC \: 4E MED SURG PLAN: CONTROL FEVERS USP PLACEMENT-PATIENT ACTIVELY SEEKING PLACEMENT BLOOD CX-PENDONG CASE MANAGEMENT: REVIEW 03/25/2019 SI:ETHANOL WITHDRAWALS . UTI . SEPSIS 97.9 82 18 116/81 99% ON RA H/H 12/36.2 BG 117 IS: IV CEFEPIME BID LIBRIUM PO TID NOVOLOG SQ AC&HS IV MG/MTV Q24HR IV THIAMINE Q24HR HEPARIN SQ BID METFORMIN PO BIAC \: 4E MED SURG PLAN: CONTROL FEVERS USP PLACEMENT-PATIENT ACTIVELY SEEKING PLACEMENT BLOOD CX-PENDONG CASE MANAGEMENT: REVIEW 03/26/2019 SI:ETHANOL WITHDRAWALS . UTI . SEPSIS 98.6 73 21 116/97 100% ON RA CA+ 8.4 H/H 11.3/34.6 IS: IV CEFEPIME BID LIBRIUM PO TID NOVOLOG SQ AC&HS IV MG/MTV Q24HR IV THIAMINE Q24HR HEPARIN SQ BID METFORMIN PO BIAC \: 4E MED SURG PLAN: CT ABD - PENDING PT EVAL AND TREAT USP PLACEMENT-PATIENT ACTIVELY SEEKING PLACEMENT BLOOD CX-PENDING
--- NOTE | 2019-03-26 16:49 | Diagnostic Imaging Report ---
Clinical Indication: Abdominal pain, cirrhosis, gastritis Technique: Patient given oral contrast. IV administration nonionic contrast. Venous phase spiral acquisition obtained through the abdomen and pelvis. Multiplanar reconstructions were generated. Total dose length product 1403 mGycm. CTDIvol(s) 24 mGy. Dose reduction achieved using automated exposure control Comparison: 12/01/2016 Findings: The colon is diffusely prominent in caliber, stool-filled, but degree of distention is considerably decreased from the previous study. The appendix is normal. Contrast has traversed most but not all of the small bowel. Small bowel loops are nondilated there is no small bowel wall thickening. The stomach and duodenum are unremarkable. No free or loculated intraperitoneal gas or fluid is evident. The liver demonstrates surface nodularity which is more striking than on the previous exam. Previously demonstrated fatty change has resolved, liver currently demonstrates normal attenuation. The portal vein is patent. However, small perigastric and periesophageal varices are evident. The spleen is borderline enlarged, measuring up to 13 cm long axis dimension. The pancreas is somewhat atrophic, demonstrates calcifications in the head and body which are somewhat more extensive than on the previous study. The previously demonstrated small peripancreatic cyst is no longer evident. The adrenals and right kidney are unremarkable. The left kidney demonstrates a few small cysts. The prostate is enlarged. No pelvic mass or adenopathy. The bladder is unremarkable. The included lung bases are clear. The bones demonstrate degenerative spondylosis changes. Impression: No acute abnormality Increasing hepatic surface nodularity, indicating progressive cirrhotic change Small perigastric and periesophageal varices, indicative of portal hypertension Borderline splenomegaly, likely related to the above Atrophic pancreas with calcifications, consistent with a calcifying pancreatitis, progressive since prior exam Previously demonstrated pancreatic/peripancreatic cyst is no longer evident. Presumably, this represented a small pseudocyst which has involuted in the interim. Considerable retained colonic stool, may indicate a component of constipation. Correlate with clinical findings Left renal cyst, degenerative spondylosis incidentally noted The CT scanner at [facility] is accredited by the [employer] and the scans are performed using protocols designed to limit radiation exposure to as low as reasonably achievable to attain images of sufficient resolution adequate for diagnostic evaluation.
--- NOTE | 2019-03-26 17:07 | NUR ---
NURSE NOTES: Metformin not given at this time,patient received CT of abdomen today with IV contrast,per protocol Metformin to be held x24 hours.
--- NOTE | 2019-03-26 18:56 | NUR ---
NURSE NOTES: Patient complaint of pain,requesting pain medication,given as ordered.Will follow up.Call light within reach.
--- NOTE | 2019-03-26 19:43 | NUR ---
HAND-OFF: Report given to Margarita CORADO.
[2019-03-26 20:00] VITALS: BP 112/68
[2019-03-26] MEDS: Thiamine HCl 100 MG in D5W 55 ML IVPB SCH (22:41)
[2019-03-26] MEDS: Folic Acid 1 MG, Magnesium Sulfate 2,000 MG, Multivitamin - 12 Injection 10 ML in NS w/... IV SCH (22:41)
[2019-03-27] VITALS: BP 108/69
[2019-03-27 04:00] VITALS: BP 122/80
[2019-03-27] MEDS: Cefepime HCl 1 GM in D5W 55 ML IVPB SCH ×2 (05:31→18:50)
[2019-03-27 06:06] LABS: HEMATOCRIT 33.2 % (42.0-52.0); HEMOGLOBIN 10.8 G/DL (14.2-18.0); MEAN CORPUSCULAR VOLUME 90 FL (80-99); PLATELET COUNT 267 K/UL (150-450); RED BLOOD COUNT 3.68 M/UL (4.70-6.10); RED CELL DISTRIBUTION WIDTH 15.4 % (11.6-14.8); WHITE BLOOD COUNT 5.9 K/UL (4.8-10.8)
[2019-03-27] MEDS: metFORMIN 500mg tab ORAL SCH ×2 (06:24→16:30)
[2019-03-27] MEDS: Morphine Sulfate 2mg/ml Inj(IV/IM USE ONLY) IVP PRN ×3 (06:28→18:51)
[2019-03-27 06:31] LABS: ANION GAP 8 mmol/L (5-15); BLOOD UREA NITROGEN 6 mg/dL (7-18); CALCIUM 8.6 MG/DL (8.5-10.1); CARBON DIOXIDE 26 MMOL/L (21-32); CHLORIDE 108 MMOL/L (98-107); CREATININE 0.9 MG/DL (0.55-1.30); POTASSIUM 4.3 MMOL/L (3.5-5.1); SODIUM 142 MMOL/L (136-145)
[2019-03-27] MEDS: NovoLOG Insulin Flexpen SUBQ SCH ×4 (06:40→21:24)
--- NOTE | 2019-03-27 07:18 | NUR ---
NURSE NOTES: Patient awake and alert and oriented,patient sitting up in bed and eating breakfast.patient receiving IV fluids with MVI as ordered.No complaints of pain at this time.Call light within reach.
--- NOTE | 2019-03-27 07:31 | NUR ---
HAND-OFF: Report given to MAK Estrada.
[2019-03-27 08:00] VITALS: BP 128/72
[2019-03-27] MEDS: Heparin 5000 units/ml inj SUBQ SCH ×2 (09:01→21:24)
--- NOTE | 2019-03-27 11:22 | NUR ---
CASE MANAGEMENT: REVIEW 03/27/2019 SI:ETHANOL WITHDRAWALS . UTI . SEPSIS 97.8 92 17 128/72 100% ON RA CL- 108 BUN 6 H/H 10.8/33.2 IS: IV CEFEPIME BID LIBRIUM PO TID NOVOLOG SQ AC&HS IV MG/MTV Q24HR IV THIAMINE Q24HR HEPARIN SQ BID METFORMIN PO BIAC \: 4E MED SURG PLAN: IF CT ABD DOES NOT SHOW SOURCE OF INFECTION TX WITH LEVOFLOXACIN TILL 04/05/2019 BLOOD CX-PENDING PT EVAL AND TREAT -ACTIVE CT ABD -RESULTED [facility] PLACEMENT-PATIENT ACTIVELY SEEKING PLACEMENT
[2019-03-27 12:00] VITALS: BP 115/77
--- NOTE | 2019-03-27 12:08 | Infectious Diseases Prog Note ---
Assessment/Plan Assessment/Plan 63 yo male with PMHx of Hep C, Liver cirrhosis and EtOH abuse who was admitted to the [facility] on 03/16/19 for abd pain. Probable urosepsis Urine Cx 03/21/19 - E. coli and Proteus Blood Cx 03/21/19 - 2/[address] abd no acute infectious process Fever No Leukocytosis Hep C Liver cirrhosis Gastritis EtOH abuse PLAN - Continue Cefepime #5 OK to D/C from an ID perspective would treat with levofloxaicn until 04/05/19 to complete a 2 week course of abx -Monitor CBC and Temps Thank you for this consult. [facility] will continue to follow the patient with you during this hospitalization. Subjective Allergies: Coded Allergies: No Known Allergies (Unverified , 12/01/16) Subjective Afebrile No leukocytosis CT abd - did not show any acute infectious process Objective Vital Signs Last 24 Hour Vital Signs Date Time Temp Pulse Resp B/P (MAP) Pulse Ox O2 Delivery O2 Flow Rate FiO2 03/27/19 09:12 Room Air 03/27/19 08:00 97.8 92 17 128/72 (90) 100 03/27/19 04:00 97.9 64 17 122/80 (94) 98 03/27/19 00:00 97.8 69 17 108/69 (82) 97 03/26/19 20:49 Room Air 03/26/19 20:00 98.2 71 17 112/68 (83) 98 03/26/19 16:00 98.5 70 17 124/72 (89) 98 Height (Feet): 5 Height (Inches): 11.00 Weight (Pounds): 202 Objective Gen: NAD HEENT: NCAT, MMM, EOMI LUNGS: CTAB, No W CARDS: RRR, S1, S2 ABD: Soft, TTP diffusely, ND, No R/G Laboratory Tests Test 03/27/19 05:40 White Blood Count 5.9 K/UL (4.8-10.8) Red Blood Count 3.68 M/UL (4.70-6.10) L Hemoglobin 10.8 G/DL (14.2-18.0) L Hematocrit 33.2 % (42.0-52.0) L Mean Corpuscular Volume 90 FL (80-99) Mean Corpuscular Hemoglobin 29.4 PG (27.0-31.0) Mean Corpuscular Hemoglobin Concent 32.6 G/DL (32.0-36.0) Red Cell Distribution Width 15.4 % (11.6-14.8) H Platelet Count 267 K/UL (150-450) Mean Platelet Volume 6.4 FL (6.5-10.1) L Neutrophils (%) (Auto) % (45.0-75.0) Lymphocytes (%) (Auto) % (20.0-45.0) Monocytes (%) (Auto) % (1.0-10.0) Eosinophils (%) (Auto) % (0.0-3.0) Basophils (%) (Auto) % (0.0-2.0) Differential Total Cells Counted 100 Neutrophils % (Manual) 49 % (45-75) Lymphocytes % (Manual) 42 % (20-45) Monocytes % (Manual) 5 % (1-10) Eosinophils % (Manual) 4 % (0-3) H Basophils % (Manual) 0 % (0-2) Band Neutrophils 0 % (0-8) Platelet Estimate Adequate Platelet Morphology Normal Anisocytosis 1+ Sodium Level 142 MMOL/L (136-145) Potassium Level 4.3 MMOL/L (3.5-5.1) Chloride Level 108 MMOL/L (98-107) H Carbon Dioxide Level 26 MMOL/L (21-32) Anion Gap 8 mmol/L (5-15) Blood Urea Nitrogen 6 mg/dL (7-18) L Creatinine 0.9 MG/DL (0.55-1.30) Estimat Glomerular Filtration Rate > 60 mL/min (>60) Glucose Level 112 MG/DL (74-106) H Calcium Level 8.6 MG/DL (8.5-10.1) Current Medications Medications (Trade) Dose Ordered Sig/Shagufta Route PRN Reason Start Time Stop Time Status Last Admin Dose Admin Acetaminophen (Tylenol) 650 mg Q4H PRN ORAL fever 03/17/19 15:11 04/16/19 15:10 03/22/19 03:46 Cefepime HCl 1 gm/ Dextrose 55 ml @ 110 mls/hr Q12HR@0600,1800 IVPB 03/22/19 18:00 03/29/19 17:59 03/27/19 05:31 Chlordiazepoxide (Librium) 25 mg Q6H PRN ORAL Agitation 03/24/19 18:30 03/31/19 18:29 Dextrose (Dextrose 50%) 25 ml Q30M PRN IV Hypoglycemia 03/17/19 15:15 04/14/19 19:14 Dextrose (Dextrose 50%) 50 ml Q30M PRN IV Hypoglycemia 03/17/19 15:15 04/14/19 19:14 Famotidine (Pepcid) 20 mg BID ORAL 03/17/19 18:00 04/15/19 08:59 03/27/19 09:01 Fluoxetine HCl (PROzac) 20 mg DAILY ORAL 03/19/19 09:00 04/18/19 08:59 03/27/19 09:02 Folic Acid (Folate) 1 mg DAILY ORAL 03/18/19 09:00 04/15/19 08:59 03/27/19 09:02 Folic Acid 1 mg/ Magnesium Sulfate 2000 mg/ Multivitamins 10 ml/Potassium Chloride/Sodium Chloride 1,014.2 ml @ 124.876 mls/hr Q24H IV 03/17/19 22:00 04/14/19 21:59 03/26/19 22:41 Heparin Sodium (Porcine) (Heparin 5000 units/ml) 5,000 units EVERY 12 HOURS SUBQ 03/17/19 21:00 04/14/19 20:59 03/27/19 09:01 Insulin Aspart (NovoLOG) BEFORE MEALS AND HS SUBQ 03/17/19 16:30 04/14/19 20:59 03/27/19 06:40 Lorazepam (Ativan) 2 mg Q6H PRN ORAL For Anxiety 03/24/19 18:30 03/31/19 18:29 Metformin HCl (Glucophage) 500 mg BIAC ORAL 03/19/19 16:30 04/18/19 16:29 03/25/19 16:47 Morphine Sulfate (Morphine Sulfate) 1 mg Q4H PRN IVP For Pain 03/24/19 18:30 03/31/19 18:29 03/27/19 11:36 Thiamine HCl 100 mg/Dextrose 56 ml @ 112 mls/hr Q24H IVPB 03/17/19 22:00 04/14/19 21:59 03/26/19 22:41 Karlo Quevedo MD Mar 27, 2019 12:08
[2019-03-27 16:00] VITALS: BP 118/75
--- NOTE | 2019-03-27 18:06 | Internal Med Progress Note ---
Subjective Date of Service: Mar 27, 2019 Physician Name Sundeep Driver Attending Physician Petey Vences MD Current Medications Medications (Trade) Dose Ordered Sig/Shagufta Route PRN Reason Start Time Stop Time Status Last Admin Dose Admin Acetaminophen (Tylenol) 650 mg Q4H PRN ORAL fever 03/17/19 15:11 04/16/19 15:10 03/22/19 03:46 Cefepime HCl 1 gm/ Dextrose 55 ml @ 110 mls/hr Q12HR@0600,1800 IVPB 03/22/19 18:00 03/29/19 17:59 03/27/19 05:31 Chlordiazepoxide (Librium) 25 mg Q6H PRN ORAL Agitation 03/24/19 18:30 03/31/19 18:29 Dextrose (Dextrose 50%) 25 ml Q30M PRN IV Hypoglycemia 03/17/19 15:15 04/14/19 19:14 Dextrose (Dextrose 50%) 50 ml Q30M PRN IV Hypoglycemia 03/17/19 15:15 04/14/19 19:14 Famotidine (Pepcid) 20 mg BID ORAL 03/17/19 18:00 04/15/19 08:59 03/27/19 09:01 Fluoxetine HCl (PROzac) 20 mg DAILY ORAL 03/19/19 09:00 04/18/19 08:59 03/27/19 09:02 Folic Acid (Folate) 1 mg DAILY ORAL 03/18/19 09:00 04/15/19 08:59 03/27/19 09:02 Folic Acid 1 mg/ Magnesium Sulfate 2000 mg/ Multivitamins 10 ml/Potassium Chloride/Sodium Chloride 1,014.2 ml @ 124.876 mls/hr Q24H IV 03/17/19 22:00 04/14/19 21:59 03/26/19 22:41 Heparin Sodium (Porcine) (Heparin 5000 units/ml) 5,000 units EVERY 12 HOURS SUBQ 03/17/19 21:00 04/14/19 20:59 03/27/19 09:01 Insulin Aspart (NovoLOG) BEFORE MEALS AND HS SUBQ 03/17/19 16:30 04/14/19 20:59 03/27/19 17:39 Lorazepam (Ativan) 2 mg Q6H PRN ORAL For Anxiety 03/24/19 18:30 03/31/19 18:29 Metformin HCl (Glucophage) 500 mg BIAC ORAL 03/19/19 16:30 04/18/19 16:29 03/25/19 16:47 Morphine Sulfate (Morphine Sulfate) 1 mg Q4H PRN IVP For Pain 03/24/19 18:30 03/31/19 18:29 03/27/19 11:36 Thiamine HCl 100 mg/Dextrose 56 ml @ 112 mls/hr Q24H IVPB 03/17/19 22:00 04/14/19 21:59 03/26/19 22:41 Allergies: Coded Allergies: No Known Allergies (Unverified , 12/01/16) ROS Limited/Unobtainable: No Constitutional: Reports: no symptoms HEENT: Reports: no symptoms Cardiovascular: Reports: no symptoms Respiratory: Reports: no symptoms Gastrointestinal/Abdominal: Reports: no symptoms Genitourinary: Reports: no symptoms Neurologic/Psychiatric: Reports: no symptoms Subjective 63 YO M with alcohol dependence admitted with acute alcohol withdrawal symptoms. Now UTI and sepsis. Cover for Int Med-DR Vences. Objective Last Vital Signs Date Time Temp Pulse Resp B/P (MAP) Pulse Ox O2 Delivery O2 Flow Rate FiO2 03/27/19 16:00 97.9 68 19 118/75 (89) 98 03/27/19 09:12 Room Air Laboratory Tests Test 03/27/19 05:40 White Blood Count 5.9 K/UL (4.8-10.8) Red Blood Count 3.68 M/UL (4.70-6.10) L Hemoglobin 10.8 G/DL (14.2-18.0) L Hematocrit 33.2 % (42.0-52.0) L Mean Corpuscular Volume 90 FL (80-99) Mean Corpuscular Hemoglobin 29.4 PG (27.0-31.0) Mean Corpuscular Hemoglobin Concent 32.6 G/DL (32.0-36.0) Red Cell Distribution Width 15.4 % (11.6-14.8) H Platelet Count 267 K/UL (150-450) Mean Platelet Volume 6.4 FL (6.5-10.1) L Neutrophils (%) (Auto) % (45.0-75.0) Lymphocytes (%) (Auto) % (20.0-45.0) Monocytes (%) (Auto) % (1.0-10.0) Eosinophils (%) (Auto) % (0.0-3.0) Basophils (%) (Auto) % (0.0-2.0) Differential Total Cells Counted 100 Neutrophils % (Manual) 49 % (45-75) Lymphocytes % (Manual) 42 % (20-45) Monocytes % (Manual) 5 % (1-10) Eosinophils % (Manual) 4 % (0-3) H Basophils % (Manual) 0 % (0-2) Band Neutrophils 0 % (0-8) Platelet Estimate Adequate Platelet Morphology Normal Anisocytosis 1+ Sodium Level 142 MMOL/L (136-145) Potassium Level 4.3 MMOL/L (3.5-5.1) Chloride Level 108 MMOL/L (98-107) H Carbon Dioxide Level 26 MMOL/L (21-32) Anion Gap 8 mmol/L (5-15) Blood Urea Nitrogen 6 mg/dL (7-18) L Creatinine 0.9 MG/DL (0.55-1.30) Estimat Glomerular Filtration Rate > 60 mL/min (>60) Glucose Level 112 MG/DL (74-106) H Calcium Level 8.6 MG/DL (8.5-10.1) Intake and Output 03/26/19 03/27/19 19:00 07:00 Intake Total 500 ml Output Total 1500 ml 1500 ml Balance -1000 ml -1500 ml Intake Oral 500 ml Output Urine Total 1500 ml 1500 ml # Voids 3 3 Objective Objective GENERAL: Awake and responsive, in no acute distress, shaking. HEAD AND NECK: Pupils are equal and reactive to light. Anicteric. Neck was supple. No JVD. LUNGS: Good air entry. Decrease in air. No wheeze or rhonchi. HEART: S1, S2. Tachycardic. No murmur or gallops. ABDOMEN: Soft, nondistended, and nontender. Mildly obese. EXTREMITIES: No cyanosis, clubbing, or edema. NEUROLOGIC: Cranial nerves II through XII grossly intact. The patient is moving all extremities. The patient is shaking all the extremities. RECTAL/GENITOURINARY: Refused and deferred. PSYCHIATRIC: Mood and affect is anxious. Assessment/Plan Assessment/Plan Assessment/Plan Assessment/Plan ASSESSMENT: 1. Alcoholism with alcohol withdrawal. 2. Tachycardia. 3. History of liver cirrhosis. 4. Hepatitis C positive. 5. Alcoholic hepatitis. 6. Gastritis. 7. Fever 8. UTI=E. Coli and Proteus Mirabilis 9. Sepsis=Enterobacter cloacae and Klebsiella oxytoca PLAN: Follow up with the laboratory. Alcohol withdrawal precaution. IV hydration. Follow up with Ativan as needed for withdrawal. Code status, full code. DVT prophylaxis, heparin subcutaneous. psychiatric consultation Kcl supplements Discahrge planning=homeless; see social work note Sepsis/UTI - continue cefepime per ID=Dr Quevedo Await CT abdomen and pelvis= neg for intraabdominal abscess. D/C on oral levaquin until 04/05/19 (2 week abx) Sundeep Driver MD Mar 27, 2019 18:06
--- NOTE | 2019-03-27 18:56 | NUR ---
NURSE NOTES: Patient resting,requesting pain medication,pain medication given as ordered.Call light within reach,will reasses pain level.
--- NOTE | 2019-03-27 19:23 | NUR ---
HAND-OFF: Report given to Joyce CORADO.
--- NOTE | 2019-03-27 19:34 | NUR ---
NURSE NOTES: Received pt from MAK Estrada. AAO x 3, on room air. Pt resting in bed. IV site intact and patent. No acute distress noted at this time. Able to make needs known. Bed locked, lowest position, alarm on, side rails up, call light within reach. Will continue to monitor.
[2019-03-27 20:00] VITALS: BP 121/76
[2019-03-27] MEDS: Folic Acid 1 MG, Magnesium Sulfate 2,000 MG, Multivitamin - 12 Injection 10 ML in NS w/... IV SCH (21:22)
[2019-03-27] MEDS: Thiamine HCl 100 MG in D5W 55 ML IVPB SCH (21:23)
--- NOTE | 2019-03-27 21:40 | NUR ---
NURSE NOTES: Per morning nurse, Glucophage is holding for 24hrs due to CT with contrast and CT department informed but hold 48 hrs written on eMAR. RN confirmed with pharmacy and said follow what CT department said.
[2019-03-28] VITALS: BP 131/85
[2019-03-28] MEDS: Morphine Sulfate 2mg/ml Inj(IV/IM USE ONLY) IVP PRN ×3 (00:25→12:01)
--- NOTE | 2019-03-28 02:45 | Progress Note ---
DATE: 03/26/2019 SUBJECTIVE: The patient is stable at baseline. No behavior issues noted. The patient was seen yesterday, 03/26/2019. MENTAL STATUS EXAMINATION: The patient is alert and oriented x3. Mood is neutral. Affect is constricted, congruent with mood. Thought process is concrete. Thought content, no suicidal or homicidal ideation. ASSESSMENT: Stable. PLAN: 1. We will continue current medications. 2. Provide the patient with reality orientation and supportive therapy. Kaden Matias M.D. DR: JASON JOB#: [id number] CC:
[2019-03-28 04:00] VITALS: BP 110/59
[2019-03-28] MEDS: Cefepime HCl 1 GM in D5W 55 ML IVPB SCH ×2 (05:36→17:08)
[2019-03-28] MEDS: metFORMIN 500mg tab ORAL SCH ×2 (05:36→16:07)
[2019-03-28] MEDS: NovoLOG Insulin Flexpen SUBQ SCH ×4 (05:41→16:07)
[2019-03-28 06:26] LABS: BASOPHILS % (AUTO) 0.9 % (0.0-2.0); EOSINOPHILS % (AUTO) 1.2 % (0.0-3.0); HEMATOCRIT 34.6 % (42.0-52.0); HEMOGLOBIN 11.2 G/DL (14.2-18.0); LYMPHOCYTES % (AUTO) 34.4 % (20.0-45.0); MEAN CORPUSCULAR VOLUME 91 FL (80-99); MONOCYTES % (AUTO) 5.8 % (1.0-10.0); NEUTROPHILS % (AUTO) 57.7 % (45.0-75.0); PLATELET COUNT 279 K/UL (150-450); RED CELL DISTRIBUTION WIDTH 15.8 % (11.6-14.8); WHITE BLOOD COUNT 5.8 K/UL (4.8-10.8)
[2019-03-28 06:33] LABS: ANION GAP 6 mmol/L (5-15); BLOOD UREA NITROGEN 6 mg/dL (7-18); CALCIUM 8.8 MG/DL (8.5-10.1); CARBON DIOXIDE 29 MMOL/L (21-32); CHLORIDE 109 MMOL/L (98-107); CREATININE 0.9 MG/DL (0.55-1.30); POTASSIUM 4.5 MMOL/L (3.5-5.1); SODIUM 144 MMOL/L (136-145)
--- NOTE | 2019-03-28 07:20 | NUR ---
HAND-OFF: Report given to MAK Villegas.
--- NOTE | 2019-03-28 07:45 | NUR ---
NURSE NOTES: Received patient awake, alert, oriented x3, resting comfortably in bed, no sign of distress,HL patent, on fall precaution, Bed is low and locked, belongings within reach, urinal at the bedside. instructed patient to call for assistance when in need, patient verbalized understanding. will continue to monitor patient condition maulik adhikari
[2019-03-28 08:03] VITALS: BP 105/71
[2019-03-28] MEDS: Heparin 5000 units/ml inj SUBQ SCH (08:44)
--- NOTE | 2019-03-28 11:20 | Infectious Diseases Prog Note ---
Assessment/Plan Assessment/Plan 63 yo male with PMHx of Hep C, Liver cirrhosis and EtOH abuse who was admitted to the [facility] on 03/16/19 for abd pain. Probable urosepsis Urine Cx 03/21/19 - E. coli and Proteus Blood Cx 03/21/19 - 2/[address] abd no acute infectious process Fever No Leukocytosis Hep C Liver cirrhosis Gastritis EtOH abuse PLAN - Continue Cefepime #6 OK to D/C from an ID perspective would treat with levofloxaicn until 04/05/19 to complete a 2 week course of abx -Monitor CBC and Temps Thank you for this consult. [facility] will continue to follow the patient with you during this hospitalization. Subjective Allergies: Coded Allergies: No Known Allergies (Unverified , 12/01/16) Subjective Afebrile No leukocytosis Objective Vital Signs Last 24 Hour Vital Signs Date Time Temp Pulse Resp B/P (MAP) Pulse Ox O2 Delivery O2 Flow Rate FiO2 03/28/19 09:00 Room Air 03/28/19 08:03 98.7 81 16 105/71 (82) 98 03/28/19 04:00 97.9 66 20 110/59 (76) 97 03/28/19 00:00 98.1 85 18 131/85 (100) 98 03/27/19 20:00 98.2 66 15 121/76 (91) 98 03/27/19 19:41 Room Air 03/27/19 16:00 97.9 68 19 118/75 (89) 98 03/27/19 12:00 97.7 74 18 115/77 (90) 94 Height (Feet): 5 Height (Inches): 11.00 Weight (Pounds): 193 Objective Gen: NAD, Satting well HEENT: NCAT, MMM, EOMI LUNGS: CTAB, No W CARDS: RRR, S1, S2 ABD: Soft, TTP diffusely, ND, No R/G Laboratory Tests Test 03/28/19 05:50 White Blood Count 5.8 K/UL (4.8-10.8) Red Blood Count 3.80 M/UL (4.70-6.10) L Hemoglobin 11.2 G/DL (14.2-18.0) L Hematocrit 34.6 % (42.0-52.0) L Mean Corpuscular Volume 91 FL (80-99) Mean Corpuscular Hemoglobin 29.6 PG (27.0-31.0) Mean Corpuscular Hemoglobin Concent 32.4 G/DL (32.0-36.0) Red Cell Distribution Width 15.8 % (11.6-14.8) H Platelet Count 279 K/UL (150-450) Mean Platelet Volume 6.3 FL (6.5-10.1) L Neutrophils (%) (Auto) 57.7 % (45.0-75.0) Lymphocytes (%) (Auto) 34.4 % (20.0-45.0) Monocytes (%) (Auto) 5.8 % (1.0-10.0) Eosinophils (%) (Auto) 1.2 % (0.0-3.0) Basophils (%) (Auto) 0.9 % (0.0-2.0) Sodium Level 144 MMOL/L (136-145) Potassium Level 4.5 MMOL/L (3.5-5.1) Chloride Level 109 MMOL/L (98-107) H Carbon Dioxide Level 29 MMOL/L (21-32) Anion Gap 6 mmol/L (5-15) Blood Urea Nitrogen 6 mg/dL (7-18) L Creatinine 0.9 MG/DL (0.55-1.30) Estimat Glomerular Filtration Rate > 60 mL/min (>60) Glucose Level 111 MG/DL (74-106) H Calcium Level 8.8 MG/DL (8.5-10.1) Current Medications Medications (Trade) Dose Ordered Sig/Shagufta Route PRN Reason Start Time Stop Time Status Last Admin Dose Admin Acetaminophen (Tylenol) 650 mg Q4H PRN ORAL fever 03/17/19 15:11 04/16/19 15:10 03/22/19 03:46 Cefepime HCl 1 gm/ Dextrose 55 ml @ 110 mls/hr Q12HR@0600,1800 IVPB 03/22/19 18:00 03/29/19 17:59 03/28/19 05:36 Chlordiazepoxide (Librium) 25 mg Q6H PRN ORAL Agitation 03/24/19 18:30 03/31/19 18:29 Dextrose (Dextrose 50%) 25 ml Q30M PRN IV Hypoglycemia 03/17/19 15:15 04/14/19 19:14 Dextrose (Dextrose 50%) 50 ml Q30M PRN IV Hypoglycemia 03/17/19 15:15 04/14/19 19:14 Famotidine (Pepcid) 20 mg BID ORAL 03/17/19 18:00 04/15/19 08:59 03/28/19 08:43 Fluoxetine HCl (PROzac) 20 mg DAILY ORAL 03/19/19 09:00 04/18/19 08:59 03/28/19 08:44 Folic Acid (Folate) 1 mg DAILY ORAL 03/18/19 09:00 04/15/19 08:59 03/28/19 08:43 Folic Acid 1 mg/ Magnesium Sulfate 2000 mg/ Multivitamins 10 ml/Potassium Chloride/Sodium Chloride 1,014.2 ml @ 124.876 mls/hr Q24H IV 03/17/19 22:00 04/14/19 21:59 03/27/19 21:22 Heparin Sodium (Porcine) (Heparin 5000 units/ml) 5,000 units EVERY 12 HOURS SUBQ 03/17/19 21:00 04/14/19 20:59 03/28/19 08:44 Insulin Aspart (NovoLOG) BEFORE MEALS AND HS SUBQ 03/17/19 16:30 04/14/19 20:59 03/28/19 05:52 Lorazepam (Ativan) 2 mg Q6H PRN ORAL For Anxiety 03/24/19 18:30 03/31/19 18:29 Metformin HCl (Glucophage) 500 mg BIAC ORAL 03/19/19 16:30 04/18/19 16:29 03/28/19 05:36 Morphine Sulfate (Morphine Sulfate) 1 mg Q4H PRN IVP For Pain 03/24/19 18:30 03/31/19 18:29 03/28/19 05:36 Thiamine HCl 100 mg/Dextrose 56 ml @ 112 mls/hr Q24H IVPB 03/17/19 22:00 04/14/19 21:59 03/27/19 21:23 Karlo Quevedo MD Mar 28, 2019 11:20
--- NOTE | 2019-03-28 11:45 | Internal Med Progress Note ---
Subjective Date of Service: Mar 28, 2019 Physician Name Sundeep Driver Attending Physician Petey Vences MD Current Medications Medications (Trade) Dose Ordered Sig/Shagufta Route PRN Reason Start Time Stop Time Status Last Admin Dose Admin Acetaminophen (Tylenol) 650 mg Q4H PRN ORAL fever 03/17/19 15:11 04/16/19 15:10 03/22/19 03:46 Cefepime HCl 1 gm/ Dextrose 55 ml @ 110 mls/hr Q12HR@0600,1800 IVPB 03/22/19 18:00 03/29/19 17:59 03/28/19 05:36 Chlordiazepoxide (Librium) 25 mg Q6H PRN ORAL Agitation 03/24/19 18:30 03/31/19 18:29 Dextrose (Dextrose 50%) 25 ml Q30M PRN IV Hypoglycemia 03/17/19 15:15 04/14/19 19:14 Dextrose (Dextrose 50%) 50 ml Q30M PRN IV Hypoglycemia 03/17/19 15:15 04/14/19 19:14 Famotidine (Pepcid) 20 mg BID ORAL 03/17/19 18:00 04/15/19 08:59 03/28/19 08:43 Fluoxetine HCl (PROzac) 20 mg DAILY ORAL 03/19/19 09:00 04/18/19 08:59 03/28/19 08:44 Folic Acid (Folate) 1 mg DAILY ORAL 03/18/19 09:00 04/15/19 08:59 03/28/19 08:43 Folic Acid 1 mg/ Magnesium Sulfate 2000 mg/ Multivitamins 10 ml/Potassium Chloride/Sodium Chloride 1,014.2 ml @ 124.876 mls/hr Q24H IV 03/17/19 22:00 04/14/19 21:59 03/27/19 21:22 Heparin Sodium (Porcine) (Heparin 5000 units/ml) 5,000 units EVERY 12 HOURS SUBQ 03/17/19 21:00 04/14/19 20:59 03/28/19 08:44 Insulin Aspart (NovoLOG) BEFORE MEALS AND HS SUBQ 03/17/19 16:30 04/14/19 20:59 03/28/19 05:52 Lorazepam (Ativan) 2 mg Q6H PRN ORAL For Anxiety 03/24/19 18:30 03/31/19 18:29 Metformin HCl (Glucophage) 500 mg BIAC ORAL 03/19/19 16:30 04/18/19 16:29 03/28/19 05:36 Morphine Sulfate (Morphine Sulfate) 1 mg Q4H PRN IVP For Pain 03/24/19 18:30 03/31/19 18:29 03/28/19 05:36 Thiamine HCl 100 mg/Dextrose 56 ml @ 112 mls/hr Q24H IVPB 03/17/19 22:00 04/14/19 21:59 03/27/19 21:23 Allergies: Coded Allergies: No Known Allergies (Unverified , 12/01/16) ROS Limited/Unobtainable: No Constitutional: Reports: no symptoms HEENT: Reports: no symptoms Cardiovascular: Reports: no symptoms Respiratory: Reports: no symptoms Gastrointestinal/Abdominal: Reports: no symptoms Genitourinary: Reports: no symptoms Neurologic/Psychiatric: Reports: no symptoms Subjective 63 YO M with alcohol dependence admitted with acute alcohol withdrawal symptoms. Now UTI and sepsis. Cover for Int Med-DR Vences. Objective Last Vital Signs Date Time Temp Pulse Resp B/P (MAP) Pulse Ox O2 Delivery O2 Flow Rate FiO2 03/28/19 09:00 Room Air 03/28/19 08:03 98.7 81 16 105/71 (82) 98 Laboratory Tests Test 03/28/19 05:50 White Blood Count 5.8 K/UL (4.8-10.8) Red Blood Count 3.80 M/UL (4.70-6.10) L Hemoglobin 11.2 G/DL (14.2-18.0) L Hematocrit 34.6 % (42.0-52.0) L Mean Corpuscular Volume 91 FL (80-99) Mean Corpuscular Hemoglobin 29.6 PG (27.0-31.0) Mean Corpuscular Hemoglobin Concent 32.4 G/DL (32.0-36.0) Red Cell Distribution Width 15.8 % (11.6-14.8) H Platelet Count 279 K/UL (150-450) Mean Platelet Volume 6.3 FL (6.5-10.1) L Neutrophils (%) (Auto) 57.7 % (45.0-75.0) Lymphocytes (%) (Auto) 34.4 % (20.0-45.0) Monocytes (%) (Auto) 5.8 % (1.0-10.0) Eosinophils (%) (Auto) 1.2 % (0.0-3.0) Basophils (%) (Auto) 0.9 % (0.0-2.0) Sodium Level 144 MMOL/L (136-145) Potassium Level 4.5 MMOL/L (3.5-5.1) Chloride Level 109 MMOL/L (98-107) H Carbon Dioxide Level 29 MMOL/L (21-32) Anion Gap 6 mmol/L (5-15) Blood Urea Nitrogen 6 mg/dL (7-18) L Creatinine 0.9 MG/DL (0.55-1.30) Estimat Glomerular Filtration Rate > 60 mL/min (>60) Glucose Level 111 MG/DL (74-106) H Calcium Level 8.8 MG/DL (8.5-10.1) Intake and Output 03/27/19 03/28/19 19:00 07:00 Intake Total 400 ml 1590.008 ml Output Total 550 ml Balance -150 ml 1590.008 ml Intake Oral 400 ml 480 ml IV Total 1110.008 ml Output Urine Total 550 ml # Voids 5 4 Objective Objective GENERAL: Awake and responsive, in no acute distress, shaking. HEAD AND NECK: Pupils are equal and reactive to light. Anicteric. Neck was supple. No JVD. LUNGS: Good air entry. Decrease in air. No wheeze or rhonchi. HEART: S1, S2. Tachycardic. No murmur or gallops. ABDOMEN: Soft, nondistended, and nontender. Mildly obese. EXTREMITIES: No cyanosis, clubbing, or edema. NEUROLOGIC: Cranial nerves II through XII grossly intact. The patient is moving all extremities. The patient is shaking all the extremities. RECTAL/GENITOURINARY: Refused and deferred. PSYCHIATRIC: Mood and affect is anxious. Assessment/Plan Assessment/Plan Assessment/Plan Assessment/Plan ASSESSMENT: 1. Alcoholism with alcohol withdrawal. 2. Tachycardia. 3. History of liver cirrhosis. 4. Hepatitis C positive. 5. Alcoholic hepatitis. 6. Gastritis. 7. Fever 8. UTI=E. Coli and Proteus Mirabilis 9. Sepsis=Enterobacter cloacae and Klebsiella oxytoca PLAN: Follow up with the laboratory. Alcohol withdrawal precaution. IV hydration. Follow up with Ativan as needed for withdrawal. Code status, full code. DVT prophylaxis, heparin subcutaneous. psychiatric consultation Kcl supplements Discahrge planning=homeless; see social work note Sepsis/UTI - continue cefepime per ID=Dr Quevedo Await CT abdomen and pelvis= neg for intraabdominal abscess. D/C on oral levaquin until 04/05/19 (2 week abx) Sundeep Driver MD Mar 28, 2019 11:45
[2019-03-28 11:59] VITALS: BP 139/69
--- NOTE | 2019-03-28 12:05 | NUR ---
RD ASSESSMENT & RECOMMENDATIONS SEE CARE ACTIVITY FOR COMPLETE ASSESSMENT DAILY ESTIMATED NEEDS: Needs based on Liver dz, DM 83kg abw 25-30 kcals/kg 1680-4316 total kcals 1-1.5 g protein/kg 83-124 g total protein 25-30 mL/kg 6662-0873 total fluid mLs NUTRITION DIAGNOSIS: Decreased sodium needs r/t liver dz as evidenced by h/o cirrhosis with elev AST (169 ->121) PO DIET RECOMMENDATIONS: CCHO MED / LOW NA ADDITIONAL RECOMMENDATIONS: 1) Standing wt for accurate CBW 2) Cont w/ folate + thiamine supplementation 3) Monitor lytes, replete as needed 4) Send snacks BID in b/w meals .
[2019-03-28] MEDS ORDERED: GLUCOPHAGE500 MG ORAL (13:15)
[2019-03-28] MEDS ORDERED: FLUOXETINE HCL20 MG ORAL (13:15)
--- NOTE | 2019-03-28 13:18 | Pulmonology Progress Note ---
Assessment/Plan Problems: (1) Alcohol intoxication (2) Anemia (3) Diabetes mellitus (4) Homelessness Assessment/Plan doing betteer pt/ot check electrolytes dvt prophylaxis a room in an assisted living was found for the patient. He said, he wants to think about it. Subjective ROS Limited/Unobtainable: Yes Constitutional: Reports: no symptoms HEENT: Repors: no symptoms Respiratory: Reports: no symptoms Allergies: Coded Allergies: No Known Allergies (Unverified , 12/01/16) Objective Last 24 Hour Vital Signs Date Time Temp Pulse Resp B/P (MAP) Pulse Ox O2 Delivery O2 Flow Rate FiO2 03/28/19 11:59 98.1 78 16 139/69 (92) 97 03/28/19 09:00 Room Air 03/28/19 08:03 98.7 81 16 105/71 (82) 98 03/28/19 04:00 97.9 66 20 110/59 (76) 97 03/28/19 00:00 98.1 85 18 131/85 (100) 98 03/27/19 20:00 98.2 66 15 121/76 (91) 98 03/27/19 19:41 Room Air 03/27/19 16:00 97.9 68 19 118/75 (89) 98 Intake and Output 03/27/19 03/28/19 19:00 07:00 Intake Total 400 ml 1590.008 ml Output Total 550 ml Balance -150 ml 1590.008 ml Intake Oral 400 ml 480 ml IV Total 1110.008 ml Output Urine Total 550 ml # Voids 5 4 Objective General Appearance: WD/WN, no apparent distress Lines, tubes and drains: peripheral HEENT: normocephalic, atraumatic Neck: non-tender, normal alignment Respiratory/Chest: chest wall non-tender, lungs clear Cardiovascular/Chest: normal peripheral pulses, regular rhythm Abdomen: normal bowel sounds, non tender Skin Exam: normal pigmentation Neurologic: clinical appeals auditor II-XII grossly normal Laboratory Tests 03/28/19 05:50: White Blood Count 5.8, Red Blood Count 3.80L, Hemoglobin 11.2L, Hematocrit 34.6L , Mean Corpuscular Volume 91, Mean Corpuscular Hemoglobin 29.6, Mean Corpuscular Hemoglobin Concent 32.4, Red Cell Distribution Width 15.8H, Platelet Count 279, Mean Platelet Volume 6.3L, Neutrophils (%) (Auto) 57.7, Lymphocytes (%) (Auto) 34.4, Monocytes (%) (Auto) 5.8, Eosinophils (%) (Auto) 1.2, Basophils (%) (Auto) 0.9, Sodium Level 144, Potassium Level 4.5, Chloride Level 109H, Carbon Dioxide Level 29, Anion Gap 6, Blood Urea Nitrogen 6L, Creatinine 0.9, Estimat Glomerular Filtration Rate > 60, Glucose Level 111H, Calcium Level 8.8 Current Medications Medications (Trade) Dose Ordered Sig/Shagufta Route PRN Reason Start Time Stop Time Status Last Admin Dose Admin Acetaminophen (Tylenol) 650 mg Q4H PRN ORAL fever 03/17/19 15:11 04/16/19 15:10 03/22/19 03:46 Cefepime HCl 1 gm/ Dextrose 55 ml @ 110 mls/hr Q12HR@0600,1800 IVPB 03/22/19 18:00 03/29/19 17:59 03/28/19 05:36 Chlordiazepoxide (Librium) 25 mg Q6H PRN ORAL Agitation 03/24/19 18:30 03/31/19 18:29 Dextrose (Dextrose 50%) 25 ml Q30M PRN IV Hypoglycemia 03/17/19 15:15 04/14/19 19:14 Dextrose (Dextrose 50%) 50 ml Q30M PRN IV Hypoglycemia 03/17/19 15:15 04/14/19 19:14 Famotidine (Pepcid) 20 mg BID ORAL 03/17/19 18:00 04/15/19 08:59 03/28/19 08:43 Fluoxetine HCl (PROzac) 20 mg DAILY ORAL 03/19/19 09:00 04/18/19 08:59 03/28/19 08:44 Folic Acid (Folate) 1 mg DAILY ORAL 03/18/19 09:00 04/15/19 08:59 03/28/19 08:43 Folic Acid 1 mg/ Magnesium Sulfate 2000 mg/ Multivitamins 10 ml/Potassium Chloride/Sodium Chloride 1,014.2 ml @ 124.876 mls/hr Q24H IV 03/17/19 22:00 04/14/19 21:59 03/27/19 21:22 Heparin Sodium (Porcine) (Heparin 5000 units/ml) 5,000 units EVERY 12 HOURS SUBQ 03/17/19 21:00 04/14/19 20:59 03/28/19 08:44 Insulin Aspart (NovoLOG) BEFORE MEALS AND HS SUBQ 03/17/19 16:30 04/14/19 20:59 03/28/19 05:52 Lorazepam (Ativan) 2 mg Q6H PRN ORAL For Anxiety 03/24/19 18:30 03/31/19 18:29 Metformin HCl (Glucophage) 500 mg BIAC ORAL 03/19/19 16:30 04/18/19 16:29 03/28/19 05:36 Morphine Sulfate (Morphine Sulfate) 1 mg Q4H PRN IVP For Pain 03/24/19 18:30 03/31/19 18:29 03/28/19 12:01 Thiamine HCl 100 mg/Dextrose 56 ml @ 112 mls/hr Q24H IVPB 03/17/19 22:00 04/14/19 21:59 03/27/19 21:23 Odalys Adhikari MD Mar 28, 2019 13:18
[2019-03-28] MEDS ORDERED: LEVOFLOXACIN500 MG ORAL (13:20)
[2019-03-28 15:59] VITALS: BP 143/70
--- NOTE | 2019-03-28 16:07 | NUR ---
DISCHARGE PLANNED: DISCUSSED DISCHARGE WITH PATIENT AND DOCTOR PATIENT IS DISCHARGE TO [facility] [address] [place] [address] T: PLEASE SEND MED LIST WITH PATIENT NURSE TO CALL A CAB
--- NOTE | 2019-03-28 16:25 | NUR ---
DISCHARGE PLANNED: DISCUSSED DISCHARGE WITH PATIENT AND DOCTOR PATIENT IS DISCHARGE TO [facility] [address] [place] [address] T: [facility] TIME 6PM ATTEMPT TO CALL DAUGHTER BUT NO ANSWER PLEASE SEND MED LIST WITH PATIENT Addendum: 03/28/19 at 1628 by IVY LINARES LVN [facility] TIME 5PM
--- NOTE | 2019-03-28 17:19 | NUR ---
NURSE NOTES discharged to [facility] assisted living obtained, patient agreed with the plan of care, tried to call Edith Lopze daughter tel no [phone] but no answering,patient stated daughter is in [place]. waiting for ambulance for transportation zeynep CORADO
--- NOTE | 2019-03-28 19:10 | NUR ---
HAND-OFF: Report given to Ms Hunter RN , resting comfortably in bed no sign of distress maulik adhikari. Addendum: 03/28/19 at 1911 by TODD OLMEDO RN RN HAND-OFF: Report given to Ms Hunter RN , resting comfortably in bed no sign of distress still waiting for ambulance maulik adhikari.
--- NOTE | 2019-03-28 20:07 | NUR ---
NURSE NOTES: Patient discharged to [facility] via gurney. VSS. Patient has no IV. Walker left with patient. Belongings checked and list signed. Patient going to [facility].
--- NOTE | 2019-03-29 11:06 | Discharge Summary ---
Discharge Summary Discharge Summary _ DATE OF ADMISSION: 03/15/2019 DATE OF DISCHARGE: 03/28/2019 DISCHARGED BY: Dr. Vences REASON FOR ADMISSION: 63 years old homeless male with past medical history of hepatitis C, liver cirrhosis, alcohol abuse, gastritis, presented to emergency room complaining of abdominal pain with associated chills and fatigue. Patient was homeless and apparently slept on the street at night while it was raining. Patient reported severe body chills and malaise. Patient reported drinking heavily. He usually drinks 3 pints of hard liquor. He started to have shaking after he stopped drinking , which was typical for him when he stops drinking. He also reported fatigue , epigastric and left-sided upper quadrant pain. No dysuria or urinary frequency. No hemoptysis. No shortness of breath. No chest pain. No melena, no hematochezia. In emergency room patient was tachycardic, blood pressure was elevated 162/92. Laboratory work-up revealed no leukocytosis , stable hemoglobin , hematocrit and platelet count. Urinalysis revealed +2 protein, +1 glucose ,no evidence of urinary tract infection. Influenza swab was negative. Urine toxicology screen was negative. Serum alcohol was 145. Ammonia was within normal range. Potassium 3.4 Glucose 127 AST 169, ALT 97 . Lipase 159 . Troponin negative. EKG revealed sinus tachycardia, no acute ischemic changes. Chest x-ray revealed no acute cardiopulmonary pathology . Patient subsequently admitted for further management. CONSULTANTS: pulmonary Dr. Adhikari ID specialist Dr. Quevedo psychiatrist [facility] COURSE: Patient admitted and started on the IV fluids with folic acid, thiamine, magnesium and multivitamins. Alcohol withdrawal protocol/CIWA protocol implemented. Patient was provided with Librium as needed for anxiety. Ativan was on board as needed as well for anxiety or alcohol induced seizure. Seizure precautions maintained. No seizure activity. GI prophylaxis provided. LFT slowly trended down, still remain elevated. DVT prophylaxis provided. On 03/20 patient developed fevers. ID specialist consulted . Urinalysis repeated and showed evidence of UTI. Urine culture revealed E. coli and Proteus mirabilis . Blood culture revealed Enterobacter and Klebsiella. Repeated blood culture on 03/22 were negative. Patient was on IV antibiotic as per ID specialist recommendation. Fevers resolved. No leukocytosis. ID specialist recommended change antibiotic to oral upon discharge to complete a total course of 2 weeks after first negative blood culture ; end of treatment 04/05/2019. CT scan of the abdomen and pelvis revealed no evidence of acute infectious process. It revealed increased hepatic surface nodularity, indicating progressive cirrhotic changes. Small perigastric and periesophageal varices, indicative of portal hypertension. Borderline splenomegaly. Atrophic pancreas with calcifications, consistent with a calcified pancreatitis , progressive since prior exam. Previously demonstrated pancreatic/peripancreatic cyst was no longer evident, presumably a small pseudocyst which was involuted. Patient noted to have elevated CEA -14.4 and CA-19-9 - 60. Patient was recommended to follow up with GI f as outpatient for further work- up along with treatment for hepatitis C. Patient with evidence of mild anemia ; prior to discharge hemoglobin 11.2 , hematocrit 34.6. Blood sugar was managed with metformin. Sliding scale of insulin was on board as needed. Hemoglobin A1c 7.8. Diabetic diet provided. Patient was counseled on abstinence from ETOH. Pain management was addressed as needed. Patient was working with a physical therapist. Psychiatrist followed. Per psychiatrist , patient had alcohol dependency along with a major depressive disorder. Psychiatric medication regimen was optimized. Reality orientation and supportive therapy provided. No further tremors. No tachycardia. Initial tachycardia was likely due to alcohol withdrawal symptoms. Fevers resolved. Patient clinically stabilized and was stable for discharge. Placement was arranged for transfer to assisted living . FINAL DIAGNOSES: Alcohol intoxication with alcohol withdrawal Alcohol dependency Sepsis with Enterobacter and Klebsiella bacteremia E. coli, Proteus UTI Alcoholic hepatitis Gastritis Hepatitis C Liver cirrhosis Diabetes mellitus Major depressive disorder Tachycardia DISCHARGE MEDICATIONS: See Medication Reconciliation list. DISCHARGE INSTRUCTIONS: Patient was discharged to assisted living. Follow-up with a medical doctor at the facility. I have been assigned to dictate discharge summary for this account. I was not involved in the patient's management. Jaja Cheung NP Mar 29, 2019 11:05
--- NOTE | 2019-04-02 14:48 | Coder Physician Query ---
Clarification is required for compliance, coding accuracy, and to reflect severity of illness for this patient Dear Dr. Vences Date: 04/02/19 Egg Breaker/CDS Name: Danita Patiño CCS Exercise your independent professional judgment when responding to query. Question asked do not imply a particular answer is desired/expected Clinical Documentation States: Admission date: 03/15/19 "Sepsis" documented in ..... On 03/20 patient developed fevers. ID specialist consulted . Urinalysis repeated and showed evidence of UTI. Urine culture revealed E. coli and Proteus mirabilis . Blood culture revealed Enterobacter and Klebsiella. Repeated blood culture on 03/22 were negative. Patient was on IV antibiotic as per ID specialist recommendation. Fevers resolved. No leukocytosis. ID specialist recommended change antibiotic to oral upon discharge to complete a total course of 2 weeks after first negative blood culture ; end of treatment 04/05/2019. WBC lab results: 03/15 10.0 03/16 6.0 03/18 4.6 L 03/19 4.3 L 03/20 5.4 03/21 4.1 L 03/23 4.0 L 03/25 7.1 03/28 5.8 FINAL DIAGNOSES: Alcohol intoxication with alcohol withdrawal Alcohol dependency Sepsis with Enterobacter and Klebsiella bacteremia E. coli, Proteus UTI Was SEPSIS present on admission? [x] Yes [] No [] Clinically undeterminable Petey Vences M.D. Date Please also document in your Progress Notes and/or Discharge Summary and indicate if the condition was present on admission. MTDD
== END 2019-03-28 20:10 | disposition home or self-care (01) | DRG 871 ==
LOC: EDBD 12:15 → EMR 12:50 → 2E 16:58 → EDBEDREQ 19:02 → 2E 21:00 → 4E 03-17 15:07
DX: A41.4 Sepsis due to anaerobes (principal); K85.90 Acute pancreatitis without necrosis or infection, unspecified; F10.239 Alcohol dependence with withdrawal, unspecified; N39.0 Urinary tract infection, site not specified; K70.10 Alcoholic hepatitis without ascites; B96.20 Unspecified Escherichia coli [E. coli] as the cause of diseases classified elsewhere; B96.4 Proteus (mirabilis) (morganii) as the cause of diseases classified elsewhere; B19.20 Unspecified viral hepatitis C without hepatic coma; R00.0 Tachycardia, unspecified; K29.70 Gastritis, unspecified, without bleeding; Z59.0 Homelessness; E11.9 Type 2 diabetes mellitus without complications; F32.9 Major depressive disorder, single episode, unspecified; D64.9 Anemia, unspecified
CPT/HCPCS: 36415; 71045; 74177; 80048; 80053; 80307; 81003; 82140; 82248; 82378; 82962; 83036; 83690; 83735; 84100; 84484; 85007; 85025; 85610; 85651; 85730; 86140; 86710; 87040; 87081; 87086; 87181; 93005; 96361; 96374; 96375; 96376; 99291; G0480; J1815; J7030; J8499